=== PATIENT | female | born 1950 | race Caucasian/White ===

== ENCOUNTER → 2016-07-29 | Outpatient (CLI) | payer MEDICARE, OTHER ==
[~2016-07-29] MED LIST: CHOL200012 PO; CHOL5000 PO; CLON0.1T PO; DICL18CA PO; DICL25TA PO; ESCI10TA PO; GADOBUTROL 7.5 MMOL/7.5 ML (GADAVIST) VIAL IV ONE; MELO7.5T46 PO; NORT25CA PO; PANT40SU PO; PANT40TA3 PO; SULF1TAB35 PO; TOPI25TA10 PO
[2016-07-29 10:42] LABS: BLOOD UREA NITROGEN 23 MG/DL (7-18); BUN/CREATININE RATIO 28; CREATININE SERUM 0.81 MG/DL (0.60-1.30); GFR ESTIMATED > 60
--- NOTE | 2016-07-29 12:15 | Diagnostic Imaging Report ---
PROCEDURE: MR imaging of the brain with and without contrast. TECHNIQUE: Multiplanar, multisequence MR imaging of the brain was performed with and without contrast. INDICATION: Memory loss. 7 mL of Gadovist is administered intravenously. Correlation with CT from 06/12/2015, is reviewed. No prior brain MRIs are available for comparison. FINDINGS: There is no diffusion restriction to suggest an acute infarct or other diffusion abnormality. The brain parenchyma demonstrates minimal T2 hyperintense signal in the periventricular white matter likely related to chronic microvascular ischemic changes. No demyelinating plaque, brain edema, or brain mass seen. There is no hydrocephalus. There is no brain parenchymal mass. There is, however, an enhancing lobulated mass seen in the midline along the floor of the brain at the level of the cathy sherri region. The mass the measures 2.4 cm AP x 1.5 cm transverse x 1.3 cm craniocaudally with the posterior extension appearing to extend along the dura suggestive of a dural tail of a meningioma. This has minimal impression upon the adjacent medial inferior aspect of the frontal lobes without brain edema. The pituitary gland is normal in size. No hypothalamic or pineal region mass. The brainstem and cerebellum appear grossly unremarkable. The inner auditory canals and inner ear structures appear unremarkable. Vascular flow-voids along the central intracranial vessels appear unremarkable. IMPRESSION: There is an enhancing lobulated mass in the midline along the floor of the anterior cranial fossa likely related to a meningioma. Dr. Tiehsa Velez is called and informed about the findings at the 12:30 PM. Report was stat faxed to [phone] @ 12:10 PM/jose. Dictated by: Dictated on workstation # [id number]
== END ==
LOC: RAD 10:08
PROVIDERS: ATTEND Psychiatry & Neurology Neurology
DX: D32.9 Benign neoplasm of meninges, unspecified (principal); R41.3 Other amnesia
CPT/HCPCS: 36415; 70553; 82565; 84520

== ENCOUNTER → 2017-04-17 | Outpatient (CLI) | payer MEDICARE, OTHER ==
[~2017-04-17] MED LIST changes: -GADOBUTROL 7.5 MMOL/7.5 ML (GADAVIST) VIAL IV ONE
--- NOTE | 2017-04-17 12:23 | Diagnostic Imaging Report ---
INDICATION: Fall, leg pain. COMPARISON: None. FINDINGS: Four views of the left tibia-fibula demonstrate no fracture or dislocation. Articular surfaces are age-appropriate. There is a well-seated left knee arthroplasty. No ankle fracture seen. IMPRESSION: No fracture or dislocation. Dictated by: Dictated on workstation # [id number]
== END ==
LOC: RAD 11:17
PROVIDERS: ATTEND Nurse Practitioner Family
DX: M79.605 Pain in left leg (principal); W19.XXXA Unspecified fall, initial encounter
CPT/HCPCS: 73590

== ENCOUNTER 2017-10-10 22:19 | Inpatient (IN) | payer MEDICARE, OTHER ==
[~2017-10-10] VITALS: Ht 167.6 cm; Wt 80.8 kg
[2017-10-10] MEDS ORDERED: NS IV 1000 ML 1,000 ML IV SCH (22:32)
--- NOTE | 2017-10-10 22:36 | ED Fall/Injury ---
General Stated Complaint: FALL Source: patient Exam Limitations: no limitations History of Present Illness Date Seen by Provider: Oct 10, 2017 Time Seen by Provider: 22:29 Initial Comments The patient presents to the ER by EMS with a chief complaint that she was out getting her chickens put up for the night and was not paying attention where she was putting her feet and stumbled over a fine. She landed directly on her left elbow but did not strike her head. She's having pain and swelling in her left elbow she has not taken anything for it. She says she crawled around on the ground because she couldn't get up because of the pain and this upset her greatly. She's also been having diarrhea for the past for 5 days without any blood in it. She went saw her doctor and they did not think much of it. She is not having any pain elsewhere nor she having pain in her head or neck. She did not strike her head nor did she lose consciousness. She is not on blood thinners. Allergies and Home Medications Allergies Coded Allergies: bupropion (Unverified Allergy, Unknown, 08/28/15) citalopram (Unverified Allergy, Unknown, 08/28/15) escitalopram (Unverified Allergy, Unknown, 08/28/15) latex (Unverified Allergy, Unknown, RASH, 08/28/15) midazolam (Verified Allergy, Unknown, 02/23/15) tramadol (Unverified Allergy, Unknown, 08/28/15) Home Medications Cholecalciferol (Vitamin D3) 5,000 Unit Capsule, 5,000 UNIT PO DAILY, (Reported) Clonidine HCl 0.1 Mg Tablet, 0.05 MG PO TID, (Reported) Meloxicam 7.5 Mg Tablet, 7.5 MG PO DAILY Prescribed by: TENZIN CHANDLER on 08/28/151727 Pantoprazole Sodium 40 Mg Tablet.dr, 40 MG PO BID, (Reported) Topiramate 25 Mg Tablet, 2 TAB PO HS Prescribed by: TENZIN CHANDLER on 08/28/151727 Patient Home Medication List Home Medication List Reviewed: Yes Review of Systems Constitutional: No chills, No diaphoresis Eyes: Denies Blindness, Denies Blurred Vision Ears, Nose, Mouth, Throat: denies ear pain, denies ear discharge Respiratory: No cough, No short of breath Cardiovascular: No chest pain, No edema Gastrointestinal: No abdominal pain, No constipation; diarrhea; No nausea, No vomiting Genitourinary: No discharge, No dysuria Musculoskeletal: see HPI, joint pain Past Semuzae-Ajgxoi-Etlncg Hx Patient Social History Alcohol Use: Denies Use Recreational Drug Use: No Smoking Status: Never a Smoker Recent Foreign Travel: No Contact w/Someone Who Travel: No Immunizations Up To Date Date of Pneumonia Vaccine: Mar 10, 2013 Seasonal Allergies Seasonal Allergies: No Past Medical History Hysterectomy, Orthopedic, Thyroidectomy 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 0.0oz. 91.038580lj; 33.5 BMI Method:Estimated General Appearance: WD/WN, mild distress HEENT: PERRL/EOMI, normal ENT inspection, TMs normal, pharynx normal, other ( atraumatic head and neck with no Jamil sign or raccoon eyes.) Neck: non-tender, full range of motion, normal inspection Cardiovascular: normal peripheral pulses, regular rate, rhythm Respiratory: chest non-tender, no respiratory distress, no accessory muscle use Peripheral Pulses: 2+ Radial Pulses (R), 2+ Radial Pulses (L) Gastrointestinal: normal bowel sounds, non tender, soft Back: normal inspection, no vertebral tenderness Extremities: normal capillary refill, other (all other extremities normal range of motion and gait however her left elbow has some swelling, deformity and pain to any movement. She does have full range of motion of all 5 of her fingers with normal sensation and capillary refill less than 2 seconds) Neurologic/Psychiatric: lockstitch collar setter II-XII nml as tested, no motor/sensory deficits, alert, normal mood/affect, oriented x 3 Skin: normal color, warm/dry Gurjit Coma Score Best Eye Response: (4) Open Spontaneously Best Verbal Response: (5) Oriented Best Motor Response: (6) Obeys Commands Gurjit Total: 15 Progress/Results/Core Measures Results/Orders Lab Results Laboratory Tests Test 8/3/18 23:15 10/10/17 23:43 Range/Units White Blood Count 9.3 4.3-11.0 10^3/uL Red Blood Count 3.71 L 4.35-5.85 10^6/uL Hemoglobin 11.3 L 11.5-16.0 G/DL Hematocrit 34 L 35-52 % Mean Corpuscular Volume 92 80-99 FL Mean Corpuscular Hemoglobin 30 25-34 PG Mean Corpuscular Hemoglobin Concent 33 32-36 G/DL Red Cell Distribution Width 12.9 10.0-14.5 % Platelet Count 264 130-400 10^3/uL Mean Platelet Volume 10.5 H 7.4-10.4 FL Neutrophils (%) (Auto) 73 42-75 % Lymphocytes (%) (Auto) 16 12-44 % Monocytes (%) (Auto) 7 0-12 % Eosinophils (%) (Auto) 3 0-10 % Basophils (%) (Auto) 1 0-10 % Neutrophils # (Auto) 6.8 1.8-7.8 X 10^3 Lymphocytes # (Auto) 1.5 1.0-4.0 X 10^3 Monocytes # (Auto) 0.7 0.0-1.0 X 10^3 Eosinophils # (Auto) 0.3 0.0-0.3 10^3/uL Basophils # (Auto) 0.1 0.0-0.1 10^3/uL Sodium Level 142 135-145 MMOL/L Potassium Level 3.3 L 3.6-5.0 MMOL/L Chloride Level 112 H 98-107 MMOL/L Carbon Dioxide Level 23 21-32 MMOL/L Anion Gap 7 5-14 MMOL/L Blood Urea Nitrogen 22 H 7-18 MG/DL Creatinine 0.79 0.60-1.30 MG/DL Estimat Glomerular Filtration Rate > 60 BUN/Creatinine Ratio 28 Glucose Level 117 H 70-105 MG/DL Calcium Level 8.8 8.5-10.1 MG/DL Magnesium Level 2.4 1.8-2.4 MG/DL Total Bilirubin 0.2 0.1-1.0 MG/DL Aspartate Amino Transf (AST/SGOT) 13 5-34 U/L Alanine Aminotransferase (ALT/SGPT) 9 0-55 U/L Alkaline Phosphatase 121 40-136 U/L Total Protein 6.2 L 6.4-8.2 GM/DL Albumin 3.9 3.2-4.5 GM/DL My Orders Orders - KEVIN GOULD Hydrocodone/Apap 5/325 Tablet (Lortab 5 (10/10/17 22:45) Ketorolac Injection (Toradol Injection) (10/10/17 22:45) Cbc With Automated Diff (10/10/17 22:32) Comprehensive Metabolic Panel (10/10/17 22:32) Magnesium (10/10/17 22:32) Elbow, Left, 3 Views (10/10/17 22:32) Saline Lock/Iv-Start (10/10/17 22:32) Ns Iv 1000 Ml (Sodium Chloride 0.9%) (10/10/17 22:32) Ua Culture If Indicated (10/10/17 22:36) Ct Head/Cervical Spine Wo (10/10/17 22:36) Medications Given in ED Current Medications Medications Dose Ordered Sig/Hemal Route Start Time Stop Time Status Last Admin Dose Admin Acetaminophen/ Hydrocodone Bitart 0.25 tab ONCE ONCE PO 10/10/17 22:45 10/10/17 22:46 DC 10/10/17 22:43 0.25 TAB Ketorolac Tromethamine 10 mg ONCE ONCE IVP 10/10/17 22:45 10/10/17 22:46 DC 10/10/17 22:43 10 MG Vital Signs/I&O 10/10/17 10/10/17 22:22 22:22 Temp 99.3 99.3 Pulse 91 91 Resp 20 20 B/P (MAP) 152/83 (106) 152/83 (106) Pulse Ox 97 97 O2 Delivery Room Air Room Air Progress Progress Note #1: Time: 23:27 Progress Note After discussing the risks, benefits and alternatives to the workup we will do a CT scan of her head and neck to rule out an intracranial hemorrhage. We will also give her some Toradol and per her wishes one quarter of a tablet of hydrocodone 5 x 3 25 mg. We'll obtain x-ray of her left elbow and since she's having some diarrhea get a urinalysis and basic labs to make sure she's not got dehydration or other worrisome electrolyte derangements. Progress Note #2: Time: 00:00 Progress Note The patient remarks that Dr. Arevalo is following her for her thyroid neck mass and has done an ultrasound. We'll have her follow up outpatient with Dr. River to compare today's imaging to previous imaging and see if there is any need for change in evaluation. Diagnostic Imaging Diagonstic Imaging: CT Plain Films/CT/US/NM/MRI: c-spine, head Comments No acute intracranial hemorrhages, fractures, subluxation or dislocation. CT head shows mild ethmoid sinus opacities otherwise unremarkable. Cervical spondylosis without evidence of cervical fracture or traumatic subluxation. There is a large 3.5 x 3.7 cm cystic mass in the lower neck associated with lower pole left thyroid lobe. Follow-up is recommended. Reviewed: Reviewed by Me Diagonstic Imaging: Xray Plain Films/CT/US/NM/MRI: elbow (l) Comments Dislocation of the proximal radial head and closed fracture with mild comminution of the proximal neck of the ulna with 45 angulation and mild displacement. Poss type III Monteggia. Reviewed: Reviewed by Me Departure Communication (Admissions) Time/Spoke to Admitting Phy: 23:44 Dr Graham: Orthopedic Surgery agrees the patient will require surgery and he like to do it tomorrow morning around 0 900 and ORIF. He is asked that we would notify the team to have this set up. He would like the patient put into a splint and appropriate pain medicines and admitted under his name. Impression Primary Impression: Elbow fracture, left Qualified Codes: S42.402A - Unspecified fracture of lower end of left humerus , initial encounter for closed fracture Additional Impressions: Radial head dislocation Qualified Codes: S53.005A - Unspecified dislocation of left radial head, initial encounter Thyroid cyst Disposition: ADMITTED INPATIENT Condition: Stable Admissions Decision to Admit Reason: Admit from ER (General) Decision to Admit/Date: Oct 10, 2017 Time/Decision to Admit Time: 23:45 Departure-Patient Inst. Referrals: LIDA RIVER MD (PCP/Family) Primary Care Physician Copy Copies To 1: LIDA RIVER MD, TITUS J Oct 10, 2017 22:36
[2017-10-10] MEDS ORDERED: HYDROcodone/APAP 5 MG/325 MG (LORTAB) TAB PO ONE (22:45)
[2017-10-10] MEDS ORDERED: KETOROLAC 30 MG/ML VIAL IVP ONE (22:45)
[2017-10-10 23:25] LABS: BASOPHILS # (AUTO) 0.1 10^3/uL (0.0-0.1); BASOPHILS % (AUTO) 1 % (0-10); EOSINOPHILS # (AUTO) 0.3 10^3/uL (0.0-0.3); EOSINOPHILS % (AUTO) 3 % (0-10); HEMATOCRIT 34 % (35-52); HEMOGLOBIN 11.3 G/DL (11.5-16.0); LYMPHOCYTES # (AUTO) 1.5 X 10^3 (1.0-4.0); LYMPHOCYTES % (AUTO) 16 % (12-44); MEAN CORPUSCULAR HGB CONC 33 G/DL (32-36); MEAN CORPUSCULAR VOLUME 92 FL (80-99); MEAN PLATELET VOLUME 10.5 FL (7.4-10.4); MONOCYTES # (AUTO) 0.7 X 10^3 (0.0-1.0); MONOCYTES % (AUTO) 7 % (0-12); NEUTROPHILS # (AUTO) 6.8 X 10^3 (1.8-7.8); NEUTROPHILS % (AUTO) 73 % (42-75); PLATELET COUNT 264 10^3/uL (130-400); RED BLOOD COUNT 3.71 10^6/uL (4.35-5.85); RED CELL DISTRIBUTION WIDTH 12.9 % (10.0-14.5); WHITE BLOOD COUNT 9.3 10^3/uL (4.3-11.0)
[2017-10-10 23:28] LABS: MEAN CORPUSCULAR HEMOGLOBIN 30 PG (25-34)
[2017-10-10 23:46] LABS: ALANINE AMINOTRANSFERASE 9 U/L (0-55); ALBUMIN 3.9 GM/DL (3.2-4.5); ALKALINE PHOSPHATASE 121 U/L (40-136); BILIRUBIN,TOTAL 0.2 MG/DL (0.1-1.0); BUN/CREATININE RATIO 28; CALCIUM 8.8 MG/DL (8.5-10.1); CARBON DIOXIDE 23 MMOL/L (21-32); CHLORIDE 112 MMOL/L (98-107); CREATININE SERUM 0.79 MG/DL (0.60-1.30); GFR ESTIMATED > 60; GLUCOSE 117 MG/DL (70-105); MAGNESIUM 2.4 MG/DL (1.8-2.4); POTASSIUM 3.3 MMOL/L (3.6-5.0); SODIUM 142 MMOL/L (135-145); TOTAL PROTEIN 6.2 GM/DL (6.4-8.2)
[2017-10-11] VITALS (7 sets, daily range): BP systolic 122–147; BP diastolic 69–89
[2017-10-11 00:16] LABS: BACTERIA,URINE FEW /HPF; BILIRUBIN,URINE NEGATIVE (NEGATIVE); CLARITY,URINE CLEAR; COLOR,URINE YELLOW; GLUCOSE, URINE (UA) NEGATIVE (NEGATIVE); KETONES,URINE NEGATIVE (NEGATIVE); LEUKOCYTE ESTERASE ,URINE 3+ (NEGATIVE); NITRITE,URINE NEGATIVE (NEGATIVE); PH,URINE 6 (5-9); PROTEIN,URINE NEGATIVE (NEGATIVE); UROBILINOGEN,URINE NORMAL (NORMAL)
[2017-10-11] MEDS ORDERED: LIDOCAINE 2% VISCOUS 15 ML UDC PO ONE (00:30)
[2017-10-11] MEDS ORDERED: FAMOTIDINE 20 MG (PEPCID) TABLET PO STA (00:30)
[2017-10-11] MEDS ORDERED: ANTACID SUSP 30 ML UDC (MYLANTA) PO ONE (00:30)
[2017-10-11] MEDS ORDERED: fentaNYL INJECTION 100 MCG/2 ML AMP IVP ONE (00:30)
[2017-10-11] MEDS ORDERED: toPIRamate 25 MG (TOPAMAX) TAB PO ONE (01:45)
[2017-10-11] MEDS ORDERED: cloNIDine 0.1 MG (CATAPRES) TAB PO ONE (01:45)
[2017-10-11] MEDS ORDERED: fentaNYL INJECTION 100 MCG/2 ML AMP IV PRN ×2 (01:45)
[2017-10-11] MEDS ORDERED: KETOROLAC 15 MG/ML VIAL IV PRN (01:45)
[2017-10-11] MEDS ORDERED: HYDROcodone/APAP 5 MG/325 MG (LORTAB) TAB PO PRN (02:00)
[2017-10-11] MEDS ORDERED: CATHETER FLUSH 10 ML SYR IV PRN (02:00)
[2017-10-11] MEDS ORDERED: ONDANSETRON 4 MG/2 ML (SDV) Z0FRAN IV PRN ×2 (02:00→09:15)
[2017-10-11] MEDS: POTASSIUM CL 10 MEQ/50 ML IVPB (PRE-MIX) IV SCH ×2 (02:11→03:36)
[2017-10-11] MEDS ORDERED: NS (IVPB) 50 ML ONE (02:18)
[2017-10-11] MEDS: CATHETER FLUSH 10 ML SYR IV SCH ×3 (05:14→20:18)
[2017-10-11 06:09] LABS: BASOPHILS % (AUTO) 0 % (0-10); EOSINOPHILS # (AUTO) 0.1 10^3/uL (0.0-0.3); EOSINOPHILS % (AUTO) 1 % (0-10); HEMATOCRIT 32 % (35-52); HEMOGLOBIN 10.5 G/DL (11.5-16.0); LYMPHOCYTES # (AUTO) 1.9 X 10^3 (1.0-4.0); LYMPHOCYTES % (AUTO) 23 % (12-44); MEAN CORPUSCULAR HEMOGLOBIN 31 PG (25-34); MEAN CORPUSCULAR HGB CONC 33 G/DL (32-36); MEAN CORPUSCULAR VOLUME 92 FL (80-99); MEAN PLATELET VOLUME 10.9 FL (7.4-10.4); MONOCYTES # (AUTO) 0.7 X 10^3 (0.0-1.0); MONOCYTES % (AUTO) 9 % (0-12); NEUTROPHILS # (AUTO) 5.5 X 10^3 (1.8-7.8); NEUTROPHILS % (AUTO) 68 % (42-75); PLATELET COUNT 230 10^3/uL (130-400); RED BLOOD COUNT 3.44 10^6/uL (4.35-5.85); RED CELL DISTRIBUTION WIDTH 12.7 % (10.0-14.5); WHITE BLOOD COUNT 8.2 10^3/uL (4.3-11.0)
[2017-10-11 06:28] LABS: BUN/CREATININE RATIO 25; CALCIUM 8.5 MG/DL (8.5-10.1); CARBON DIOXIDE 22 MMOL/L (21-32); CHLORIDE 116 MMOL/L (98-107); CREATININE SERUM 0.65 MG/DL (0.60-1.30); GFR ESTIMATED > 60; GLUCOSE 103 MG/DL (70-105); POTASSIUM 3.7 MMOL/L (3.6-5.0); SODIUM 143 MMOL/L (135-145)
[2017-10-11] MEDS ORDERED: ROCURONIUM 10 MG/ML 5 ML SYRINGE IV ONE (08:03)
[2017-10-11] MEDS ORDERED: ONDANSETRON 4 MG/2 ML (SDV) Z0FRAN ONE (08:03)
[2017-10-11] MEDS ORDERED: proPOfol 200 MG/20 ML (DIPRIVAN) VIAL IV ONE (08:03)
[2017-10-11] MEDS ORDERED: SEVOFLURANE (ULTANE) 15 ML INHAL SOLN ONE ×3 (08:03→10:22)
[2017-10-11] MEDS ORDERED: DEXAMETHASONE 10 MG/ML (DECADRON) 1 ML VIAL ONE (08:03)
[2017-10-11] MEDS ORDERED: MIDAZOLAM 10 MG/2 ML (VERSED) VIAL ONE (08:04)
[2017-10-11] MEDS ORDERED: fentaNYL INJECTION 100 MCG/2 ML AMP ONE ×2 (08:04→09:36)
[2017-10-11] MEDS ORDERED: MIDAZOLAM 2 MG/2 ML (VERSED) VIAL ONE (08:05)
[2017-10-11] MEDS ORDERED: GENTAMICIN 40 MG/ML 2 ML INJ SDV ONE (08:13)
--- NOTE | 2017-10-11 08:27 | Diagnostic Imaging Report ---
INDICATION: Fall with elbow pain. COMPARISON: None available. TECHNIQUE: 3 views of the left elbow were obtained. FINDINGS: There is a transverse fracture of the proximal ulnar diaphysis. The fracture appears simple in nature with dorsal angulation of the proximal fracture fragment tip. There is no medial or lateral displacement of the fracture fragment. No intra-articular extension. The radial head is dislocated inferior and lateral relative to the capitellum. IMPRESSION: 1. Fracture-dislocation of the elbow. Dictated by: Dictated on workstation # [id number]
--- NOTE | 2017-10-11 08:40 | Diagnostic Imaging Report ---
PROCEDURE: CT head and CT cervical spine without contrast. TECHNIQUE: Multiple contiguous axial images were obtained through the brain and cervical spine without the use of intravenous contrast. Sagittal and coronal reformations through the cervical spine were then performed. INDICATION: Fall. Head and neck pain. COMPARISON: CT head of 06/12/2015 FINDINGS: Head: No hyperdense hemorrhage or space-occupying mass. No hydrocephalus or midline shift. No evidence of territorial infarct. Basilar cisterns are patent. No focal scalp swelling. No skull fracture. Patchy mucosal thickening of the ethmoid air cells. Other paranasal sinuses and mastoid air cells are clear. Cervical spine: No acute fracture or traumatic malalignment. Multilevel cervical spondylosis is most advanced at C4-C5 with posterior disc osteophyte complex causing mild spinal stenosis. There are varying degrees of neuroforaminal narrowing due to facet and uncovertebral joint hypertrophy. Airway is patent. No cervical lymphadenopathy. There is a cystic mass in the left thyroid measuring 3.9 x 2.6 cm. IMPRESSION: 1. No acute intracranial process. 2. No acute fracture or traumatic malalignment of the cervical spine. 3. Incidental note of cystic thyroid mass on the left. If not previously performed, thyroid ultrasound is recommended for further characterization on a nonemergent basis. 4. Findings are in agreement with the preliminary report. Dictated by: Dictated on workstation # [id number]
[2017-10-11] MEDS ORDERED: CHOL20002 PO (08:51)
[2017-10-11] MEDS ORDERED: TOPI50TA13 PO (08:51)
[2017-10-11] MEDS ORDERED: CYAN50008 PO (08:53)
[2017-10-11] MEDS ORDERED: SERT50TA9 PO (08:54)
[2017-10-11] MEDS ORDERED: HYDROmorphone 1 MG/ML (DILAUDID) 1 ML SYRINGE ONE (08:59)
--- NOTE | 2017-10-11 09:09 | History & Physicial ---
History of Present Illness History of Present Illness Reason for visit/HPI Chief complaint- left elbow pain HPI- This 67 year old female fell last night feeding her chickens and hurt the left elbow. She was seen in the ER and diagnosed with a displaced ulna fracture and dislocation of the radial head. She denies any other injury. Date of Admission Oct 11, 2017 at 00:00 Date Seen by Provider: Oct 11, 2017 Time Seen by Provider: 09:05 I consulted on this patient on 10/11/17 09:03 Attending Physician Marielle River MD Admitting Physician Marielle River MD Consult Allergies and Home Medications Allergies Coded Allergies: bupropion (Verified Allergy, Unknown, 10/11/17) citalopram (Verified Allergy, Unknown, 10/11/17) escitalopram (Verified Allergy, Unknown, 10/11/17) latex (Verified Allergy, Unknown, RASH, 10/11/17) midazolam (Verified Allergy, Unknown, 10/11/17) tramadol (Verified Allergy, Unknown, 10/11/17) Home Medications Cholecalciferol (Vitamin D3) 2,000 Unit Capsule, 2,000 UNIT PO DAILY, (Reported) Clonidine HCl 0.1 Mg Tablet, 0.05 MG PO TID, (Reported) Cyanocobalamin (Vitamin B-12) 5,000 Mcg Tab.rapdis, 5,000 MCG PO DAILY, ( Reported) Meloxicam 7.5 Mg Tablet, 7.5 MG PO DAILY Prescribed by: TENZIN CHANDLER on 08/28/15 1728 Pantoprazole Sodium 40 Mg Tablet.dr, 40 MG PO BID, (Reported) Sertraline HCl 50 Mg Tablet, 75 MG PO DAILY, (Reported) Topiramate 50 Mg Tablet, 50 MG PO BID, (Reported) Patient Home Medication List Home Medication List Reviewed: Yes Past Xhnuppr-Jtnoxc-Lxyqcl Hx Patient Social History Employed/Student: retired Alcohol Use: Denies Use Recreational Drug Use: No Smoking Status: Never a Smoker 2nd Hand Smoke Exposure: No Physical Abuse Screen: No Sexual Abuse: No Recent Foreign Travel: No Contact w/other who traveled: No Recent Hopitalizations: No Recent Infectious Disease Expo: No Immunizations Up To Date Date of Pneumonia Vaccine: Mar 10, 2013 Seasonal Allergies Seasonal Allergies: No Surgeries Yes Hysterectomy, Orthopedic, Thyroidectomy Respiratory No Cardiovascular No Neurological Yes (TREMORS) Reproductive System Hx 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: No Sexually Transmitted Disease: No HIV/AIDS: No 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 Genitourinary No Gastrointestinal Yes Gastroesophageal Reflux, Hiatal Hernia Musculoskeletal Yes Arthritis Endocrine History of Endocrine Disorders: Yes (SURGICAL THYROIDECTOMY PARTIAL) Endocrine Disorders: Hyperthyroidism HEENT History of HEENT Disorders: No Cancer No Psychosocial History of Psychiatric Problem: Yes Behavioral Health Disorders: Depression Integumentary History of Skin or Integumenta: No Blood Transfusions Adverse Reaction to a Blood Tr: No Family Medical History Significant Family History: No Pertinent Family Hx Family Hx: Abdominal aortic aneurysm 19 FATHER G8 BROTHER Alzheimer's disease 19 MOTHER Cardiovascular disease 19 FATHER 19 MOTHER G8 BROTHER Congenital disease G8 BROTHER Dementia 19 MOTHER Constitutional: no symptoms reported EENTM: no symptoms reported Respiratory: no symptoms reported Cardiovascular: no symptoms reported Gastrointestinal: no symptoms reported Genitourinary: no symptoms reported Physical Exam Vital Signs Vital Signs - First Documented Capillary Refill : Less Than 3 SecondsLess Than 3 Seconds Height, Weight, BMI Height: 5'6.00" Weight: 178lbs. 2.0oz. 80.308329en; 28.8 BMI Method:Estimated General Appearance: No Apparent Distress, WD/WN Eyes: Bilateral Eye Normal Inspection, Bilateral Eye PERRL, Bilateral Eye EOMI HEENT: PERRL/EOMI, Pharynx Normal Neck: Full Range of Motion, Non Tender Respiratory: Chest Non Tender, Lungs Clear Cardiovascular: Regular Rate, Rhythm Gastrointestinal: Normal Bowel Sounds Rectal: Deferred Back: Normal Inspection, No CVA Tenderness, No Vertebral Tenderness Extremity: Normal Capillary Refill, No Pedal Edema, Other (Left elbow swollen and tender but no deformity) Neurologic/Psychiatric: Alert, Oriented x3, No Motor/Sensory Deficits Skin: Normal Color, Warm/Dry Lymphatic: No Adenopathy Assessment/Plan Admission Diagnosis left radiocapitallar dislocation left displaced ulna fracture PLAN-- to the OR for ORIF of the elbow with indicated procedures. Admission Status: Observation Clinical Quality Measures DVT/VTE Risk/Contraindication: Risk Factor Score Per Nursin RFS Level Per Nursing on Admit: 3=High DIANE TEJADA MD Oct 11, 2017 09:09
[2017-10-11] MEDS ORDERED: METOCLOPRAMIDE INJ 10 MG/2 ML (REGLAN) IV PRN (09:15)
[2017-10-11] MEDS ORDERED: ceFAZolin 2 GM IV Premixed 50 ML IV SCH (09:15)
[2017-10-11] MEDS ORDERED: HYDROcodone/APAP 10 MG/325 MG (LORTAB) TAB PO PRN (09:15)
[2017-10-11] MEDS ORDERED: diphenhydrAMINE 25 MG TAB (BENADRYL) PO PRN (09:15)
--- NOTE | 2017-10-11 09:19 | Discharge Inst-Surgical ---
Discharge Inst-Surgical Depart Medication/Instructions New, Converted or Re-Newed RX: RX on Chart Consults/Follow Up Goal/Follow Up Appt.: Follow up with Dr. Graham in 10-[address] in [place], [place] [phone] Patient Instructions: Keep splint and dressing on until appointment Keep splint and dressing dry. Cover with bag to shower Take pain meds as prescribed Activity Activity as Tolerated: No no lifing left arm Activity Instructions: Avoid Pulling & Pushing Elevate Extremity: Elevate Above Heart Driving Instructions: You May Drive No Driving When on Pain Meds: Yes Incentive Spirometry: Every 2 Hours While Awake Avoid ALL Tobacco Products: Smoking of Any Kind Diet Discharge Diet: No Restrictions Diet for 24 Hours: No Alcohol Diet After 24 Hours: Clear Liquid if Nauseous Return to The Hospital For: severe pain not controlled with medications Symptoms to Report to Physicia: Extremity Discoloration, Numbness/Tingling, Swelling Increased, Bleeding Excessive, Pain Increased, Fever Over 101 Degrees F If Any Problems/Questions/Issu: Contact Your Physician Skin/Wound Care Infection Signs and Symptoms: Increased Redness, Foul Odor of Wound, Increased Drainage, Skin Itchy or Has a Rash, Increased Swelling, Temperature Above 101 F Bathing Instructions: Shower Operative Area Clean and Dry: Do Not Remove Bandage, Keep Incision Clean/Dry Ice Pack: Ice On and Off Site DIANE GRAHAM MD Oct 11, 2017 09:19
[2017-10-11] MEDS ORDERED: ceFAZolin 1,000 MG (ANCEF) VIAL ONE (09:20)
[2017-10-11] MEDS ORDERED: NEOSTIGMINE 1 MG/ML 5 ML SYRINGE ONE (09:57)
[2017-10-11] MEDS ORDERED: GLYCOPYRROLATE 0.2 MG/ML (ROBINUL) 2 ML VIAL ONE (09:57)
[2017-10-11] MEDS ORDERED: ceFAZolin 2 GM IV Premixed 50 ML IV ONE (10:00)
[2017-10-11] MEDS ORDERED: LABETALOL HCL 20 MG/4 ML VIAL ONE (10:10)
--- NOTE | 2017-10-11 10:10 | Progress Note-Post Operative ---
Post-Operative Progess Note Surgeon (s)/Personnel Clerk (s) Surgeon DIANE TEJADA MD Personnel Clerk: JOCELYNE CERVANTES PA-C Pre-Operative Diagnosis displaced left ulna shaft fracture. left radiocapitellar dislocation Post-Operative Diagnosis same Procedure & Operative Findings Date of Procedure 10/11/17 Procedure Performed/Findings ORIF left ulna closed reduction left radiocapitelllar joint Anesthesia Type general Estimated Blood Loss Estimated blood loss (mL): 10 ml Specimens/Packing Specimens Removed none Packing: none IDANE TEJADA MD Oct 11, 2017 10:10
--- NOTE | 2017-10-11 11:06 | Diagnostic Imaging Report ---
Indication: ORIF of the left elbow. Impression: 17 seconds of fluoroscopy was used for plate and screw placement across the fracture of the proximal ulna. Images show satisfactory alignment. Dictated by: Dictated on workstation # [id number]
[2017-10-11] MEDS ORDERED: ROPIVACAINE 5MG/ML 30ML VIAL ONE (11:17)
[2017-10-11] MEDS: HYDROmorphone 1 MG/ML (DILAUDID) 1 ML SYRINGE IV PRN ×2 (11:22→11:55)
--- OUTSIDE RECORDS SUMMARY | 2017-10-11 11:43 | XMS REPORT | Clinical Summary ---
Author Author [facility] Organization [facility] Address Unknown Phone Unavailable Care Team Providers Care Rehabilitation Counsellor Name Role Phone Tiesha Velez Unavailable Marielle River MD PCP Source Comments Some departments are not documenting in the electronic medical record. If you do not see the information that you expected, contact Release of Information in the Health Information Management department at [phone] for further assistance in locating additional records.[facility] Allergies Active Allergy Reactions Severity Noted Date Comments Citalopram AGITATION Low 08/16/2015 Escitalopram HALLUCINATIONS, MENTAL High 08/16/2015 STATUS CHANGES Red Dye SEE COMMENTS Low 07/22/2016 increase symptoms of her Torrettes. Tramadol MENTAL STATUS CHANGES Medium 08/16/2015 Midazolam SEE COMMENTS Low 03/11/2015 Memory Loss Bupropion MENTAL STATUS CHANGES Medium 09/12/2015 Current Medications Prescription Sig. Disp. Refills Start End Date Status Date ibuprofen (MOTRIN) 800 mg Take 800 mg by mouth Active tablet every 6 hours as needed for Pain. pantoprazole DR Take 40 mg by mouth Active (PROTONIX) 40 mg tablet daily. ERGOCALCIFEROL (VITAMIN Take by mouth. Active D2) (VITAMIN D PO) HYDROcodone/acetaminophen Take 1 Tab by mouth every Active (+) (LORTAB, NORCO) 6 hours as needed for 10/325 mg tablet Pain meloxicam (MOBIC) 7.5 mg Take 7.5 mg by mouth Active tablet daily. polysaccharide iron Take 150 mg by mouth Active complex (FERREX 150) 150 twice daily. mg iron capsule ALPRAZolam (XANAX) 0.25 Take 1 Tab by mouth twice 15 Tab 3 01/18/20 Active mg tabletIndications: daily as needed for 16 anxiety Anxiety. Indications: ANXIETY SERTRALINE HCL (ZOLOFT Take by mouth daily. Active PO) topiramate (TOPAMAX) 50 Take 1 Tab by mouth twice 180 Tab 3 07/23/19 Active mg tabletIndications: daily. 17 Tourette syndrome cloNIDine (CATAPRESS) 0.1 Take 0.05mg three time a 135 Tab 3 07/23/19 Active mg tabletIndications: day 17 Tourette syndrome Active Problems Problem Noted Date Loss of consciousness (HCC) 06/13/2015 Confusion 06/13/2015 Tourette syndrome 04/04/2015 Anxiety 04/04/2015 Meningioma (HCC) 04/04/2015 Family History Medical History Relation Name Comments COPD Brother Aneurysm Father Hypertension Father Tremor Father Hypertension Maternal Grandfather Hypertension Maternal Grandmother Dementia Mother Hypertension Mother Hypertension Paternal Grandfather Hypertension Paternal Grandmother Stroke Paternal Grandmother Relation Name Status Comments Brother Father Maternal Grandfather Maternal Grandmother Mother Paternal Grandfather Paternal Grandmother Social History Tobacco Use Types Packs/Day Years Used Date Former Smoker Cigarettes Smokeless Tobacco: Never Used Sex Assigned at Date Recorded Not on file Last Filed Vital Signs Vital Sign Reading Time Taken Blood Pressure 130/81 08/08/2016 2:04 PM CDT Pulse 80 08/08/2016 2:04 PM CDT Temperature 36.4 C (97.5 F) 09/12/2015 10:09 AM CDT Respiratory Rate - - Oxygen Saturation 100% 07/22/2016 10:48 AM CDT Inhaled Oxygen - - Concentration Weight 77.1 kg (170 lb) 08/08/2016 2:04 PM CDT Height 166.4 cm (5' 5.52") 07/22/2016 10:48 AM CDT Body Mass Index 27.85 08/08/2016 2:04 PM CDT Plan of Treatment Health Maintenance Due Date Last Done Comments HEPATITIS C SCREENING 1950 PHYSICAL (COMPREHENSIVE) 1957 EXAM PERTUSSIS VACCINE 1961 TETANUS VACCINE 1967 BREAST CANCER SCREENING 1990 COLORECTAL CANCER 01/14/2000 SCREENING SHINGLES RECOMBINANT 01/14/2000 VACCINE (1 of 2) OSTEOPOROSIS SCREENING 2015 PNEUMONIA (PCV13/PPSV23) 2015 VACCINES (1 of 2 - PCV13) INFLUENZA VACCINE 12/08/2017 Results Not on filefrom Last 3 Months
--- OUTSIDE RECORDS SUMMARY | 2017-10-11 11:46 | XMS REPORT | Continuity of Care Document ---
Author Author [facility] Organization [facility] Address Unknown Phone Unavailable Allergies Active Description Code Type Severity Reaction Onset Reported/Identified Relationship to Patient Clinical Status Yes midazolam [id number] Drug Allergy Unknown N/A 02/23/2015 Yes bupropion [id number] Drug Allergy Unknown N/A 08/28/2015 Yes citalopram [id number] Drug Allergy Unknown N/A 08/28/2015 Yes escitalopram [id number] Drug Allergy Unknown N/A 08/28/2015 Yes latex [id number] Drug Allergy Unknown RASH 08/28/2015 Yes tramadol [id number] Drug Allergy Unknown N/A 08/28/2015 Medications There is no data. Problems Date Dx Coded Attending Type Code Diagnosis Diagnosed By 02/07/1332 KEVIN SHANKAR, ZACHARY Amezcua Ot R13.10 01/09/2015 Ot 722.52 01/09/2015 ROBIN SHANKAR, EDWINA Mendez Ot 715.36 02/13/2015 SHRUTI RANDA Drea ASSOCIATE PROFESSOR OF MUSIC Ot M17.11 02/15/2015 CHRISTINACARMELITABRIELLE RANDA Shepard ASSOCIATE PROFESSOR OF MUSIC Ot R53.83 02/17/2015 Ot R53.83 02/23/2015 JOSÉ MANUEL DREW ASSOCIATE PROFESSOR OF MUSIC Ot F98.5 02/23/2015 JOSÉ MANUEL DREW ASSOCIATE PROFESSOR OF MUSIC Ot N39.0 02/23/2015 JOSÉ MANUEL DREW ASSOCIATE PROFESSOR OF MUSIC Ot R25.1 02/27/2015 CHRISTINACARMELITABRIELLE RANDA Shepard ASSOCIATE PROFESSOR OF MUSIC Ot E04.1 02/27/2015 CHRISTINACARMELITABRIELLE RANDA Shepard ASSOCIATE PROFESSOR OF MUSIC Ot R25.1 03/08/2015 CHRISTINACARMELITABRIELLE RANDA Shepard ASSOCIATE PROFESSOR OF MUSIC Ot R53.83 03/17/2015 CHRISTINACARMELITABRIELLE RANDA Shepard ASSOCIATE PROFESSOR OF MUSIC Ot E04.1 03/17/2015 SHRUTI RANDA Shepard ASSOCIATE PROFESSOR OF MUSIC Ot R25.1 04/04/2015 KEVIN SHANKAR, ZACHARY Amezcua Ot R13.10 04/11/2015 RANDA BAHENA ASSOCIATE PROFESSOR OF MUSIC Ot E04.1 04/11/2015 RANDA BAHENA ASSOCIATE PROFESSOR OF MUSIC Ot R25.1 06/05/2015 RANDA BAHENA ASSOCIATE PROFESSOR OF MUSIC Ot M17.11 06/13/2015 PAUL ELLISON MD Ot E04.1 NONTOXIC SINGLE THYROID NODULE 06/13/2015 PAUL ELLISON MD Ot F95.9 TIC DISORDER, UNSPECIFIED 06/13/2015 PAUL ELLISON MD Ot M17.9 OSTEOARTHRITIS OF KNEE, UNSPECIFIED 06/13/2015 PAUL ELLISON MD Ot R41.82 ALTERED MENTAL STATUS, UNSPECIFIED 08/29/2015 BERLIN SHANKAR, LIDA Kline Ot D50.9 IRON DEFICIENCY ANEMIA, UNSPECIFIED 08/31/2015 BERLIN SHANKAR, LIDA A Ot D50.9 IRON DEFICIENCY ANEMIA, UNSPECIFIED 08/31/2015 BERLIN SHANKAR, LIDA A Ot D50.9 IRON DEFICIENCY ANEMIA, UNSPECIFIED 09/04/2015 BERLIN SHANKAR, LIDA A Ot D50.9 IRON DEFICIENCY ANEMIA, UNSPECIFIED 09/07/2015 BERLIN SHANKAR, LIDA A Ot D50.9 IRON DEFICIENCY ANEMIA, UNSPECIFIED 09/12/2015 BERLIN SHANKAR, LIDA A Ot D50.9 IRON DEFICIENCY ANEMIA, UNSPECIFIED 09/12/2015 BERLIN SHANKAR, LIDA A Ot D50.9 IRON DEFICIENCY ANEMIA, UNSPECIFIED 09/12/2015 BERLIN SHANKAR, LIDA A Ot D50.9 IRON DEFICIENCY ANEMIA, UNSPECIFIED 10/20/2015 BERLIN SHANKAR, LIDA A Ot D50.9 IRON DEFICIENCY ANEMIA, UNSPECIFIED 11/26/2015 BERLIN SHANKAR, LIDA A Ot D50.9 IRON DEFICIENCY ANEMIA, UNSPECIFIED 12/26/2015 BRAN GUTIÉRREZ ASSOCIATE PROFESSOR OF MUSIC Ot M54.2 CERVICALGIA 12/26/2015 BRAN GUTIÉRREZ ASSOCIATE PROFESSOR OF MUSIC Ot R20.0 ANESTHESIA OF SKIN 01/16/2016 BRAN GUTIÉRREZ ASSOCIATE PROFESSOR OF MUSIC Ot M54.2 CERVICALGIA 01/16/2016 BRAN GUTIÉRREZ ASSOCIATE PROFESSOR OF MUSIC Ot R20.0 ANESTHESIA OF SKIN 08/21/2016 JUAN SHANKAR, MORENO Ot 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, UNSPECIFIED 08/21/2016 JUAN SHANKAR, MORENO Ot R41.3 OTHER AMNESIA 04/18/2017 BRAN GUTIÉRREZ M ASSOCIATE PROFESSOR OF MUSIC Ot M79.605 PAIN IN LEFT LEG 04/18/2017 BRAN GUTIÉRREZ LACI Ot W19.XXXA UNSPECIFIED FALL, INITIAL ENCOUNTER 05/13/2017 BRAN GUTIÉRREZ LACI Ot M79.605 PAIN IN LEFT LEG 05/13/2017 BRAN GUTIÉRREZ LACI Ot W19.XXXA UNSPECIFIED FALL, INITIAL ENCOUNTER Procedures There is no data. Results Test Result Range [id number] - 07/29/16 10:23 Serum or plasma urea nitrogen measurement (mass/volume) 23 mg/dL 7-18 Serum or plasma creatinine measurement (mass/volume) 0.81 mg/dL 0.60-1.30 Serum or plasma urea nitrogen/creatinine mass ratio 28 NRG Serum or plasma creatinine measurement with calculation of estimated glomerular filtration rate > NRG Encounters ACCT No. Visit Date/Time Discharge Status Pt. Type Provider Facility Loc./Unit Complaint [id number] 04/17/2017 11:17:00 04/17/2017 23:59:59 CLS Outpatient BRAN GUTIÉRREZ APRN [facility] RAD M79.605 [id number] 07/29/2016 10:08:00 07/29/2016 23:59:59 CLS Outpatient JUAN SHANKAR, MORENO [facility] RAD D32.9 [place] [id number] 12/25/2015 14:17:00 12/25/2015 23:59:59 CLS Outpatient BRAN GUTIÉRREZ APRN [facility] RAD NECK PAIN,ARM PAIN/ NUMBNESS [id number] 11/27/2015 00:09:00 11/27/2015 23:59:59 CLS Preadmit LIDA SLADE MD [facility] ANEMIA, IRON DEFICIENCY [id number] 09/12/2015 16:20:00 11/26/2015 00:01:00 DIS Outpatient LIDA SLADE MD [facility] ANEMIA, IRON DEFICIENCY [id number] 06/12/2015 09:40:00 06/13/2015 09:30:00 DIS Inpatient PAUL ELLISON MD [facility] [id number] 03/14/2015 13:05:00 04/04/2015 13:33:00 DIS Outpatient KEVIN SHANKAR, ZACHARY Amezcua [facility] REHAB [id number] 03/14/2015 11:36:00 03/14/2015 23:59:59 CLS Outpatient RANDA BAHENA ASSOCIATE PROFESSOR OF MUSIC [facility] CARD [id number] 02/25/2015 10:04:00 02/25/2015 23:59:59 CLS Outpatient RANDA BAHENA ASSOCIATE PROFESSOR OF MUSIC [facility] LAB [id number] 02/23/2015 10:27:00 02/23/2015 11:55:00 DIS Emergency JOSÉ MANUEL DREW ASSOCIATE PROFESSOR OF MUSIC [facility] ER [id number] 01/24/2015 12:53:00 01/24/2015 23:59:59 CLS Outpatient RANDA BAHENA APRN [facility] CARD [id number] 01/09/2015 09:34:00 01/09/2015 23:59:59 CLS Outpatient RANDA BAHENA ASSOCIATE PROFESSOR OF MUSIC [facility] RAD [id number] 04/30/2013 08:55:00 04/30/2013 23:59:59 CLS Outpatient ROBIN SHANKAR, EDWINA Mendez [facility] RAD [id number] 02/23/2015 10:40:00 Document Registration [id number] 01/26/2015 09:48:00 Document Registration [id number] 03/24/2012 12:28:00 Document Registration [id number] 01/27/2017 23:41:24 01/27/2017 23:59:59 CLS Outpatient [id number] 04/05/2017 11:45:00 04/05/2017 13:20:00 DIS Emergency DIANE VARGAS
--- OUTSIDE RECORDS SUMMARY | 2017-10-11 11:46 | XMS REPORT | CCD ---
Author Author Virginia Shah MD, [facility] Address [address] [place] [address] Phone Care Team Providers Care Punch Out Crew Member Name Role Phone PP Unavailable CCM Unavailable Summary Purpose Interface Exchange Insurance Providers Payer name Policy type / Coverage type Covered alliance party ID Effective Begin Date Effective End Date WPS Medicare Part B Medicare Part B [id number] Unknown Unknown [employer] [place] Medicare Part B [id number] Unknown Unknown Family history Brother Diagnosis Age At Onset Hyperlipidemia Unknown copd Unknown Arthritis Unknown Heart Attack Unknown defect Unknown Mother Diagnosis Age At Onset Dementia Unknown Father Diagnosis Age At Onset brain aneursym Unknown Hypertension Unknown Aneursym Unknown Stroke Unknown Grandmother Diagnosis Age At Onset Stroke Unknown Social History Social History Element Codes Description Effective Dates Marital status Unknown Yves 05/02/2016 Number of children Unknown 2 07/03/2015 Employment Unknown 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 07/03/[address]: 9901381 Quit less than 5 years ago 07/03/[address]: 128644284 Never drinks alcohol 07/03/2015 Allergies, Adverse Reactions, Alerts Allergies, Adverse Reactions, Alerts data not found Past Medical History Illness Codes Condition Status Onset Date Resolved Date Mild cognitive impairment, so stated ICD-9: 331.83 ICD-10: G31.84 Active 01/14/2017 Unknown Vascular dementia without behavioral disturbance ICD-9: 290.40 ICD-10: F01.50 Active 03/27/2017 Unknown Acute laryngopharyngitis ICD-9: 465.0 ICD-10: J06.0 Active 02/24/2017 Unknown Other allergic rhinitis ICD-9: 477.8 ICD-10: J30.89 Active 05/13/2016 Unknown Generalized anxiety disorder ICD-9: 308.0 ICD-10: F41.1 Active 01/21/2016 Unknown Major depressive disorder, single episode, moderate ICD-9: 296.22 ICD-10: F32.1 Active 08/07/2015 Unknown Tourette's disorder ICD-9: 307.23 ICD-10: F95.2 Active 10/01/2015 Unknown Encounter for immunization ICD-9: V04.81 ICD-10: Z23 Active 01/10/2017 Unknown Other chest pain ICD-9 : 786.52 ICD-10: R07.89 Active 09/23/2016 Unknown Other muscle spasm ICD -9: 728.85 ICD-10: M62.838 Active 09/23/2016 Unknown Pain in left shoulder ICD-9: 719.41 ICD-10: M25.512 Active 09/23/2016 Unknown Other hemorrhoids ICD- 9: 455.2 ICD-10: K64.8 Active 06/26/2016 Unknown Slow transit constipation ICD-9: 564.01 ICD-10: K59.01 Active 06/26/2016 Unknown Encounter for general adult medical examination with abnormal findings ICD-9: V70.0 ICD-10: Z00.01 Active 06/07/2016 Unknown Candidiasis of vulva and vagina ICD-9: 112.1 ICD-10: B37.3 Active 06/06/2016 Unknown Cervicalgia ICD-9: 723.1 ICD-10: M54.2 Active 12/24/2015 Unknown Essential (primary) hypertension ICD-9: 401.9 ICD-10: I10 Active 08/16/2015 Unknown Other iron deficiency anemias ICD-9: 280.1 ICD-10: D50.8 Active 10/01/2015 Unknown Rash and other nonspecific skin eruption ICD-9: 782.1 ICD-10: R21 Active 04/16/2016 Unknown Encounter for follow-up examination after completed treatment for conditions other than malignant neoplasm ICD-9: V67.9 ICD-10: Z09 Active 04/05/2016 Unknown Other specified anemias ICD-9: 285.8 ICD-10: D64.89 Active 04/05/2016 Unknown Pain in right knee ICD -9: 719.46 ICD-10: M25.561 Active 02/28/2016 Unknown Dysuria ICD-9: 788.1 ICD-10: R30.0 Active 01/21/2016 Unknown Other fatigue ICD-9: 780.79 ICD-10: R53.83 Active 01/21/2016 Unknown Pain in right foot ICD -9: 729.5 ICD-10: M79.671 Active 12/24/2015 Unknown Iron deficiency anemia, unspecified ICD-9: 280.9 ICD-10: D50.9 Active 08/16/2015 Unknown Pain in left knee ICD- 9: 719.46 ICD-10: M25.562 Active 07/16/2015 Unknown Bilateral primary osteoarthritis of knee ICD-9: 715.96 ICD-10: M17.0 Active 07/02/2015 Unknown Body mass index (BMI) 32.0-32.9, adult ICD-9: V85.32 ICD-10: Z68.32 Active 07/02/2015 Unknown Problems Condition Codes Effective Dates Condition Status Mild cognitive impairment, so stated ICD-9: 331.83 ICD-10: G31.84 01/14/2017 Active Vascular dementia without behavioral disturbance ICD-9: 290.40 ICD-10: F01.50 03/27/2017 Active Acute laryngopharyngitis ICD-9: 465.0 ICD-10: J06.0 02/24/2017 Active Other allergic rhinitis ICD-9: 477.8 ICD-10: J30.89 05/13/2016 Active Generalized anxiety disorder ICD-9: 308.0 ICD-10: F41.1 01/21/2016 Active Major depressive disorder, single episode, moderate ICD-9: 296.22 ICD-10: F32.1 08/07/2015 Active Tourette's disorder ICD-9: 307.23 ICD-10: F95.2 10/01/2015 Active Encounter for immunization ICD-9: V04.81 ICD-10: Z23 01/10/2017 Active Other chest pain ICD-9 : 786.52 ICD-10: R07.89 09/23/2016 Active Other muscle spasm ICD -9: 728.85 ICD-10: M62.838 09/23/2016 Active Pain in left shoulder ICD-9: 719.41 ICD-10: M25.512 09/23/2016 Active Other hemorrhoids ICD- 9: 455.2 ICD-10: K64.8 06/26/2016 Active Slow transit constipation ICD-9: 564.01 ICD-10: K59.01 06/26/2016 Active Encounter for general adult medical examination with abnormal findings ICD-9: V70.0 ICD-10: Z00.01 06/07/2016 Active Candidiasis of vulva and vagina ICD-9: 112.1 ICD-10: B37.3 06/06/2016 Active Cervicalgia ICD-9: 723.1 ICD-10: M54.2 12/24/2015 Active Essential (primary) hypertension ICD-9: 401.9 ICD-10: I10 08/16/2015 Active Other iron deficiency anemias ICD-9: 280.1 ICD-10: D50.8 10/01/2015 Active Rash and other nonspecific skin eruption ICD-9: 782.1 ICD-10: R21 04/16/2016 Active Encounter for follow-up examination after completed treatment for conditions other than malignant neoplasm ICD-9: V67.9 ICD-10: Z09 04/05/2016 Active Other specified anemias ICD-9: 285.8 ICD-10: D64.89 04/05/2016 Active Pain in right knee ICD -9: 719.46 ICD-10: M25.561 02/28/2016 Active Dysuria ICD-9: 788.1 ICD-10: R30.0 01/21/2016 Active Other fatigue ICD-9: 780.79 ICD-10: R53.83 01/21/2016 Active Pain in right foot ICD -9: 729.5 ICD-10: M79.671 12/24/2015 Active Iron deficiency anemia, unspecified ICD-9: 280.9 ICD-10: D50.9 08/16/2015 Active Pain in left knee ICD- 9: 719.46 ICD-10: M25.562 07/16/2015 Active Bilateral primary osteoarthritis of knee ICD-9: 715.96 ICD-10: M17.0 07/02/2015 Active Body mass index (BMI) 32.0-32.9, adult ICD-9: V85.32 ICD-10: Z68.32 07/02/2015 Active Medications Medication Codes Instructions Start Date Stop Date Status Fill Instructions Zithromax Z-Sammy 250 mg tablet RxNorm: 452770 1 Tablet(s) PO UD 02/24/2017 No Stop Date Active pantoprazole 40 mg tablet,delayed release RxNorm: 661186 TAKE 1 TABLET TWICE DAILY 01/14/2017 01/08/2018 Active Zoloft 50 mg tablet RxNorm: 507682 1 Tablet(s) PO daily 201602/12/2017 Inactive Zoloft 25 mg tablet RxNorm: 625282 1 TABLET(S) PO DAILY 201610/03/2017 Active cyclobenzaprine 5 mg tablet RxNorm: 480388 1/2 Tablet(s) PO BID as needed 09/23/2016 09/27/2016 Inactive meloxicam 7.5 mg tablet RxNorm: 504350 TAKE 1 TABLET EVERY DAY FOR PAIN. 07/24/2016 07/18/2017 Active Anusol-HC 25 mg rectal suppository RxNorm: 1196811 1 Suppository RTL BID as needed for pain 06/26/2016 06/28/2016 Inactive Diflucan 150 mg tablet RxNorm: 988654 1 Tablet(s) PO daily 06/10/2016 Inactive Flonase Allergy Relief 50 mcg/actuation nasal spray, suspension RxNorm: 9212999 1 [place] NASAL BID 05/13/20162016 Inactive Zyrtec 10 mg tablet RxNorm: 4661904 1 Tablet(s) PO daily 05/1306/11/2016 Inactive triamcinolone acetonide 0.025 % topical cream RxNorm: 9639342 1 Application TOP BID 04/16/2016 No Stop Date Active Zoloft 25 mg tablet RxNorm: 065367 1 Tablet(s) PO daily 201610/05/2016 Inactive Topamax 25 mg tablet RxNorm: 419218 1 Tablet(s) PO QID 201604/10/2016 Inactive Topamax 25 mg tablet RxNorm: 032957 1 Tablet(s) PO QID 201604/09/2016 Inactive Xanax 0.25 mg tablet RxNorm: 171440 1/2 Tablet(s) PO Q6 as needed anxiety 03/27/2016 06/06/2016 Inactive Lortab 10 mg-325 mg tablet RxNorm: 7538318 1 Tablet(s) PO Q4H as needed pain 03/27/2016 01/09/2017 Inactive Zoloft 50 mg tablet RxNorm: 142197 1 Tablet(s) PO daily 201604/03/2016 Inactive Zoloft 25 mg tablet RxNorm: 559528 1/2 Tablet(s) PO daily 03/24/2016 Inactive Zoloft 25 mg tablet RxNorm: 858644 1 Tablet(s) PO daily 201502/20/2016 Inactive Topamax 25 mg tablet RxNorm: 059888 1 Tablet(s) PO QID 201504/04/2016 Inactive clonidine HCl 0.1 mg tablet RxNorm: 956449 1/2 Tablet(s) PO TID 11/27/2015 11/20/2016 Inactive pantoprazole 40 mg tablet,delayed release RxNorm: 886417 1 Tablet(s) PO BID 11/27/2015 11/20/2016 Inactive meloxicam 7.5 mg tablet RxNorm: 644687 TAKE 1 TABLET EVERY DAY FOR PAIN. 10/11/2015 07/23/2016 Inactive mupirocin 2 % topical ointment RxNorm: 308300 1 Application TOP BID 08/08/2015 01/12/2017 Inactive bupropion HCl 75 mg tablet RxNorm: 239370 1 Tablet(s) PO BID 08/16/2015 Inactive Vitamin B-12 1,000 mcg tablet RxNorm: 859398 1 Tablet(s) PO daily No Start Date Active Topamax 50 mg tablet RxNorm: 037670 1 Tablet(s) PO BID -Dr. Velez is prescribing No Start Date Active Vitamin D3 2,000 unit tablet RxNorm: 233112 1 Tablet(s) PO daily No Start Date Active topiramate 50 mg tablet RxNorm: 900278 1 Tablet(s) PO QHS No Start Date 08/16/2015 Inactive Vitamin D3 5,000 unit tablet RxNorm: 158956 1 Tablet(s) PO daily No Start Date 05/02/2016 Inactive pantoprazole 40 mg tablet,delayed release RxNorm: 517205 1 Tablet(s) PO BID No Start Date 11/26/2015 Inactive Xanax 0.25 mg tablet RxNorm: 381821 1/2 Tablet(s) PO Q6 PRN as needed No Start Date 01/12/2017 Inactive Topamax 25 mg tablet RxNorm: 456987 2 Tablet(s) PO QHS No Start Date 01/21/2016 Inactive topiramate 25 mg tablet RxNorm: 560068 1 Tablet(s) PO PRN as needed in the am No Start Date 01/21/2016 Inactive clonidine HCl 0.1 mg tablet RxNorm: 494361 1/2 Tablet(s) PO TID No Start Date 11/26/2015 Inactive Zoloft 25 mg tablet RxNorm: 727622 1 Tablet(s) PO daily No Start Date 04/08/2016 Inactive meloxicam 7.5 mg tablet RxNorm: 416012 1 Tablet(s) PO daily No Start Date 10/10/2015 Inactive Ferric x-150 150 mg iron capsule RxNorm: 412390 1 Capsule(s) PO daily No Start Date 05/01/2016 Inactive Lortab 10 mg-325 mg tablet RxNorm: 0935032 1 Tablet(s) PO Q4H No Start Date 03/26/2016 Inactive aspirin 325 mg tablet RxNorm: 809218 1 Tablet(s) PO daily No Start Date 01/21/2016 Inactive Celexa 20 mg tablet RxNorm: 375201 1 Tablet(s) PO daily No Start Date 08/07/2015 Inactive Vitamin D2 50,000 unit capsule RxNorm: 492793 1 Capsule(s) PO QW No Start Date 07/03/2015 Inactive Xanax 0.5 mg tablet RxNorm: 246913 1 Tablet(s) PO PRN No Start Date 02/27/2016 Inactive Protonix 40 mg tablet,delayed release RxNorm: 374187 1 Tablet(s) PO daily No Start Date 03/25/2016 Inactive ferrous gluconate 324 mg (37.5 mg iron) tablet RxNorm: 675141 1 Tablet(s) PO BID No Start Date 01/09/2017 Inactive Medication Administered No Medication Administered data Immunizations Vaccine Codes Date Status Influenza CVX: 141 01/10/2017 completed Assessments Condition Codes Effective Dates Vascular dementia without behavioral disturbance ICD-10: F01.50 ICD-9: 290.40 03/27/2017 Acute laryngopharyngitis ICD-10: J06.0 ICD-9: 465.0 02/24/2017 Other allergic rhinitis ICD-10: J30.89 ICD-9: 477.8 02/24/2017 Tourette's disorder ICD-10: F95.2 ICD-9: 307.23 01/28/2017 Generalized anxiety disorder ICD-10: F41.1 ICD-9: 308.0 01/28/2017 Major depressive disorder, single episode, moderate ICD-10: F32.1 ICD-9: 296.22 01/28/2017 Mild cognitive impairment, so stated ICD-10: G31.84 ICD-9: 331.83 01/14/2017 Encounter for immunization ICD-10: Z23 ICD-9: V04.81 01/10/2017 Pain in left shoulder ICD-10: M25.512 ICD-9: 719.41 09/23/2016 Other muscle spasm ICD-10: M62.838 ICD-9: 728.85 09/23/2016 Other chest pain ICD-10: R07.89 ICD-9: 786.52 09/23/2016 Other hemorrhoids ICD-10: K64.8 ICD-9: 455.2 06/26/2016 Slow transit constipation ICD-10: K59.01 ICD-9: 564.01 06/26/2016 Encounter for general adult medical examination with abnormal findings ICD-10: Z00.01 ICD-9: V70.0 06/07/2016 Candidiasis of vulva and vagina ICD-10: B37.3 ICD-9: 112.1 06/06/2016 Cervicalgia ICD-10: M54.2 ICD-9: 723.1 05/02/2016 Other iron deficiency anemias ICD-10: D50.8 ICD-9: 280.1 05/02/2016 Essential (primary) hypertension ICD-10: I10 ICD-9: 401.9 05/02/2016 Rash and other nonspecific skin eruption ICD-10: R21 ICD-9: 782.1 04/16/2016 Encounter for follow-up examination after completed treatment for conditions other than malignant neoplasm ICD-10: Z09 ICD-9: V67.9 04/05/2016 Other specified anemias ICD-10: D64.89 ICD-9: 285.8 04/05/2016 Pain in right knee ICD-10: M25.561 ICD-9: 719.46 02/29/2016 Other fatigue ICD-10: R53.83 ICD-9: 780.79 01/22/2016 Dysuria ICD-10: R30.0 ICD-9: 788.1 01/22/2016 Pain in right foot ICD-10: M79.671 ICD-9: 729.5 12/25/2015 Iron deficiency anemia, unspecified ICD-10: D50.9 ICD-9: 280.9 08/17/2015 Pain in left knee ICD-10: M25.562 ICD-9: 719.46 07/17/2015 Bilateral primary osteoarthritis of knee ICD-10: M17.0 ICD-9: 715.96 07/03/2015 Body mass index (BMI) 32.0-32.9, adult ICD-10: Z68.32 ICD-9: V85.32 07/03/2015 Reason For Visit Reason For Visit Effective Dates Notes abnormal test results 03/27/2017 Dementia Rating Scale cough 02/24/2017 depression 01/28/2017 depression 01/14/2017 vaccination against influenza 01/10/2017 eye pain 10/28/2016 myalgias 09/23/2016 constipation 06/26/2016 Annual Medicare Wellness Exam 06/07/2016 abdominal pain 06/06/2016 sinus congestion 05/13/2016 knee pain 05/02/2016 rash 04/16/2016 Hospital Follow Up 04/05/2016 pre-op/surgery consult 02/29/2016 anxiety 01/22/2016 foot pain 12/25/2015 medication follow up 10/02/2015 skin lesion 08/17/2015 medication follow up 08/08/2015 knee pain 07/17/2015 fatigue 07/03/2015 Results Observation Observation Code Item Item Code Result Date Cbc With Differential Ord2 WBC 6.53 K/ul 01/14/2017 Cbc With Differential Ord2 RBC 3.86 M/ul 01/14/2017 Cbc With Differential Ord2 HGB 11.8 g/dl 01/14/2017 Cbc With Differential Ord2 Neut% 47.0 % 01/14/2017 Cbc With Differential Ord2 HCT 36.4 % 01/14/2017 Cbc With Differential Ord2 MCV 94.3 fl 01/14/2017 Cbc With Differential Ord2 Lymph% 37.4 % 01/14/2017 Cbc With Differential Ord2 MCH 30.6 pg 01/14/2017 Cbc With Differential Ord2 [place]% 9.0 % 01/14/2017 Cbc With Differential Ord2 MCHC 32.4 pg 01/14/2017 Cbc With Differential Ord2 Eos% 5.8 % 01/14/2017 Cbc With Differential Ord2 PLT 277 K/ul 01/14/2017 Cbc With Differential Ord2 Baso% 0.8 % 01/14/2017 Cbc With Differential Ord2 RDW 12.7 % 01/14/2017 Cbc With Differential Ord2 Neut ABS# 3.07 K/ul 01/14/2017 Cbc With Differential Ord2 Lymph ABS# 2.44 K/ul 01/14/2017 Cbc With Differential Ord2 [place] ABS# 0.6 K/ul 01/14/2017 Cbc With Differential Ord2 Eos ABS# 0.4 K/ul 01/14/2017 Cbc With Differential Ord2 Baso ABS# 0.1 K/ul 01/14/2017 Tsh Ord6 hTSH II 2.30 uIU/mL 01/14/2017 Comp Metabolic Nxl611 NA 141 mEq/L 01/14/2017 Comp Metabolic Aqk261 K 4.1 mEq/L 01/14/2017 Comp Metabolic Rra155 CL 110 mEq/L 01/14/2017 Comp Metabolic Vjq831 CO2 24.0 mEq/L 01/14/2017 Comp Metabolic Qpz554 ANION GAP 11 01/14/2017 Comp Metabolic Pry765 GLUCOSE 88 mg/dL 01/14/2017 Comp Metabolic Xsv388 Creat 0.7 mg/dL 01/14/2017 Comp Metabolic Ntq084 eGFR 85 ml/min/1.73m2 01/14/2017 Comp Metabolic Nru507 BUN 23 mg/dL 01/14/2017 Comp Metabolic Pci407 B/C Ratio 31.5 Ratio 01/14/2017 Comp Metabolic Gmv407 CALCIUM 8.8 mg/dL 01/14/2017 Comp Metabolic Yoh828 ALK PHOS 120 U/L 01/14/2017 Comp Metabolic Vsu341 AST(SGOT) 10 U/L 01/14/2017 Comp Metabolic Ami051 ALT(SGPT) 8 U/L 01/14/2017 Comp Metabolic Xdp319 BILI T 0.3 mg/dL 01/14/2017 Comp Metabolic Yje434 ALBUMIN 4.0 g/dL 01/14/2017 Comp Metabolic Dgq027 TPRO 6.3 g/dL 01/14/2017 Comp Metabolic Mzm263 GLOB 2.3 g/dL 01/14/2017 Comp Metabolic Zpc511 A/G Ratio 1.7 Ratio 01/14/2017 Comp Metabolic Nym011 Osmo 284 mOsmo 01/14/2017 Cbc With Differential Ord2 WBC 6.92 K/ul 05/02/2016 Cbc With Differential Ord2 RBC 3.50 M/ul 05/02/2016 Cbc With Differential Ord2 HGB 10.4 g/dl 05/02/2016 Cbc With Differential Ord2 Neut% 56.9 % 05/02/2016 Cbc With Differential Ord2 HCT 33.2 % 05/02/2016 Cbc With Differential Ord2 Lymph% 31.1 % 05/02/2016 Cbc With Differential Ord2 MCV 94.9 fl 05/02/2016 Cbc With Differential Ord2 [place]% 6.8 % 05/02/2016 Cbc With Differential Ord2 MCH 29.7 pg 05/02/2016 Cbc With Differential Ord2 Eos% 4.3 % 05/02/2016 Cbc With Differential Ord2 MCHC 31.3 pg 05/02/2016 Cbc With Differential Ord2 PLT 318 K/ul 05/02/2016 Cbc With Differential Ord2 Baso% 0.9 % 05/02/2016 Cbc With Differential Ord2 RDW 12.8 % 05/02/2016 Cbc With Differential Ord2 Neut ABS# 3.94 K/ul 05/02/2016 Cbc With Differential Ord2 Lymph ABS# 2.15 K/ul 05/02/2016 Cbc With Differential Ord2 [place] ABS# 0.5 K/ul 05/02/2016 Cbc With Differential Ord2 Eos ABS# 0.3 K/ul 05/02/2016 Cbc With Differential Ord2 Baso ABS# 0.1 K/ul 05/02/2016 Comp Metabolic Luj802 NA 136 mEq/L 04/05/2016 Comp Metabolic Goq495 K 4.4 mEq/L 04/05/2016 Comp Metabolic Goi733 CL 106 mEq/L 04/05/2016 Comp Metabolic Suc167 CO2 24.0 mEq/L 04/05/2016 Comp Metabolic Uqg630 ANION GAP 10 04/05/2016 Comp Metabolic Dxd155 GLUCOSE 98 mg/dL 04/05/2016 Comp Metabolic Ewn897 Creat 0.8 mg/dL 04/05/2016 Comp Metabolic Grr380 eGFR 78 ml/min/1.73m2 04/05/2016 Comp Metabolic Tcy977 BUN 19 mg/dL 04/05/2016 Comp Metabolic Arf305 B/C Ratio 24.4 Ratio 04/05/2016 Comp Metabolic Gqu755 CALCIUM 9.4 mg/dL 04/05/2016 Comp Metabolic Tiy832 ALK PHOS 143 U/L 04/05/2016 Comp Metabolic Lbt868 AST(SGOT) 10 U/L 04/05/2016 Comp Metabolic Hez177 ALT(SGPT) 8 U/L 04/05/2016 Comp Metabolic Nvq799 BILI T 0.4 mg/dL 04/05/2016 Comp Metabolic Oaq085 ALBUMIN 4.2 g/dL 04/05/2016 Comp Metabolic Asf379 TPRO 6.7 g/dL 04/05/2016 Comp Metabolic Ajf893 GLOB 2.5 g/dL 04/05/2016 Comp Metabolic Mxq710 A/G Ratio 1.6 Ratio 04/05/2016 Comp Metabolic Awr126 Osmo 274 mOsmo 04/05/2016 Cbc With Differential Ord2 WBC 6.32 K/ul 04/05/2016 Cbc With Differential Ord2 RBC 3.41 M/ul 04/05/2016 Cbc With Differential Ord2 HGB 10.2 g/dl 04/05/2016 Cbc With Differential Ord2 Neut% 58.0 % 04/05/2016 Cbc With Differential Ord2 HCT 32.9 % 04/05/2016 Cbc With Differential Ord2 Lymph% 26.7 % 04/05/2016 Cbc With Differential Ord2 MCV 96.5 fl 04/05/2016 Cbc With Differential Ord2 [place]% 9.8 % 04/05/2016 Cbc With Differential Ord2 MCH 29.9 pg 04/05/2016 Cbc With Differential Ord2 Eos% 4.7 % 04/05/2016 Cbc With Differential Ord2 MCHC 31.0 pg 04/05/2016 Cbc With Differential Ord2 Baso% 0.8 % 04/05/2016 Cbc With Differential Ord2 PLT 500 K/ul 04/05/2016 Cbc With Differential Ord2 RDW 13.6 % 04/05/2016 Cbc With Differential Ord2 Neut ABS# 3.66 K/ul 04/05/2016 Cbc With Differential Ord2 Lymph ABS# 1.69 K/ul 04/05/2016 Cbc With Differential Ord2 [place] ABS# 0.6 K/ul 04/05/2016 Cbc With Differential Ord2 Eos ABS# 0.3 K/ul 04/05/2016 Cbc With Differential Ord2 Baso ABS# 0.1 K/ul 04/05/2016 Urine Culture Ucult Complete NO Growth Day 2 01/24/2016 Urine Culture Ucult Preliminary NO Growth Day 1 01/24/2016 Comp Metabolic Bko943 NA 138 mEq/L 01/22/2016 Comp Metabolic Ouq910 K 4.1 mEq/L 01/22/2016 Comp Metabolic Nik765 CL 107 mEq/L 01/22/2016 Comp Metabolic Yko905 CO2 23.0 mEq/L 01/22/2016 Comp Metabolic Tjb786 ANION GAP 12 01/22/2016 Comp Metabolic Zvu457 GLUCOSE 89 mg/dL 01/22/2016 Comp Metabolic Awg389 Creat 0.7 mg/dL 01/22/2016 Comp Metabolic Ndy629 eGFR 90 ml/min/1.73m2 01/22/2016 Comp Metabolic Jhi500 BUN 15 mg/dL 01/22/2016 Comp Metabolic Usd732 B/C Ratio 21.7 Ratio 01/22/2016 Comp Metabolic Zde537 CALCIUM 8.9 mg/dL 01/22/2016 Comp Metabolic Usa215 ALK PHOS 129 U/L 01/22/2016 Comp Metabolic Rkb590 AST(SGOT) 14 U/L 01/22/2016 Comp Metabolic Dec426 ALT(SGPT) 11 U/L 01/22/2016 Comp Metabolic Htw363 BILI T 0.3 mg/dL 01/22/2016 Comp Metabolic Cud774 ALBUMIN 4.1 g/dL 01/22/2016 Comp Metabolic Wkj103 TPRO 6.4 g/dL 01/22/2016 Comp Metabolic Xgr777 GLOB 2.4 g/dL 01/22/2016 Comp Metabolic Fpv238 A/G Ratio 1.7 Ratio 01/22/2016 Comp Metabolic Zrw274 Osmo 276 mOsmo 01/22/2016 Cbc With Differential Ord2 WBC 7.15 K/ul 01/22/2016 Cbc With Differential Ord2 RBC 4.01 M/ul 01/22/2016 Cbc With Differential Ord2 HGB 12.2 g/dl 01/22/2016 Cbc With Differential Ord2 Neut% 49.4 % 01/22/2016 Cbc With Differential Ord2 HCT 36.9 % 01/22/2016 Cbc With Differential Ord2 Lymph% 35.9 % 01/22/2016 Cbc With Differential Ord2 MCV 92.0 fl 01/22/2016 Cbc With Differential Ord2 [place]% 8.0 % 01/22/2016 Cbc With Differential Ord2 MCH 30.4 pg 01/22/2016 Cbc With Differential Ord2 MCHC 33.1 pg 01/22/2016 Cbc With Differential Ord2 Eos% 6.0 % 01/22/2016 Cbc With Differential Ord2 Baso% 0.7 % 01/22/2016 Cbc With Differential Ord2 PLT 292 K/ul 01/22/2016 Cbc With Differential Ord2 Neut ABS# 3.53 K/ul 01/22/2016 Cbc With Differential Ord2 RDW 13.0 % 01/22/2016 Cbc With Differential Ord2 Lymph ABS# 2.57 K/ul 01/22/2016 Cbc With Differential Ord2 [place] ABS# 0.6 K/ul 01/22/2016 Cbc With Differential Ord2 Eos ABS# 0.4 K/ul 01/22/2016 Cbc With Differential Ord2 Baso ABS# 0.1 K/ul 01/22/2016 Tsh Ord6 hTSH II 3.17 uIU/mL 01/22/2016 Cbc With Differential Ord2 WBC 6.31 K/ul 10/27/2015 Cbc With Differential Ord2 RBC 4.33 M/ul 10/27/2015 Cbc With Differential Ord2 HGB 12.6 g/dl 10/27/2015 Cbc With Differential Ord2 HCT 38.4 % 10/27/2015 Cbc With Differential Ord2 Neut% 44.9 % 10/27/2015 Cbc With Differential Ord2 MCV 88.7 fl 10/27/2015 Cbc With Differential Ord2 Lymph% 39.1 % 10/27/2015 Cbc With Differential Ord2 MCH 29.1 pg 10/27/2015 Cbc With Differential Ord2 [place]% 9.0 % 10/27/2015 Cbc With Differential Ord2 MCHC 32.8 pg 10/27/2015 Cbc With Differential Ord2 Eos% 6.2 % 10/27/2015 Cbc With Differential Ord2 Baso% 0.8 % 10/27/2015 Cbc With Differential Ord2 PLT 265 K/ul 10/27/2015 Cbc With Differential Ord2 Neut ABS# 2.83 K/ul 10/27/2015 Cbc With Differential Ord2 RDW 14.5 % 10/27/2015 Cbc With Differential Ord2 Lymph ABS# 2.47 K/ul 10/27/2015 Cbc With Differential Ord2 [place] ABS# 0.6 K/ul 10/27/2015 Cbc With Differential Ord2 Eos ABS# 0.4 K/ul 10/27/2015 Cbc With Differential Ord2 Baso ABS# 0.1 K/ul 10/27/2015 Cbc With Differential Ord2 WBC 5.76 K/ul 10/03/2015 Cbc With Differential Ord2 RBC 4.27 M/ul 10/03/2015 Cbc With Differential Ord2 HGB 12.4 g/dl 10/03/2015 Cbc With Differential Ord2 HCT 38.1 % 10/03/2015 Cbc With Differential Ord2 Neut% 49.4 % 10/03/2015 Cbc With Differential Ord2 MCV 89.2 fl 10/03/2015 Cbc With Differential Ord2 Lymph% 37.3 % 10/03/2015 Cbc With Differential Ord2 [place]% 7.6 % 10/03/2015 Cbc With Differential Ord2 MCH 29.0 pg 10/03/2015 Cbc With Differential Ord2 MCHC 32.5 pg 10/03/2015 Cbc With Differential Ord2 Eos% 4.0 % 10/03/2015 Cbc With Differential Ord2 Baso% 1.7 % 10/03/2015 Cbc With Differential Ord2 PLT 133 OCC. PLATELET CLUMPS SEEN K/ul 10/03/2015 Cbc With Differential Ord2 Neut ABS# 2.84 K/ul 10/03/2015 Cbc With Differential Ord2 RDW 14.3 % 10/03/2015 Cbc With Differential Ord2 Lymph ABS# 2.15 K/ul 10/03/2015 Cbc With Differential Ord2 [place] ABS# 0.4 K/ul 10/03/2015 Cbc With Differential Ord2 Eos ABS# 0.2 K/ul 10/03/2015 Cbc With Differential Ord2 Baso ABS# 0.1 K/ul 10/03/2015 Ferritin Ord22 FERRITIN 86.0 ng/mL 08/17/2015 Comp Metabolic Jnc545 NA 142 mEq/L 08/17/2015 Comp Metabolic Cjn210 K 4.1 mEq/L 08/17/2015 Comp Metabolic Ujt822 CL 111 mEq/L 08/17/2015 Comp Metabolic Pfj381 CO2 25.0 mEq/L 08/17/2015 Comp Metabolic Cka954 ANION GAP 10 08/17/2015 Comp Metabolic Xgh104 GLUCOSE 99 mg/dL 08/17/2015 Comp Metabolic Cpy630 Creat 0.7 mg/dL 08/17/2015 Comp Metabolic Ylx927 eGFR 92 ml/min/1.73m2 08/17/2015 Comp Metabolic Gdf406 BUN 16 mg/dL 08/17/2015 Comp Metabolic Khn054 B/C Ratio 23.5 Ratio 08/17/2015 Comp Metabolic Hkm128 CALCIUM 8.8 mg/dL 08/17/2015 Comp Metabolic Yoo878 ALK PHOS 115 U/L 08/17/2015 Comp Metabolic Zgs002 AST(SGOT) 10 U/L 08/17/2015 Comp Metabolic Zyq235 ALT(SGPT) 8 U/L 08/17/2015 Comp Metabolic Naw620 BILI T 0.3 mg/dL 08/17/2015 Comp Metabolic Imm113 ALBUMIN 3.7 g/dL 08/17/2015 Comp Metabolic Kub868 TPRO 6.3 g/dL 08/17/2015 Comp Metabolic Icr858 GLOB 2.6 g/dL 08/17/2015 Comp Metabolic Nnf396 A/G Ratio 1.4 Ratio 08/17/2015 Comp Metabolic Dkl498 Osmo 284 mOsmo 08/17/2015 Cbc With Differential Ord2 WBC 5.97 K/ul 08/17/2015 Cbc With Differential Ord2 RBC 3.69 M/ul 08/17/2015 Cbc With Differential Ord2 HGB 10.5 g/dl 08/17/2015 Cbc With Differential Ord2 Neut% 52.0 % 08/17/2015 Cbc With Differential Ord2 HCT 33.6 % 08/17/2015 Cbc With Differential Ord2 MCV 91.1 fl 08/17/2015 Cbc With Differential Ord2 Lymph% 34.8 % 08/17/2015 Cbc With Differential Ord2 [place]% 8.5 % 08/17/2015 Cbc With Differential Ord2 MCH 28.5 pg 08/17/2015 Cbc With Differential Ord2 Eos% 3.9 % 08/17/2015 Cbc With Differential Ord2 MCHC 31.3 pg 08/17/2015 Cbc With Differential Ord2 Baso% 0.8 % 08/17/2015 Cbc With Differential Ord2 PLT 332 K/ul 08/17/2015 Cbc With Differential Ord2 Neut ABS# 3.10 K/ul 08/17/2015 Cbc With Differential Ord2 RDW 13.4 % 08/17/2015 Cbc With Differential Ord2 Lymph ABS# 2.08 K/ul 08/17/2015 Cbc With Differential Ord2 [place] ABS# 0.5 K/ul 08/17/2015 Cbc With Differential Ord2 Eos ABS# 0.2 K/ul 08/17/2015 Cbc With Differential Ord2 Baso ABS# 0.1 K/ul 08/17/2015 Tibc Ord40 Iron 36 ug/dl 08/17/2015 Tibc Ord40 UIBC 233 ug/dL 08/17/2015 Tibc Ord40 TIBC 269 ug/dL 08/17/2015 Tibc Ord40 Fe-%Sat 13.4 % 08/17/2015 Review of Systems System Result Effective Dates Constitutional No recent illness 2017 Constitutional No chills 03/27/2017 Constitutional No diaphoresis 03/27/2017 Constitutional No fever 03/27/2017 Eyes No blindness 03/27/2017 Ears/Nose/Throat/Neck No nasal allergies 03/27/2017 Ears/Nose/Throat/Neck No nasal discharge 03/27/2017 Cardiovascular No chest pain/pressure Cardiovascular No dyspnea 03/27/2017 Respiratory No chest congestion 2017 Respiratory No cough 03/27/2017 Neurologic No alteration of consciousness 03/27/2017 Neurologic No mental status change 2017 Psychiatric anxiety 03/27/2017 Psychiatric depression 03/27/2017 Psychiatric No suicidality 03/27/2017 Constitutional recent illness 02/24/2017 Constitutional chills 02/24/2017 Constitutional No diaphoresis 02/24/2017 Constitutional No fever 02/24/2017 Eyes No eye erythema 02/24/2017 Ears/Nose/Throat/Neck nasal allergies Ears/Nose/Throat/Neck nasal discharge Ears/Nose/Throat/Neck postnasal drip Ears/Nose/Throat/Neck sinus congestion Ears/Nose/Throat/Neck sore throat 2016 Cardiovascular No chest pain/pressure Cardiovascular No dyspnea 02/24/2017 Respiratory No chest congestion 2016 Respiratory cough 02/24/2017 Respiratory No dyspnea 02/24/2017 Gastrointestinal No constipation 2016 Gastrointestinal No diarrhea 02/24/2017 Gastrointestinal No nausea 02/24/2017 Gastrointestinal No vomiting 02/24/2017 Dermatologic No rash 02/24/2017 Neurologic No alteration of consciousness 02/24/2017 Neurologic No mental status change 2016 Respiratory productive sputum 02/24/2017 Constitutional No recent illness 2016 Constitutional No chills 01/28/2017 Constitutional No diaphoresis 01/28/2017 Constitutional No fever 01/28/2017 Eyes No eye erythema 01/28/2017 Ears/Nose/Throat/Neck No nasal allergies 01/28/2017 Ears/Nose/Throat/Neck No nasal discharge 01/28/2017 Cardiovascular No chest pain/pressure Cardiovascular No dyspnea 01/28/2017 Respiratory No chest congestion 2016 Respiratory No cough 01/28/2017 Neurologic No alteration of consciousness 01/28/2017 Neurologic No mental status change 2016 Psychiatric anxiety 01/28/2017 Psychiatric depression 01/28/2017 Psychiatric No suicidality 01/28/2017 Constitutional No recent illness 2016 Constitutional No chills 01/14/2017 Constitutional No diaphoresis 01/14/2017 Constitutional No fever 01/14/2017 Eyes No eye erythema 01/14/2017 Ears/Nose/Throat/Neck No nasal discharge 01/14/2017 Ears/Nose/Throat/Neck No nasal allergies 01/14/2017 Cardiovascular No chest pain/pressure 09/2016 Cardiovascular No dyspnea 01/14/2017 Respiratory No cough 01/14/2017 Respiratory No chest congestion 2016 Neurologic No alteration of consciousness 01/14/2017 Neurologic No mental status change 2016 Psychiatric anxiety 01/14/2017 Psychiatric depression 01/14/2017 Psychiatric No suicidality 01/14/2017 Constitutional No recent illness 2016 Constitutional No anorexia 10/28/2016 Constitutional No night sweats 2016 Constitutional No chills 10/28/2016 Constitutional No diaphoresis 10/28/2016 Constitutional No fatigue 10/28/2016 Constitutional No fever 10/28/2016 Constitutional No insomnia 10/28/2016 Constitutional No malaise 10/28/2016 Constitutional No weight loss 10/28/2016 Constitutional No weight gain 10/28/2016 Eyes eye discharge 10/28/2016 Ears/Nose/Throat/Neck nasal allergies Ears/Nose/Throat/Neck nasal discharge Cardiovascular No chest pain/pressure Respiratory No cough 10/28/2016 Gastrointestinal No abdominal pain 2016 Gastrointestinal No constipation 2016 Gastrointestinal diarrhea 10/28/2016 Genitourinary/Nephrology No dysuria 10/28 Musculoskeletal No joint complaint 2016 Dermatologic No rash 10/28/2016 Dermatologic No sores 10/28/2016 Neurologic No alteration of consciousness 10/28/2016 Constitutional No recent illness 2016 Constitutional No chills 09/23/2016 Constitutional No diaphoresis 09/23/2016 Constitutional No fever 09/23/2016 Eyes No eye erythema 09/23/2016 Ears/Nose/Throat/Neck No nasal discharge 09/23/2016 Ears/Nose/Throat/Neck No nasal allergies 09/23/2016 Cardiovascular No chest pain/pressure Cardiovascular No dyspnea 09/23/2016 Respiratory No cough 09/23/2016 Respiratory No dyspnea 09/23/2016 Gastrointestinal No abdominal pain 2016 Musculoskeletal myalgias 09/23/2016 Dermatologic No rash 09/23/2016 Neurologic No alteration of consciousness 09/23/2016 Neurologic No mental status change 2016 Constitutional No recent illness 2016 Constitutional No chills 06/26/2016 Constitutional No diaphoresis 06/26/2016 Constitutional No fever 06/26/2016 Eyes No eye erythema 06/26/2016 Ears/Nose/Throat/Neck No nasal allergies 06/26/2016 Ears/Nose/Throat/Neck No nasal discharge 06/26/2016 Cardiovascular No chest pain/pressure Respiratory No cough 06/26/2016 Respiratory No dyspnea 06/26/2016 Gastrointestinal constipation 06/26/2016 Gastrointestinal No diarrhea 06/26/2016 Dermatologic No rash 06/26/2016 Neurologic No alteration of consciousness 06/26/2016 Neurologic No mental status change 2016 Constitutional No chills 06/07/2016 Constitutional No diaphoresis 06/07/2016 Constitutional No fever 06/07/2016 Eyes No eye erythema 06/07/2016 Ears/Nose/Throat/Neck No nasal allergies 06/07/2016 Ears/Nose/Throat/Neck No nasal discharge 06/07/2016 Cardiovascular No chest pain/pressure Respiratory No dyspnea 06/07/2016 Neurologic No alteration of consciousness 06/07/2016 Neurologic No mental status change 2016 Respiratory No cough 06/07/2016 Constitutional recent illness 06/06/2016 Constitutional No fever 06/06/2016 Constitutional No chills 06/06/2016 Constitutional No diaphoresis 06/06/2016 Eyes No eye erythema 06/06/2016 Ears/Nose/Throat/Neck No nasal allergies 06/06/2016 Ears/Nose/Throat/Neck No nasal discharge 06/06/2016 Cardiovascular No chest pain/pressure Respiratory No dyspnea 06/06/2016 Respiratory No chest congestion 2016 Gastrointestinal abdominal pain 2016 Gastrointestinal constipation 06/06/2016 Gastrointestinal No diarrhea 06/06/2016 Gastrointestinal No nausea 06/06/2016 Gastrointestinal No vomiting 06/06/2016 Genitourinary/Nephrology dysuria 2016 Neurologic No alteration of consciousness 06/06/2016 Neurologic No mental status change 2016 Constitutional recent illness 05/13/2016 Constitutional No chills 05/13/2016 Constitutional No diaphoresis 05/13/2016 Constitutional No fever 05/13/2016 Eyes No eye erythema 05/13/2016 Ears/Nose/Throat/Neck nasal allergies 08/2016 Ears/Nose/Throat/Neck nasal discharge 08/2016 Ears/Nose/Throat/Neck postnasal drip 08/2016 Ears/Nose/Throat/Neck sinus congestion Ears/Nose/Throat/Neck No sore throat 08/2016 Cardiovascular No chest pain/pressure 08/2016 Cardiovascular No dyspnea 05/13/2016 Respiratory No chest congestion 2016 Respiratory cough 05/13/2016 Respiratory No dyspnea 05/13/2016 Gastrointestinal No abdominal pain 2016 Gastrointestinal No constipation 2016 Gastrointestinal No diarrhea 05/13/2016 Gastrointestinal No nausea 05/13/2016 Gastrointestinal No vomiting 05/13/2016 Dermatologic No rash 05/13/2016 Neurologic No alteration of consciousness 05/13/2016 Neurologic No mental status change 2016 Constitutional No recent illness 2016 Constitutional No chills 05/02/2016 Constitutional No diaphoresis 05/02/2016 Constitutional No fever 05/02/2016 Constitutional No malaise 05/02/2016 Eyes No blindness 05/02/2016 Ears/Nose/Throat/Neck No nasal allergies 05/02/2016 Ears/Nose/Throat/Neck No nasal discharge 05/02/2016 Ears/Nose/Throat/Neck No postnasal drip 05/02/2016 Ears/Nose/Throat/Neck No sinus congestion 05/02/2016 Ears/Nose/Throat/Neck No sore throat Cardiovascular No chest pain/pressure Cardiovascular No dyspnea 05/02/2016 Respiratory No chest congestion 2016 Respiratory No cough 05/02/2016 Gastrointestinal No abdominal pain 2016 Gastrointestinal No constipation 2016 Gastrointestinal No diarrhea 05/02/2016 Genitourinary/Nephrology No dysuria 05/02 Dermatologic scar 05/02/2016 Neurologic speech difficulties 2016 Psychiatric anxiety 05/02/2016 Psychiatric depression 05/02/2016 Psychiatric hallucination 05/02/2016 Musculoskeletal joint complaint 2016 Musculoskeletal neck pain 05/02/2016 Constitutional No recent illness 2016 Constitutional No chills 04/16/2016 Constitutional No diaphoresis 04/16/2016 Constitutional No fever 04/16/2016 Eyes No eye erythema 04/16/2016 Ears/Nose/Throat/Neck No nasal allergies 04/16/2016 Ears/Nose/Throat/Neck No nasal discharge 04/16/2016 Cardiovascular No chest pain/pressure 09/2016 Cardiovascular No dyspnea 04/16/2016 Respiratory No cough 04/16/2016 Respiratory No dyspnea 04/16/2016 Dermatologic rash 04/16/2016 Neurologic No alteration of consciousness 04/16/2016 Neurologic No mental status change 2016 Constitutional No recent illness 2016 Constitutional No chills 04/05/2016 Constitutional No fever 04/05/2016 Eyes No eye erythema 04/05/2016 Ears/Nose/Throat/Neck No nasal discharge 04/05/2016 Cardiovascular No chest pain/pressure Cardiovascular No dyspnea 04/05/2016 Respiratory No cough 04/05/2016 Respiratory No dyspnea 04/05/2016 Musculoskeletal joint complaint 2016 Neurologic No alteration of consciousness 04/05/2016 Neurologic No mental status change 2016 Dermatologic scar 04/05/2016 Constitutional No recent illness 2015 Constitutional No fever 02/29/2016 Constitutional No chills 02/29/2016 Eyes No eye erythema 02/29/2016 Ears/Nose/Throat/Neck No nasal discharge 02/29/2016 Ears/Nose/Throat/Neck No nasal allergies 02/29/2016 Cardiovascular No chest pain/pressure Cardiovascular No dyspnea 02/29/2016 Respiratory No cough 02/29/2016 Respiratory No dyspnea 02/29/2016 Respiratory No chest congestion 2015 Gastrointestinal No abdominal pain 2015 Musculoskeletal joint complaint 2015 Dermatologic No rash 02/29/2016 Neurologic No alteration of consciousness 02/29/2016 Neurologic No mental status change 2015 Neurologic No dizziness 02/29/2016 Cardiovascular No near-syncope/dizziness 02/29/2016 Cardiovascular No syncope 02/29/2016 Constitutional No chills 12/25/2015 Constitutional No diaphoresis 12/25/2015 Constitutional No fever 12/25/2015 Eyes No eye erythema 12/25/2015 Ears/Nose/Throat/Neck No nasal allergies 12/25/2015 Ears/Nose/Throat/Neck No nasal discharge 12/25/2015 Cardiovascular No chest pain/pressure Cardiovascular No dyspnea 12/25/2015 Respiratory No chest congestion 2015 Respiratory No cough 12/25/2015 Gastrointestinal No abdominal pain 2015 Gastrointestinal No diarrhea 12/25/2015 Dermatologic scar 12/25/2015 Psychiatric anxiety 12/25/2015 Psychiatric depression 12/25/2015 Gastrointestinal No constipation 2015 Musculoskeletal neck pain 12/25/2015 Neurologic speech difficulties 2015 Constitutional No recent illness 2015 Constitutional No chills 10/02/2015 Constitutional No diaphoresis 10/02/2015 Constitutional No fever 10/02/2015 Constitutional No malaise 10/02/2015 Eyes No eye erythema 10/02/2015 Ears/Nose/Throat/Neck No nasal allergies 10/02/2015 Ears/Nose/Throat/Neck No nasal discharge 10/02/2015 Cardiovascular No chest pain/pressure Cardiovascular No dyspnea 10/02/2015 Respiratory No chest congestion 2015 Respiratory No cough 10/02/2015 Gastrointestinal No abdominal pain 2015 Gastrointestinal No constipation 2015 Gastrointestinal No diarrhea 10/02/2015 Dermatologic scar 10/02/2015 Neurologic speech difficulties 2015 Psychiatric anxiety 10/02/2015 Psychiatric depression 10/02/2015 Constitutional No recent illness 2015 Constitutional No chills 08/17/2015 Constitutional No diaphoresis 08/17/2015 Constitutional No fever 08/17/2015 Constitutional No malaise 08/17/2015 Eyes No blindness 08/17/2015 Ears/Nose/Throat/Neck No nasal allergies 08/17/2015 Ears/Nose/Throat/Neck No nasal discharge 08/17/2015 Ears/Nose/Throat/Neck No postnasal drip 08/17/2015 Ears/Nose/Throat/Neck No sinus congestion 08/17/2015 Ears/Nose/Throat/Neck No sore throat 11/2015 Cardiovascular No chest pain/pressure 11/2015 Cardiovascular No dyspnea 08/17/2015 Respiratory No chest congestion 2015 Respiratory No cough 08/17/2015 Gastrointestinal No abdominal pain 2015 Gastrointestinal No constipation 2015 Gastrointestinal No diarrhea 08/17/2015 Genitourinary/Nephrology No dysuria 08/16 Dermatologic scar 08/17/2015 Neurologic speech difficulties 2015 Psychiatric anxiety 08/17/2015 Psychiatric depression 08/17/2015 Psychiatric hallucination 08/17/2015 Constitutional No recent illness 2015 Constitutional No chills 08/08/2015 Constitutional No diaphoresis 08/08/2015 Constitutional No fever 08/08/2015 Constitutional No malaise 08/08/2015 Eyes No eye erythema 08/08/2015 Ears/Nose/Throat/Neck No nasal allergies 08/08/2015 Ears/Nose/Throat/Neck No nasal discharge 08/08/2015 Ears/Nose/Throat/Neck No postnasal drip 08/08/2015 Ears/Nose/Throat/Neck No sinus congestion 08/08/2015 Ears/Nose/Throat/Neck No sore throat Cardiovascular No chest pain/pressure Cardiovascular No dyspnea 08/08/2015 Respiratory No chest congestion 2015 Respiratory No cough 08/08/2015 Gastrointestinal No abdominal pain 2015 Gastrointestinal No constipation 2015 Genitourinary/Nephrology No dysuria 08/07 Gastrointestinal No diarrhea 08/08/2015 Dermatologic scar 08/08/2015 Neurologic speech difficulties 2015 Psychiatric hallucination 08/08/2015 Psychiatric anxiety 08/08/2015 Psychiatric depression 08/08/2015 Constitutional No recent illness 2015 Constitutional No chills 07/17/2015 Constitutional No diaphoresis 07/17/2015 Constitutional No fever 07/17/2015 Eyes No eye erythema 07/17/2015 Ears/Nose/Throat/Neck No nasal allergies 07/17/2015 Ears/Nose/Throat/Neck No nasal discharge 07/17/2015 Ears/Nose/Throat/Neck No postnasal drip 07/17/2015 Ears/Nose/Throat/Neck No sinus congestion 07/17/2015 Ears/Nose/Throat/Neck No sore throat 11/2015 Cardiovascular No chest pain/pressure 11/2015 Cardiovascular No dyspnea 07/17/2015 Respiratory No chest congestion 2015 Respiratory No cough 07/17/2015 Gastrointestinal No constipation 2015 Gastrointestinal No diarrhea 07/17/2015 Genitourinary/Nephrology No dysuria 07/16 Dermatologic scar 07/17/2015 Neurologic speech difficulties 2015 Psychiatric anxiety 07/17/2015 Psychiatric depression 07/17/2015 Respiratory No dyspnea 07/17/2015 Gastrointestinal No vomiting 07/17/2015 Gastrointestinal No nausea 07/17/2015 Musculoskeletal joint complaint 2015 Constitutional No fever 07/03/2015 Constitutional No diaphoresis 07/03/2015 Constitutional No chills 07/03/2015 Constitutional No recent illness 2015 Constitutional No malaise 07/03/2015 Eyes No eye erythema 07/03/2015 Ears/Nose/Throat/Neck nasal allergies Ears/Nose/Throat/Neck nasal discharge Ears/Nose/Throat/Neck postnasal drip Ears/Nose/Throat/Neck No sinus congestion 07/03/2015 Ears/Nose/Throat/Neck No sore throat Cardiovascular No chest pain/pressure Cardiovascular No dyspnea 07/03/2015 Respiratory No cough 07/03/2015 Respiratory No chest congestion 2015 Gastrointestinal No abdominal pain 2015 Gastrointestinal gastroesophageal reflux 07/03/2015 Gastrointestinal No constipation 2015 Gastrointestinal diarrhea 07/03/2015 Genitourinary/Nephrology No dysuria 07/02 Musculoskeletal stiffness 07/03/2015 Dermatologic No rash 07/03/2015 Neurologic No alteration of consciousness 07/03/2015 Physical Exam Exam Name System Name Item Name Status Result Effective Dates Notes Full Exam - General 1994 Constitutional general appearance Overall: well developed 03/27/2017 None Full Exam - General 1994 Constitutional general appearance Overall: in no acute distress 03/27/2017 None Full Exam - General 1994 Constitutional general appearance Overall: well nourished 03/27/2017 None Full Exam - General 1994 Eyes conjunctiva /eyelids Overall: conjunctiva clear 03/27/2017 None Full Exam - General 1994 Eyes conjunctiva /eyelids Overall: cornea clear 03/27/2017 None Full Exam - General 1994 Eyes conjunctiva /eyelids Overall: eyelids normal 03/27/2017 None Full Exam - General 1994 Eyes pupils and irises Overall: pupils equal, round, reactive to light and accomodation 03/27/2017 None Full Exam - General 1994 Ears/Nose/Throat lips/teeth/gingiva Overall: benign lips 03/27/2017 None Full Exam - General 1994 Ears/Nose/Throat oral cavity/pharynx/larynx Overall: oral mucosa clear 03/27/2017 None Full Exam - General 1994 Respiratory auscultation Overall: breath sounds clear bilaterally 03/27/2017 None Full Exam - General 1994 Respiratory respiratory effort/rhythm Overall: no retractions 03/27/2017 None Full Exam - General 1994 Respiratory respiratory effort/rhythm Overall: normal rate 03/27/2017 None Full Exam - General 1994 Cardiovascular auscultation of heart Overall: regular rate 03/27/2017 None Full Exam - General 1994 Cardiovascular auscultation of heart Overall: normal heart sounds 03/27/2017 None Full Exam - General 1994 Musculoskeletal gait and station Overall: normal gait 03/27/2017 None Full Exam - General 1994 Musculoskeletal gait and station Overall: normal station 03/27/2017 None Full Exam - General 1994 Musculoskeletal head and neck Overall: head atraumatic 03/27/2017 None Full Exam - General 1994 Neurologic cranial nerves Overall: crainial nerves 2 - 12 grossly intact 03/27/2017 None Full Exam - General 1994 Psychiatric orientation/consciousness Overall: oriented to person, place and time 03/27/2017 None Full Exam - General 1994 Psychiatric mood and affect Mood: flat 03/27/2017 None Full Exam - General 1994 Psychiatric mood and affect Affect: mood congruent 03/27/2017 None Full Exam - General 1994 Psychiatric appearance Overall: well-groomed, good eye contact 03/27/2017 None Full Exam - General 1994 Psychiatric speech Overall: normal quality, no aphasia 03/27/2017 None Full Exam - General 1994 Psychiatric speech Overall: normal quality, quantity, rate 03/27/2017 None Full Exam - General 1994 Psychiatric thought Overall: normal form and content 03/27/2017 None Full Exam - General 1994 Psychiatric cognition/memory Overall: immediate, recent, remote memory intact 03/27/2017 None Full Exam - General 1994 Psychiatric cognition/memory Overall: normal concentration, intelligence 03/27/2017 None Full Exam - ENT Constitutional general appearance Overall: well nourished 02/24/2017 None Full Exam - ENT Constitutional general appearance Overall: well developed 02/24/2017 None Full Exam - ENT Constitutional general appearance Overall: in no acute distress 02/24/2017 None Full Exam - ENT Ears/Nose/Throat otoscopic exam Overall: external auditory canals normal 02/24/2017 None Full Exam - ENT Ears/Nose/Throat otoscopic exam Left tympanic membrane: air -fluid level 02/24/2017 None Full Exam - ENT Ears/Nose/Throat otoscopic exam Right tympanic membrane: air-fluid level 02/24/2017 None Full Exam - ENT Ears/Nose/Throat lips/ teeth/gingiva Overall: benign lips 02/24/2017 None Full Exam - ENT Ears/Nose/Throat oropharynx Overall: oral mucosa clear 02/24/2017 None Full Exam - ENT Ears/Nose/Throat oropharynx Posterior Pharynx: clear post nasal drainage 02/24/2017 None Full Exam - ENT Ears/Nose/Throat oropharynx Posterior Pharynx: erythema 02/24/2017 None Full Exam - ENT Respiratory inspection Overall: no retractions 02/24/2017 None Full Exam - ENT Respiratory inspection Overall: normal rate None Full Exam - ENT Respiratory auscultation Overall: breath sounds clear bilaterally 02/24/2017 None Full Exam - ENT Cardiovascular auscultation of heart Rate: normal rate 02/24/2017 None Full Exam - ENT Cardiovascular auscultation of heart Rhythm: regular rhythm 02/24/2017 None Full Exam - ENT Lymphatic palpation of lymph nodes Overall: anterior cervical chain benign 02/24/2017 None Full Exam - ENT Lymphatic palpation of lymph nodes Overall: posterior cervical chain benign 02/24/2017 None Full Exam - ENT Neurologic mood and affect Overall: normal mood 02/24/2017 None Full Exam - ENT Neurologic mood and affect Overall: normal affect 02/24/2017 None Full Exam - ENT Neurologic orientation Overall: oriented to person, place and time 02/24/2017 None Full Exam - General 1994 Constitutional general appearance Overall: well developed 01/28/2017 None Full Exam - General 1994 Constitutional general appearance Overall: in no acute distress 01/28/2017 None Full Exam - General 1994 Constitutional general appearance Overall: well nourished 01/28/2017 None Full Exam - General 1994 Eyes conjunctiva /eyelids Overall: conjunctiva clear 01/28/2017 None Full Exam - General 1994 Eyes conjunctiva /eyelids Overall: cornea clear 01/28/2017 None Full Exam - General 1994 Eyes conjunctiva /eyelids Overall: eyelids normal 01/28/2017 None Full Exam - General 1994 Eyes pupils and irises Overall: pupils equal, round, reactive to light and accomodation 01/28/2017 None Full Exam - General 1994 Ears/Nose/Throat lips/teeth/gingiva Overall: benign lips 01/28/2017 None Full Exam - General 1994 Ears/Nose/Throat oral cavity/pharynx/larynx Overall: oral mucosa clear 01/28/2017 None Full Exam - General 1994 Respiratory auscultation Overall: breath sounds clear bilaterally 01/28/2017 None Full Exam - General 1994 Respiratory respiratory effort/rhythm Overall: no retractions 01/28/2017 None Full Exam - General 1994 Respiratory respiratory effort/rhythm Overall: normal rate 01/28/2017 None Full Exam - General 1994 Cardiovascular auscultation of heart Overall: regular rate 01/28/2017 None Full Exam - General 1994 Cardiovascular auscultation of heart Overall: normal heart sounds 01/28/2017 None Full Exam - General 1994 Musculoskeletal gait and station Overall: normal gait 01/28/2017 None Full Exam - General 1994 Musculoskeletal gait and station Overall: normal station 01/28/2017 None Full Exam - General 1994 Musculoskeletal head and neck Overall: head atraumatic 01/28/2017 None Full Exam - General 1994 Neurologic cranial nerves Overall: crainial nerves 2 - 12 grossly intact 01/28/2017 None Full Exam - General 1994 Psychiatric orientation/consciousness Overall: oriented to person, place and time 01/28/2017 None Full Exam - General 1994 Psychiatric mood and affect Mood: flat 01/28/2017 None Full Exam - General 1994 Psychiatric appearance Overall: well-groomed, good eye contact 01/28/2017 None Full Exam - General 1994 Psychiatric speech Overall: normal quality, no aphasia 01/28/2017 None Full Exam - General 1994 Psychiatric speech Overall: normal quality, quantity, rate 01/28/2017 None Full Exam - General 1994 Psychiatric thought Overall: normal form and content 01/28/2017 None Full Exam - General 1994 Psychiatric cognition/memory Overall: immediate, recent, remote memory intact 01/28/2017 None Full Exam - General 1994 Psychiatric cognition/memory Overall: normal concentration, intelligence 01/28/2017 None Full Exam - General 1994 Psychiatric mood and affect Affect: mood congruent 01/28/2017 None Full Exam - General 1994 Constitutional general appearance Overall: well developed 01/14/2017 None Full Exam - General 1994 Constitutional general appearance Overall: in no acute distress 01/14/2017 None Full Exam - General 1994 Constitutional general appearance Overall: well nourished 01/14/2017 None Full Exam - General 1994 Eyes conjunctiva /eyelids Overall: conjunctiva clear 01/14/2017 None Full Exam - General 1994 Eyes conjunctiva /eyelids Overall: cornea clear 01/14/2017 None Full Exam - General 1994 Eyes conjunctiva /eyelids Overall: eyelids normal 01/14/2017 None Full Exam - General 1994 Eyes pupils and irises Overall: pupils equal, round, reactive to light and accomodation 01/14/2017 None Full Exam - General 1994 Ears/Nose/Throat oral cavity/pharynx/larynx Overall: oral mucosa clear 01/14/2017 None Full Exam - General 1994 Ears/Nose/Throat lips/teeth/gingiva Overall: benign lips 01/14/2017 None Full Exam - General 1994 Respiratory auscultation Overall: breath sounds clear bilaterally 01/14/2017 None Full Exam - General 1994 Respiratory respiratory effort/rhythm Overall: no retractions 01/14/2017 None Full Exam - General 1994 Respiratory respiratory effort/rhythm Overall: normal rate 01/14/2017 None Full Exam - General 1994 Cardiovascular auscultation of heart Overall: regular rate 01/14/2017 None Full Exam - General 1994 Cardiovascular auscultation of heart Overall: normal heart sounds 01/14/2017 None Full Exam - General 1994 Musculoskeletal head and neck Overall: head atraumatic 01/14/2017 None Full Exam - General 1994 Musculoskeletal gait and station Overall: normal gait 01/14/2017 None Full Exam - General 1994 Musculoskeletal gait and station Overall: normal station 01/14/2017 None Full Exam - General 1994 Neurologic cranial nerves Overall: crainial nerves 2 - 12 grossly intact 01/14/2017 None Full Exam - General 1994 Psychiatric orientation/consciousness Overall: oriented to person, place and time 01/14/2017 None Full Exam - General 1994 Psychiatric mood and affect Mood: flat 01/14/2017 None Full Exam - General 1994 Psychiatric mood and affect Mood: depressed 01/14/2017 None Full Exam - General 1994 Psychiatric mood and affect Mood: anxious 01/14/2017 None Full Exam - General 1994 Psychiatric appearance Overall: well-groomed, good eye contact 01/14/2017 None Full Exam - General 1994 Psychiatric speech Overall: normal quality, no aphasia 01/14/2017 None Full Exam - General 1994 Psychiatric speech Overall: normal quality, quantity, rate 01/14/2017 None Full Exam - General 1994 Psychiatric thought Overall: normal form and content 01/14/2017 None Full Exam - General 1994 Psychiatric cognition/memory Overall: immediate, recent, remote memory intact 01/14/2017 None Full Exam - General 1994 Psychiatric cognition/memory Overall: normal concentration, intelligence 01/14/2017 None Full Exam - ENT Constitutional general appearance Overall: well nourished 10/28/2016 None Full Exam - ENT Constitutional general appearance Overall: well developed 10/28/2016 None Full Exam - ENT Constitutional general appearance Overall: in no acute distress 10/28/2016 None Full Exam - ENT Ears/Nose/Throat otoscopic exam Overall: external auditory canals normal 10/28/2016 None Full Exam - ENT Ears/Nose/Throat otoscopic exam Left tympanic membrane: air -fluid level 10/28/2016 None Full Exam - ENT Ears/Nose/Throat otoscopic exam Right tympanic membrane: air-fluid level 10/28/2016 None Full Exam - ENT Ears/Nose/Throat nasal mucosa, septum, turbinates Drainage: clear 10/28/2016 None Full Exam - ENT Ears/Nose/Throat nasal mucosa, septum, turbinates Drainage: yellow 10/28/2016 None Full Exam - ENT Ears/Nose/Throat lips/ teeth/gingiva Overall: benign lips 10/28/2016 None Full Exam - ENT Ears/Nose/Throat oropharynx Posterior Pharynx: clear post nasal drainage 10/28/2016 None Full Exam - ENT Respiratory inspection Overall: no retractions 10/28/2016 None Full Exam - ENT Respiratory inspection Overall: normal rate None Full Exam - ENT Respiratory auscultation Overall: breath sounds clear bilaterally 10/28/2016 None Full Exam - ENT Cardiovascular auscultation of heart Overall: regular rate 10/28/2016 None Full Exam - ENT Cardiovascular auscultation of heart Overall: normal heart sounds 10/28/2016 None Full Exam - ENT Lymphatic palpation of lymph nodes Overall: anterior cervical chain benign 10/28/2016 None Full Exam - ENT Lymphatic palpation of lymph nodes Overall: posterior cervical chain benign 10/28/2016 None Full Exam - ENT Neurologic mood and affect Overall: normal mood 10/28/2016 None Full Exam - ENT Neurologic mood and affect Overall: normal affect 10/28/2016 None Full Exam - ENT Neurologic orientation Overall: oriented to person, place and time 10/28/2016 None Full Exam - ENT Eyes ocular motility Overall: extraocular movement intact 10/28/2016 None Full Exam - Orthopedics Constitutional general appearance Overall: well nourished 09/23/2016 None Full Exam - Orthopedics Constitutional general appearance Overall: well developed 09/23/2016 None Full Exam - Orthopedics Constitutional general appearance Overall: in no acute distress 09/23/2016 None Full Exam - Orthopedics Eyes conjunctiva/ eyelids Overall: conjunctiva clear 09/23/2016 None Full Exam - Orthopedics Eyes conjunctiva/ eyelids Overall: eyelids normal 09/23/2016 None Full Exam - Orthopedics Ears/Nose/Throat lips/teeth/gingiva Overall: benign lips 09/23/2016 None Full Exam - Orthopedics Ears/Nose/Throat oral cavity/pharynx/larynx Overall: oral mucosa clear 09/23/2016 None Full Exam - Orthopedics Respiratory auscultation Overall: breath sounds clear bilaterally 09/23/2016 None Full Exam - Orthopedics Respiratory respiratory effort/rhythm Overall: no retractions 09/23/2016 None Full Exam - Orthopedics Respiratory respiratory effort/rhythm Overall: normal rate 09/23/2016 None Full Exam - Orthopedics MS: head/neck insp & palp - H/N Overall: head atraumatic 09/23/2016 None Full Exam - Orthopedics MS: spine/rib/pelvis insp & palp - S/R/P Thoracic/lumbar muscles palpation: tender left parathoracic 09/23/2016 None Full Exam - Orthopedics Psychiatric orientation/consciousness Overall: oriented to person, place and time 09/23/2016 None Full Exam - Orthopedics Psychiatric mood and affect Overall: normal mood and affect 09/23/2016 None Full Exam - Orthopedics Psychiatric appearance Overall: well-groomed, good eye contact 09/23/2016 None Full Exam - General 1994 Constitutional general appearance Overall: well developed 06/26/2016 None Full Exam - General 1994 Constitutional general appearance Overall: in no acute distress 06/26/2016 None Full Exam - General 1994 Constitutional general appearance Overall: well nourished 06/26/2016 None Full Exam - General 1994 Eyes conjunctiva /eyelids Overall: conjunctiva clear 06/26/2016 None Full Exam - General 1994 Eyes conjunctiva /eyelids Overall: eyelids normal 06/26/2016 None Full Exam - General 1994 Ears/Nose/Throat lips/teeth/gingiva Overall: benign lips 06/26/2016 None Full Exam - General 1994 Ears/Nose/Throat oral cavity/pharynx/larynx Overall: oral mucosa clear 06/26/2016 None Full Exam - General 1994 Respiratory respiratory effort/rhythm Overall: no retractions 06/26/2016 None Full Exam - General 1994 Respiratory respiratory effort/rhythm Overall: normal rate 06/26/2016 None Full Exam - General 1994 Abdomen abdominal exam Overall: no tenderness 06/26/2016 None Full Exam - General 1994 Abdomen abdominal exam Overall: normal bowel sounds 06/26/2016 None Full Exam - General 1994 Musculoskeletal head and neck Overall: head atraumatic 06/26/2016 None Full Exam - General 1994 Psychiatric orientation/consciousness Overall: oriented to person, place and time 06/26/2016 None Full Exam - General 1994 Psychiatric mood and affect Overall: normal mood and affect 06/26/2016 None Full Exam - General 1994 Constitutional general appearance Overall: well developed 06/07/2016 None Full Exam - General 1994 Constitutional general appearance Overall: in no acute distress 06/07/2016 None Full Exam - General 1994 Constitutional general appearance Overall: well nourished 06/07/2016 None Full Exam - General 1994 Eyes conjunctiva /eyelids Overall: conjunctiva clear 06/07/2016 None Full Exam - General 1994 Eyes conjunctiva /eyelids Overall: eyelids normal 06/07/2016 None Full Exam - General 1994 Ears/Nose/Throat lips/teeth/gingiva Overall: benign lips 06/07/2016 None Full Exam - General 1994 Ears/Nose/Throat oral cavity/pharynx/larynx Overall: oral mucosa clear 06/07/2016 None Full Exam - General 1994 Respiratory auscultation Overall: breath sounds clear bilaterally 06/07/2016 None Full Exam - General 1994 Respiratory respiratory effort/rhythm Overall: no retractions 06/07/2016 None Full Exam - General 1994 Respiratory respiratory effort/rhythm Overall: normal rate 06/07/2016 None Full Exam - General 1994 Cardiovascular auscultation of heart Overall: regular rate 06/07/2016 None Full Exam - General 1994 Cardiovascular auscultation of heart Overall: normal heart sounds 06/07/2016 None Full Exam - General 1994 Musculoskeletal head and neck Overall: head atraumatic 06/07/2016 None Full Exam - General 1994 Psychiatric orientation/consciousness Overall: oriented to person, place and time 06/07/2016 None Full Exam - General 1994 Psychiatric mood and affect Overall: normal mood and affect 06/07/2016 None Full Exam - General 1994 Psychiatric appearance Overall: well-groomed, good eye contact 06/07/2016 None Full Exam - General 1994 Constitutional general appearance Overall: well developed 06/06/2016 None Full Exam - General 1994 Constitutional general appearance Overall: in no acute distress 06/06/2016 None Full Exam - General 1994 Constitutional general appearance Overall: well nourished 06/06/2016 None Full Exam - General 1994 Eyes conjunctiva /eyelids Overall: conjunctiva clear 06/06/2016 None Full Exam - General 1994 Eyes conjunctiva /eyelids Overall: eyelids normal 06/06/2016 None Full Exam - General 1994 Ears/Nose/Throat lips/teeth/gingiva Overall: benign lips 06/06/2016 None Full Exam - General 1994 Ears/Nose/Throat oral cavity/pharynx/larynx Overall: oral mucosa clear 06/06/2016 None Full Exam - General 1994 Respiratory respiratory effort/rhythm Overall: no retractions 06/06/2016 None Full Exam - General 1994 Respiratory respiratory effort/rhythm Overall: normal rate 06/06/2016 None Full Exam - General 1994 Respiratory auscultation Overall: breath sounds clear bilaterally 06/06/2016 None Full Exam - General 1994 Cardiovascular auscultation of heart Overall: regular rate 06/06/2016 None Full Exam - General 1994 Cardiovascular auscultation of heart Overall: normal heart sounds 06/06/2016 None Full Exam - General 1994 Abdomen abdominal exam Overall: normal bowel sounds 06/06/2016 None Full Exam - General 1994 Abdomen abdominal exam Lower quadrant: tender to palpation 06/06/2016 None Full Exam - General 1994 Abdomen abdominal exam Lower quadrant: dull pain 06/06/2016 None Full Exam - General 1994 Abdomen abdominal exam Lower quadrant: no rebound tenderness 06/06/2016 None Full Exam - General 1994 Abdomen abdominal exam Lower quadrant: no guarding 06/06/2016 None Full Exam - General 1994 Abdomen abdominal exam Lower quadrant: no mass lesions 06/06/2016 None Full Exam - General 1994 Abdomen abdominal exam Lower quadrant: soft 06/06/2016 None Full Exam - General 1994 Neurologic cranial nerves Overall: crainial nerves 2 - 12 grossly intact 06/06/2016 None Full Exam - General 1994 Psychiatric orientation/consciousness Overall: oriented to person, place and time 06/06/2016 None Full Exam - General 1994 Psychiatric mood and affect Overall: normal mood and affect 06/06/2016 None Full Exam - General 1994 Psychiatric behavior/psychomotor activity Behavior: tics 06/06/2016 None Full Exam - ENT Constitutional general appearance Overall: well nourished 05/13/2016 None Full Exam - ENT Constitutional general appearance Overall: well developed 05/13/2016 None Full Exam - ENT Constitutional general appearance Overall: in no acute distress 05/13/2016 None Full Exam - ENT Ears/Nose/Throat otoscopic exam Overall: external auditory canals normal 05/13/2016 None Full Exam - ENT Ears/Nose/Throat otoscopic exam Left tympanic membrane: air -fluid level 05/13/2016 None Full Exam - ENT Ears/Nose/Throat otoscopic exam Right tympanic membrane: air-fluid level 05/13/2016 None Full Exam - ENT Ears/Nose/Throat nasal mucosa, septum, turbinates Drainage: clear 05/13/2016 None Full Exam - ENT Ears/Nose/Throat nasal mucosa, septum, turbinates Drainage: yellow 05/13/2016 None Full Exam - ENT Ears/Nose/Throat lips/ teeth/gingiva Overall: benign lips 05/13/2016 None Full Exam - ENT Ears/Nose/Throat oropharynx Posterior Pharynx: clear post nasal drainage 05/13/2016 None Full Exam - ENT Respiratory inspection Overall: no retractions 05/13/2016 None Full Exam - ENT Respiratory inspection Overall: normal rate 08/2016 None Full Exam - ENT Respiratory auscultation Overall: breath sounds clear bilaterally 05/13/2016 None Full Exam - ENT Cardiovascular auscultation of heart Overall: regular rate 05/13/2016 None Full Exam - ENT Cardiovascular auscultation of heart Overall: normal heart sounds 05/13/2016 None Full Exam - ENT Lymphatic palpation of lymph nodes Overall: anterior cervical chain benign 05/13/2016 None Full Exam - ENT Lymphatic palpation of lymph nodes Overall: posterior cervical chain benign 05/13/2016 None Full Exam - ENT Neurologic mood and affect Overall: normal mood 05/13/2016 None Full Exam - ENT Neurologic mood and affect Overall: normal affect 05/13/2016 None Full Exam - ENT Neurologic orientation Overall: oriented to person, place and time 05/13/2016 None Full Exam - General 1994 Constitutional general appearance Overall: well developed 05/02/2016 None Full Exam - General 1994 Constitutional general appearance Overall: well nourished 05/02/2016 None Full Exam - General 1994 Constitutional general appearance Evidence of Distress: mild distress 05/02/2016 None Full Exam - General 1994 Constitutional general appearance Evidence of Distress: anxious 05/02/2016 None Full Exam - General 1994 Constitutional general appearance Evidence of Distress: tearful 05/02/2016 None Full Exam - General 1994 Eyes conjunctiva /eyelids Overall: conjunctiva clear 05/02/2016 None Full Exam - General 1994 Eyes conjunctiva /eyelids Overall: cornea clear 05/02/2016 None Full Exam - General 1994 Eyes conjunctiva /eyelids Overall: eyelids normal 05/02/2016 None Full Exam - General 1994 Ears/Nose/Throat lips/teeth/gingiva Overall: benign lips 05/02/2016 None Full Exam - General 1994 Ears/Nose/Throat lips/teeth/gingiva Overall: normal dentition 05/02/2016 None Full Exam - General 1994 Ears/Nose/Throat oral cavity/pharynx/larynx Overall: oral mucosa clear 05/02/2016 None Full Exam - General 1994 Respiratory respiratory effort/rhythm Overall: no retractions 05/02/2016 None Full Exam - General 1994 Respiratory respiratory effort/rhythm Overall: normal rate 05/02/2016 None Full Exam - General 1994 Musculoskeletal head and neck Overall: head atraumatic 05/02/2016 None Full Exam - General 1994 Integument inspection of skin Location: left leg 05/02/2016 knee Full Exam - General 1994 Integument inspection of skin Rash/Lesions: surgical site 05/02/2016 mild erythema upper 2 cm of her surgical scar Full Exam - General 1994 Neurologic mental status Overall: alert 05/02/2016 None Full Exam - General 1994 Neurologic mental status Overall: oriented 05/02/2016 None Full Exam - General 1994 Neurologic cranial nerves Overall: crainial nerves 2 - 12 grossly intact 05/02/2016 None Full Exam - General 1994 Psychiatric orientation/consciousness Overall: oriented to person, place and time 05/02/2016 None Full Exam - General 1994 Psychiatric mood and affect Mood: depressed 05/02/2016 None Full Exam - General 1994 Psychiatric mood and affect Mood: anxious 05/02/2016 None Full Exam - General 1994 Psychiatric mood and affect Mood: irritable 05/02/2016 None Full Exam - General 1994 Psychiatric mood and affect Mood: labile mood 05/02/2016 None Full Exam - General 1994 Psychiatric appearance Overall: well-groomed, good eye contact 05/02/2016 None Full Exam - General 1994 Abdomen abdominal exam Overall: no tenderness 05/02/2016 None Full Exam - General 1994 Abdomen abdominal exam Overall: normal bowel sounds 05/02/2016 None Full Exam - Dermatology Constitutional general appearance Overall: well nourished 04/16/2016 None Full Exam - Dermatology Constitutional general appearance Overall: well developed 04/16/2016 None Full Exam - Dermatology Constitutional general appearance Overall: in no acute distress 04/16/2016 None Full Exam - Dermatology Eyes conjunctiva/ eyelids Overall: clear conjunctiva bilaterally 04/16/2016 None Full Exam - Dermatology Eyes conjunctiva/ eyelids Overall: normal eyelids 04/16/2016 None Full Exam - Dermatology Ears/Nose/Throat lips/teeth/gingiva Overall: benign lips 04/16/2016 None Full Exam - Dermatology Respiratory respiratory effort/rhythm Overall: no retractions 04/16/2016 None Full Exam - Dermatology Respiratory respiratory effort/rhythm Overall: normal rate 04/16/2016 None Full Exam - Dermatology Respiratory auscultation Overall: breath sounds clear bilaterally 04/16/2016 None Full Exam - Dermatology Integument insp & palp - right lower extremity Lesion: patch 04/16/2016 along healing surgical scar - no warmth or edema noted Full Exam - Dermatology Integument insp & palp - right lower extremity Distribution: localized 04/16/2016 None Full Exam - Dermatology Integument insp & palp - right lower extremity Location: on the knee 04/16/2016 None Full Exam - Dermatology Integument insp & palp - right lower extremity Color: erythematous 04/16/2016 None Full Exam - Dermatology Psychiatric orientation Overall: oriented to person, place and time 04/16/2016 None Full Exam - Dermatology Psychiatric mood and affect Overall: normal mood and affect 04/16/2016 None Full Exam - Orthopedics Constitutional general appearance Overall: well nourished 04/05/2016 None Full Exam - Orthopedics Constitutional general appearance Overall: well developed 04/05/2016 None Full Exam - Orthopedics Constitutional general appearance Overall: in no acute distress 04/05/2016 None Full Exam - Orthopedics Eyes conjunctiva/ eyelids Overall: conjunctiva clear 04/05/2016 None Full Exam - Orthopedics Eyes conjunctiva/ eyelids Overall: eyelids normal 04/05/2016 None Full Exam - Orthopedics Ears/Nose/Throat lips/teeth/gingiva Overall: benign lips 04/05/2016 None Full Exam - Orthopedics Ears/Nose/Throat oral cavity/pharynx/larynx Overall: oral mucosa clear 04/05/2016 None Full Exam - Orthopedics Respiratory respiratory effort/rhythm Overall: no retractions 04/05/2016 None Full Exam - Orthopedics Respiratory respiratory effort/rhythm Overall: normal rate 04/05/2016 None Full Exam - Orthopedics Psychiatric orientation/consciousness Overall: oriented to person, place and time 04/05/2016 None Full Exam - Orthopedics Psychiatric mood and affect Overall: normal mood and affect 04/05/2016 None Full Exam - Orthopedics Psychiatric appearance Overall: well-groomed, good eye contact 04/05/2016 None Full Exam - Orthopedics MS: right lower extremity range of motion - RLE Knee: full range of motion 04/05/2016 surgical site from replacement well approximated, and healing. No erythema or warmth noted Full Exam - General 1994 Constitutional general appearance Overall: well developed 02/29/2016 None Full Exam - General 1994 Constitutional general appearance Overall: in no acute distress 02/29/2016 None Full Exam - General 1994 Constitutional general appearance Overall: well nourished 02/29/2016 None Full Exam - General 1994 Eyes conjunctiva /eyelids Overall: conjunctiva clear 02/29/2016 None Full Exam - General 1994 Eyes conjunctiva /eyelids Overall: eyelids normal 02/29/2016 None Full Exam - General 1994 Ears/Nose/Throat lips/teeth/gingiva Overall: benign lips 02/29/2016 None Full Exam - General 1994 Ears/Nose/Throat oral cavity/pharynx/larynx Overall: oral mucosa clear 02/29/2016 None Full Exam - General 1994 Ears/Nose/Throat oral cavity/pharynx/larynx Overall: no masses 02/29/2016 None Full Exam - General 1994 Ears/Nose/Throat oral cavity/pharynx/larynx Overall: oropharyngeal mucosa clear 02/29/2016 None Full Exam - General 1994 Respiratory auscultation Overall: breath sounds clear bilaterally 02/29/2016 None Full Exam - General 1994 Respiratory respiratory effort/rhythm Overall: no retractions 02/29/2016 None Full Exam - General 1994 Respiratory respiratory effort/rhythm Overall: normal rate 02/29/2016 None Full Exam - General 1994 Cardiovascular extremities Overall: no clubbing 02/29/2016 None Full Exam - General 1994 Cardiovascular auscultation of heart Overall: regular rate 02/29/2016 None Full Exam - General 1994 Cardiovascular auscultation of heart Overall: normal heart sounds 02/29/2016 None Full Exam - General 1994 Musculoskeletal lower extremity Palpation - knee: crepitus 02/29/2016 None Full Exam - General 1994 Musculoskeletal lower extremity ROM - knee: pain with flexion 02/29/2016 None Full Exam - General 1994 Musculoskeletal head and neck Overall: head atraumatic 02/29/2016 None Full Exam - General 1994 Neurologic cranial nerves Overall: crainial nerves 2 - 12 grossly intact 02/29/2016 None Full Exam - General 1994 Psychiatric orientation/consciousness Overall: oriented to person, place and time 02/29/2016 None Full Exam - General 1994 Psychiatric mood and affect Overall: normal mood and affect 02/29/2016 None Full Exam - General 1994 Psychiatric appearance Overall: well-groomed, good eye contact 02/29/2016 None Full Exam - General 1994 Constitutional general appearance Overall: well developed 12/25/2015 None Full Exam - General 1994 Constitutional general appearance Overall: in no acute distress 12/25/2015 None Full Exam - General 1994 Constitutional general appearance Overall: well nourished 12/25/2015 None Full Exam - General 1994 Eyes conjunctiva /eyelids Overall: conjunctiva clear 12/25/2015 None Full Exam - General 1994 Eyes conjunctiva /eyelids Overall: cornea clear 12/25/2015 None Full Exam - General 1994 Eyes conjunctiva /eyelids Overall: eyelids normal 12/25/2015 None Full Exam - General 1994 Ears/Nose/Throat lips/teeth/gingiva Overall: benign lips 12/25/2015 None Full Exam - General 1994 Ears/Nose/Throat lips/teeth/gingiva Overall: normal dentition 12/25/2015 None Full Exam - General 1994 Ears/Nose/Throat oral cavity/pharynx/larynx Overall: oral mucosa clear 12/25/2015 None Full Exam - General 1994 Respiratory auscultation Overall: breath sounds clear bilaterally 12/25/2015 None Full Exam - General 1994 Respiratory respiratory effort/rhythm Overall: no retractions 12/25/2015 None Full Exam - General 1994 Respiratory respiratory effort/rhythm Overall: normal rate 12/25/2015 None Full Exam - General 1994 Cardiovascular auscultation of heart Overall: regular rate 12/25/2015 None Full Exam - General 1994 Cardiovascular auscultation of heart Overall: normal heart sounds 12/25/2015 None Full Exam - General 1994 Musculoskeletal head and neck Overall: head atraumatic 12/25/2015 None Full Exam - General 1994 Neurologic cranial nerves Overall: crainial nerves 2 - 12 grossly intact 12/25/2015 None Full Exam - General 1994 Psychiatric orientation/consciousness Overall: oriented to person, place and time 12/25/2015 None Full Exam - General 1994 Psychiatric mood and affect Overall: normal mood and affect 12/25/2015 None Full Exam - General 1994 Psychiatric appearance Overall: well-groomed, good eye contact 12/25/2015 None Full Exam - General 1994 Musculoskeletal spine, ribs and pelvis Spine: tender @ cervical spine 12/25/2015 None Full Exam - General 1994 Musculoskeletal lower extremity Overall: foot benign 12/25/2015 None Full Exam - General 1994 Constitutional general appearance Overall: well developed 10/02/2015 None Full Exam - General 1994 Constitutional general appearance Overall: well nourished 10/02/2015 None Full Exam - General 1994 Eyes conjunctiva /eyelids Overall: conjunctiva clear 10/02/2015 None Full Exam - General 1994 Eyes conjunctiva /eyelids Overall: cornea clear 10/02/2015 None Full Exam - General 1994 Eyes conjunctiva /eyelids Overall: eyelids normal 10/02/2015 None Full Exam - General 1994 Ears/Nose/Throat lips/teeth/gingiva Overall: benign lips 10/02/2015 None Full Exam - General 1994 Ears/Nose/Throat lips/teeth/gingiva Overall: normal dentition 10/02/2015 None Full Exam - General 1994 Ears/Nose/Throat oral cavity/pharynx/larynx Overall: oral mucosa clear 10/02/2015 None Full Exam - General 1994 Respiratory respiratory effort/rhythm Overall: no retractions 10/02/2015 None Full Exam - General 1994 Respiratory respiratory effort/rhythm Overall: normal rate 10/02/2015 None Full Exam - General 1994 Musculoskeletal head and neck Overall: head atraumatic 10/02/2015 None Full Exam - General 1994 Neurologic mental status Overall: alert 10/02/2015 None Full Exam - General 1994 Neurologic mental status Overall: oriented 10/02/2015 None Full Exam - General 1994 Neurologic cranial nerves Overall: crainial nerves 2 - 12 grossly intact 10/02/2015 None Full Exam - General 1994 Psychiatric orientation/consciousness Overall: oriented to person, place and time 10/02/2015 None Full Exam - General 1994 Psychiatric appearance Overall: well-groomed, good eye contact 10/02/2015 None Full Exam - General 1994 Constitutional general appearance Overall: in no acute distress 10/02/2015 None Full Exam - General 1994 Respiratory auscultation Overall: breath sounds clear bilaterally 10/02/2015 None Full Exam - General 1994 Cardiovascular auscultation of heart Overall: regular rate 10/02/2015 None Full Exam - General 1994 Cardiovascular auscultation of heart Overall: normal heart sounds 10/02/2015 None Full Exam - General 1994 Psychiatric mood and affect Overall: normal mood and affect 10/02/2015 None Full Exam - General 1994 Constitutional general appearance Overall: well developed 08/17/2015 None Full Exam - General 1994 Constitutional general appearance Overall: well nourished 08/17/2015 None Full Exam - General 1994 Constitutional general appearance Evidence of Distress: mild distress 08/17/2015 None Full Exam - General 1994 Constitutional general appearance Evidence of Distress: anxious 08/17/2015 None Full Exam - General 1994 Constitutional general appearance Evidence of Distress: tearful 08/17/2015 None Full Exam - General 1994 Eyes conjunctiva /eyelids Overall: conjunctiva clear 08/17/2015 None Full Exam - General 1994 Eyes conjunctiva /eyelids Overall: cornea clear 08/17/2015 None Full Exam - General 1994 Eyes conjunctiva /eyelids Overall: eyelids normal 08/17/2015 None Full Exam - General 1994 Ears/Nose/Throat lips/teeth/gingiva Overall: benign lips 08/17/2015 None Full Exam - General 1994 Ears/Nose/Throat lips/teeth/gingiva Overall: normal dentition 08/17/2015 None Full Exam - General 1994 Ears/Nose/Throat oral cavity/pharynx/larynx Overall: oral mucosa clear 08/17/2015 None Full Exam - General 1994 Respiratory respiratory effort/rhythm Overall: no retractions 08/17/2015 None Full Exam - General 1994 Respiratory respiratory effort/rhythm Overall: normal rate 08/17/2015 None Full Exam - General 1994 Musculoskeletal head and neck Overall: head atraumatic 08/17/2015 None Full Exam - General 1994 Integument inspection of skin Location: left leg 08/17/2015 knee Full Exam - General 1994 Integument inspection of skin Rash/Lesions: surgical site 08/17/2015 mild erythema upper 2 cm of her surgical scar Full Exam - General 1994 Neurologic mental status Overall: alert 08/17/2015 None Full Exam - General 1994 Neurologic mental status Overall: oriented 08/17/2015 None Full Exam - General 1994 Neurologic cranial nerves Overall: crainial nerves 2 - 12 grossly intact 08/17/2015 None Full Exam - General 1994 Psychiatric orientation/consciousness Overall: oriented to person, place and time 08/17/2015 None Full Exam - General 1994 Psychiatric mood and affect Mood: depressed 08/17/2015 None Full Exam - General 1994 Psychiatric mood and affect Mood: anxious 08/17/2015 None Full Exam - General 1994 Psychiatric mood and affect Mood: irritable 08/17/2015 None Full Exam - General 1994 Psychiatric mood and affect Mood: labile mood 08/17/2015 None Full Exam - General 1994 Psychiatric appearance Overall: well-groomed, good eye contact 08/17/2015 None Full Exam - General 1994 Constitutional general appearance Overall: well developed 08/08/2015 None Full Exam - General 1994 Constitutional general appearance Overall: well nourished 08/08/2015 None Full Exam - General 1994 Eyes conjunctiva /eyelids Overall: conjunctiva clear 08/08/2015 None Full Exam - General 1994 Eyes conjunctiva /eyelids Overall: cornea clear 08/08/2015 None Full Exam - General 1994 Eyes conjunctiva /eyelids Overall: eyelids normal 08/08/2015 None Full Exam - General 1994 Ears/Nose/Throat lips/teeth/gingiva Overall: benign lips 08/08/2015 None Full Exam - General 1994 Ears/Nose/Throat lips/teeth/gingiva Overall: normal dentition 08/08/2015 None Full Exam - General 1994 Ears/Nose/Throat oral cavity/pharynx/larynx Overall: oral mucosa clear 08/08/2015 None Full Exam - General 1994 Respiratory respiratory effort/rhythm Overall: no retractions 08/08/2015 None Full Exam - General 1994 Respiratory respiratory effort/rhythm Overall: normal rate 08/08/2015 None Full Exam - General 1994 Musculoskeletal head and neck Overall: head atraumatic 08/08/2015 None Full Exam - General 1994 Neurologic mental status Overall: alert 08/08/2015 None Full Exam - General 1994 Neurologic mental status Overall: oriented 08/08/2015 None Full Exam - General 1994 Neurologic cranial nerves Overall: crainial nerves 2 - 12 grossly intact 08/08/2015 None Full Exam - General 1994 Psychiatric orientation/consciousness Overall: oriented to person, place and time 08/08/2015 None Full Exam - General 1994 Psychiatric appearance Overall: well-groomed, good eye contact 08/08/2015 None Full Exam - General 1994 Constitutional general appearance Evidence of Distress: mild distress 08/08/2015 None Full Exam - General 1994 Constitutional general appearance Evidence of Distress: anxious 08/08/2015 None Full Exam - General 1994 Constitutional general appearance Evidence of Distress: tearful 08/08/2015 None Full Exam - General 1994 Integument inspection of skin Location: left leg 08/08/2015 knee Full Exam - General 1994 Integument inspection of skin Rash/Lesions: surgical site 08/08/2015 mild erythema upper 2 cm of her surgical scar Full Exam - General 1994 Psychiatric mood and affect Mood: anxious 08/08/2015 None Full Exam - General 1994 Psychiatric mood and affect Mood: depressed 08/08/2015 None Full Exam - General 1994 Psychiatric mood and affect Mood: irritable 08/08/2015 None Full Exam - General 1994 Psychiatric mood and affect Mood: labile mood 08/08/2015 None Full Exam - General 1994 Constitutional general appearance Overall: well developed 07/17/2015 None Full Exam - General 1994 Constitutional general appearance Overall: well nourished 07/17/2015 None Full Exam - General 1994 Eyes conjunctiva /eyelids Overall: conjunctiva clear 07/17/2015 None Full Exam - General 1994 Eyes conjunctiva /eyelids Overall: cornea clear 07/17/2015 None Full Exam - General 1994 Eyes conjunctiva /eyelids Overall: eyelids normal 07/17/2015 None Full Exam - General 1994 Ears/Nose/Throat lips/teeth/gingiva Overall: benign lips 07/17/2015 None Full Exam - General 1994 Ears/Nose/Throat lips/teeth/gingiva Overall: normal dentition 07/17/2015 None Full Exam - General 1994 Ears/Nose/Throat oral cavity/pharynx/larynx Overall: oral mucosa clear 07/17/2015 None Full Exam - General 1994 Respiratory respiratory effort/rhythm Overall: no retractions 07/17/2015 None Full Exam - General 1994 Respiratory respiratory effort/rhythm Overall: normal rate 07/17/2015 None Full Exam - General 1994 Musculoskeletal head and neck Overall: head atraumatic 07/17/2015 None Full Exam - General 1994 Integument inspection of skin Location: left leg 07/17/2015 knee Full Exam - General 1994 Neurologic mental status Overall: alert 07/17/2015 None Full Exam - General 1994 Neurologic mental status Overall: oriented 07/17/2015 None Full Exam - General 1994 Neurologic cranial nerves Overall: crainial nerves 2 - 12 grossly intact 07/17/2015 None Full Exam - General 1994 Psychiatric orientation/consciousness Overall: oriented to person, place and time 07/17/2015 None Full Exam - General 1994 Constitutional general appearance Overall: in no acute distress 07/17/2015 None Full Exam - General 1994 Respiratory auscultation Overall: breath sounds clear bilaterally 07/17/2015 None Full Exam - General 1994 Cardiovascular auscultation of heart Overall: regular rate 07/17/2015 None Full Exam - General 1994 Cardiovascular auscultation of heart Overall: normal heart sounds 07/17/2015 None Full Exam - General 1994 Musculoskeletal lower extremity Inspection - knee: presence of a scar 07/17/2015 None Full Exam - General 1994 Integument inspection of skin Rash/Lesions: surgical site 07/17/2015 healing, well approximated , no drainage noted Full Exam - General 1994 Constitutional general appearance Overall: well developed 07/03/2015 None Full Exam - General 1994 Constitutional general appearance Overall: in no acute distress 07/03/2015 None Full Exam - General 1994 Constitutional general appearance Overall: well nourished 07/03/2015 None Full Exam - General 1994 Eyes conjunctiva /eyelids Overall: conjunctiva clear 07/03/2015 None Full Exam - General 1994 Eyes conjunctiva /eyelids Overall: cornea clear 07/03/2015 None Full Exam - General 1994 Eyes conjunctiva /eyelids Overall: eyelids normal 07/03/2015 None Full Exam - General 1994 Ears/Nose/Throat otoscopic exam Overall: external auditory canals clear 07/03/2015 None Full Exam - General 1994 Ears/Nose/Throat otoscopic exam Overall: tympanic membranes clear 07/03/2015 None Full Exam - General 1994 Ears/Nose/Throat lips/teeth/gingiva Overall: benign lips 07/03/2015 None Full Exam - General 1994 Ears/Nose/Throat lips/teeth/gingiva Overall: normal dentition 07/03/2015 None Full Exam - General 1994 Ears/Nose/Throat oral cavity/pharynx/larynx Overall: oral mucosa clear 07/03/2015 None Full Exam - General 1994 Ears/Nose/Throat oral cavity/pharynx/larynx Overall: oropharyngeal mucosa clear 07/03/2015 None Full Exam - General 1994 Respiratory respiratory effort/rhythm Overall: no retractions 07/03/2015 None Full Exam - General 1994 Respiratory respiratory effort/rhythm Overall: normal rate 07/03/2015 None Full Exam - General 1994 Respiratory auscultation Overall: breath sounds clear bilaterally 07/03/2015 None Full Exam - General 1994 Cardiovascular auscultation of heart Overall: regular rate 07/03/2015 None Full Exam - General 1994 Cardiovascular auscultation of heart Overall: normal heart sounds 07/03/2015 None Full Exam - General 1994 Abdomen abdominal exam Overall: normal bowel sounds 07/03/2015 None Full Exam - General 1994 Abdomen abdominal exam Upper quadrant: tender to palpation 07/03/2015 mild Full Exam - General 1994 Abdomen abdominal exam Lower quadrant: tender to palpation 07/03/2015 mild Full Exam - General 1994 Musculoskeletal head and neck Overall: head atraumatic 07/03/2015 None Full Exam - General 1994 Integument inspection of skin Overall: no rash, lesions 07/03/2015 None Full Exam - General 1994 Neurologic cranial nerves Overall: crainial nerves 2 - 12 grossly intact 07/03/2015 None Full Exam - General 1994 Neurologic mental status Overall: alert 07/03/2015 None Full Exam - General 1994 Neurologic mental status Overall: oriented 07/03/2015 None Full Exam - General 1994 Psychiatric orientation/consciousness Overall: oriented to person, place and time 07/03/2015 None Full Exam - General 1994 Psychiatric mood and affect Overall: normal mood and affect 07/03/2015 None Full Exam - General 1994 Psychiatric appearance Overall: well-groomed, good eye contact 07/03/2015 None Full Exam - General 1994 Psychiatric mood and affect Mood: happy 07/03/2015 None Procedures Procedure Codes Date ADMIN INFLUENZA VIRUS VAC CPT-4: G0008 01/10/2017 FLU VACC PRSV FREE INC ANTIG CPT-4: 46132 01/10/2017 PPPS, SUBSEQ VISIT CPT -4: G0439 06/07/2016 Vital Signs Date Vital 03/27/2017 Blood Pressure 1: 126/80 Code : 8480-6 BMI: 28.6 Code : 84635-4 Heart Rate 1 : 75 bpm Height: 5'5" SpO2: 98% Weight: 172 lbs 02/24/2017 Blood Pressure 1: 136/72 Code : 8480-6 BMI: 28.6 Code : 80134-1 Heart Rate 1 : 77 bpm Height: 5'5" SpO2: 96% Weight: 172 lbs 01/28/2017 Blood Pressure 1: 134/70 Code : 8480-6 Heart Rate 1: 86 bpm Height: SpO2: 98% Weight: 01/14/2017 Blood Pressure 1: 132/80 Code : 8480-6 Heart Rate 1: 74 bpm Height: SpO2: 96% Weight: 10/28/2016 Blood Pressure 1: 122/78 Code : 8480-6 BMI: 28.6 Code : 14690-9 Heart Rate 1 : 90 bpm Height: 5'5" SpO2: 95% Weight: 172 lbs 09/23/2016 Blood Pressure 1: 128/80 Code : 8480-6 BMI: 28.3 Code : 74052-9 Heart Rate 1 : 76 bpm Height: 5'5" SpO2: 97% Weight: 170 lbs 06/26/2016 Blood Pressure 1: 122/74 Code : 8480-6 BMI: 28.5 Code : 23247-3 Heart Rate 1 : 82 bpm Height: 5'5" SpO2: 97% Weight: 171 lbs 06/07/2016 Blood Pressure 1: 122/70 Code : 8480-6 BMI: 28.6 Code : 02489-7 Heart Rate 1 : 86 bpm Height: 5'5" SpO2: 98% Waist Measure (cm): 91 cm Weight: 172 lbs 06/06/2016 Blood Pressure 1: 120/70 Code : 8480-6 BMI: 28.6 Code : 45794-1 Heart Rate 1 : 86 bpm Height: 5'5" SpO2: 97% Weight: 172 lbs 05/13/2016 Blood Pressure 1: 116/72 Code : 8480-6 BMI: 28.6 Code : 06570-7 Heart Rate 1 : 77 bpm Height: 5'5" SpO2: 97% Weight: 172 lbs 05/02/2016 Blood Pressure 1: 132/80 Code : 8480-6 BMI: 29.1 Code : 98100-5 Heart Rate 1 : 98 bpm Height: 5'5" SpO2: 98% Weight: 175 lbs 04/16/2016 Blood Pressure 1: 122/80 Code : 8480-6 BMI: 29.0 Code : 52393-0 Heart Rate 1 : 97 bpm Height: 5'5" SpO2: 97% Weight: 174 lbs 04/05/2016 Blood Pressure 1: 130/86 Code : 8480-6 Heart Rate 1: 90 bpm Height: 5'5" SpO2: 97% Weight: 02/29/2016 Blood Pressure 1: 122/72 Code : 8480-6 BMI: 29.8 Code : 97184-1 Heart Rate 1 : 94 bpm Height: 5'5" SpO2: 97% Weight: 179 lbs 01/22/2016 Blood Pressure 1: 140/76 Code : 8480-6 BMI: 30.1 Code : 91754-1 Heart Rate 1 : 91 bpm Height: 5'5" SpO2: 96% Weight: 181 lbs 12/25/2015 Blood Pressure 1: 110/62 Code : 8480-6 BMI: 30.0 Code : 90277-3 Heart Rate 1 : 86 bpm Height: 5'5" SpO2: 97% Weight: 180 lbs 10/02/2015 Blood Pressure 1: 128/64 Code : 8480-6 BMI: 30.6 Code : 89276-6 Heart Rate 1 : 80 bpm Height: 5'5" SpO2: 97% Weight: 184 lbs 08/17/2015 Blood Pressure 1: 125/78 Code : 8480-6 BMI: 31.6 Code : 36555-4 Heart Rate 1 : 97 bpm Height: 5'5" SpO2: 98% Weight: 190 lbs 08/08/2015 Blood Pressure 1: 140/72 Code : 8480-6 BMI: 31.6 Code : 32266-8 Heart Rate 1 : 79 bpm Height: 5'5" SpO2: 97% Weight: 190 lbs 07/17/2015 Blood Pressure 1: 130/72 Code : 8480-6 BMI: 32.6 Code : 89738-7 Heart Rate 1 : 84 bpm Height: 5'5" SpO2: 97% Weight: 196 lbs 07/03/2015 Blood Pressure 1: 124/74 Code : 8480-6 BMI: 32.6 Code : 62120-9 Heart Rate 1 : 94 bpm Height: 5'5" SpO2: 98% Weight: 196 lbs Functional Status No Functional Status data History of Present Illness Symptom Name Status Result Effective Date Notes abnormal test results Detailed Test Result(s) Dementia Rating Scale 03/27/2017 None abnormal test results Test Performed on 03/27/2017 None abnormal test results Abnormal Indicator slightly abnormal 03/27/2017 None abnormal test results Repeated Abnormal Results 0 03/27/2017 None cough Location in the lung 02/24/2017 None cough Quality acute None cough Onset and Resolution sudden in onset 02/24/2017 None cough Onset of Symptom 1 weeks ago 02/24/2017 None cough Limitation on Activities does not limit activities 02/24/2017 None cough Pertinent Findings Denies dyspnea 02/24/2017 None sore throat Location diffusely 02/24/2017 None sore throat Quality acute 02/24/2017 None sore throat Onset and Resolution sudden in onset 02/24/2017 None sore throat Onset of Symptom 1 weeks ago 02/24/2017 None sore throat Limitation on Activities does not limit oral intake 02/24/2017 None sore throat Pertinent Findings Denies fever 02/24/2017 None sore throat Pertinent Findings cough 02/24/2017 None depression Quality chronic 01/28/2017 None depression Onset and Resolution ongoing 01/28/2017 None depression Pertinent Findings anxiety 01/28/2017 None depression Pertinent Findings Denies self harm 01/28/2017 None depression Pertinent Findings Denies suicidal ideation 01/28/2017 None depression Pertinent Findings Denies suicide attempt/plan 01/28/2017 None depression Pertinent Findings Denies self -harm 01/28/2017 None anxiety Quality chronic 01/28/2017 None anxiety Quality intermittent 01/28/2017 None anxiety Onset and Resolution ongoing 01/28/2017 None anxiety Pertinent Findings avoidance behavior 01/28/2017 None anxiety Pertinent Findings Denies dyspnea 01/28/2017 None depression Quality improving 01/28/2017 None anxiety Quality improving 01/28/2017 None depression Quality chronic 01/14/2017 None depression Quality worsening 01/14/2017 None depression Onset and Resolution ongoing 01/14/2017 None depression Pertinent Findings Denies self -harm 01/14/2017 None depression Pertinent Findings Denies suicidal ideation 01/14/2017 None depression Pertinent Findings Denies suicide attempt/plan 01/14/2017 None depression Pertinent Findings Denies self harm 01/14/2017 None depression Pertinent Findings anxiety 01/14/2017 None anxiety Quality chronic 01/14/2017 None anxiety Quality intermittent 01/14/2017 None anxiety Quality worsening 01/14/2017 None anxiety Onset and Resolution ongoing 01/14/2017 None anxiety Pertinent Findings Denies dyspnea 01/14/2017 None anxiety Pertinent Findings avoidance behavior 01/14/2017 None vaccination against influenza Location [id number]-Lt 01/10/2017 None eye pain Location in the left eye 10/28/2016 None eye pain Quality intermittent 10/28/2016 None eye pain Quality sharp 10/28/2016 None eye pain Onset and Resolution sudden in onset 10/28/2016 None eye pain Onset of Symptom 1 days ago 10/28/2016 None eye pain Limitation on Activities does not limit activities 10/28/2016 None eye pain Frequency of Episodes increasing 10/28/2016 None eye pain Triggers no known associated factors 10/28/2016 None eye pain Pertinent Findings eye discharge 10/28/2016 clear eye pain Pertinent Findings Denies eye pressure 10/28/2016 None eye pain Pertinent Findings Denies eye swelling 10/28/2016 None eye pain Pertinent Findings eye tearing 10/28/2016 None eye pain Pertinent Findings Denies facial erythema 10/28/2016 None eye pain Pertinent Findings Denies facial pain 10/28/2016 None eye pain Pertinent Findings Denies fever 10/28/2016 None myalgias Location on the left shoulder 09/23/2016 None myalgias Location on the chest 09/23/2016 None myalgias Quality cramping 09/23/2016 None myalgias Quality acute 09/23/2016 None myalgias Quality improving 09/23/2016 None myalgias Onset and Resolution sudden in onset 09/23/2016 None myalgias Limitation on Activities moderately limits activities 09/23/2016 None myalgias Pertinent Findings Denies fever 09/23/2016 None myalgias Pertinent Findings Denies cough 09/23/2016 None myalgias Pertinent Findings Denies nausea 09/23/2016 None myalgias Pertinent Findings muscle strain 09/23/2016 None myalgias Pertinent Findings Denies muscle swelling 09/23/2016 None bone pain Location in the coccyx 06/26/2016 None bone pain Quality aching 06/26/2016 None bone pain Onset and Resolution sudden in onset 06/26/2016 None bone pain Onset of Symptom 2 weeks ago 06/26/2016 None bone pain Frequency of Episodes daily 06/26/2016 None constipation Quality every other day 06/26/2016 None Annual Medicare Wellness Exam Alcohol Use does not drink any alcohol 06/07/2016 None Annual Medicare Wellness Exam Aspirin Use no 06/07/2016 None Annual Medicare Wellness Exam Blood Glucose (self reported) don't know 06/07/2016 None Annual Medicare Wellness Exam Blood Pressure (self reported ) borderline (120/80 - 139/89) 06/07/2016 None Annual Medicare Wellness Exam Cholesterol (self reported) desireable (below 200) 06/07/2016 None Annual Medicare Wellness Exam Depression (last 6 months) some of the time 06/07/2016 None Annual Medicare Wellness Exam Depression or Hopelessness some of the time 06/07/2016 None Annual Medicare Wellness Exam Describe Your Health good 06/07/2016 None Annual Medicare Wellness Exam Exercise Habits exercises 2 days per week 06/07/2016 None Annual Medicare Wellness Exam Exercise Habits exercises 60 minutes per day 06/07/2016 None Annual Medicare Wellness Exam Handling Stress has problems coping 06/07/2016 None Annual Medicare Wellness Exam Hemaglobin A-1C (self reported ) don't know 06/07/2016 None Annual Medicare Wellness Exam Hours of Sleep 7 06/07/2016 None Annual Medicare Wellness Exam Interaction with Friends yes 06/07/2016 None Annual Medicare Wellness Exam Interests & Pleasure most of the time 06/07/2016 None Annual Medicare Wellness Exam Life Satisfaction very satisfied 06/07/2016 None Annual Medicare Wellness Exam Motor Vehicle Safety always fastens seat belt: y 06/07/2016 None Annual Medicare Wellness Exam Motor Vehicle Safety drives after drinking: nnn 06/07/2016 None Annual Medicare Wellness Exam Motor Vehicle Safety rides with someone who has been drinking: n 2016 None Annual Medicare Wellness Exam Nutrition servings of fried food / high fat foods per day: 1 2016 None Annual Medicare Wellness Exam Nutrition servings of high fiber / whole grain per day: 3 06/07/2016 None Annual Medicare Wellness Exam Nutrition servings of vegetables / fruit per day: 3 06/07/2016 None Annual Medicare Wellness Exam Smoking and Tobacco Use non smoker 06/07/2016 None Annual Medicare Wellness Exam Social & Emotional Support sometimes 06/07/2016 None Annual Medicare Wellness Exam Stress almost all of the time 06/07/2016 None Annual Medicare Wellness Exam Sun Exposure protects skin when outdoors: y 06/07/2016 None abdominal pain Location in the suprapubic area 06/06/2016 None abdominal pain Quality intermittent 06/06/2016 None abdominal pain Onset and Resolution sudden in onset 06/06/2016 None abdominal pain Onset of Symptom 10 days ago 06/06/2016 None urinary urgency Quality intermittent 06/06/2016 None urinary urgency Onset and Resolution sudden in onset 06/06/2016 None urinary urgency Onset of Symptom 10 days ago 06/06/2016 None sinus congestion Location on both sides 05/13/2016 None sinus congestion Quality pressure 05/13/2016 None sinus congestion Quality constant 05/13/2016 None sinus congestion Onset and Resolution sudden in onset 05/13/2016 None sinus congestion Onset of Symptom 2 weeks ago 05/13/2016 None knee pain Location on the right 05/02/2016 None knee pain Limitation on Activities allows weight bearing activity 05/02/2016 None knee pain Significant Medical Conditions degenerative joint disease 05/02/2016 None abnormal test results Abnormal Indicator low 05/02/2016 None abnormal test results Abnormal Indicator abnormal 05/02/2016 None abnormal test results Test Performed on 04-05-2016 05/02/2016 None abnormal test results Type of Test(s) CBC - Hgb 05/02/2016 None hypertension Quality intermittent 05/02/2016 None hypertension Onset and Resolution ongoing 05/02/2016 None hypertension Onset of Symptom during adulthood 05/02/2016 None hypertension Blood Pressure Values patient checking blood pressure at home - did not bring in readings 05/02/2016 None hypertension Alleviating Factors medication 05/02/2016 None hypertension Pertinent Findings dizziness 05/02/2016 occasionally knee pain Quality intermittent 05/02/2016 None tinnitus Quality acute 05/02/2016 None tinnitus Location in both ears 05/02/2016 None tinnitus Quality intermittent 05/02/2016 None tinnitus Onset and Resolution ongoing 05/02/2016 None diaphoresis Onset and Resolution ongoing 05/02/2016 None diaphoresis Quality acute 05/02/2016 None diaphoresis Quality intermittent 05/02/2016 None diaphoresis Timing of Episodes at night 05/02/2016 None diaphoresis Triggers no known associated factors 05/02/2016 None rash Location-Extremities on the right leg 04/16/2016 None rash Quality acute 09/2016 None rash Quality dry 04/16 None rash Color erythematous 04/16/2016 None rash Onset and Resolution ongoing 04/16/2016 None rash Onset and Resolution gradual in onset 04/16/2016 None rash Pertinent Findings Denies fever 04/16/2016 None rash Pertinent Findings itching 04/16/2016 None rash Pertinent Findings Denies pain 04/16/2016 None Hospital Follow Up _ Other: right knee replacement 04/05/2016 None Hospital Follow Up Severity moderate 04/05/2016 None Hospital Follow Up Pertinent Findings Denies fever 04/05/2016 None Hospital Follow Up Pertinent Findings Denies pain 04/05/2016 None Hospital Follow Up Pertinent Findings medication use 04/05/2016 None Hospital Follow Up Pertinent Findings other arthralgias 04/05/2016 None knee pain Location on the right 04/05/2016 None knee pain Quality improving 04/05/2016 None knee pain Limitation on Activities allows weight bearing activity 04/05/2016 None knee pain Significant Medical Conditions degenerative joint disease 04/05/2016 None pre-op/surgery consult Procedure to be performed Right knee replacement 02/29/2016 None pre-op/surgery consult Scheduled date of procedure 03/19/2016 02/29/2016 None pre-op/surgery consult Significant Medical Conditions thyroid problem 02/29/2016 None pre-op/surgery consult Additional Comments The patient is doing well. 02/29/2016 None pre-op/surgery consult Pertinent Findings Denies fever 02/29/2016 None anxiety Quality agitation 01/22/2016 None anxiety Onset and Resolution sudden in onset 01/22/2016 None anxiety Onset of Symptom 3 weeks ago 01/22/2016 None foot pain Location on the right 12/25/2015 None foot pain Quality dull pain 12/25/2015 None foot pain Quality sharp pain 12/25/2015 None foot pain Quality intermittent 12/25/2015 None foot pain Quality worsening 12/25/2015 None foot pain Onset and Resolution sudden in onset 12/25/2015 None foot pain Onset of Symptom 2 years ago 12/25/2015 None foot pain Frequency of Episodes daily 12/25/2015 None foot pain Limitation on Activities allows weight bearing activity 12/25/2015 None foot pain Mechanism of injury unknown 12/25/2015 None neck pain Location diffusely 12/25/2015 None neck pain Quality aching 12/25/2015 None neck pain Quality tingling 12/25/2015 None neck pain Quality numbness 12/25/2015 None neck pain Quality discomfort 12/25/2015 None neck pain Quality worsening 12/25/2015 None neck pain Onset and Resolution sudden in onset 12/25/2015 None neck pain Onset of Symptom 1 weeks ago 12/25/2015 None neck pain Frequency of Episodes daily 12/25/2015 None medication follow up Location oral intake 10/02/2015 None anemia Quality chronic 10/02/2015 None anemia Quality improving 10/02/2015 None anemia Onset of Symptom during adulthood 10/02/2015 None anemia Pertinent Findings Denies dyspnea 10/02/2015 None anemia Pertinent Findings Denies decreased energy 10/02/2015 None medication follow up Location oral intake 08/17/2015 None medication follow up Additional Comments medication: wellbutrin 08/17/2015 None medication follow up side effect other neurologic symptoms 08/17/2015 hallucinations skin lesion Quality acute 08/17/2015 None skin lesion Onset of Symptom 1+ months ago 08/17/2015 None skin lesion Onset and Resolution sudden in onset 08/17/2015 None skin lesion Location Left Knee 08/17/2015 None hypertension Onset and Resolution ongoing 08/17/2015 None hypertension Onset of Symptom during adulthood 08/17/2015 None hypertension Alleviating Factors medication 08/17/2015 None hypertension Exacerbating Factors stress 08/17/2015 None skin lesion Location Left Knee 08/08/2015 None skin lesion Quality soft 08/08/2015 None skin lesion Onset and Resolution sudden in onset 08/08/2015 None skin lesion Onset of Symptom 2 weeks ago 08/08/2015 None medication follow up Additional Comments medication use 08/08/2015 None medication follow up Location oral intake 08/08/2015 None medication follow up side effect Other: irritation 08/08/2015 None fatigue Limitation on Activities does not limit activities 07/17/2015 None fatigue Frequency of Episodes daily 07/17/2015 None depression Quality intermittent 07/17/2015 None depression Onset and Resolution sudden in onset 07/17/2015 None knee pain Location on the left 07/17/2015 None knee pain Quality improving 07/17/2015 None fatigue Limitation on Activities does not limit activities 07/03/2015 None fatigue Onset of Symptom 1 months ago 07/03/2015 None fatigue Frequency of Episodes daily 07/03/2015 None depression Quality intermittent 07/03/2015 None depression Onset and Resolution sudden in onset 07/03/2015 None depression Onset of Symptom 1 months ago 07/03/2015 None Advance Directives No Advance Directive data Encounters Encounter Performer Location Codes Date ([id number]) 21631 EST. PATIENT, LEVEL IV Diagnosis: Vascular dementia without behavioral disturbance[ICD10: F01.50] [facility] CPT-4: 49745 03/27/2017 36030 EST. PATIENT, LEVEL III Diagnosis: Acute laryngopharyngitis[ICD10: J06.0] Diagnosis: Other allergic rhinitis[ICD10: J30.89] [facility] CPT-4: 22085 02/24/2017 34551 EST. PATIENT, LEVEL III Diagnosis: Generalized anxiety disorder[ICD10: F41.1] Diagnosis: Major depressive disorder, single episode, moderate[ICD10: F32.1] Diagnosis: Tourette's disorder[ICD10: F95.2] Virginia River MD, [facility] CPT -4: 78210 01/28/2017 16004 EST. PATIENT, LEVEL III Diagnosis: Generalized anxiety disorder[ICD10: F41.1] Diagnosis: Major depressive disorder, single episode, moderate[ICD10: F32.1] Diagnosis: Mild cognitive impairment, so stated[ICD10: G31.84] Diagnosis: Tourette's disorder[ICD10: F95.2] Virginia River MD, [facility] CPT -4: 37655 01/14/2017 ([id number]) 52134 EST. PATIENT, LEVEL III Diagnosis: Other allergic rhinitis[ICD10: J30.89] Mayra River MD, [facility] CPT-4: 30036 10/28/2016 59399 EST. PATIENT, LEVEL III Diagnosis: Other muscle spasm[ICD10: M62.838] Diagnosis: Other chest pain[ICD10: R07.89] Diagnosis: Pain in left shoulder[ICD10: M25.512] Virginia River MD, [facility] CPT-4: 91341 09/23/2016 80418 EST. PATIENT, LEVEL IV Diagnosis: Slow transit constipation[ICD10: K59.01] Diagnosis: Other hemorrhoids[ICD10: K64.8] Virginia River MD, [facility] CPT-4 : 59813 06/26/2016 08491 EST. PATIENT, LEVEL III Diagnosis: Candidiasis of vulva and vagina[ICD10: B37.3] Virginia River MD, [facility] CPT-4: 04281 06/06/2016 91443 EST. PATIENT, LEVEL III Diagnosis: Other allergic rhinitis[ICD10: J30.89] Virginia River MD, [facility] CPT-4: 53732 05/13/2016 ([id number]) 30417 EST. PATIENT, LEVEL IV Diagnosis: Essential (primary) hypertension[ICD10: I10] Diagnosis: Other iron deficiency anemias[ICD10: D50.8] Diagnosis: Cervicalgia[ICD10: M54.2] Marielle River MD, [facility] CPT-4: 44712 05/02/2016 50758 EST. PATIENT, LEVEL III Diagnosis: Rash and other nonspecific skin eruption[ICD10: R21] Virginia River MD, [facility] CPT-4: 84415 04/16/2016 10283 EST. PATIENT, LEVEL III Diagnosis: Other specified anemias[ICD10: D64.89] Diagnosis: Encounter for follow-up examination after completed treatment for conditions other than malignant neoplasm[ICD10: Z09] Virginia River MD, [facility] CPT-4: 25424 04/05/2016 94363 EST. PATIENT, LEVEL III Diagnosis: Pain in right knee[ICD10: M25.561] Marielle River MD, [facility] CPT-4: 21940 02/29/2016 48990 EST. PATIENT, LEVEL II Diagnosis: Generalized anxiety disorder[ICD10: F41.1] Diagnosis: Other fatigue[ICD10: R53.83] Diagnosis: Dysuria[ICD10: R30.0] Virginia River MD, [facility] CPT-4: 23709 01/22/2016 58187 EST. PATIENT, LEVEL IV Diagnosis: Cervicalgia[ICD10: M54.2] Diagnosis: Pain in right foot[ICD10: M79.671] Virginia River MD, [facility] CPT-4: 31289 12/25/2015 01350 EST. PATIENT, LEVEL IV Diagnosis: Other iron deficiency anemias[ICD10: D50.8] Diagnosis: Tourette's disorder[ICD10: F95.2] Diagnosis: Generalized anxiety disorder[ICD10: F41.1] Virginia River MD, [facility] CPT-4: 55284 10/02/2015 ([id number]) 13796 EST. PATIENT, LEVEL IV Diagnosis: Iron deficiency anemia, unspecified[ICD10: D50.9] Diagnosis: Essential (primary) hypertension[ICD10: I10] Marielle River MD, [facility] CPT-4: 07253 08/17/2015 90551 EST. PATIENT, LEVEL III Diagnosis: Tourette's disorder[ICD10: F95.2] Diagnosis: Essential (primary) hypertension[ICD10: I10] Diagnosis: Generalized anxiety disorder[ICD10: F41.1] Diagnosis: Major depressive disorder, single episode, moderate[ICD10: F32.1] [facility] CPT-4: 14907 08/08/2015 98040 EST. PATIENT, LEVEL IV Diagnosis: Pain in left knee[ICD10: M25.562] Diagnosis: Tourette's disorder[ICD10: F95.2] [facility] CPT -4: 92496 07/17/2015 ([id number]) OFFICE VISIT, NEW - LEVEL 4 Diagnosis: Tourette's disorder[ICD10: F95.2] Diagnosis: Bilateral primary osteoarthritis of knee[ICD10: M17.0] Diagnosis: Essential (primary) hypertension[ICD10: I10] Diagnosis: Body mass index (BMI) 32.0-32.9, adult[ICD10: Z68.32] [facility] CPT-4: 86882 07/03/2015 Plan of Care Planned Activity Notes Codes Status Date Visit Plan: Vascular dementia - discussed diagnosis, old testing imaging that was ordered by her neurologist at [facility]. I looked up the image and explained the findings and the implication of the findings. I do not believe that Namenda will be of great benefit to Macrina. The medication does not have good data to show improvement in symptoms or stability of symptoms in a person with vascular dementia. I believe that part of her problem is also the Topamax which can cause cognitive slowing. However, with a stabilization in her Tourette syndrome symptoms, she is not to be removed from the medication at this time. Supportive care, monitor symptoms, return to clinic in three months. 03/27/2017 Patient Education: Patient Medication Summary Completed 03/27/2017 Visit Plan: URI - Pt advised to increase fluids, vitamin C. Discussed natural and expected course of this diagnosis and need to alert me if symptoms do not follow expected course, or if any worse. RX sent to patient' s pharmacy. Allergies - chronic - recommended pt to use allergy medication as prescribed. Pt has been counseled as to the appropriate use of the medication. Pt to call if allergy symptoms are not controlled with the medication. If using nasal spray, instructions as follows: Nasal spray- use twice daily, one spray per nostril twice daily, after 30 minutes, rinse out nose with saline spray.. Use opposite hand per nostril to spray in the nasal steroid allergy spray. 02/24/2017 Appointment: Virginia Shah WPtel: [phone] [facility] (30 min) Complex 02/24/2017 Patient Education: Patient Medication Summary Completed 02/24/2017 Visit Plan: Chronic Depression and anxiety - the pt has symptoms of chronic anxiety and depression that have been fairly well controlled since the last office visit. The pt has expected periods of exacerbation with abatement of the symptoms with change in situational exposure. No change in current medications. 01/28/2017 Appointment: Virginia Shah WPtel: [facility]3 [facility] (30 min) Complex 01/28/2017 Patient Education: Patient Medication Summary Completed 01/28/2017 Visit Plan: Anxiety - the patient has uncontrolled anxiety and will benefit from an SSRI on a daily basis to attempt control of the symptoms of anxiety (tachycardia, overwhelming sensations, stress, insomnia, etc ). Pt is aware of the risks and benefits of treatment with the above medications. Depression - uncontrolled - Pt has been counseled about the diagnosis of depression, the potential causes, and risks associated with the diagnosis. The pt denies suicidal ideation, or plans. The patient has been counseled about treatment options, and understands the risks associated with treatment of depression, as well as the risks associated with NOT treating the depression. I believe the pt will benefit from medical intervention and an antidepressant has been appropriately prescribed for this patient. Forgetfulness , memory loss - will check labs, will treat as indicated - pt is to notify clinic if symptoms do not improve, if they worsen, or with any acute changes, questions, or concerns. 01/14/2017 Appointment: Virginia Shah WPtel: [facility]6 [facility] (15 min) Moderate 01/14/2017 Patient Education: Patient Medication Summary Completed 01/14/2017 Appointment: Injection 01/10/2017 Patient Education: Patient Medication Summary Completed 01/10/2017 Visit Plan: Allergies - chronic - recommended pt to use allergy medication as prescribed. Pt has been counseled as to the appropriate use of the medication. Pt to call if allergy symptoms are not controlled with the medication. If using nasal spray, instructions as follows: Nasal spray- use twice daily, one spray per nostril twice daily, after 30 minutes, rinse out nose with saline spray.. Use opposite hand per nostril to spray in the nasal steroid allergy spray. 10/28/2016 Appointment: Mayra Reyes WPtel: [phone] [phone] (15 min) Moderate 10/28/2016 Patient Education: Patient Medication Summary Completed 10/28/2016 Visit Plan: Muscle spasm, left side pain - will send RX - pt is to use rub as directed. The pt is to use prn antiinflammatories to manage acute pain. The patient is to call the office if the pain is worsening or does not improve. 09/23/2016 Appointment: Virginia Shah WPtel: [phone] [facility] (30 min) Complex 09/23/2016 Patient Education: Patient Medication Summary Completed 09/23/2016 Visit Plan: Constipation - uncontrolled - I have discussed with the patient the need for adequate fiber and water intake to facilitate soft , easily passed stools. The pt noted understanding of our conversation. I have given the patient a recipe for "power pudding" - equal parts, bran flakes, prune juice, and apple sauce. The pt is to call if symptoms not improved on this regimen. Hemorrhoid - pt encouraged to increase fluid intake and fiber in diet and avoid prolonged toileting time - will send RX - pt is to notify clinic if symptoms do not improve, if they worsen, or with any questions or concerns. 06/26/2016 Appointment: Virginia Shah WPtel: [phone] [facility] (30 min) Complex 06/26/2016 Patient Education: Patient Medication Summary Completed 06/26/2016 Visit Plan: Medicare Exam - today we discussed the patients past history, immunizations, preventative exams/evaluations - colonoscopy, fecal occult blood testing, routine labs for renal function, glucose, cholesterol, osteoporosis evaluations, cardiovascular testing and cancer screenings. We have also discussed mental health and the signs/symptoms of depression. The patient was advised of home safety evaluations and the need to make sure that as the aging process continues, we need to be aware of different ways to make the home a safer place to reside. The patient has also been counseled that exercise is necessary - and of utmost importance as we age to help decrease fall risk and to maintain independece in the home. Today we discussed the need for the patient to create paperwork for Advanced directives as well as for the patient to provide this office with a copy of her DOPA paperwork for health care surrogate. 06/07/2016 Appointment: Virginia Shah WPtel: [phone] [facility] [place] [address] - Annual Wellness Visit 06/07/2016 Patient Education: Patient Medication Summary Completed 06/07/2016 Visit Plan: Dysuria - UA negative, discussed with pt, will treat for yeast, will do pelvic exam if symptoms persist. Pt is to notify clinic if symptoms do not improve, if they worsen, or with any questions or concerns. 06/06/2016 Visit Plan: Dysuria - UA negative, discussed with pt, will treat for yeast, will do pelvic exam if symptoms persist. Pt is to notify clinic if symptoms do not improve, if they worsen, or with any questions or concerns. 06/06/2016 Patient Education: Patient Medication Summary Completed 06/06/2016 Visit Plan: Allergies - chronic - recommended pt to use allergy medication as prescribed. Pt has been counseled as to the appropriate use of the medication. Pt to call if allergy symptoms are not controlled with the medication. If using nasal spray, instructions as follows: Nasal spray- use twice daily, one spray per nostril twice daily, after 30 minutes, rinse out nose with saline spray.. Use opposite hand per nostril to spray in the nasal steroid allergy spray. 05/13/2016 Appointment: Virginia Shah WPtel: [phone] [facility] (30 min) Complex 05/13/2016 Patient Education: Patient Medication Summary Completed 05/13/2016 Visit Plan: Hypertension - well controlled - continue with current medications, continue with no added salt diet. Pt has been encouraged to exercise daily. The pt has been advised to call the office if there are any acute concerns about change in blood pressure readings at home. Knee pain and Neck pain - continue with anti-inflammation medication - call if not improving. Recommended pt to use stretching exercises provided. 05/02/2016 [facility]ment[phone] (15 min) Moderate 05/02/2016 Patient Education: Patient Medication Summary Completed 05/02/2016 Visit Plan: Rash - on area where pt had steri strips in place from healing surgical scar on knee, surgical site healing well. The patient was instructed to use the ointment as per RX. The patient is to call for any change in symptoms, increase in size of the lesion, increase in pain. 04/16/2016 Appointment: [facility] [phone] [facility] (30 min) Complex 04/16/2016 Patient Education: Patient Medication Summary Completed 04/16/2016 Visit Plan: Follow up after right knee replacement - pt is back home and having problems keeping her medication straight. Recommend pt to get a timed pill box in order to separate out doses. Pt states that she take the clonidine for her Tourette's but she has been getting lightheaded and dizzy , will have pt monitor her blood pressures at home. Pt states that she had a bad experience at [facility] and was depressed while she was there because she just wanted to go home. Pt would like to decrease her Zoloft back down now that she is home. OK to decrease and monitor symptoms. Anemia post op - will repeat labs. 04/05/2016 Appointment: Virginia Shah [facility]Ptel[facility] [phone] [facility] (30 min) Complex 04/05/2016 Patient Education: Patient Medication Summary Completed 04/05/2016 Visit Plan: Right knee pain - pt is scheduled to have a right knee replacement by Dr. Monroe on 03/19/16. Pt states that she had her left knee done in June 2015 and it has healed well. Dr. River in to evaluate pt. Pt states that she would like to have a week of recovery in a intermediate immediately after surgery - pt is to contact [facility] to discuss this. Pt is to follow up with us after her surgery. 02/29/2016 Appointment: Virginia Shah WPtel: [facility] (30 min) Complex 02/29/2016 Patient Education: Patient Medication Summary Completed 02/29/2016 Visit Plan: Anxiety - the patient has uncontrolled anxiety and will benefit from an SSRI on a daily basis to attempt control of the symptoms of anxiety (tachycardia, overwhelming sensations, stress, insomnia, etc ). I also believe that the patient will benefit from very low dose of prn benzodiazepine. Pt is aware of the risks and benefits of treatment with the above medications. Fatigue - will check labs 01/22/2016 Appointment: Virginia Shah WPtel: [facility] [facility] (15 min) Moderate 01/22/2016 Patient Education: Patient Medication Summary Completed 01/22/2016 Patient Education: Obesity Completed 01/22/2016 Visit Plan: Neck Pain- pt to start with aspercreme or biofreeze to neck three times daily and start neck exercises daily. Will refer to PT. Plantar fasciitis- pt was educated that this is an inflammatory process, need to stretch the foot and reduce inflammation by using a frozen bottle of water or a tennis ball on the bottom of the foot at least three times a day until the pain is improved. 12/25/2015 Appointment: Virginia Shah WPtel: [facility]4 [facility] (30 min) Complex 12/25/2015 Patient Education: Patient Medication Summary Completed 12/25/2015 Patient Education: Obesity Completed 12/25/2015 Care Plan: Referral Order SNOMED-CT : [id number] Pending 12/25/2015 Visit Plan: Iron def. anemia - pt states that she feels like she has much more energy and is overall feeling better - will check hgb Chronic Depression and anxiety - the pt has symptoms of chronic anxiety and depression that have been fairly well controlled since the last office visit. The pt has expected periods of exacerbation with abatement of the symptoms with change in situational exposure. No change in current medications. 10/02/2015 Patient Education: Patient Medication Summary Completed 10/02/2015 Visit Plan: Hypertension - well controlled - continue with current medications, continue with no added salt diet. Pt has been encouraged to exercise daily. The pt has been advised to call the office if there are any acute concerns about change in blood pressure readings at home. Iron deficiency - rx for ferric x 150mg daily. 08/17/2015 Appointment: Marielle River [facility]Ptel[facility] [phone] [facility] (15 min) Moderate 08/17/2015 Patient Education: Patient Medication Summary Completed 08/17/2015 Patient Education: Obesity Completed 08/17/2015 Patient Education: Hypertension Completed 08/17/2015 Visit Plan: Wound Instructions - Pt was instructed to keep the wound clean, wash with antibacterial soap, use triple antibiotic ointment, call if redness, pustular drainage, or any other acute concerns. Depression/ anxiety - uncontrolled - Pt has been counseled about the diagnosis of depression , the potential causes, and risks associated with the diagnosis. The pt denies suicidal ideation, or plans. The patient has been counseled about treatment options, and understands the risks associated with treatment of depression, as well as the risks associated with NOT treating the depression. I believe the pt will benefit from medical intervention and an antidepressant has been appropriately prescribed for this patient. Worsening tourette's syndrome symptoms - Pt is to contact her specialist at . 08/08/2015 Patient Education: Patient Medication Summary Completed 08/08/2015 Patient Education: Obesity Completed 08/08/2015 Patient Education: Hypertension Completed 08/08/2015 Visit Plan: Follow up from Left knee replacement and [facility] stay. Pt states that she is doing much better and that she is ready to be discharged home. Will OK discharge to home with home health to evaluate and treat. No changes in current medications. Pt is to notify clinic with any questions or concerns. 07/17/2015 Appointment: Virginia Shah WPtel: [phone] [facility] [address] [facility] (30 min) Complex 07/17/2015 Patient Education: Patient Medication Summary Completed 07/17/2015 Patient Education: Obesity Completed 07/17/2015 Visit Plan: [facility]. Pt is wanting a primary care provider who can help her keep track of her medications and coordinate with her specialists. She sees Dr. Mckeon for diverticular disease and reflux, Dr. Garcia in [place] for Tourette's, and Dr. Monroe for her knee surgery, which she is getting done on 07/03. Well Adult - pt was counseled about diet, exercise, and encouraged to follow a heart healthy diet and increase activity level. The patient was instructed to RTC yearly for well adult exams and PRN for acute illnesses. The pt was also instructed to have yearly labs for check of cholesterol, thyroid, chem panel, CBC, and renal functioning. BMI 32 - The pt has been counseled about diet changes, calorie restriction, and need to exercise. Pt will RTC for weight check. Hypertension - well controlled - continue with current medications , continue with no added salt diet. Pt has been encouraged to exercise daily. The pt has been advised to call the office if there are any acute concerns about change in blood pressure readings at home. 07/03/2015 Patient Education: Patient Medication Summary Completed 07/03/2015 Patient Education: Obesity Completed 07/03/2015 Patient Education: Hypertension Completed 07/03/2015 Care Plan: BMI Above normal followup SELF-MGMT EDUC & TRAIN 1 PT Pending 2015 Referral: [facility] WPtel: [phone] they will call her with appt time in a week Initiated Referral: [facility] WPtel: [phone] Referral Initiated Instructions Comment . URI - Pt advised to increase fluids, vitamin C. Discussed natural and expected course of this diagnosis and need to alert me if symptoms do not follow expected course, or if any worse. RX sent to patient's pharmacy. Allergies - chronic - recommended pt to use allergy medication as prescribed. Pt has been counseled as to the appropriate use of the medication. Pt to call if allergy symptoms are not controlled with the medication. If using nasal spray, instructions as follows: Nasal spray- use twice daily, one spray per nostril twice daily, after 30 minutes, rinse out nose with saline spray.. Use opposite hand per nostril to spray in the nasal steroid allergy spray. Check labs today Check urine sample today increase zoloft to 50mg daily follow up in 2 weeks. . Anxiety - the patient has uncontrolled anxiety and will benefit from an SSRI on a daily basis to attempt control of the symptoms of anxiety (tachycardia, overwhelming sensations, stress, insomnia, etc). Pt is aware of the risks and benefits of treatment with the above medications. Depression - uncontrolled - Pt has been counseled about the diagnosis of depression, the potential causes, and risks associated with the diagnosis. The pt denies suicidal ideation, or plans. The patient has been counseled about treatment options, and understands the risks associated with treatment of depression, as well as the risks associated with NOT treating the depression. I believe the pt will benefit from medical intervention and an antidepressant has been appropriately prescribed for this patient. Forgetfulness, memory loss - will check labs, will treat as indicated - pt is to notify clinic if symptoms do not improve, if they worsen, or with any acute changes, questions, or concerns. . Constipation - uncontrolled - I have discussed with the patient the need for adequate fiber and water intake to facilitate soft, easily passed stools. The pt noted understanding of our conversation. I have given the patient a recipe for "power pudding" - equal parts, bran flakes, prune juice , and apple sauce. The pt is to call if symptoms not improved on this regimen. Hemorrhoid - pt encouraged to increase fluid intake and fiber in diet and avoid prolonged toileting time - will send RX - pt is to notify clinic if symptoms do not improve, if they worsen, or with any questions or concerns. . [facility]. Pt is wanting a primary care provider who can help her keep track of her medications and coordinate with her specialists. She sees Dr. Mckeon for diverticular disease and reflux, Dr. Garcia in [place] for Tourette's, and Dr. Monroe for her knee surgery, which she is getting done on 07/03. Well Adult - pt was counseled about diet, exercise, and encouraged to follow a heart healthy diet and increase activity level. The patient was instructed to RTC yearly for well adult exams and PRN for acute illnesses. The pt was also instructed to have yearly labs for check of cholesterol, thyroid, chem panel, CBC, and renal functioning. BMI 32 - The pt has been counseled about diet changes, calorie restriction, and need to exercise. Pt will RTC for weight check. Hypertension - well controlled - continue with current medications, continue with no added salt diet. Pt has been encouraged to exercise daily. The pt has been advised to call the office if there are any acute concerns about change in blood pressure readings at home. Benadryl - three times a day if tolerating for the next few days if tolerating Pepcid twice a day for the next few days. . Rash - on area where pt had steri strips in place from healing surgical scar on knee, surgical site healing well. The patient was instructed to use the ointment as per RX. The patient is to call for any change in symptoms, increase in size of the lesion, increase in pain. . Vascular dementia - discussed diagnosis, old testing imaging that was ordered by her neurologist at [facility]. I looked up the image and explained the findings and the implication of the findings. I do not believe that Namenda will be of great benefit to Macrina. The medication does not have good data to show improvement in symptoms or stability of symptoms in a person with vascular dementia. I believe that part of her problem is also the Topamax which can cause cognitive slowing. However, with a stabilization in her Tourette syndrome symptoms, she is not to be removed from the medication at this time. Supportive care, monitor symptoms, return to clinic in three months. . Muscle spasm, left side pain - will send RX - pt is to use rub as directed. The pt is to use prn antiinflammatories to manage acute pain. The patient is to call the office if the pain is worsening or does not improve. . Right knee pain - pt is scheduled to have a right knee replacement by Dr. Monroe on 03/19/16. Pt states that she had her left knee done in June 2015 and it has healed well. Dr. River in to evaluate pt. Pt states that she would like to have a week of recovery in a intermediate immediately after surgery - pt is to contact [facility] to discuss this. Pt is to follow up with us after her surgery. . Iron def. anemia - pt states that she feels like she has much more energy and is overall feeling better - will check hgb Chronic Depression and anxiety - the pt has symptoms of chronic anxiety and depression that have been fairly well controlled since the last office visit. The pt has expected periods of exacerbation with abatement of the symptoms with change in situational exposure. No change in current medications. . Anxiety - the patient has uncontrolled anxiety and will benefit from an SSRI on a daily basis to attempt control of the symptoms of anxiety (tachycardia, overwhelming sensations, stress, insomnia, etc). I also believe that the patient will benefit from very low dose of prn benzodiazepine. Pt is aware of the risks and benefits of treatment with the above medications. Fatigue - will check labs . Dysuria - UA negative, discussed with pt, will treat for yeast, will do pelvic exam if symptoms persist. Pt is to notify clinic if symptoms do not improve, if they worsen, or with any questions or concerns. . Dysuria - UA negative, discussed with pt, will treat for yeast, will do pelvic exam if symptoms persist. Pt is to notify clinic if symptoms do not improve, if they worsen, or with any questions or concerns. . Allergies - chronic - recommended pt to use allergy medication as prescribed. Pt has been counseled as to the appropriate use of the medication. Pt to call if allergy symptoms are not controlled with the medication. If using nasal spray, instructions as follows: Nasal spray- use twice daily, one spray per nostril twice daily, after 30 minutes, rinse out nose with saline spray.. Use opposite hand per nostril to spray in the nasal steroid allergy spray. increase zoloft to 75mg daily - follow up in 3 months, sooner if you feel like it needs readjusted. Take zoloft 25mg and 50mg to equal 75mg daily. Chronic Depression and anxiety - the pt has symptoms of chronic anxiety and depression that have been fairly well controlled since the last office visit. The pt has expected periods of exacerbation with abatement of the symptoms with change in situational exposure. No change in current medications. Taper celexa - 1 tab every other day for 3 doses, then 1/2 tab every other day for 3 doses. Will start Wellbutrin when you start taking the 1/2 tab of Celexa. use antibiotic ointment, call if redness, pustular drainage, or any other acute concerns. . Wound Instructions - Pt was instructed to keep the wound clean, wash with antibacterial soap, use triple antibiotic ointment, call if redness, pustular drainage, or any other acute concerns. Depression/anxiety - uncontrolled - Pt has been counseled about the diagnosis of depression, the potential causes, and risks associated with the diagnosis. The pt denies suicidal ideation, or plans. The patient has been counseled about treatment options, and understands the risks associated with treatment of depression, as well as the risks associated with NOT treating the depression. I believe the pt will benefit from medical intervention and an antidepressant has been appropriately prescribed for this patient. Worsening tourette's syndrome symptoms - Pt is to contact her specialist at . . Medicare Exam - today we discussed the patients past history, immunizations, preventative exams/evaluations - colonoscopy, fecal occult blood testing, routine labs for renal function, glucose, cholesterol, osteoporosis evaluations, cardiovascular testing and cancer screenings. We have also discussed mental health and the signs/symptoms of depression. The patient was advised of home safety evaluations and the need to make sure that as the aging process continues, we need to be aware of different ways to make the home a safer place to reside. The patient has also been counseled that exercise is necessary - and of utmost importance as we age to help decrease fall risk and to maintain independece in the home. Today we discussed the need for the patient to create paperwork for Advanced directives as well as for the patient to provide this office with a copy of her DOPA paperwork for health care surrogate. CLARITIN 10MG DAILY FLONASE 1 SPRAY EACH NARE DAILY CALL IF SYMPTOMS DO NOT RESOLVE OR IF ANY WORSE . Allergies - chronic - recommended pt to use allergy medication as prescribed. Pt has been counseled as to the appropriate use of the medication. Pt to call if allergy symptoms are not controlled with the medication. If using nasal spray, instructions as follows: Nasal spray- use twice daily, one spray per nostril twice daily, after 30 minutes, rinse out nose with saline spray.. Use opposite hand per nostril to spray in the nasal steroid allergy spray. . Neck Pain- pt to start with aspercreme or biofreeze to neck three times daily and start neck exercises daily. Will refer to PT. Plantar fasciitis- pt was educated that this is an inflammatory process, need to stretch the foot and reduce inflammation by using a frozen bottle of water or a tennis ball on the bottom of the foot at least three times a day until the pain is improved. . Hypertension - well controlled - continue with current medications, continue with no added salt diet. Pt has been encouraged to exercise daily. The pt has been advised to call the office if there are any acute concerns about change in blood pressure readings at home. Knee pain and Neck pain - continue with anti-inflammation medication - call if not improving. Recommended pt to use stretching exercises provided. . Hypertension - well controlled - continue with current medications, continue with no added salt diet. Pt has been encouraged to exercise daily. The pt has been advised to call the office if there are any acute concerns about change in blood pressure readings at home. Iron deficiency - rx for ferric x 150mg daily. If blood pressure is 120s/70s or higher take the clonidine. Hold the aspirin for now, until we get your hgb level back Zoloft 25mg 1 pill daily. Meloxicam - continue for now, if pain is controlled and doing OK, you can change it to as Next appointment - 05/02 - 12:45 . Follow up after right knee replacement - pt is back home and having problems keeping her medication straight. Recommend pt to get a timed pill box in order to separate out doses. Pt states that she take the clonidine for her Tourette' s but she has been getting lightheaded and dizzy, will have pt monitor her blood pressures at home. Pt states that she had a bad experience at [facility] and was depressed while she was there because she just wanted to go home. Pt would like to decrease her Zoloft back down now that she is home. OK to decrease and monitor symptoms. Anemia post op - will repeat labs. . Follow up from [facility] replacement and [facility] stay. Pt states that she is doing much better and that she is ready to be discharged home. Will OK discharge to home with home health to evaluate and treat. No changes in current medications. Pt is to notify clinic with any questions or concerns.
--- OUTSIDE RECORDS SUMMARY | 2017-10-11 11:56 | XMS REPORT | Clinical Summary ---
Author Author [facility] Organization [facility] Address Unknown Phone Unavailable Care Team Providers Care Smash Hand Name Role Phone Tiesha Velez Unavailable Marielle River MD PCP Source Comments Some departments are not documenting in the electronic medical record. If you do not see the information that you expected, contact Release of Information in the Health Information Management department at [phone] for further assistance in locating additional records.[facility] Allergies Active Allergy Reactions Severity Noted Date [...]
--- OUTSIDE RECORDS SUMMARY | 2017-10-11 11:59 | XMS REPORT | Continuity of Care Document ---
Author Author [facility] Organization [facility] Address Unknown Phone Unavailable Allergies Active Description Code Type Severity Reaction Onset Reported/Identified Relationship to Patient Clinical Status Yes midazolam [id number] Drug Allergy Unknown N/A 02/23/2015 Yes bupropion [id number] Drug Allergy Unknown N/A 08/28/2015 Yes citalopram [id number] Drug Allergy Unknown N/A 08/28/2015 Yes escitalopram [id number] Drug Allergy Unknown N/A 08/28/2015 Yes latex [id number] Drug Allergy Unknown RASH 08/28/2015 Yes tramadol [id number] Drug Allergy Unknown N/A 08/28/2015 Medications There is no data. Problems Date Dx Coded Attending Type Code Diagnosis Diagnosed By 02/07/1332 KEVIN SHANKAR, ZACHARY Amezcua Ot R13.10 01/09/2015 Ot 722.52 01/09/2015 ROBIN SHANKAR, EDWINA Mendez Ot 715.36 02/13/2015 SHRUTI RANDA Drea DIRECTOR OF CLINICAL SERVICES Ot M17.11 02/15/2015 CHRISTINACARMELITABRIELLE RANDA Shepard DIRECTOR OF CLINICAL SERVICES Ot R53.83 02/17/2015 Ot R53.83 02/23/2015 JOSÉ MANUEL DREW DIRECTOR OF CLINICAL SERVICES Ot F98.5 02/23/2015 JOSÉ MANUEL DREW DIRECTOR OF CLINICAL SERVICES Ot N39.0 02/23/2015 JOSÉ MANUEL DREW DIRECTOR OF CLINICAL SERVICES Ot R25.1 02/27/2015 CHRISTINACARMELITABRIELLE RANDA Shepard DIRECTOR OF CLINICAL SERVICES Ot E04.1 02/27/2015 CHRISTINACARMELITABRIELLE RANDA Shepard DIRECTOR OF CLINICAL SERVICES Ot R25.1 03/08/2015 CHRISTINACARMELITABRIELLE RANDA Shepard DIRECTOR OF CLINICAL SERVICES Ot R53.83 03/17/2015 CHRISTINACARMELITABRIELLE RANDA Shepard DIRECTOR OF CLINICAL SERVICES Ot E04.1 03/17/2015 SHRUTI RANDA Shepard DIRECTOR OF CLINICAL SERVICES Ot R25.1 04/04/2015 KEVIN SHANKAR, ZACHARY Amezcua Ot R13.10 04/11/2015 RANDA BAHENA DIRECTOR OF CLINICAL SERVICES Ot E04.1 04/11/2015 RANDA BAHENA DIRECTOR OF CLINICAL SERVICES Ot R25.1 06/05/2015 RANDA BAHENA DIRECTOR OF CLINICAL SERVICES Ot M17.11 06/13/2015 PAUL ELLISON MD Ot [...] IRON DEFICIENCY ANEMIA, UNSPECIFIED 12/26/2015 BRAN GUTIÉRREZ DIRECTOR OF CLINICAL SERVICES Ot M54.2 CERVICALGIA 12/26/2015 BRAN GUTIÉRREZ DIRECTOR OF CLINICAL SERVICES Ot R20.0 ANESTHESIA OF SKIN 01/16/2016 BRAN GUTIÉRREZ DIRECTOR OF CLINICAL SERVICES Ot M54.2 CERVICALGIA 01/16/2016 BRAN GUTIÉRREZ DIRECTOR OF CLINICAL SERVICES Ot R20.0 ANESTHESIA OF SKIN 08/21/2016 JUAN SHANKAR, MORENO Ot 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 Results Test Result Range [id number] - 07/29/16 10:23 Serum or plasma urea nitrogen measurement (mass/volume) 23 mg/dL 7-18 Serum or plasma creatinine measurement (mass/volume) 0.81 mg/dL 0.60-1.30 Serum or plasma urea nitrogen/creatinine mass ratio 28 NRG Serum or plasma creatinine measurement with calculation of estimated glomerular filtration rate > NRG Encounters ACCT No. Visit Date/Time Discharge Status Pt. Type Provider Facility Loc./Unit Complaint [id number] 04/17/2017 11:17:00 04/17/2017 23:59:59 CLS Outpatient BRAN GUTIÉRREZ APRN [facility] RAD M79.605 [id number] 07/29/2016 10:08:00 07/29/2016 23:59:59 CLS Outpatient JUAN SHANKAR, MORENO [facility] RAD D32.9 [place] [id number] 12/25/2015 14:17:00 12/25/2015 23:59:59 CLS Outpatient BRAN GUTIÉRREZ APRN [facility] RAD NECK PAIN,ARM PAIN/ NUMBNESS [id number] 11/27/2015 00:09:00 11/27/2015 23:59:59 CLS Preadmit LIDA SLADE MD [facility] ANEMIA, IRON DEFICIENCY [id number] 09/12/2015 16:20:00 11/26/2015 00:01:00 DIS Outpatient LIDA SLADE MD [facility] ANEMIA, IRON DEFICIENCY [id number] 06/12/2015 09:40:00 06/13/2015 09:30:00 DIS Inpatient PAUL ELLISON MD [facility] [id number] 03/14/2015 13:05:00 04/04/2015 13:33:00 DIS Outpatient KEVIN SHANKAR, ZACHARY Amezcua [facility] REHAB [id number] 03/14/2015 11:36:00 03/14/2015 23:59:59 CLS Outpatient RANDA BAHENA DIRECTOR OF CLINICAL SERVICES [facility] CARD [id number] 02/25/2015 10:04:00 02/25/2015 23:59:59 CLS Outpatient RANDA BAHENA DIRECTOR OF CLINICAL SERVICES [facility] LAB [id number] 02/23/2015 10:27:00 02/23/2015 11:55:00 DIS Emergency JOSÉ MANUEL DREW DIRECTOR OF CLINICAL SERVICES [facility] ER [id number] 01/24/2015 12:53:00 01/24/2015 23:59:59 CLS Outpatient RANDA BAHENA APRN [facility] CARD [id number] 01/09/2015 09:34:00 01/09/2015 23:59:59 CLS Outpatient RANDA BAHENA DIRECTOR OF CLINICAL SERVICES [facility] RAD [id number] 04/30/2013 08:55:00 04/30/2013 23:59:59 CLS Outpatient ROBIN SHANKAR, EDWINA Mendez [facility] RAD [id number] 02/23/2015 10:40:00 Document Registration [id number] 01/26/2015 09:48:00 Document Registration [id number] 03/24/2012 12:28:00 Document Registration [id number] 01/27/2017 23:41:24 01/27/2017 23:59:59 CLS Outpatient [id number] 04/05/2017 11:45:00 04/05/2017 13:20:00 DIS Emergency DIANE VARGAS
[2017-10-11] MEDS ORDERED: HYDROmorphone 1 MG/ML (DILAUDID) 1 ML SYRINGE IV PRN (12:15)
[2017-10-11] MEDS ORDERED: fentaNYL INJECTION 100 MCG/2 ML AMP IVP PRN (12:15)
[2017-10-11] MEDS ORDERED: ONDANSETRON 4 MG/2 ML (SDV) Z0FRAN IVP PRN ×2 (12:15)
[2017-10-11] MEDS: 1/2 NS IV SOLUTION 1,000 ML IV SCH ×3 (13:25→23:56)
[2017-10-11] MEDS: cloNIDine 0.1 MG (CATAPRES) TAB PO SCH ×2 (13:25→20:18)
[2017-10-11] MEDS: ceFAZolin 2 GM IV Premixed 50 ML IV SCH (17:05)
[2017-10-11] MEDS: DOCUSATE SODIUM 100 MG (COLACE) CAP PO SCH (20:18)
[2017-10-11] MEDS: PANTOPRAZOLE 40 MG (PROTONIX) TAB PO SCH (20:18)
[2017-10-11] MEDS: HYDROcodone/APAP 7.5 MG/325 MG (LORTAB, LORCET PLUS) TABLET PO PRN (21:24)
[2017-10-12] MEDS: ceFAZolin 2 GM IV Premixed 50 ML IV SCH (00:04)
[2017-10-12 03:57] VITALS: BP 153/69
[2017-10-12] MEDS: HYDROcodone/APAP 7.5 MG/325 MG (LORTAB, LORCET PLUS) TABLET PO PRN (04:24)
[2017-10-12] MEDS: PANTOPRAZOLE 40 MG (PROTONIX) TAB PO SCH (05:56)
[2017-10-12] MEDS: CATHETER FLUSH 10 ML SYR IV SCH (05:57)
[2017-10-12 08:00] VITALS: BP 122/58
[2017-10-12] MEDS: DOCUSATE SODIUM 100 MG (COLACE) CAP PO SCH (08:29)
[2017-10-12] MEDS: cloNIDine 0.1 MG (CATAPRES) TAB PO SCH (08:30)
--- NOTE | 2017-10-12 09:16 | Progress Note (SOAP) ---
Subjective Date Seen by Provider: Oct 12, 2017 Time Seen by Provider: 09:10 Subjective/Events-last exam Patient is doing great. Very little pain and wants to go home. Objective Exam Vital Signs Date Time Temp Pulse Resp B/P (MAP) Pulse Ox O2 Delivery O2 Flow Rate FiO2 10/12/17 08:00 100.0 91 18 122/58 (79) 96 Room Air 10/12/17 03:57 99.0 89 19 153/69 (97) 96 Room Air 10/11/17 23:57 98.7 79 18 141/69 (93) 96 Room Air 10/11/17 19:41 99.4 84 19 147/78 (101) 97 Room Air 10/11/17 16:08 97.8 70 20 135/74 (94) 96 Room Air 10/11/17 12:20 98.1 75 18 143/80 (101) 93 Room Air I & O 10/12/17 07:00 Intake Total 1850 ml Output Total 1950 ml Balance -100 ml Capillary Refill : Less Than 3 SecondsLess Than 3 Seconds General Appearance: No Apparent Distress, WD/WN Neck: Full Range of Motion, Normal Inspection, Non Tender, Supple Respiratory: No Chest Non Tender, No Lungs Clear, No Normal Breath Sounds; No Accessory Muscle Use, No Respiratory Distress; No Accessory Muscle Use, No Crackles, No Decreased Breath Sounds, No Expiration, No Inspiration, No Pleural Rub, No Rales, No Respiratory Distress, No Rhonci, No Stridor, No Wheezing, No Other Peripheral Pulses: 4+ Radial Pulses (L) (Patient found to be N/V/M/I in the right hand.) Neurologic/Psychiatric: Alert, Oriented x3, No Motor/Sensory Deficits, Normal Mood/Affect Skin: Normal Color, Warm/Dry Results Lab Microbiology 10/11/17 MRSA Screen - Final, Complete MRSA not isolated 10/10/17 Urine Culture - Final, Complete See Comments Sent To l Assessment/Plan Assessment/Plan Assess & Plan/Chief Complaint ORIF olecranon fracture with repair of capsule for dislocated radial head. Plan: Dis charge patient to home in stable condition.. Final Diagnosis ORIF olecranon fracture with repair of capsule for dislocated radial head Clinical Quality Measures DVT/VTE Risk/Contraindication: Risk Factor Score Per Nursin RFS Level Per Nursing on Admit: 3=High CERVANTES,JOCELYNE R PA Oct 12, 2017 09:16
[2017-10-12] MEDS ORDERED: HYDR-34 PO (09:25)
--- NOTE | 2017-10-12 10:41 | Anesthesia-General Post-Op ---
General Patient Condition Mental Status/LOC: Same as Preop Cardiovascular: Satisfactory Nausea/Vomiting: Absent Respiratory: Satisfactory Pain: Controlled Complications: Absent Post Op Complications Complications None Follow Up Care/Instructions Patient Instructions None needed. Anesthesia/Patient Condition Patient Condition Patient is doing well, no complaints, stable vital signs, no apparent adverse anesthesia problems. No complications reported per nursing. D/C home per [facility] Criteria: Yes FIDELIA TUTTLE CRNA Oct 12, 2017 10:41
--- NOTE | 2017-10-13 12:17 | Discharge Summary ---
Diagnosis/Chief Complaint Date of Admission Oct 11, 2017 at 9:11 am Date of Discharge Oct 12, 2017 at 10:18 am Discharge Date: Oct 12, 2017 Admission Diagnosis Admission Diagnosis left radiocapitallar dislocation left displaced ulna fracture PLAN-- Closed reduction of left radiocapitellar dislocation, open reduction and internal fixation left ulna shaft. Open reduction of the radial head with repair of lateral collateral ligament and extensor aponeurosis of lateral elbow Discharge Diagnosis left radiocapitallar dislocation left displaced ulna fracture Reason Hospital Visit Reason for Visit: left radiocapitallar dislocation Discharge Summary Name of Procedure Performed: Closed reduction of left radiocapitellar dislocation, open reduction and internal fixation left ulna shaft. Open reduction of the radial head with repair of lateral collateral ligament and extensor aponeurosis of lateral elbow Discharge Physical Examination Allergies: Coded Allergies: bupropion (Verified Allergy, Unknown, 10/11/17) citalopram (Verified Allergy, Unknown, 10/11/17) escitalopram (Verified Allergy, Unknown, 10/11/17) latex (Verified Allergy, Unknown, RASH, 10/11/17) midazolam (Verified Allergy, Unknown, 10/11/17) tramadol (Verified Allergy, Unknown, 10/11/17) Vitals & I&Os Vital Signs Date Time Temp Pulse Resp B/P (MAP) Pulse Ox O2 Delivery O2 Flow Rate FiO2 10/12/17 08:00 100.0 91 18 122/58 (79) 96 Room Air Hospital Course is a 67 yr. old female patient was adnitted for a displaced left ulna shaft fracture , left radiocapitellar dislocation. On the Oct 11, 2017 at 9:11 am of admission, the patient was taken to surgery for nopen reduction and internal fixation left ulna shaft and open reduction of the radial head with repair of lateral collateral ligament and extensor aponeurosis of lateral elbow was performed without complications. Postoperatively, the patient was maintained on deep vein thrombosis prophylaxis as well as IV antibiotic prophylaxis. The patient was progressed as far as her activity level with physical therapy. Labs were monitored and interventions were ordered accordingly during the hospitalization. Overall, the hospital course was uneventful. On the date of discharge the patient was doing well and was deemed stable for discharge. Her vital signs were stable and she was afebrile. She was keeping oral food and fluids down without vomiting. Her pain was controlled with oral medications. Discharged instructions were reviewed by myself and nursing staff prior to discharge. A medication reconciliation was performed and new prescriptions were provided. The patient and caregiver(s) verbalized understanding. Labs (last 24 hrs) Laboratory Tests 10/10/17 23:15: White Blood Count 9.3, Red Blood Count 3.71L, Hemoglobin 11.3L, Hematocrit 34L, Mean Corpuscular Volume 92, Mean Corpuscular Hemoglobin 30, Mean Corpuscular Hemoglobin Concent 33, Red Cell Distribution Width 12.9, Platelet Count 264, Mean Platelet Volume 10.5H, Neutrophils (%) (Auto) 73, Lymphocytes (%) (Auto) 16 , Monocytes (%) (Auto) 7, Eosinophils (%) (Auto) 3, Basophils (%) (Auto) 1, Neutrophils # (Auto) 6.8, Lymphocytes # (Auto) 1.5, Monocytes # (Auto) 0.7, Eosinophils # (Auto) 0.3, Basophils # (Auto) 0.1, Sodium Level 142, Potassium Level 3.3L, Chloride Level 112H, Carbon Dioxide Level 23, Anion Gap 7, Blood Urea Nitrogen 22H, Creatinine 0.79, Estimat Glomerular Filtration Rate > 60, BUN /Creatinine Ratio 28, Glucose Level 117H, Calcium Level 8.8, Magnesium Level 2.4 , Total Bilirubin 0.2, Aspartate Amino Transf (AST/SGOT) 13, Alanine Aminotransferase (ALT/SGPT) 9, Alkaline Phosphatase 121, Total Protein 6.2L, Albumin 3.9 10/10/17 23:43: Urine Color YELLOW, Urine Clarity CLEAR, Urine pH 6, Urine Specific [place] 1.020, Urine Protein NEGATIVE, Urine Glucose (UA) NEGATIVE, Urine Ketones NEGATIVE, Urine Nitrite NEGATIVE, Urine Bilirubin NEGATIVE, Urine Urobilinogen NORMAL, Urine Leukocyte Esterase 3+H, Urine RBC (Auto) NEGATIVE, Urine RBC NONE , Urine WBC 5-10H, Urine Squamous Epithelial Cells 5-10, Urine Crystals NONE, Urine Bacteria FEWH, Urine Casts NONE, Urine Mucus MODERATEH, Urine Culture Indicated YES 10/11/17 05:25: White Blood Count 8.2, Red Blood Count 3.44L, Hemoglobin 10.5L, Hematocrit 32L, Mean Corpuscular Volume 92, Mean Corpuscular Hemoglobin 31, Mean Corpuscular Hemoglobin Concent 33, Red Cell Distribution Width 12.7, Platelet Count 230, Mean Platelet Volume 10.9H, Neutrophils (%) (Auto) 68, Lymphocytes (%) (Auto) 23 , Monocytes (%) (Auto) 9, Eosinophils (%) (Auto) 1, Basophils (%) (Auto) 0, Neutrophils # (Auto) 5.5, Lymphocytes # (Auto) 1.9, Monocytes # (Auto) 0.7, Eosinophils # (Auto) 0.1, Basophils # (Auto) 0.0, Sodium Level 143, Potassium Level 3.7, Chloride Level 116H, Carbon Dioxide Level 22, Anion Gap 5, Blood Urea Nitrogen 16, Creatinine 0.65, Estimat Glomerular Filtration Rate > 60, BUN/ Creatinine Ratio 25, Glucose Level 103, Calcium Level 8.5 Microbiology 10/11/17 MRSA Screen - Final, Complete MRSA not isolated 10/10/17 Urine Culture - Final, Complete See Comments Sent To [facility] Pending Labs Microbiology Date/Time Source Procedure Growth Status 10/11/17 03:15 Nasal MRSA Screen - Final MRSA not isolated Complete 10/10/17 23:43 Urine Clean Catch Urine Culture - Final See Comments Sent To [facility] Complete Laboratory Tests 10/10/17 23:15: White Blood Count 9.3, Red Blood Count 3.71, Hemoglobin 11.3, Hematocrit 34, Mean Corpuscular Volume 92, Mean Corpuscular Hemoglobin 30, Mean Corpuscular Hemoglobin Concent 33, Red Cell Distribution Width 12.9, Platelet Count 264, Mean Platelet Volume 10.5, Neutrophils (%) (Auto) 73, Lymphocytes (%) (Auto) 16 , Monocytes (%) (Auto) 7, Eosinophils (%) (Auto) 3, Basophils (%) (Auto) 1, Neutrophils # (Auto) 6.8, Lymphocytes # (Auto) 1.5, Monocytes # (Auto) 0.7, Eosinophils # (Auto) 0.3, Basophils # (Auto) 0.1, Sodium Level 142, Potassium Level 3.3, Chloride Level 112, Carbon Dioxide Level 23, Anion Gap 7, Blood Urea Nitrogen 22, Creatinine 0.79, Estimat Glomerular Filtration Rate > 60, BUN/ Creatinine Ratio 28, Glucose Level 117, Calcium Level 8.8, Magnesium Level 2.4, Total Bilirubin 0.2, Aspartate Amino Transf (AST/SGOT) 13, Alanine Aminotransferase (ALT/SGPT) 9, Alkaline Phosphatase 121, Total Protein 6.2, Albumin 3.9 10/10/17 23:43: Urine Color YELLOW, Urine Clarity CLEAR, Urine pH 6, Urine Specific [place] 1.020, Urine Protein NEGATIVE, Urine Glucose (UA) NEGATIVE, Urine Ketones NEGATIVE, Urine Nitrite NEGATIVE, Urine Bilirubin NEGATIVE, Urine Urobilinogen NORMAL, Urine Leukocyte Esterase 3+, Urine RBC (Auto) NEGATIVE, Urine RBC NONE, Urine WBC 5-10, Urine Squamous Epithelial Cells 5-10, Urine Crystals NONE, Urine Bacteria FEW, Urine Casts NONE, Urine Mucus MODERATE, Urine Culture Indicated YES 10/11/17 05:25: White Blood Count 8.2, Red Blood Count 3.44, Hemoglobin 10.5, Hematocrit 32, Mean Corpuscular Volume 92, Mean Corpuscular Hemoglobin 31, Mean Corpuscular Hemoglobin Concent 33, Red Cell Distribution Width 12.7, Platelet Count 230, Mean Platelet Volume 10.9, Neutrophils (%) (Auto) 68, Lymphocytes (%) (Auto) 23 , Monocytes (%) (Auto) 9, Eosinophils (%) (Auto) 1, Basophils (%) (Auto) 0, Neutrophils # (Auto) 5.5, Lymphocytes # (Auto) 1.9, Monocytes # (Auto) 0.7, Eosinophils # (Auto) 0.1, Basophils # (Auto) 0.0, Sodium Level 143, Potassium Level 3.7, Chloride Level 116, Carbon Dioxide Level 22, Anion Gap 5, Blood Urea Nitrogen 16, Creatinine 0.65, Estimat Glomerular Filtration Rate > 60, BUN/ Creatinine Ratio 25, Glucose Level 103, Calcium Level 8.5 Radiology Reviewed Post op imaging reviewed and within normal limits. Discharge Home Medications: Active Scripts Active Lortab 7.5 Mg Tablet (Acetaminophen/Hydrocodone Bitart) 1 Ea Tablet 1 Ea PO Q4H PRN 14 Days Patient can take 1/2 a tab to 1 tab as need for pain Reported Sertraline HCl 50 Mg Tablet 75 Mg PO DAILY Vitamin B12 (Cyanocobalamin (Vitamin B-12)) 5,000 Mcg Tab.rapdis 5,000 Mcg PO DAILY Vitamin D-3 (Cholecalciferol (Vitamin D3)) 2,000 Unit Capsule 2,000 Unit PO DAILY Topiramate 50 Mg Tablet 50 Mg PO BID Clonidine HCl 0.1 Mg Tablet 0.05 Mg PO TID Pantoprazole Sodium 40 Mg Tablet.dr 40 Mg PO BID Instructions to patient/family Please see electronic discharge instructions given to patient. JOCELYNE CERVANTES Oct 13, 2017 12:17 pm
--- OUTSIDE RECORDS SUMMARY | 2017-10-16 11:32 | XMS REPORT | Clinical Summary ---
Author Author [facility] Organization [facility] Address Unknown Phone Unavailable Care Team Providers Care Supervisor Type Bar And Segment Name Role Phone Tiesha Velez Unavailable Marielle River MD PCP Source Comments Some departments are not documenting in the electronic medical record. If you do not see the information that you expected, contact Release of Information in the Health Information Management department at [phone] for further assistance in locating additional records.[facility] Allergies Active Allergy Reactions Severity Noted Date [...]
--- OUTSIDE RECORDS SUMMARY | 2017-10-16 11:35 | XMS REPORT | Continuity of Care Document ---
Author Author [facility] Organization [facility] Address Unknown Phone Unavailable Allergies Active Description Code Type Severity Reaction Onset Reported/Identified Relationship to Patient Clinical Status Yes midazolam [id number] Drug Allergy Unknown N/A 02/23/2015 Yes bupropion [id number] Drug Allergy Unknown N/A 08/28/2015 Yes citalopram [id number] Drug Allergy Unknown N/A 08/28/2015 Yes escitalopram [id number] Drug Allergy Unknown N/A 08/28/2015 Yes latex [id number] Drug Allergy Unknown RASH 08/28/2015 Yes tramadol [id number] Drug Allergy Unknown N/A 08/28/2015 Medications There is no data. Problems Date Dx Coded Attending Type Code Diagnosis Diagnosed By 02/07/1332 KEVIN SHANKAR, ZACHARY Amezcua Ot R13.10 01/09/2015 Ot 722.52 01/09/2015 ROBIN SHANKAR, EDWINA Mendez Ot 715.36 02/13/2015 SHRUTI RANDA Drea MANUSCRIPTS ARCHIVIST Ot M17.11 02/15/2015 CHRISTINACARMELITABRIELLE RANDA Shepard MANUSCRIPTS ARCHIVIST Ot R53.83 02/17/2015 Ot R53.83 02/23/2015 JOSÉ MANUEL DREW MANUSCRIPTS ARCHIVIST Ot F98.5 02/23/2015 JOSÉ MANUEL DREW MANUSCRIPTS ARCHIVIST Ot N39.0 02/23/2015 JOSÉ MANUEL DREW MANUSCRIPTS ARCHIVIST Ot R25.1 02/27/2015 CHRISTINACARMELITABRIELLERANDA MANUSCRIPTS ARCHIVIST Ot E04.1 02/27/2015 CHRISTINACARMELITABRIELLE RANDA Shepard MANUSCRIPTS ARCHIVIST Ot R25.1 03/08/2015 CHRISTINACARMELITABRIELLE RANDA Shepard MANUSCRIPTS ARCHIVIST Ot R53.83 03/17/2015 CHRISTINACARMELITABRIELLE RANDA Shepard MANUSCRIPTS ARCHIVIST Ot E04.1 03/17/2015 SHRUTI RANDA Shepard MANUSCRIPTS ARCHIVIST Ot R25.1 04/04/2015 KEVIN SHANKAR, ZACHARY Amezcua Ot R13.10 04/11/2015 RANDA BAHENA MANUSCRIPTS ARCHIVIST Ot E04.1 04/11/2015 RANDA BAHENA MANUSCRIPTS ARCHIVIST Ot R25.1 06/05/2015 RANDA BAHENA MANUSCRIPTS ARCHIVIST Ot M17.11 06/13/2015 PAUL ELLISON MD Ot [...] IRON DEFICIENCY ANEMIA, UNSPECIFIED 12/26/2015 BRAN GUTIÉRREZ MANUSCRIPTS ARCHIVIST Ot M54.2 CERVICALGIA 12/26/2015 BRAN GUTIÉRREZ MANUSCRIPTS ARCHIVIST Ot R20.0 ANESTHESIA OF SKIN 01/16/2016 RBAN GUTIÉRREZ MANUSCRIPTS ARCHIVIST Ot M54.2 CERVICALGIA 01/16/2016 BRAN GUTIÉRREZ MANUSCRIPTS ARCHIVIST Ot R20.0 ANESTHESIA OF SKIN 08/21/2016 JUAN SHANKAR, MORENO Ot 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 Results Test Result Range [id number] - 07/29/16 10:23 Serum or plasma urea nitrogen measurement (mass/volume) 23 mg/dL 7-18 Serum or plasma creatinine measurement (mass/volume) 0.81 mg/dL 0.60-1.30 Serum or plasma urea nitrogen/creatinine mass ratio 28 NRG Serum or plasma creatinine measurement with calculation of estimated glomerular filtration rate > NRG Encounters ACCT No. Visit Date/Time Discharge Status Pt. Type Provider Facility Loc./Unit Complaint [id number] 04/17/2017 11:17:00 04/17/2017 23:59:59 CLS Outpatient BRAN GUTIÉRREZ APRN [facility] RAD M79.605 [id number] 07/29/2016 10:08:00 07/29/2016 23:59:59 CLS Outpatient JUAN SHANKAR, MORENO [facility] RAD D32.9 [place] [id number] 12/25/2015 14:17:00 12/25/2015 23:59:59 CLS Outpatient BRAN GUTIÉRREZ APRN [facility] RAD NECK PAIN,ARM PAIN/ NUMBNESS [id number] 11/27/2015 00:09:00 11/27/2015 23:59:59 CLS Preadmit LIDA SLADE MD [facility] ANEMIA, IRON DEFICIENCY [id number] 09/12/2015 16:20:00 11/26/2015 00:01:00 DIS Outpatient LIDA SLADE MD [facility] ANEMIA, IRON DEFICIENCY [id number] 06/12/2015 09:40:00 06/13/2015 09:30:00 DIS Inpatient PAUL ELLISON MD [facility] [id number] 03/14/2015 13:05:00 04/04/2015 13:33:00 DIS Outpatient KEVIN SHANKAR, ZACHARY Amezcua [facility] REHAB [id number] 03/14/2015 11:36:00 03/14/2015 23:59:59 CLS Outpatient RANDA BAHENA MANUSCRIPTS ARCHIVIST [facility] CARD [id number] 02/25/2015 10:04:00 02/25/2015 23:59:59 CLS Outpatient RANDA BAHENA MANUSCRIPTS ARCHIVIST [facility] LAB [id number] 02/23/2015 10:27:00 02/23/2015 11:55:00 DIS Emergency JOSÉ MANUEL DREW MANUSCRIPTS ARCHIVIST [facility] ER [id number] 01/24/2015 12:53:00 01/24/2015 23:59:59 CLS Outpatient RANDA BAHENA APRN [facility] CARD [id number] 01/09/2015 09:34:00 01/09/2015 23:59:59 CLS Outpatient RANDA BAHENA MANUSCRIP[employer] ARCHIVIST [facility] RAD [id number] 04/30/2013 08:55:00 04/30/2013 23:59:59 CLS Outpatient ROBIN SHANKAR, EDWINA Mendez [facility] RAD [id number] 10/11/2017 10:11:00 Document Registration [id number] 02/23/2015 10:40:00 Document Registration [id number] 01/26/2015 09:48:00 Document Registration [id number] 03/24/2012 12:28:00 Document Registration [id number] 01/27/2017 23:41:24 01/27/2017 23:59:59 CLS Outpatient [id number] 04/05/2017 11:45:00 04/05/2017 13:20:00 DIS Emergency DIANE VARGAS
--- NOTE | 2017-10-21 11:15 | OPERATIVE REPORT ---
DATE OF SERVICE: 10/11/2017 PREOPERATIVE DIAGNOSIS: Dislocation of left radial head and transverse fracture of left ulna shaft. POSTOPERATIVE DIAGNOSIS: Same PROCEDURE: Closed reduction of left radiocapitellar dislocation, open reduction and internal fixation left ulna shaft. Open reduction of the radial head with repair of lateral collateral ligament and extensor aponeurosis of lateral elbow SURGEON: Diane Graham MD. GRADE RECORDER: Noah Boyle PA-C. GRADE RECORDER SURGEON DUTIES: The patient positioning, retraction, wound closure, use of internal fixation devices, application of sterile dressings and application of long-arm splint. Use of an parts room assistant surgeon was medically indicated. ANESTHESIA: General. COMPLICATIONS: None. SPECIMENS: None. BLOOD LOSS: 10 mL. IMPLANTS: A Synthes 8-hole small fragment dynamic compression plate with two 3.5 mm bicortical screws distal to the fracture and one locking screw distal to the fracture, one 3.5 mm bicortical screw proximal to the fracture and two locking screws proximal to the fracture. Mitek GII anchors times two for the lateral elbow ligament repair. INDICATIONS: This lady fell last night sustaining a fracture dislocation left elbow and comes to the operating room for surgical repair. DESCRIPTION OF PROCEDURE: After informed consent, the patient was transported to the operating room. She was placed on the operating table in the supine position where general anesthesia was induced. A tourniquet was placed on the left arm. Left upper extremity was prepped with ChloraPrep and draped in sterile fashion. The elbow was manipulated. The radial head was felt to reduce easily once the ulna was out to length. A longitudinal incision was made over the posterior olecranon extending along the ulnar shaft, was carried out through subcutaneous tissues down to the periosteum. The periosteum was incised and elevated from around the ulna and the fracture was identified. It was irrigated and suctioned and debrided off fracture hematoma and soft tissue within the fracture. The fracture was then anatomically reduced and a dynamic compression plate was contoured to the lateral ulna and it was placed along the olecranon and lateral ulnar shaft and secured with a single 3.5 mm screw distal to the fracture and a single 3.5 mm screw proximal to the fracture. The reduction forceps was removed. The fracture appeared to be reduced. An additional screw was placed distally and proximally and then the C-arm was brought in to confirm satisfactory placement. Reduction appeared to be anatomic and the radial capitellar joint was well reduced. With flexion and extension, the radiocapitellar joint stayed well reduced. Next, the C-arm was rolled back out and the additional screws were placed in the plate as previously dictated. All obtaining excellent purchase, the C-arm then was brought again and final AP and lateral and oblique x-rays were made confirming anatomic reduction of the fracture dislocation and satisfactory implant position and length. The hard copy C-arm images were saved to the PACS system. The elbow was taken through a range of motion and visualized under fluoroscopy with flexion, extension, pronation and supination and the radiocapitellar joint stayed reduced. Therefore, no open procedure was necessary for the radiocapitellar joint. The wound was thoroughly irrigated and then the periosteum and subcutaneous tissues were closed with interrupted #1 Vicryl followed by a running 2-0 Vicryl and edmond in the skin. The drapes were taken down with the intention to place dressings and a splint. However, the radial head was noted to dislocate easily and reduce easily. If felt that fixation was needed for the lateral elbow. Therefore, the extremity was prepped with Betadyne scrub and solution and draped again in sterile fashion. I opened the lateral elbow in a curvilinear fashion over the radiocapitallar joint and lateral column of the elbow. Subcutaneous tissues were opened and then the radiocapitallar joint was opened with hematoma noted. The lateral collateral and extensor aponeurosis were noted to be avulsed from the posterior lateral column of the humerus in a continuous periosteal flap up the lateral column with a raw cancellous surface on the humerus and bits of bony fragmens in the periosteum that was avulsed with the LCL. I left the tiny bony fragments to allow bone to bone healing. I irrigated the hematoma. Two Mitek GII anchors were placed in the posterior lateral humerus posterior to the capitellum and the sutures were brought through the avulsed flap of LCL, periosteum, and extensor aponeurosis and tied down tightly with good stability noted. I then oversewed the repair with #2 Fiberwire suture for a good repair. The C-arm was brought in and the radiocapitallar joint was stable. The wound was thoroughly irrigated and then the subcutaneous tissues were closed with interrupted #1 Vicryl followed by a running 2-0 Vicryl and edmond in the skin.Sterile dressings were applied. The tourniquet was deflated. She then was placed in a long arm splint and transferred to the recovery room in stable condition. Job ID: [id number] DocumentID: [id number] Dictated Date: 10/11/2017 10:08:21 Take Up Operator Date: 10/11/2017 13:26:57 Dictated By: DIANE GRAHAM MD <Dictated by DIANE GRAHAM MD> <Electronically signed by DIANE GRAHAM MD> 10/13/17 0739
== END 2017-10-12 10:18 | disposition home or self-care (01) | DRG 502 ==
LOC: EDUNIT# 22:19 → ER 22:21 → 4TH 22:22 → UNDOADMOB 10-11 → 4TH 10-11 → OBSVTOIN 10-11 09:11 → INTOOBSV 10-11 09:11 → UNDODISIN 10-12 10:18
PROVIDERS: ADMIT Orthopaedic Surgery; ATTEND Orthopaedic Surgery
PROC: 0RSM0ZZ Reposition Left Elbow Joint, Open Approach (ICD-10-PCS; 2017-10-11)
PROC: 0MQ40ZZ Repair Left Elbow Bursa and Ligament, Open Approach (ICD-10-PCS; 2017-10-11)
PROC: 0RSMXZZ Reposition Left Elbow Joint, External Approach (ICD-10-PCS; 2017-10-11)
PROC: 0PSL04Z Reposition Left Ulna with Internal Fixation Device, Open Approach (ICD-10-PCS; principal; 2017-10-11 09:00)
DX: S52.272A Monteggia's fracture of left ulna, initial encounter for closed fracture (principal); R19.7 Diarrhea, unspecified; E07.9 Disorder of thyroid, unspecified; E05.90 Thyrotoxicosis, unspecified without thyrotoxic crisis or storm; F32.9 Major depressive disorder, single episode, unspecified; K21.9 Gastro-esophageal reflux disease without esophagitis; K44.9 Diaphragmatic hernia without obstruction or gangrene; W18.09XA Striking against other object with subsequent fall, initial encounter
CPT/HCPCS: 29105; 36415; 70450; 72125; 73080; 80048; 80053; 81000; 83735; 85025; 87081; 87088; 96361; 96374; 96375; G0378

== ENCOUNTER 2017-11-11 11:00 | Emergency (ER) | payer MEDICARE, OTHER ==
[~2017-11-11] VITALS: Ht 167.6 cm; Wt 78.0 kg
[~2017-11-11 11:00] MED LIST changes: +CHOL20002 PO; +CYAN50008 PO; +HYDR-34 PO; +SERT50TA9 PO; +TOPI50TA13 PO
--- OUTSIDE RECORDS SUMMARY | 2017-11-11 11:04 | XMS REPORT | Clinical Summary ---
Author Author [facility] Organization [facility] Address Unknown Phone Unavailable Care Team Providers Care Textile Designer Name Role Phone Tiesha Velez Unavailable Marielle River MD PCP Source Comments Some departments are not documenting in the electronic medical record. If you do not see the information that you expected, contact Release of Information in the Health Information Management department at [phone] for further assistance in locating additional records.[facility] Allergies Active Allergy Reactions Severity Noted Date [...]
--- OUTSIDE RECORDS SUMMARY | 2017-11-11 11:08 | XMS REPORT | Continuity of Care Document ---
Author Author [facility] Organization [facility] Address Unknown Phone Unavailable Allergies Active Description Code Type Severity Reaction Onset Reported/Identified Relationship to Patient Clinical Status Yes bupropion [id number] Drug Allergy Unknown N/A 10/11/2017 Yes citalopram [id number] Drug Allergy Unknown N/A 10/11/2017 Yes escitalopram [id number] Drug Allergy Unknown N/A 10/11/2017 Yes latex [id number] Drug Allergy Unknown RASH 10/11/2017 Yes midazolam [id number] Drug Allergy Unknown N/A 10/11/2017 Yes tramadol [id number] Drug Allergy Unknown N/A 10/11/2017 Medications There is no data. Problems Date Dx Coded Attending Type Code Diagnosis Diagnosed By 02/07/1332 KEVIN SHANKAR, ZACHARY Amezcua Ot R13.10 01/09/2015 Ot 722.52 01/09/2015 ROBIN SHANKAR, EDWINA Mendez Ot 715.36 02/13/2015 SHRUTI RANDA Drea [facility] Ot M17.11 02/15/2015 SHRUTI RANDA Shepard [facility]IV[facility] Ot R53.83 02/17/2015 Ot R53.83 02/23/2015 JOSÉ MANUEL DREW [facility]IV[facility] Ot F98.5 02/23/2015 JOSÉ MANUEL DREW [facility] Ot N39.0 02/23/2015 JOSÉ MANUEL DREW [facility]IV[facility] Ot R25.1 02/27/2015 SHRUTI RANDA Shepard [facility]IV[facility] Ot E04.1 02/27/2015 SHRUTI RANDA Shepard [facility]IV[facility] Ot R25.1 03/08/2015 RANDA BAHENA [facility]IV[facility] Ot R53.83 03/17/2015 CHRISTINACARMELITABRIELLE RANDA Shepard MANA[facility]IV[facility] Ot E04.1 03/17/2015 SHRUTI RANDA Shepard MANA[facility]IV[facility] Ot R25.1 04/04/2015 KEVIN SHANKAR, ZACHARY Amezcua Ot R13.10 04/11/2015 RANDA BAHENA [facility]IV[facility] Ot E04.1 04/11/2015 RANDA BAHENA [facility] Ot R25.1 06/05/2015 RANDA BAHENA [facility] Ot M17.11 06/13/2015 PAUL ELLISON MD Ot [...] Ot D50.9 IRON DEFICIENCY ANEMIA, UNSPECIFIED 09/04/2015 BERILN SHANKAR, LIDA A Ot D50.9 IRON DEFICIENCY [...] IRON DEFICIENCY ANEMIA, UNSPECIFIED 12/26/2015 BRAN GUTIÉRREZ [facility] Ot M54.2 CERVICALGIA 12/26/2015 BRAN GUTIÉRREZ [facility] Ot R20.0 ANESTHESIA OF SKIN 01/16/2016 BRAN GUTIÉRREZ [facility] Ot M54.2 CERVICALGIA 01/16/2016 BRAN GUTIÉRREZ [facility] Ot R20.0 ANESTHESIA OF SKIN 08/21/2016 JUAN SHANKAR, MORENO Ot 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, UNSPECIFIED 08/21/2016 JUAN SHANKAR, MORENO Ot R41.3 OTHER AMNESIA 04/18/2017 BRAN GUTIÉRREZ [facility] Ot M79.605 PAIN IN LEFT LEG 04/18/2017 BRAN GUTIÉRREZ [facility] Ot W19.XXXA UNSPECIFIED FALL, INITIAL ENCOUNTER 05/13/2017 BRAN GUTIÉRREZ [facility] Ot M79.605 PAIN IN LEFT LEG 05/13/2017 BRAN GUTIÉRREZ [facility] Ot W19.XXXA UNSPECIFIED FALL, INITIAL ENCOUNTER 10/12/2017 Ot E05.90 THYROTOXICOSIS, UNSP WITHOUT THYROTOXIC 10/12/2017 Ot E07.9 DISORDER OF THYROID, UNSPECIFIED 10/12/2017 Ot F32.9 MAJOR DEPRESSIVE DISORDER, SINGLE EPISOD 10/12/2017 Ot K21.9 GASTRO- ESOPHAGEAL REFLUX DISEASE WITHOUT 10/12/2017 Ot K44.9 DIAPHRAGMATIC HERNIA WITHOUT OBSTRUCTION 10/12/2017 Ot R19.7 DIARRHEA, UNSPECIFIED 10/12/2017 Ot S52.272A MONTEGGIA' S FRACTURE OF LEFT ULNA, INIT 10/12/2017 Ot W18.09XA STRIKING AGAINST OTH OBJECT W SUBSEQUENT Procedures Code Description Performed By Performed On [id number] REPAIR LEFT ELBOW BURSA AND LIGAMENT, OP 10/11/2017 [id number] REPOSITION LEFT ULNA WITH INT FIX, OPEN 10/11/2017 [id number] REPOSITION LEFT ELBOW JOINT, OPEN APPROA 10/11/2017 [id number] REPOSITION LEFT ELBOW JOINT, EXTERNAL AP 10/11/2017 Results Test Result Range [id number] - 07/29/16 10:23 Serum or plasma urea nitrogen measurement (mass/volume) 23 mg/dL 7-18 Serum or plasma creatinine measurement (mass/volume) 0.81 mg/dL 0.60-1.30 Serum or plasma urea nitrogen/creatinine mass ratio 28 NRG Serum or plasma creatinine measurement with calculation of estimated glomerular filtration rate > NRG Complete blood count (CBC) with automated white blood cell (WBC) differential - 10/10/17 23:15 Blood leukocytes automated count (number/volume) 9.3 10*3/uL 4.3-11.0 Blood erythrocytes automated count (number/volume) 3.71 10*6/uL 4.35-5.85 Venous blood hemoglobin measurement (mass/volume) 11.3 g/dL 11.5-16.0 Blood hematocrit (volume fraction) 34 % 35-52 Automated erythrocyte mean corpuscular volume 92 [foz_us] 80-99 Automated erythrocyte mean corpuscular hemoglobin (mass per erythrocyte) 30 pg 25-34 Automated erythrocyte mean corpuscular hemoglobin concentration measurement ( mass/volume) 33 g/dL 32-36 Automated erythrocyte distribution width ratio 12.9 % 10.0-14.5 Automated blood platelet count (count/volume) 264 10*3/uL 130-400 Automated blood platelet mean volume measurement 10.5 [foz_us] 7.4-10.4 Automated blood neutrophils/100 leukocytes 73 % 42-75 Automated blood lymphocytes/100 leukocytes 16 % 12-44 Blood monocytes/100 leukocytes 7 % 0-12 Automated blood eosinophils/100 leukocytes 3 % 0-10 Automated blood basophils/100 leukocytes 1 % 0-10 Blood neutrophils automated count (number/volume) 6.8 10*3 1.8-7.8 Blood lymphocytes automated count (number/volume) 1.5 10*3 1.0-4.0 Blood monocytes automated count (number/volume) 0.7 10*3 0.0-1.0 Automated eosinophil count 0.3 10*3/uL 0.0-0.3 Automated blood basophil count (count/volume) 0.1 10*3/uL 0.0-0.1 Comprehensive metabolic panel - 10/10/17 23:15 Serum or plasma sodium measurement (moles/volume) 142 mmol/L 135-145 Serum or plasma potassium measurement (moles/volume) 3.3 mmol/L 3.6-5.0 Serum or plasma chloride measurement (moles/volume) 112 mmol/L 98-107 Carbon dioxide 23 mmol/L 21-32 Serum or plasma anion gap determination (moles/volume) 7 mmol/L 5-14 Serum or plasma urea nitrogen measurement (mass/volume) 22 mg/dL 7-18 Serum or plasma creatinine measurement (mass/volume) 0.79 mg/dL 0.60-1.30 Serum or plasma urea nitrogen/creatinine mass ratio 28 NRG Serum or plasma creatinine measurement with calculation of estimated glomerular filtration rate > NRG Serum or plasma glucose measurement (mass/volume) 117 mg/dL 70-105 Serum or plasma calcium measurement (mass/volume) 8.8 mg/dL 8.5-10.1 Serum or plasma total bilirubin measurement (mass/volume) 0.2 mg/dL 0.1-1.0 Serum or plasma alkaline phosphatase measurement (enzymatic activity/volume) 121 U/L 40-136 Serum or plasma aspartate aminotransferase measurement (enzymatic activity/ volume) 13 U/L 5-34 Serum or plasma alanine aminotransferase measurement (enzymatic activity/volume ) 9 U/L 0-55 Serum or plasma protein measurement (mass/volume) 6.2 g/dL 6.4-8.2 Serum or plasma albumin measurement (mass/volume) 3.9 g/dL 3.2-4.5 Magnesium - 10/10/17 23:15 Magnesium 2.4 mg/dL 1.8-2.4 Complete urinalysis with reflex to culture - 10/10/17 23:43 Urine color determination YELLOW NRG Urine clarity determination CLEAR NRG Urine pH measurement by test strip 6 5-9 Specific gravity of urine by test strip 1.020 1.016- 1.022 Urine protein assay by test strip, semi-quantitative NEGATIVE NEGATIVE Urine glucose detection by automated test strip NEGATIVE NEGATIVE Erythrocytes detection in urine sediment by light microscopy NEGATIVE NEGATIVE Urine ketones detection by automated test strip NEGATIVE NEGATIVE Urine nitrite detection by test strip NEGATIVE NEGATIVE Urine total bilirubin detection by test strip NEGATIVE NEGATIVE Urine urobilinogen measurement by automated test strip (mass/volume) NORMAL NORMAL Urine leukocyte esterase detection by dipstick 3+ NEGATIVE Automated urine sediment erythrocyte count by microscopy (number/high power field) NONE NRG Automated urine sediment leukocyte count by microscopy (number/high power field ) [HPF] NRG Bacteria detection in urine sediment by light microscopy FEW NRG Squamous epithelial cells detection in urine sediment by light microscopy 5-10 NRG Crystals detection in urine sediment by light microscopy NONE NRG Casts detection in urine sediment by light microscopy NONE NRG Mucus detection in urine sediment by light microscopy MODERATE NRG Complete urinalysis with reflex to culture YES NRG Bacterial urine culture - 10/10/17 23:43 Bacterial urine culture RML NRG COLONY COUNT . NRG Methicillin resistant Staphylococcus aureus (MRSA) screening culture - 03:15 Methicillin resistant Staphylococcus aureus (MRSA) screening culture NEG NRG Complete blood count (CBC) with automated white blood cell (WBC) differential - 10/11/17 05:25 Blood leukocytes automated count (number/volume) 8.2 10*3/uL 4.3-11.0 Blood erythrocytes automated count (number/volume) 3.44 10*6/uL 4.35-5.85 Venous blood hemoglobin measurement (mass/volume) 10.5 g/dL 11.5-16.0 Blood hematocrit (volume fraction) 32 % 35-52 Automated erythrocyte mean corpuscular volume 92 [foz_us] 80-99 Automated erythrocyte mean corpuscular hemoglobin (mass per erythrocyte) 31 pg 25-34 Automated erythrocyte mean corpuscular hemoglobin concentration measurement ( mass/volume) 33 g/dL 32-36 Automated erythrocyte distribution width ratio 12.7 % 10.0-14.5 Automated blood platelet count (count/volume) 230 10*3/uL 130-400 Automated blood platelet mean volume measurement 10.9 [foz_us] 7.4-10.4 Automated blood neutrophils/100 leukocytes 68 % 42-75 Automated blood lymphocytes/100 leukocytes 23 % 12-44 Blood monocytes/100 leukocytes 9 % 0-12 Automated blood eosinophils/100 leukocytes 1 % 0-10 Automated blood basophils/100 leukocytes 0 % 0-10 Blood neutrophils automated count (number/volume) 5.5 10*3 1.8-7.8 Blood lymphocytes automated count (number/volume) 1.9 10*3 1.0-4.0 Blood monocytes automated count (number/volume) 0.7 10*3 0.0-1.0 Automated eosinophil count 0.1 10*3/uL 0.0-0.3 Automated blood basophil count (count/volume) 0.0 10*3/uL 0.0-0.1 Whole blood basic metabolic panel - 10/11/17 05:25 Serum or plasma sodium measurement (moles/volume) 143 mmol/L 135-145 Serum or plasma potassium measurement (moles/volume) 3.7 mmol/L 3.6-5.0 Serum or plasma chloride measurement (moles/volume) 116 mmol/L 98-107 Carbon dioxide 22 mmol/L 21-32 Serum or plasma anion gap determination (moles/volume) 5 mmol/L 5-14 Serum or plasma urea nitrogen measurement (mass/volume) 16 mg/dL 7-18 Serum or plasma creatinine measurement (mass/volume) 0.65 mg/dL 0.60-1.30 Serum or plasma urea nitrogen/creatinine mass ratio 25 NRG Serum or plasma creatinine measurement with calculation of estimated glomerular filtration rate > NRG Serum or plasma glucose measurement (mass/volume) 103 mg/dL 70-105 Serum or plasma calcium measurement (mass/volume) 8.5 mg/dL 8.5-10.1 Encounters ACCT No. Visit Date/Time Discharge Status Pt. Type Provider Facility Loc./Unit Complaint [id number] 04/17/2017 11:17:00 04/17/2017 23:59:59 CLS Outpatient BRAN GUTIÉRREZ APRN [facility] RAD M79.605 [id number] 07/29/2016 10:08:00 07/29/2016 23:59:59 CLS Outpatient JUAN SHANKAR, MORENO [facility] RAD D32.9 MENINGLOMA [id number] 12/25/2015 14:17:00 12/25/2015 23:59:59 CLS Outpatient BRAN GUTIÉRREZ APRN [facility] RAD NECK PAIN,ARM PAIN/ NUMBNESS [id number] 11/27/2015 00:09:00 11/27/2015 23:59:59 CLS Preadmit LIDA SLADE MD [facility] ANEMIA, IRON DEFICIENCY [id number] 09/12/2015 16:20:00 11/26/2015 00:01:00 DIS Outpatient LIDA SLADE MD [facility] ANEMIA, IRON DEFICIENCY [id number] 06/12/2015 09:40:00 06/13/2015 09:30:00 DIS Inpatient PAUL ELLISON MD [facility] CSD [id number] 03/14/2015 13:05:00 04/04/2015 13:33:00 DIS Outpatient ZACHARY BROWN MD [facility] REHAB [id number] 03/14/2015 11:36:00 03/14/2015 23:59:59 CLS Outpatient RANDA BAHENA APRN [facility] CARD [id number] 02/25/2015 10:04:00 02/25/2015 23:59:59 CLS Outpatient RANDA BAHENA APRN [facility] LAB [id number] 02/23/2015 10:27:00 02/23/2015 11:55:00 DIS Emergency JOSÉ MANUEL DREW APRN [facility] ER [id number] 01/24/2015 12:53:00 01/24/2015 23:59:59 CLS Outpatient RANDA BAHENA [facility] CARD [id number] 01/09/2015 09:34:00 01/09/2015 23:59:59 CLS Outpatient RANDA BAHENA [facility] RAD [id number] 04/30/2013 08:55:00 04/30/2013 23:59:59 CLS Outpatient ROBIN SHANKAR, EDIWNA Mendez [facility] RAD [id number] 10/11/2017 10:11:00 Document Registration [id number] 02/23/2015 10:40:00 Document Registration [id number] 01/26/2015 09:48:00 Document Registration [id number] 03/24/2012 12:28:00 Document Registration [id number] 01/27/2017 23:41:24 01/27/2017 23:59:59 CLS Outpatient [id number] 04/05/2017 11:45:00 04/05/2017 13:20:00 DIS Emergency DIANE VARGAS
[2017-11-11 11:30] LABS: BASOPHILS # (AUTO) 0.1 10^3/uL (0.0-0.1); BASOPHILS % (AUTO) 1 % (0-10); EOSINOPHILS # (AUTO) 0.3 10^3/uL (0.0-0.3); EOSINOPHILS % (AUTO) 5 % (0-10); HEMATOCRIT 34 % (35-52); HEMOGLOBIN 11.1 G/DL (11.5-16.0); LYMPHOCYTES # (AUTO) 2.3 X 10^3 (1.0-4.0); LYMPHOCYTES % (AUTO) 37 % (12-44); MEAN CORPUSCULAR HEMOGLOBIN 30 PG (25-34); MEAN CORPUSCULAR HGB CONC 32 G/DL (32-36); MEAN CORPUSCULAR VOLUME 92 FL (80-99); MEAN PLATELET VOLUME 10.9 FL (7.4-10.4); MONOCYTES # (AUTO) 0.5 X 10^3 (0.0-1.0); MONOCYTES % (AUTO) 8 % (0-12); NEUTROPHILS # (AUTO) 3.1 X 10^3 (1.8-7.8); NEUTROPHILS % (AUTO) 49 % (42-75); PLATELET COUNT 232 10^3/uL (130-400); RED BLOOD COUNT 3.74 10^6/uL (4.35-5.85); RED CELL DISTRIBUTION WIDTH 12.6 % (10.0-14.5); WHITE BLOOD COUNT 6.3 10^3/uL (4.3-11.0)
[2017-11-11 11:42] LABS: FIBRIN DEGRADATION PRODUCTS 0.56 UG/ML (0.00-0.49); INR 1.1 (0.8-1.4); PROTHROMBIN TIME PATIENT 13.9 SEC (12.2-14.7)
[2017-11-11 11:48] LABS: ALANINE AMINOTRANSFERASE 6 U/L (0-55); ALBUMIN 3.9 GM/DL (3.2-4.5); ALKALINE PHOSPHATASE 124 U/L (40-136); BILIRUBIN,TOTAL 0.3 MG/DL (0.1-1.0); BUN/CREATININE RATIO 24; CARBON DIOXIDE 22 MMOL/L (21-32); CHLORIDE 110 MMOL/L (98-107); CREATININE SERUM 0.75 MG/DL (0.60-1.30); GFR ESTIMATED > 60; GLUCOSE 90 MG/DL (70-105); POTASSIUM 3.9 MMOL/L (3.6-5.0); SODIUM 139 MMOL/L (135-145); TOTAL PROTEIN 6.5 GM/DL (6.4-8.2)
--- NOTE | 2017-11-11 12:15 | ED Lower Extremity ---
General Chief Complaint: Lower Extremity Stated Complaint: LEFT LEG PAIN Nursing Triage Note: Patient presents with Left lower leg pain that began this morning when she got up. Patient denies any recent falls within the last week and denies any injuries to the leg. Patient is complaining of increased pain with palpation to the left calf area. There is bruising present on the posterior left lower leg. There are palpable pedal pulses present to the left foot. Patient did have a fall 4 weeks ago that resulted in a broken left arm that required surgery with plates and screws. Nursing Sepsis Screen: No Definite Risk Source: patient Exam Limitations: no limitations History of Present Illness Date Seen by Provider: Nov 11, 2017 Time Seen by Provider: 11:02 Initial Comments Patient is a 67-year-old female who presents to the emergency room with complaints of left lower leg pain and left calf pain that started this morning when she got up. She denies any recent injuries but reports extreme pain to the calf when she does stand. There is mild ecchymosis noted to the lower leg around the ankle she cannot recall an injury. Onset: this morning Pain/Injury Location: left leg, left other Method of Injury: unknown Modifying Factors: Improves With Other (Bearing weight causes Pain) Allergies and Home Medications Allergies Coded Allergies: bupropion (Verified Allergy, Unknown, 10/11/17) citalopram (Verified Allergy, Unknown, 10/11/17) escitalopram (Verified Allergy, Unknown, 10/11/17) latex (Verified Allergy, Unknown, RASH, 10/11/17) midazolam (Verified Allergy, Unknown, 10/11/17) tramadol (Verified Allergy, Unknown, 10/11/17) Home Medications Cholecalciferol (Vitamin D3) 2,000 Unit Capsule, 2,000 UNIT PO DAILY, (Reported) Clonidine HCl 0.1 Mg Tablet, 0.05 MG PO TID, (Reported) Cyanocobalamin (Vitamin B-12) 5,000 Mcg Tab.rapdis, 5,000 MCG PO DAILY, ( Reported) Hydrocodone Bit/Acetaminophen 1 Ea Tablet, 1 EA PO Q4H PRN for PAIN-MODERATE Patient can take 1/2 a tab to 1 tab as need for pain Prescribed by: JOCELYNE CERVANTES on 10/12/17 0925 Pantoprazole Sodium 40 Mg Tablet.dr, 40 MG PO BID, (Reported) Sertraline HCl 50 Mg Tablet, 75 MG PO DAILY, (Reported) Topiramate 50 Mg Tablet, 50 MG PO BID, (Reported) Patient Home Medication List Home Medication List Reviewed: Yes Review of Systems Constitutional: see HPI; No chills, No fever Musculoskeletal: see HPI, muscle pain (calf pain) Skin: see HPI, other (ecchymosis to left ankle) All Other Systems Reviewed Negative Unless Noted: Yes Past Xcmimtq-Piyskl-Vyyucv Hx Past Med/Social Hx: Reviewed Nursing Past Med/Soc Hx Patient Social History Alcohol Use: Denies Use Recreational Drug Use: No Smoking Status: Former Smoker 2nd Hand Smoke Exposure: No Recent Foreign Travel: No Contact w/Someone Who Travel: No Recent Infectious Disease Expo: No Recent Hopitalizations: Yes Physical Abuse: No Sexual Abuse: No Mistreated: No Immunizations Up To Date Date of Pneumonia Vaccine: Mar 10, 2013 Seasonal Allergies Seasonal Allergies: No Past Medical History Surgeries: Yes (Bilateral knee replacements, Left arm fx repair with plates and screws) Hysterectomy, Orthopedic, Thyroidectomy Respiratory: No Cardiac: No Neurological: Yes (TREMORS) 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: No BRIM EDGE TRIMMER History: Hysterectomy Sexually Transmitted Disease: No HIV/AIDS: No Genitourinary: No Gastrointestinal: Yes Gastroesophageal Reflux, Hiatal Hernia Musculoskeletal: Yes Arthritis, Fractures Endocrine: Yes (SURGICAL THYROIDECTOMY PARTIAL) Hyperthyroidism HEENT: No Cancer: No Psychosocial: Yes (Tourette's Syndrome) Depression Integumentary: No Adverse Reaction/Blood Tranf: No Family Medical History Reviewed Nursing Family Hx Abdominal aortic aneurysm 19 FATHER G8 BROTHER Alzheimer's disease 19 MOTHER Cardiovascular disease 19 FATHER 19 MOTHER G8 BROTHER Congenital disease G8 BROTHER Dementia 19 MOTHER No Pertinent Family Hx Physical Exam Vital Signs Vital Signs - First Documented 11/11/17 11/11/17 11:02 13:06 Temp 98.2 Pulse 77 Resp 16 B/P (MAP) 147/89 (108) Pulse Ox 99 O2 Delivery Room Air Capillary Refill : Less Than 3 Seconds Height, Weight, BMI Height: 5'6.00" Weight: 172lbs. 2.0oz. 78.348457ee; 28.8 BMI Method:Stated General Appearance: WD/WN, no apparent distress Cardiovascular: normal peripheral pulses, regular rate, rhythm, no edema, no gallop, no JVD, no murmur Respiratory: chest non-tender, lungs clear, normal breath sounds, no respiratory distress, no accessory muscle use Legs: bilateral leg normal range of motion; left leg pain, left leg soft tissue tenderness (calf tenderness) Knees: bilateral knee non-tender, bilateral knee normal inspection, bilateral knee normal range of motion, bilateral knee no evidence of injury Ankles: bilateral ankle non-tender, bilateral ankle normal inspection, bilateral ankle normal range of motion, bilateral ankle no evidence of injury Feet: bilateral foot non-tender, bilateral foot normal inspection, bilateral foot normal range of motion, bilateral foot no evidence of injury Neurologic/Tendon: normal sensation, normal motor functions, normal tendon functions Neurologic/Psychiatric: alert, normal mood/affect, oriented x 3 Skin: normal color, warm/dry, ecchymosis (ecchymosis to the left inner ankle.) Progress/Results/Core Measures Results/Orders Lab Results Laboratory Tests Test 11/11/17 11:19 Range/Units White Blood Count 6.3 4.3-11.0 10^3/uL Red Blood Count 3.74 L 4.35-5.85 10^6/uL Hemoglobin 11.1 L 11.5-16.0 G/DL Hematocrit 34 L 35-52 % Mean Corpuscular Volume 92 80-99 FL Mean Corpuscular Hemoglobin 30 25-34 PG Mean Corpuscular Hemoglobin Concent 32 32-36 G/DL Red Cell Distribution Width 12.6 10.0-14.5 % Platelet Count 232 130-400 10^3/uL Mean Platelet Volume 10.9 H 7.4-10.4 FL Neutrophils (%) (Auto) 49 42-75 % Lymphocytes (%) (Auto) 37 12-44 % Monocytes (%) (Auto) 8 0-12 % Eosinophils (%) (Auto) 5 0-10 % Basophils (%) (Auto) 1 0-10 % Neutrophils # (Auto) 3.1 1.8-7.8 X 10^3 Lymphocytes # (Auto) 2.3 1.0-4.0 X 10^3 Monocytes # (Auto) 0.5 0.0-1.0 X 10^3 Eosinophils # (Auto) 0.3 0.0-0.3 10^3/uL Basophils # (Auto) 0.1 0.0-0.1 10^3/uL Prothrombin Time 13.9 12.2-14.7 SEC INR Comment 1.1 0.8-1.4 Activated Partial Thromboplast Time 27 24-35 SEC D-Dimer 0.56 H 0.00-0.49 UG/ML Sodium Level 139 135-145 MMOL/L Potassium Level 3.9 3.6-5.0 MMOL/L Chloride Level 110 H 98-107 MMOL/L Carbon Dioxide Level 22 21-32 MMOL/L Anion Gap 7 5-14 MMOL/L Blood Urea Nitrogen 18 7-18 MG/DL Creatinine 0.75 0.60-1.30 MG/DL Estimat Glomerular Filtration Rate > 60 BUN/Creatinine Ratio 24 Glucose Level 90 70-105 MG/DL Calcium Level 9.0 8.5-10.1 MG/DL Corrected Calcium 9.1 8.5-10.1 MG/DL Total Bilirubin 0.3 0.1-1.0 MG/DL Aspartate Amino Transf (AST/SGOT) 11 5-34 U/L Alanine Aminotransferase (ALT/SGPT) 6 0-55 U/L Alkaline Phosphatase 124 40-136 U/L Total Protein 6.5 6.4-8.2 GM/DL Albumin 3.9 3.2-4.5 GM/DL My Orders Orders - MARY KENDALL Comprehensive Metabolic Panel (11/11/17 11:13) Cbc With Automated Diff (11/11/17 11:13) Protime With Inr (11/11/17 11:13) Partial Thromboplastin Time (11/11/17 11:13) Fibrin Degradation Products (11/11/17 11:13) Us Venous Lower Ext Lt (11/11/17 11:13) Saline Lock/Iv-Start (11/11/17 11:13) Vital Signs/I&O 11/11/17 11/11/17 11:02 13:06 Temp 98.2 97.9 Pulse 77 64 Resp 16 16 B/P (MAP) 147/89 (108) 128/66 Pulse Ox 99 O2 Delivery Room Air Room Air Blood Pressure Mean: 108 Progress Progress Note : Time: 12:40 Progress Note I have seen and evaluated the patient. I have informed her of her US report. I have instructed close follow up with pcp. She agrees with plan of care, plans for discharge, return precautions were given. Diagnostic Imaging Diagonstic Imaging: Ultrasound Comments NAME: BREE MAZA [facility] REC#: [id number] PT STATUS: DEP ER : 1950 PHYSICIAN: MARY KENDALL ADMIT DATE: 11/11/17/ER Signed Date of Exam: 11/11/17 US VENOUS LOWER EXT LT PROCEDURE: US left lower extremity venous. TECHNIQUE: Multiple real-time grayscale images were obtained over the left lower extremity in various projections. Additional duplex Doppler and color Doppler images were also obtained. INDICATION: Left leg pain and swelling. FINDINGS: Color Doppler imaging shows normal flow from the left common femoral vein throughout the lower extremities to the ankle. Calf compression shows normal augmentation of flow in the popliteal vein. No evidence of popliteal cyst. IMPRESSION: Negative left lower extremity venous ultrasound for thrombosis. Dictated by: Dictated on workstation # [id number] Dict: 11/11/17 1238 Trans: 11/11/17 1700 Interpreted by: XIANG ACUÑA MD Electronically signed by: XIANG ACUÑA MD 11/11/17 1700 Reviewed: Reviewed by Me Departure Impression Primary Impression: Pain of left calf Disposition: 01 HOME, SELF-CARE Condition: Stable/Unchanged Departure-Patient Inst. Decision time for Depature: 12:47 Referrals: LIDA SLADE MD (PCP/Family) Primary Care Physician Patient Instructions: Knee Sprain (DC) Add. Discharge Instructions: You may take Tylenol as directed by the bottle for pain. You may use ice and/or heat to the sore areas as needed. Follow-up with her primary care provider within 1 week for recheck. Return back to the emergency room for any worsening symptoms or concerns as needed. All discharge instructions reviewed with patient and/or family. Voiced understanding. MARY KENDALL Nov 11, 2017 12:15
--- NOTE | 2017-11-11 12:41 | Diagnostic Imaging Report ---
PROCEDURE: US left lower extremity venous. TECHNIQUE: Multiple real-time grayscale images were obtained over the left lower extremity in various projections. Additional duplex Doppler and color Doppler images were also obtained. INDICATION: Left leg pain and swelling. FINDINGS: Color Doppler imaging shows normal flow from the left common femoral vein throughout the lower extremities to the ankle. Calf compression shows normal augmentation of flow in the popliteal vein. No evidence of popliteal cyst. IMPRESSION: Negative left lower extremity venous ultrasound for thrombosis. Dictated by: Dictated on workstation # [id number]
[2017-11-11 13:06] VITALS: BP 128/66
== END 2017-11-11 13:06 | disposition home or self-care (01) ==
LOC: EDUNIT# 11:00 → ER 11:01
DX: M79.662 Pain in left lower leg (principal); K21.9 Gastro-esophageal reflux disease without esophagitis; F32.9 Major depressive disorder, single episode, unspecified; F95.2 Tourette's disorder; E03.9 Hypothyroidism, unspecified; Z88.8 Allergy status to other drugs, medicaments and biological substances; Z91.040 Latex allergy status; Z82.49 Family history of ischemic heart disease and other diseases of the circulatory system; Z88.6 Allergy status to analgesic agent; Z87.891 Personal history of nicotine dependence; Z96.653 Presence of artificial knee joint, bilateral; Z90.710 Acquired absence of both cervix and uterus; Z90.89 Acquired absence of other organs; Z87.19 Personal history of other diseases of the digestive system
CPT/HCPCS: 36415; 80053; 85025; 85379; 85610; 85730

== ENCOUNTER 2018-03-23 19:40 | Emergency (ER) | payer MEDICARE, OTHER ==
[~2018-03-23] VITALS: Ht 167.6 cm; Wt 78.1 kg
[2018-03-23] MEDS ORDERED: MELO7.5T46 (20:06)
[2018-03-23 20:11] LABS: BASOPHILS # (AUTO) 0.1 10^3/uL (0.0-0.1); BASOPHILS % (AUTO) 1 % (0-10); EOSINOPHILS # (AUTO) 0.4 10^3/uL (0.0-0.3); EOSINOPHILS % (AUTO) 6 % (0-10); HEMATOCRIT 37 % (35-52); HEMOGLOBIN 12.4 G/DL (11.5-16.0); LYMPHOCYTES # (AUTO) 2.9 X 10^3 (1.0-4.0); LYMPHOCYTES % (AUTO) 42 % (12-44); MEAN CORPUSCULAR HEMOGLOBIN 30 PG (25-34); MEAN CORPUSCULAR HGB CONC 34 G/DL (32-36); MEAN CORPUSCULAR VOLUME 90 FL (80-99); MONOCYTES # (AUTO) 0.7 X 10^3 (0.0-1.0); MONOCYTES % (AUTO) 10 % (0-12); NEUTROPHILS # (AUTO) 2.9 X 10^3 (1.8-7.8); NEUTROPHILS % (AUTO) 41 % (42-75); PLATELET COUNT 270 10^3/uL (130-400); RED BLOOD COUNT 4.11 10^6/uL (4.35-5.85); RED CELL DISTRIBUTION WIDTH 13.4 % (10.0-14.5)
[2018-03-23] MEDS ORDERED: LIDOCAINE 2% VISCOUS 15 ML UDC PO ONE (20:15)
[2018-03-23] MEDS ORDERED: ASPIRIN 81 MG CHEW (CHILDREN'S ASA) PO ONE (20:15)
[2018-03-23] MEDS ORDERED: ANTACID SUSP 30 ML UDC (MYLANTA) PO ONE (20:15)
[2018-03-23 20:24] LABS: PROTHROMBIN TIME PATIENT 13.1 SEC (12.2-14.7)
[2018-03-23 20:30] LABS: ALANINE AMINOTRANSFERASE 8 U/L (0-55); ALBUMIN 4.2 GM/DL (3.2-4.5); ALKALINE PHOSPHATASE 131 U/L (40-136); BILIRUBIN,TOTAL 0.3 MG/DL (0.1-1.0); BUN/CREATININE RATIO 22; CARBON DIOXIDE 20 MMOL/L (21-32); CHLORIDE 110 MMOL/L (98-107); CREATININE SERUM 0.86 MG/DL (0.60-1.30); GFR ESTIMATED > 60; GLUCOSE 84 MG/DL (70-105); LIPASE 13 U/L (8-78); MAGNESIUM 2.5 MG/DL (1.8-2.4); POTASSIUM 3.4 MMOL/L (3.6-5.0); SODIUM 143 MMOL/L (135-145); TOTAL PROTEIN 6.9 GM/DL (6.4-8.2)
[2018-03-23 20:39] LABS: MYOGLOBIN SERUM 40.3 NG/ML (10.0-92.0)
[2018-03-23] MEDS ORDERED: IOHEXOL 350 MG/ML 100 ML (OMNIPAQUE 350) VIAL IV ONE (20:45)
[2018-03-23] MEDS ORDERED: NS 100 ML (IVPB) BAG IV ONE (20:45)
[2018-03-23] MEDS ORDERED: LACTATED RINGERS 1,000 ML IV SCH (20:45)
[2018-03-23] MEDS ORDERED: RECEIVED CONTRAST (Hold Metformin) IV SCH (20:45)
[2018-03-23] MEDS ORDERED: HYOSCYAMINE 0.125 MG (LEVSIN) TAB PO ONE (20:45)
--- NOTE | 2018-03-23 20:46 | Diagnostic Imaging Report ---
EXAM: CHEST 1 VIEW, AP/PA ONLY INDICATION: Chest pain. Cough. COMPARISON: Chest radiograph 06/12/2015. FINDINGS: Normal heart size and pulmonary vascularity. No dense consolidation, pleural effusion or pneumothorax. Esophageal hiatal hernia. No acute osseous findings. IMPRESSION: No acute cardiopulmonary findings. Dictated by: Dictated on workstation # [id number]
--- NOTE | 2018-03-23 20:49 | ED Abdominal Pain ---
General Chief Complaint: Chest Pain Stated Complaint: STOMACHACHE Nursing Triage Note: UPPER ABDOMINAL PAIN RADIATING INTO CHEST STARTING APPROX. 1500 Sepsis Screen: No Definite Risk Source of Information: Patient Exam Limitations: No Limitations History of Present Illness Date Seen by Provider: Mar 23, 2018 Time Seen by Provider: 20:47 Initial Comments To ER with reports of abdominal cramping. This began about 3 PM today. She's had diarrhea for several days. She took amoxicillin a few weeks ago and has had diarrhea for about 3 weeks. She was initially given some medication by Dr. RIVER which temporarily improved the diarrhea, she had a negative C. difficile test she states, then ran out of the medication and then the diarrhea recurred. She did not have this cramping with the initial round of diarrhea. She does have a history of diverticulitis. Her pain is left-sided. No fevers chills or nausea. Timing/Duration: 1 Week, Intermittent Severity/Quality: Cramping Location: Generalized Abdomen Radiation: No Radiation Associated Symptoms: Denies Symptoms; No Nausea/Vomiting Allergies and Home Medications Allergies Coded Allergies: bupropion (Verified Allergy, Unknown, 10/11/17) citalopram (Verified Allergy, Unknown, 10/11/17) escitalopram (Verified Allergy, Unknown, 10/11/17) latex (Verified Allergy, Unknown, RASH, 10/11/17) midazolam (Verified Allergy, Unknown, 10/11/17) tramadol (Verified Allergy, Unknown, 10/11/17) Home Medications Cholecalciferol (Vitamin D3) 2,000 Unit Capsule, 2,000 UNIT PO DAILY, (Reported) Clonidine HCl 0.1 Mg Tablet, 0.05 MG PO TID, (Reported) Cyanocobalamin (Vitamin B-12) 5,000 Mcg Tab.rapdis, 5,000 MCG PO DAILY, ( Reported) Hyoscyamine Sulfate 0.125 Mg Tab.subl, 0.125 MG SL Q4H PRN for CRAMPS Prescribed by: JOSÉ MANUEL DREW on 03/23/182 Pantoprazole Sodium 40 Mg Tablet.dr, 40 MG PO BID, (Reported) Sertraline HCl 50 Mg Tablet, 75 MG PO DAILY, (Reported) Topiramate 50 Mg Tablet, 50 MG PO BID, (Reported) Patient Home Medication List Home Medication List Reviewed: Yes Review of Systems Review of Systems Constitutional: see HPI EENTM: No Symptoms Reported Respiratory: No Symptoms Reported Cardiovascular: No Symptoms Reported Gastrointestinal: See HPI, Abdominal Pain; Denies Constipated; Diarrhea; Denies Nausea, Denies Vomiting Genitourinary: No Symptoms Reported Musculoskeletal: no symptoms reported Skin: no symptoms reported Psychiatric/Neurological: No Symptoms Reported Endocrine: No Symptoms Reported (have) Past Sbjhalc-Uqlaqy-Cwbxfi Hx Patient Social History Alcohol Use: Denies Use Recreational Drug Use: No Smoking Status: Never a Smoker 2nd Hand Smoke Exposure: No Recent Foreign Travel: No Contact w/Someone Who Travel: No Recent Infectious Disease Expo: No Recent Hopitalizations: No Immunizations Up To Date Date of Pneumonia Vaccine: Mar 10, 2013 Seasonal Allergies Seasonal Allergies: No Past Medical History Surgeries: Yes (Bilateral knee replacements, Left arm fx repair with plates and screws) Hysterectomy, Orthopedic, Thyroidectomy Respiratory: No Cardiac: Yes Hypertension Neurological: Yes (TREMORS) : No 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: 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 Sexually Transmitted Disease: No HIV/AIDS: No Genitourinary: No Gastrointestinal: Yes Gastroesophageal Reflux, Hiatal Hernia Musculoskeletal: Yes Arthritis, Fractures Endocrine: Yes (SURGICAL THYROIDECTOMY PARTIAL) Hyperthyroidism HEENT: No Cancer: No Psychosocial: Yes (Tourette's Syndrome) Depression Integumentary: No Adverse Reaction/Blood Tranf: No Family Medical History Abdominal aortic aneurysm 19 FATHER G8 BROTHER Alzheimer's disease 19 MOTHER Cardiovascular disease 19 FATHER 19 MOTHER G8 BROTHER Congenital disease G8 BROTHER Dementia 19 MOTHER No Pertinent Family Hx Physical Exam Vital Signs Vital Signs - First Documented Capillary Refill : Less Than 3 Seconds Height/Weight/BMI Height: 5'6.00" Weight: 172lbs. 2.0oz. [id number]; 28.8 BMI Method:Stated General Appearance: WD/WN, no apparent distress HEENT: PERRL/EOMI, normal ENT inspection Respiratory: no respiratory distress, no accessory muscle use Cardiovascular: regular rate, rhythm, no murmur Gastrointestinal: normal bowel sounds, non tender, soft Extremities: normal range of motion, non-tender Neurologic/Psychiatric: alert, normal mood/affect, oriented x 3 Skin: normal color, warm/dry Progress/Results/Core Measures Results/Orders Lab Results Laboratory Tests Test 03/23/18 19:55 Range/Units White Blood Count 7.0 4.3-11.0 10^3/uL Red Blood Count 4.11 L 4.35-5.85 10^6/uL Hemoglobin 12.4 11.5-16.0 G/DL Hematocrit 37 35-52 % Mean Corpuscular Volume 90 80-99 FL Mean Corpuscular Hemoglobin 30 25-34 PG Mean Corpuscular Hemoglobin Concent 34 32-36 G/DL Red Cell Distribution Width 13.4 10.0-14.5 % Platelet Count 270 130-400 10^3/uL Mean Platelet Volume 11.0 H 7.4-10.4 FL Neutrophils (%) (Auto) 41 L 42-75 % Lymphocytes (%) (Auto) 42 12-44 % Monocytes (%) (Auto) 10 0-12 % Eosinophils (%) (Auto) 6 0-10 % Basophils (%) (Auto) 1 0-10 % Neutrophils # (Auto) 2.9 1.8-7.8 X 10^3 Lymphocytes # (Auto) 2.9 1.0-4.0 X 10^3 Monocytes # (Auto) 0.7 0.0-1.0 X 10^3 Eosinophils # (Auto) 0.4 H 0.0-0.3 10^3/uL Basophils # (Auto) 0.1 0.0-0.1 10^3/uL Prothrombin Time 13.1 12.2-14.7 SEC INR Comment 1.0 0.8-1.4 Activated Partial Thromboplast Time 29 24-35 SEC Sodium Level 143 135-145 MMOL/L Potassium Level 3.4 L 3.6-5.0 MMOL/L Chloride Level 110 H 98-107 MMOL/L Carbon Dioxide Level 20 L 21-32 MMOL/L Anion Gap 13 5-14 MMOL/L Blood Urea Nitrogen 19 H 7-18 MG/DL Creatinine 0.86 0.60-1.30 MG/DL Estimat Glomerular Filtration Rate > 60 BUN/Creatinine Ratio 22 Glucose Level 84 70-105 MG/DL Calcium Level 9.0 8.5-10.1 MG/DL Corrected Calcium 8.8 8.5-10.1 MG/DL Magnesium Level 2.5 H 1.8-2.4 MG/DL Total Bilirubin 0.3 0.1-1.0 MG/DL Aspartate Amino Transf (AST/SGOT) 11 5-34 U/L Alanine Aminotransferase (ALT/SGPT) 8 0-55 U/L Alkaline Phosphatase 131 40-136 U/L Myoglobin 40.3 10.0-92.0 NG/ML Troponin I < 0.028 <0.028 NG/ML B-Type Natriuretic Peptide 24.4 <100.0 PG/ML Total Protein 6.9 6.4-8.2 GM/DL Albumin 4.2 3.2-4.5 GM/DL Lipase 13 8-78 U/L Thyroid Stimulating Hormone (TSH) 3.83 0.35-4.94 UIU/ML Free Thyroxine 1.14 0.70-1.48 NG/DL My Orders Orders - JOSÉ MANUEL DREW APRN Cbc With Automated Diff (03/23/18 20:04) Magnesium (03/23/18 20:04) Chest 1 View, Ap/Pa Only (03/23/18 20:04) Ekg Tracing (03/23/18 20:04) Cardiac Profile 1 (03/23/18 20:04) Comprehensive Metabolic Panel (03/23/18 20:04) Myoglobin Serum (03/23/18 20:04) Protime With Inr (03/23/18 20:04) Partial Thromboplastin Time (03/23/18 20:04) O2 (03/23/18 20:04) Monitor-Rhythm Ecg Trace Only (03/23/18 20:04) Lipid Panel (03/24/18 06:00) Aspirin Chewable Tablet (Baby Aspirin Ch (03/23/18 20:15) Saline Lock/Iv-Start (03/23/18 20:04) Lipase (03/23/18 20:04) BNP (03/23/18 20:04) Antacid Suspension (Mylanta Suspension (03/23/18 20:15) Lidocaine 2% Viscous 15 Ml (Xylocaine Vi (03/23/18 20:15) Thyroid Stimulating Hormone (03/23/18 20:10) Free T4 (Free Thyroxine) (03/23/18 20:10) Hyoscyamine Sl Tablet (Levsin Sl Tablet) (03/23/18 20:45) Lactated Ringers (Lr 1000 Ml Iv Solution (03/23/18 20:45) Ct Abdomen/Pelvis W (03/23/18 20:42) Medications Given in ED Current Medications Medications Dose Ordered Sig/Hemal Route Start Time Stop Time Status Last Admin Dose Admin Al Hydrox/Mg Hydrox/Simethicone 30 ml ONCE ONCE PO 03/23/18 20:15 03/23/18 20:16 DC 03/23/18 20:16 30 ML Aspirin 324 mg ONCE ONCE PO 03/23/18 20:15 03/23/18 20:16 DC 03/23/18 20:16 324 MG Hyoscyamine Sulfate 0.25 mg ONCE ONCE PO 03/23/18 20:45 03/23/18 20:46 DC 03/23/18 21:03 0.25 MG Iohexol 100 ml ONCE ONCE IV 03/23/18 20:45 03/23/18 21:16 DC 03/23/18 20:59 100 ML Lidocaine HCl 10 ml ONCE ONCE PO 03/23/18 20:15 03/23/18 20:16 DC 03/23/18 20:16 10 ML Sodium Chloride 100 ml ONCE ONCE IV 03/23/18 20:45 03/23/18 21:16 DC 03/23/18 20:59 80 ML Vital Signs/I&O 03/23/18 03/23/18 03/23/18 19:45 19:45 19:45 Temp 97.4 Pulse 88 Resp 16 B/P (MAP) 135/73 (93) Pulse Ox 97 97 O2 Delivery Room Air Room Air Room Air Blood Pressure Mean: 93 Diagnostic Imaging Diagonstic Imaging: CT Comments NAME: BREE MAZA [facility] REC#: [id number] PT STATUS: REG ER : 1950 PHYSICIAN: JOSÉ MANUEL DREW APRN ADMIT DATE: 03/23/18/ER Draft Date of Exam:03/23/18 CT ABDOMEN/PELVIS W PROCEDURE: CT abdomen and pelvis with contrast. TECHNIQUE: Multiple contiguous axial images were obtained through the abdomen and pelvis after administration of intravenous contrast. INDICATION: Abdominal pain. Diarrhea. COMPARISON: None. FINDINGS: Lung bases are clear. Large esophageal hiatal hernia. Several well-circumscribed fluid attenuation lesions in the liver presumably represent benign cysts. The largest is in the left hepatic lobe and measures up to 2.5 cm. The gallbladder, pancreas, spleen, adrenals, left kidney, collecting systems and bladder are negative. 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 No hydronephrosis. Hysterectomy. Appendectomy. Advanced colonic diverticulosis without evidence of active diverticulitis. No free intraperitoneal air or fluid. No lymphadenopathy. No evidence of bowel obstruction. Moderate spondylotic and scoliotic changes in the lumbar spine. No acute osseous findings. IMPRESSION: 1. No acute CT findings in the abdomen or pelvis. 2. Large esophageal hiatal hernia. 3. Advanced colonic diverticulosis without evidence of active diverticulitis. Dictated on workstation # [id number] Dict: 03/23/182121 Trans: 03/23/182128 [facility] [id number] Interpreted by: KENNEY ALMANZAR MD Electronically signed by: Departure Communication (Admissions) 2200-is feeling better, still has the abdominal cramping mostly on the left side upper abdomen but it is less intense since she has received the Levsin. Still no nausea or sweating or shortness of breath. Overall well-appearing, laughing and joking. We will discharge for outpatient follow-up. Impression Primary Impression: Abdominal cramping Disposition: HOME, SELF-CARE Condition: Stable Departure-Patient Inst. Decision time for Depature: 21:34 Referrals: LIDA RIVER MD (PCP/Family) Primary Care Physician Patient Instructions: General (DC) Add. Discharge Instructions: 1. Call Dr. River tomorrow to make an appointment to be seen. Return to ER for any concerns. All discharge instructions reviewed with patient and/or family. Voiced understanding. Scripts Hyoscyamine Sulfate (Levsin-Sl) 0.125 Mg Tab.subl 0.125 MG SL Q4H PRN for CRAMPS, #14 TAB Prov: JOSÉ MANUEL DREW APRN 03/23/18 Copy Copies To 1: LIDA RIVER MD, PETER J WEB WORKER Mar 23, 2018 20:48
[2018-03-23 20:52] LABS: FREE T4 (FREE THYROXINE) 1.14 NG/DL (0.70-1.48)
--- NOTE | 2018-03-23 21:29 | Diagnostic Imaging Report ---
PROCEDURE: CT abdomen and pelvis with contrast. TECHNIQUE: Multiple contiguous axial images were obtained through the abdomen and pelvis after administration of intravenous contrast. INDICATION: Abdominal pain. Diarrhea. COMPARISON: None. FINDINGS: Lung bases are clear. Large esophageal hiatal hernia. Several well-circumscribed fluid attenuation lesions in the liver presumably represent benign cysts. The largest is in the left hepatic lobe and measures up to 2.5 cm. The gallbladder, pancreas, spleen, adrenals, left kidney, collecting systems and bladder are negative. 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 No hydronephrosis. Hysterectomy. Appendectomy. Advanced colonic diverticulosis without evidence of active diverticulitis. No free intraperitoneal air or fluid. No lymphadenopathy. No evidence of bowel obstruction. Moderate spondylotic and scoliotic changes in the lumbar spine. No acute osseous findings. IMPRESSION: 1. No acute CT findings in the abdomen or pelvis. 2. Large esophageal hiatal hernia. 3. Advanced colonic diverticulosis without evidence of active diverticulitis. Dictated by: Dictated on workstation # [id number]
[2018-03-23] MEDS ORDERED: HYOS0.1283 SL (21:35)
[2018-03-23 22:09] VITALS: BP 118/79
== END 2018-03-23 22:05 | disposition home or self-care (01) ==
LOC: EDUNIT# 19:40 → ER 19:41
DX: R10.84 Generalized abdominal pain (principal); I10 Essential (primary) hypertension; K21.9 Gastro-esophageal reflux disease without esophagitis; E05.90 Thyrotoxicosis, unspecified without thyrotoxic crisis or storm; F32.9 Major depressive disorder, single episode, unspecified; F95.2 Tourette's disorder; Z87.19 Personal history of other diseases of the digestive system; Z96.653 Presence of artificial knee joint, bilateral; Z82.49 Family history of ischemic heart disease and other diseases of the circulatory system; Z88.8 Allergy status to other drugs, medicaments and biological substances; Z91.040 Latex allergy status; Z88.6 Allergy status to analgesic agent; Z90.89 Acquired absence of other organs; Z90.710 Acquired absence of both cervix and uterus
CPT/HCPCS: 36415; 71045; 74177; 80053; 83690; 83735; 83874; 83880; 84439; 84443; 84484; 85025; 85610; 85730; 93005; 93041

== ENCOUNTER → 2019-12-15 | Outpatient (CLI) | payer MEDICARE, OTHER ==
[~2019-12-15] MED LIST changes: +HYOS0.1283 SL; +MELO7.5T46; -PANT40TA3 PO; +PANT40TA52 PO
[2019-12-15 12:29] LABS: BASOPHILS # (AUTO) 0.1 10^3/uL (0.0-0.1); BASOPHILS % (AUTO) 1 % (0-10); EOSINOPHILS # (AUTO) 0.4 10^3/uL (0.0-0.3); EOSINOPHILS % (AUTO) 6 % (0-10); HEMATOCRIT 39 % (35-52); HEMOGLOBIN 12.2 g/dL (11.5-16.0); LYMPHOCYTES # (AUTO) 2.1 10^3/uL (1.0-4.0); LYMPHOCYTES % (AUTO) 34 % (12-44); MEAN CORPUSCULAR HEMOGLOBIN 30 pg (25-34); MEAN CORPUSCULAR HGB CONC 31 g/dL (32-36); MEAN CORPUSCULAR VOLUME 94 fL (80-99); MONOCYTES # (AUTO) 0.5 10^3/uL (0.0-1.0); MONOCYTES % (AUTO) 7 % (0-12); NEUTROPHILS # (AUTO) 3.2 10^3/uL (1.8-7.8); NEUTROPHILS % (AUTO) 51 % (42-75); PLATELET COUNT 247 10^3/uL (130-400); WHITE BLOOD COUNT 6.3 10^3/uL (4.3-11.0)
[2019-12-15 12:36] LABS: CHLORIDE 109 MMOL/L (98-107); POTASSIUM 4.1 MMOL/L (3.6-5.0); SODIUM 141 MMOL/L (135-145)
[2019-12-15 12:37] LABS: CALCIUM 8.5 MG/DL (8.5-10.1)
[2019-12-15 12:39] LABS: GLUCOSE 112 MG/DL (70-105); TOTAL PROTEIN 6.7 GM/DL (6.4-8.2)
[2019-12-15 12:40] LABS: CARBON DIOXIDE 21 MMOL/L (21-32)
[2019-12-15 12:41] LABS: BILIRUBIN,TOTAL 0.3 MG/DL (0.1-1.0)
[2019-12-15 12:42] LABS: ALKALINE PHOSPHATASE 128 U/L (40-136); GFR ESTIMATED > 60
[2019-12-15 12:43] LABS: BUN/CREATININE RATIO 20
[2019-12-15 12:45] LABS: ALANINE AMINOTRANSFERASE 9 U/L (0-55)
[2019-12-15 12:51] LABS: CREATINE KINASE MB 0.9 NG/ML (<6.6)
== END ==
LOC: CARD 12:00
PROVIDERS: ATTEND Nurse Practitioner Family
DX: R07.9 Chest pain, unspecified (principal)
CPT/HCPCS: 36415; 80053; 82553; 84484; 85025; 93005

== ENCOUNTER 2020-01-18 05:33 | Outpatient (RCR) | payer MEDICARE, OTHER ==
[~2020-01-18] VITALS: Ht 167 cm; Wt 81.8 kg
[~2020-01-18 05:33] MED LIST changes: +CHOL500050 PO; +CLN.1T PO; -CLON0.1T PO; +FERR-84 PO; -MELO7.5T46
== END 2020-01-18 11:03 | disposition home or self-care (01) ==
LOC: PREOP 05:33
PROVIDERS: ATTEND Specialist
DX: Z01.812 Encounter for preprocedural laboratory examination (principal); U07.1 COVID-19
CPT/HCPCS: 87635

== ENCOUNTER → 2020-03-31 | Outpatient (CLI) | payer MEDICARE, OTHER ==
--- NOTE | 2020-03-31 11:00 | Diagnostic Imaging Report ---
PROCEDURE: US Gallbladder. TECHNIQUE: Multiple real-time grayscale images were obtained over the right upper quadrant in various projections. INDICATION: Right upper quadrant pain. FINDINGS: The liver is normal in size at 15.4 cm. No discrete liver mass is detected. Overall quality of the study is limited due to patient's large body habitus. Portal vein is patent and shows normal direction of flow. Gallbladder does contain small stones. No wall thickening or biliary ductal dilatation is seen. Pancreas and aorta are obscured by bowel gas. IVC appears patent. Right kidney is obscured. There is no ascites. IMPRESSION: 1. Limited study due to patient's large body habitus. There are findings of cholelithiasis but no evidence of acute cholecystitis. Dictated by: Dictated on workstation # [id number]
== END ==
LOC: RAD 09:27
PROVIDERS: ATTEND Nurse Practitioner Family
DX: K80.20 Calculus of gallbladder without cholecystitis without obstruction (principal)
CPT/HCPCS: 76705

== ENCOUNTER 2020-11-23 14:01 | Emergency (ER) | payer MEDICARE, OTHER ==
[~2020-11-23] VITALS: Ht 165 cm; Wt 83.9 kg
[~2020-11-23 14:01] MED LIST changes: -CYAN50008 PO; +CYAN50009 PO; +SERT-413 PO; -SERT50TA9 PO; -SULF1TAB35 PO; +SULF1TAB38 PO
--- NOTE | 2020-11-23 14:34 | ED Chest Pain ---
General Stated Complaint: CP,CONFUSION Source: patient Exam Limitations: no limitations History of Present Illness Date Seen by Provider: Nov 23, 2020 Time Seen by Provider: 14:18 Initial Comments Patient is a 70-year-old female who presents to the emergency department today with a chief complaint of midsternal chest pain onset about 1030 to 11 AM and this morning. States that she had it immediately after bending over to pick something up. She states when she stood up she became very dizzy. She states the pain was brief. Not associated with nausea. She has been a little short of breath. Pain does not radiate. She has never had pain like this before. She points to just below her breasts and wonders if it wasn't in her lungs primarily . States that she waited around at home, became concerned that she might of had a cardiac event, decided to come to the emergency room. She did try to call her primary care doctor's office but did not get a call back until she got here. Patient states that she was a little bit confused in the car on the way here. She has a history of Tourette's. She states one of the triggers for her Tourette's is startles and stressful situations. She states she is quite anxious coming into the emergency room. Tells me that she had "the flu" three or 4 days ago. It lasted a couple of days. She was tested for Covid, it was negative. She is Covid vaccinated. States she had an episode of incontinence of urine in the middle of the night last week. No ongoing dysuria, urgency or frequency. Chronic diarrhea. No sore throat, productive cough, other complaints. Currently not dizzy and no longer confused. All other review of systems reviewed and negative except as stated Timing/Duration: 4-6 hours Severity/Quality: moderate, tightness Location: central Radiation: no radiation Activities at Onset: activity Prior CP/Workup: no prior cardiac workup ASA po TOWER ERECTOR: Yes (2 baby) NTG SL TOWER ERECTOR: No Associated Symptoms: dizziness Allergies and Home Medications Allergies Coded Allergies: bupropion (Verified Allergy, Unknown, 01/17/20) citalopram (Verified Allergy, Unknown, 01/17/20) escitalopram (Verified Allergy, Unknown, 01/17/20) latex (Verified Allergy, Unknown, RASH, 01/17/20) midazolam (Verified Allergy, Unknown, 01/17/20) tramadol (Verified Allergy, Unknown, 01/17/20) Patient Home Medication List Home Medication List Reviewed: Yes Cephalexin (Cephalexin) 500 Mg Tablet, 500 MG PO TID Prescribed by: BINTA DOMINGO on 11/23/20 1609 Cholecalciferol (Vitamin D3) (Vitamin D3) 125 Mcg Capsule, 125 MCG PO DAILY, (Reported) Entered as Reported by: SAHARA UMANA on 01/17/20 1523 Clonidine HCl (Clonidine HCl) 0.1 Mg Tablet, 0.05 MG PO BID, (Reported) Entered as Reported by: CORINNE JOHNS on 06/12/15 1404 Cyanocobalamin (Vitamin B-12) (Vitamin B12) 5,000 Mcg Tab.rapdis, 5,000 MCG PO DAILY, (Reported) Entered as Reported by: RUSS CORDOVA on 10/11/17 0853 Ferrous Sulfate (Iron) 325 Mg Tablet, 325 MG PO DAILY, (Reported) Entered as Reported by: SAHARA UMANA on 01/17/20 1523 Meloxicam (Meloxicam) 7.5 Mg Tablet, 7.5 MG PO DAILY, (Reported) Entered as Reported by: RAHAT SANCHEZ on 03/23/182005 Pantoprazole Sodium (Pantoprazole Sodium) 40 Mg Tablet.dr, 40 MG PO BID, (Reported) Entered as Reported by: CORINNE JOHNS on 06/12/15 1222 Sertraline HCl (Sertraline HCl) 50 Mg Tablet, 75 MG PO DAILY, (Reported) Entered as Reported by: RUSS CORDOVA on 10/11/17 0854 Topiramate (Topiramate) 50 Mg Tablet, 50 MG PO BID, (Reported) Entered as Reported by: RUSS CORDOVA on 10/11/17 0851 Review of Systems Review of Systems Constitutional: see HPI, dizziness EENTM: No Symptoms Reported Respiratory: Shortness of Air Cardiovascular: Chest Pain Gastrointestinal: Diarrhea Genitourinary: Incontinence (x1 last week) Musculoskeletal: no symptoms reported Skin: no symptoms reported Psychiatric/Neurological: Anxiety All Other Systems Reviewed Negative Unless Noted: Yes Past Vrtyssx-Aqflpg-Yepoke Hx Seasonal Allergies Seasonal Allergies: No Past Medical History Surgeries: Yes (Bilateral knee replacements, Left arm fx repair with plates and screws) Hysterectomy, Orthopedic, Thyroidectomy Respiratory: No Cardiac: Yes Hypertension Neurological: Yes (TREMORS) 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 Sexually Transmitted Disease: No HIV/AIDS: No Genitourinary: No Gastrointestinal: Yes Gastroesophageal Reflux, Hiatal Hernia Musculoskeletal: Yes Arthritis, Fractures Endocrine: Yes (SURGICAL THYROIDECTOMY PARTIAL) Hyperthyroidism HEENT: No Cancer: No Psychosocial: Yes (Tourette's Syndrome) Depression Integumentary: No Adverse Reaction/Blood Tranf: No Family Medical History Abdominal aortic aneurysm 19 FATHER G8 BROTHER Alzheimer's disease 19 MOTHER Cardiovascular disease 19 FATHER 19 MOTHER G8 BROTHER Congenital disease G8 BROTHER Dementia 19 MOTHER No Pertinent Family Hx Physical Exam Vital Signs Vital Signs - First Documented 11/23/20 14:03 Temp 37.0 Pulse 89 Resp 18 B/P (MAP) 131/95 (107) Pulse Ox 97 O2 Delivery Room Air Capillary Refill : Height, Weight, BMI Height: 5'6.00" Weight: 172lbs. 2.0oz. 78.994635to; 28.8 BMI Method:Stated General Appearance: No Apparent Distress, WD/WN HEENT: PERRL/EOMI Neck: Normal Inspection Respiratory: Lungs Clear, Normal Breath Sounds, No Accessory Muscle Use, No Respiratory Distress Cardiovascular: Regular Rate, Rhythm, Normal Peripheral Pulses Gastrointestinal: Non Tender, Soft Extremity: Normal Capillary Refill, Normal Inspection, Normal Range of Motion, Non Tender, No Calf Tenderness Neurologic/Psychiatric: Alert, Oriented x3, No Motor/Sensory Deficits, Normal Mood/Affect Skin: Normal Color, Warm/Dry Progress/Results/Core Measures Results/Orders Lab Results Laboratory Tests Test 11/23/20 14:10 11/23/20 15:03 Range/Units White Blood Count 6.7 4.3-11.0 10^3/uL Red Blood Count 4.19 3.80-5.11 10^6/uL Hemoglobin 12.5 11.5-16.0 g/dL Hematocrit 38 35-52 % Mean Corpuscular Volume 91 80-99 fL Mean Corpuscular Hemoglobin 30 25-34 pg Mean Corpuscular Hemoglobin Concent 33 32-36 g/dL Red Cell Distribution Width 12.9 10.0-14.5 % Platelet Count 260 130-400 10^3/uL Mean Platelet Volume 10.9 9.0-12.2 fL Immature Granulocyte % (Auto) 0 % Neutrophils (%) (Auto) 48 42-75 % Lymphocytes (%) (Auto) 38 12-44 % Monocytes (%) (Auto) 8 0-12 % Eosinophils (%) (Auto) 5 0-10 % Basophils (%) (Auto) 1 0-10 % Neutrophils # (Auto) 3.2 1.8-7.8 X 10^3 Lymphocytes # (Auto) 2.6 1.0-4.0 X 10^3 Monocytes # (Auto) 0.5 0.0-1.0 X 10^3 Eosinophils # (Auto) 0.3 0.0-0.3 10^3/uL Basophils # (Auto) 0.1 0.0-0.1 10^3/uL Immature Granulocyte # (Auto) 0.0 0.0-0.1 10^3/uL Sodium Level 140 135-145 MMOL/L Potassium Level 4.0 3.6-5.0 MMOL/L Chloride Level 110 H 98-107 MMOL/L Carbon Dioxide Level 21 21-32 MMOL/L Anion Gap 9 5-14 MMOL/L Blood Urea Nitrogen 16 7-18 MG/DL Creatinine 0.79 0.60-1.30 MG/DL Estimat Glomerular Filtration Rate 72 BUN/Creatinine Ratio 20 Glucose Level 99 70-105 MG/DL Glucometer 97 70-110 MG/DL Calcium Level 9.3 8.5-10.1 MG/DL Total Creatine Kinase 59 29-168 U/L Troponin I < 0.028 <0.028 NG/ML Urine Color YELLOW Urine Clarity CLEAR Urine pH 6.0 5-9 Urine Specific [place] <=1.005 1.016-1.022 Urine Protein NEGATIVE NEGATIVE Urine Glucose (UA) NEGATIVE NEGATIVE Urine Ketones NEGATIVE NEGATIVE Urine Nitrite NEGATIVE NEGATIVE Urine Bilirubin NEGATIVE NEGATIVE Urine Urobilinogen 0.2 < = 1.0 MG/DL Urine Leukocyte Esterase 1+ H NEGATIVE Urine RBC (Auto) NEGATIVE NEGATIVE Urine RBC NONE /HPF Urine WBC 5-10 H /HPF Urine Squamous Epithelial Cells 2-5 /HPF Urine Renal Epithelial Cells 0-2 /HPF Urine Crystals NONE /LPF Urine Bacteria TRACE /HPF Urine Casts NONE /LPF Urine Mucus NEGATIVE /LPF Urine Culture Indicated YES My Orders Orders - BINTA DOMINGO MD Ekg Tracing (11/23/20 14:27) Chest 1 View, Ap/Pa Only (11/23/20 14:27) Cbc With Automated Diff (11/23/20 14:27) Basic Metabolic Panel (11/23/20 14:27) Creatine Kinase (11/23/20 14:27) Troponin I (11/23/20 14:27) Ua Culture If Indicated (11/23/20 14:28) Urine Culture (11/23/20 15:03) Vital Signs/I&O 11/23/20 14:03 Temp 37.0 Pulse 89 Resp 18 B/P (MAP) 131/95 (107) Pulse Ox 97 O2 Delivery Room Air FSBG Bedside Testing Finger Stick Blood Glucose: 97 Blood Glucose Action Taken: rn notified Progress Progress Note : Time: 16:07 Progress Note Patient reevaluated, continues to be without complaints. Labs have been reviewed and are reassuring. Negative troponin at the 4-hour alexandre post chest pain. Normal EKG. Normal chest x-ray. Normal labs other than a little bit of bacteria and leukocyte esterase on her urinalysis. We will go ahead secondary to the incontinence and put her on 5 days of Keflex. Recommend follow-up with Dr. River if she continues to feel puny. Patient is given good return precautions. She verbalizes understanding and is agreeable with the plan of care. All questions are sought and answered. Patient is stable for discharge. Initial ECG Impression Date: Nov 23, 2020 Initial ECG Impression Time: 14:08 Initial ECG Rate: 81 Initial ECG Rhythm: Normal Sinus Initial ECG Intervals IN 155 QRS 116 QTc 457 Departure Impression Primary Impression: Chest pain Qualified Codes: R07.9 - Chest pain, unspecified Additional Impression: UTI (urinary tract infection) Qualified Codes: N30.00 - Acute cystitis without hematuria Disposition: 01 HOME, SELF-CARE Condition: Stable Departure-Patient Inst. Decision time for Depature: 16:08 Referrals: LIDA RIVER MD (PCP/Family) Primary Care Physician Patient Instructions: Chest Pain That Is Not Caused by the Heart (DC), Urinary Tract Infection, Adult (DC) Add. Discharge Instructions: Drink plenty of fluids to stay well-hydrated. Take the Keflex antibiotic one 3 times a day for 5 days. We have sent a urine culture to make sure that the antibiotic I have prescribed matches the bacteria in your urine. We will call you if there needs to be an antibiotic change. Please follow-up with Dr. River next week if you continue to have any concerns. Return to the emergency room for any new, concerning or emergent complaints. Scripts Cephalexin (Cephalexin) 500 Mg Tablet 500 MG PO TID for 5 Days, #15 TAB Prov: BINTA DOMINGO MD 11/23/20 Copy Copies To 1: LIDA RIVER MD, KATHRYN M MD Nov 23, 2020 14:34
[2020-11-23 14:35] LABS: BASOPHILS # (AUTO) 0.1 10^3/uL (0.0-0.1); BASOPHILS % (AUTO) 1 % (0-10); CHLORIDE 110 MMOL/L (98-107); EOSINOPHILS # (AUTO) 0.3 10^3/uL (0.0-0.3); EOSINOPHILS % (AUTO) 5 % (0-10); HEMATOCRIT 38 % (35-52); HEMOGLOBIN 12.5 g/dL (11.5-16.0); LYMPHOCYTES # (AUTO) 2.6 X 10^3 (1.0-4.0); LYMPHOCYTES % (AUTO) 38 % (12-44); MEAN CORPUSCULAR HEMOGLOBIN 30 pg (25-34); MEAN CORPUSCULAR HGB CONC 33 g/dL (32-36); MEAN CORPUSCULAR VOLUME 91 fL (80-99); MEAN PLATELET VOLUME 10.9 fL (9.0-12.2); MONOCYTES # (AUTO) 0.5 X 10^3 (0.0-1.0); MONOCYTES % (AUTO) 8 % (0-12); NEUTROPHILS # (AUTO) 3.2 X 10^3 (1.8-7.8); NEUTROPHILS % (AUTO) 48 % (42-75); PLATELET COUNT 260 10^3/uL (130-400); SODIUM 140 MMOL/L (135-145); WHITE BLOOD COUNT 6.7 10^3/uL (4.3-11.0)
[2020-11-23 14:36] LABS: CALCIUM 9.3 MG/DL (8.5-10.1); GLUCOSE 99 MG/DL (70-105)
[2020-11-23 14:38] LABS: CARBON DIOXIDE 21 MMOL/L (21-32)
[2020-11-23 14:40] LABS: CREATININE SERUM 0.79 MG/DL (0.60-1.30); GFR ESTIMATED 72
[2020-11-23 14:41] LABS: BUN/CREATININE RATIO 20
[2020-11-23 14:43] LABS: CREATINE KINASE 59 U/L (29-168)
--- NOTE | 2020-11-23 15:14 | Diagnostic Imaging Report ---
HISTORY: Chest pain and shortness of breath. TECHNIQUE: Frontal view of the chest. COMPARISON: 03/23/2018 FINDINGS: Lung volumes are large. No focal consolidation is seen. There is no pleural effusion or pneumothorax. The cardiac silhouette is normal in size. IMPRESSION: 1. Large lung volumes with no acute pulmonary abnormality seen. Dictated by: Dictated on workstation # [id number]
[2020-11-23 15:16] LABS: BILIRUBIN,URINE NEGATIVE (NEGATIVE); CLARITY,URINE CLEAR; COLOR,URINE YELLOW; GLUCOSE, URINE (UA) NEGATIVE (NEGATIVE); KETONES,URINE NEGATIVE (NEGATIVE); LEUKOCYTE ESTERASE ,URINE 1+ (NEGATIVE); NITRITE,URINE NEGATIVE (NEGATIVE); PROTEIN,URINE NEGATIVE (NEGATIVE)
[2020-11-23 15:49] LABS: BACTERIA,URINE TRACE /HPF; RENAL EPITHELIAL CELLS,URINE 0-2 /HPF
[2020-11-23] MEDS ORDERED: CEPH500T PO (16:09)
[2020-11-23 16:15] VITALS: BP 124/71
== END 2020-11-23 16:15 | disposition home or self-care (01) ==
LOC: EDUNIT# 14:01 → ER 14:03
DX: R07.9 Chest pain, unspecified (principal); N39.0 Urinary tract infection, site not specified; I10 Essential (primary) hypertension; K21.9 Gastro-esophageal reflux disease without esophagitis; F32.9 Major depressive disorder, single episode, unspecified; Z20.822 Contact with and (suspected) exposure to COVID-19; Z79.899 Other long term (current) drug therapy
CPT/HCPCS: 36415; 71045; 80048; 81000; 82550; 82947; 84484; 85025; 87088; 93005; 93041

== ENCOUNTER 2021-08-04 17:24 | Emergency (ER) | payer MEDICARE, OTHER ==
[~2021-08-04] VITALS: Ht 165 cm; Wt 83.9 kg
[~2021-08-04 17:24] MED LIST changes: +CEPH500T PO; -DICL25TA PO; +DICL25TA9 PO
--- NOTE | 2021-08-04 18:12 | ED Lower Extremity ---
General Chief Complaint: Lower Extremity Stated Complaint: L LEG INJ Nursing Triage Note: PT AMBULATED TO ROOM 4 W/ CANE. PT REPORTS LEFT LOWER LEG NUMBNESS THAT STARTED TODAY, HX OF LEFT TKR APPROX 6 YEARS AGO, PT REPORTS LEFT ANKLE HURTING WELL TODAY AND SHE COULD FEEL A 'CRACK' TO L ANKLE UNABLE TO BEAR WEIGHT PRIOR TO COMING IN TO ED Source: patient Exam Limitations: no limitations History of Present Illness Date Seen by Provider: August 04, 2021 Time Seen by Provider: 18:09 Initial Comments Patient is a 71-year-old female who presents ED with left leg numbness left knee pain left ankle pain. Patient states she had a left knee arthroplasty performed 6 years ago. She states today she was getting off the toilet felt a sharp pain in her left ankle. This numbness and tingling sensation developed radiating to her left anterior lateral knee. She describes it as her leg feels numb. She denies any swelling, bruising or redness. She reports popping and crackling sensation in her left anterior ankle. She denies of any fall. Denies history of DVT. No chest pain, shortness of breath, fever, chills. She does use a cane to ambulate. She states this started when she got off the toilet. She states her left leg was at a different angle and may be result of the pain. No history of peripheral artery disease. Allergies and Home Medications Allergies Coded Allergies: bupropion (Verified Allergy, Unknown, 01/17/20) citalopram (Verified Allergy, Unknown, 01/17/20) escitalopram (Verified Allergy, Unknown, 01/17/20) latex (Verified Allergy, Unknown, RASH, 01/17/20) midazolam (Verified Allergy, Unknown, 01/17/20) tramadol (Verified Allergy, Unknown, 01/17/20) Patient Home Medication List Home Medication List Reviewed: Yes Cephalexin (Cephalexin) 500 Mg Tablet, 500 MG PO TID Prescribed by: BINTA DOMINGO on 11/23/20 1609 Cholecalciferol (Vitamin D3) (Vitamin D3) 125 Mcg Capsule, 125 MCG PO DAILY, (Reported) Entered as Reported by: SAHARA UMANA on 01/17/20 1523 Clonidine HCl (Clonidine HCl) 0.1 Mg Tablet, 0.05 MG PO BID, (Reported) Entered as Reported by: CORINNE JOHNS on 06/12/15 1404 Cyanocobalamin (Vitamin B-12) (Vitamin B12) 5,000 Mcg Tab.rapdis, 5,000 MCG PO DAILY, (Reported) Entered as Reported by: RUSS CORDOVA on 10/11/17 0853 Ferrous Sulfate (Iron) 325 Mg Tablet, 325 MG PO DAILY, (Reported) Entered as Reported by: SAHARA UMANA on 01/17/20 1523 Meloxicam (Meloxicam) 7.5 Mg Tablet, 7.5 MG PO DAILY, (Reported) Entered as Reported by: RAHAT SANCHEZ on 03/23/182005 Pantoprazole Sodium (Pantoprazole Sodium) 40 Mg Tablet.dr, 40 MG PO BID, (Reported) Entered as Reported by: CORINNE JOHNS on 06/12/15 1222 Sertraline HCl (Sertraline HCl) 50 Mg Tablet, 75 MG PO DAILY, (Reported) Entered as Reported by: RUSS CORDOVA on 10/11/17 0854 Topiramate (Topiramate) 50 Mg Tablet, 50 MG PO BID, (Reported) Entered as Reported by: RUSS CORDOVA on 10/11/17 0851 Review of Systems Constitutional: No chills, No diaphoresis, No malaise, No weakness EENTM: No blurred vision, No double vision Cardiovascular: No chest pain, No edema Gastrointestinal: No abdominal pain, No diarrhea, No nausea, No vomiting Genitourinary: No decreased output, No discharge Musculoskeletal: No back pain; joint pain, muscle pain Skin: No change in color, No change in hair/nails All Other Systems Reviewed Negative Unless Noted: Yes Past Wqeagxh-Bdoogm-Leaafg Hx Patient Social History Tobacco Use?: Yes Smoking Status: Former Smoker Substance use?: No Alcohol Use?: No Immunizations Up To Date First/Initial COVID19 Vaccinat: 05/03/2020 Second COVID19 Vaccination Danny: 06/01/2020 Third COVID19 Vaccination Date: 05/03/2020 Seasonal Allergies Seasonal Allergies: No Past Medical History Surgery/Hospitalization HX: TOURETTE'S SYNDROME Surgeries: Yes (Bilateral knee replacements, Left arm fx repair with plates and screws) Hysterectomy, Orthopedic, Thyroidectomy Respiratory: No Cardiac: Yes Hypertension Neurological: Yes (TREMORS) 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: No HAM PUMPER History: Hysterectomy Sexually Transmitted Disease: No HIV/AIDS: No Genitourinary: No Gastrointestinal: Yes Gastroesophageal Reflux, Hiatal Hernia Musculoskeletal: Yes Arthritis, Fractures Endocrine: Yes (SURGICAL THYROIDECTOMY PARTIAL) Hyperthyroidism HEENT: No Cancer: No Psychosocial: Yes (Tourette's Syndrome) Depression Integumentary: No Adverse Reaction/Blood Tranf: No Family Medical History Abdominal aortic aneurysm 19 FATHER G8 BROTHER Alzheimer's disease 19 MOTHER Cardiovascular disease 19 FATHER 19 MOTHER G8 BROTHER Congenital disease G8 BROTHER Dementia 19 MOTHER No Pertinent Family Hx Physical Exam Vital Signs Vital Signs - First Documented 08/04/21 17:30 Temp 37.5 Pulse 81 Resp 20 B/P (MAP) 145/80 (101) Pulse Ox 97 O2 Delivery Room Air Capillary Refill : Less Than 3 Seconds Height, Weight, BMI Height: 5'6.00" Weight: 172lbs. 2.0oz. 78.184907yl; 30.00 BMI Method:Stated General Appearance: WD/WN, no apparent distress HEENT: PERRL/EOMI, normal ENT inspection, TMs normal, pharynx normal Neck: non-tender, full range of motion, supple Cardiovascular: regular rate, rhythm, no edema, no gallop, no JVD, no murmur Respiratory: chest non-tender, lungs clear, normal breath sounds, no respiratory distress, no accessory muscle use Gastrointestinal: normal bowel sounds, non tender, soft, no organomegaly Back: normal inspection, no CVA tenderness Hips: bilateral hip non-tender, bilateral hip normal inspection, bilateral hip normal range of motion Legs: bilateral leg other (No swelling, erythema or ecchymosis. No calf tenderness. No thigh tenderness) Knees: bilateral knee non-tender, bilateral knee normal inspection, bilateral knee normal range of motion Ankles: right ankle pain (Tenderness to palpate left anterior medial knee.), right ankle soft tissue tenderness (Tenderness to left anterior lower ankle. Normal active range of motion. 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 Everything appears to be superficial and anterior. Neurovascular intact. +2 dorsalis pedis and posterior tibialis. No evidence of peripheral artery disease. Appropriate movement. Denies of any specific injury but however felt the pain after standing up off the toilet. She states she may have twisted her leg. This started developing a numbness tingling sensation across the left anterior lower leg. She has no calf tenderness. No evidence of swelling, erythema or ecc hymosis. No history of DVT. No recent travels. Pain started improving here. X-ray of the left knee and ankle was negative for acute fracture. History of arthroplasty left knee 6 years ago. She states she has been walking differently which may also be associated to the pain. Discussed with patient this does not appear to be a DVT secondary to the location and without signs of swelling, posterior leg pain. Patient states pain has resolved. She feeling much better. Recommend outpatient orthopedic follow-up. If any worsening symptoms such as worsening pain, swelling to return back to ED for ultrasound. Impression Primary Impression: Ankle pain Additional Impression: Knee pain Disposition: 01 HOME, SELF-CARE Condition: Stable Departure-Patient Inst. Decision time for Depature: 19:11 Referrals: LIDA SLADE MD (PCP/Family) Primary Care Physician DORIS SANTO MD Patient Instructions: Knee Pain Add. Discharge Instructions: If you start having worsening pain, swelling, bruising, redness to return back to ED for ultrasound. Recommend follow-up with orthopedic for further evaluation All discharge instructions reviewed with patient and/or family. Voiced underst anding. ADALBERTO TSANG August 04, 2021 18:12
--- NOTE | 2021-08-04 18:52 | Diagnostic Imaging Report ---
Ankle, left, 3 views INDICATION: Left ankle pain. COMPARISON: None available. TECHNIQUE: 3 views of left ankle. FINDINGS: There is no acute or healing fracture. Ankle mortise is congruent. No osteochondral lesion in the talar dome. No features of ankle joint effusion. Achilles shadow is normal in appearance. IMPRESSION: No acute osseous abnormality about the left ankle. Dictated by: Dictated on workstation # [id number]
--- NOTE | 2021-08-04 19:11 | Diagnostic Imaging Report ---
Knee, left, 3 views INDICATION: Left knee pain. COMPARISON: None available. TECHNIQUE: 3 views of the left knee. FINDINGS: Left total knee arthroplasty has no acute periprosthetic fracture or features of loosening. Heterotopic ossification along the margin of the lateral femoral condyle is likely from old lateral collateral ligamentous complex injury. No knee joint effusion. Patellar resurfacing has been performed and has normal appearance. IMPRESSION: Left total knee arthroplasty without features of acute complication. Dictated by: Dictated on workstation # [id number]
[2021-08-04 19:15] VITALS: BP 123/70
== END 2021-08-04 19:19 | disposition home or self-care (01) ==
LOC: EDUNIT# 17:24 → ER 17:25
DX: M25.572 Pain in left ankle and joints of left foot (principal); M25.562 Pain in left knee; Z87.891 Personal history of nicotine dependence; Z96.653 Presence of artificial knee joint, bilateral; X50.1XXA Overexertion from prolonged static or awkward postures, initial encounter
CPT/HCPCS: 73562; 73610

== ENCOUNTER → 2021-11-07 | Outpatient (CLI) | payer MEDICARE, OTHER ==
[~2021-11-07] MED LIST changes: +GADOTERATE 0.5 MMOL/ML (CLARISCAN) 20 ML VIAL IV ONE
--- NOTE | 2021-11-07 11:30 | Diagnostic Imaging Report ---
CLINICAL INDICATION: Patient with history of hemangioma. Patient has some hallucinations after cataract surgery, could have been medication related, doctor wants recheck of brain EXAM: MRI of the brain performed without and with 16 cc of Clariscan IV contrast. Sequences include axial DWI, ADC map, coronal gradient echo, axial FLAIR, axial T1, axial T2, axial T1 post IV contrast whole brain, coronal T1 fat-sat post IV contrast whole brain, and sagittal T1 fat-sat post IV contrast whole brain. COMPARISON: CT scan of the head and cervical spine without contrast dated 10/10/2017. MRI of the brain with without contrast dated 07/29/2016. 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 This mass currently measures 2.6 cm x 1.7 cm x 1.6 cm (AP x Trans x CC) compared to prior study measured at 2.4 cm x 1.5 cm x 1.3 cm (AP x Trans x CC). There is localized encroachment upon the medial bilateral frontal lobes with no abnormal brain parenchymal signal. The brain parenchymal volume appears appropriate for patient's age. There is no hydrocephalus, brain herniation, or midline shift. Visualized lower [place] vascular structures are unremarkable. The pituitary gland, sella, and suprasellar regions are unremarkable as visualized. The basal cisterns are unremarkable. There is ossification of the falx cerebri again seen. The extracranial soft tissues, skull, and orbits are unremarkable. There is mild mucosal thickening involving ethmoid sinus and right maxillary sinus. Mastoid air cells are clear. 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 2: Mild age-related brain parenchymal changes. Dictated by: Dictated on workstation # [id number]
== END ==
LOC: RAD 09:30
PROVIDERS: ATTEND Nurse Practitioner Family
DX: D32.0 Benign neoplasm of cerebral meninges (principal); G31.89 Other specified degenerative diseases of nervous system
CPT/HCPCS: 70553

== ENCOUNTER → 2022-01-07 | Outpatient (RCR) | payer MEDICARE, OTHER ==
[2021-12-10 11:28] LABS: ALBUMIN 3.8 GM/DL (3.2-4.5); BILIRUBIN,TOTAL 0.3 MG/DL (0.1-1.0); CALCIUM 8.7 MG/DL (8.5-10.1); CREATININE SERUM 0.83 MG/DL (0.60-1.30); TOTAL PROTEIN 6.5 GM/DL (6.4-8.2)
[~2022-01-07] MED LIST changes: -GADOTERATE 0.5 MMOL/ML (CLARISCAN) 20 ML VIAL IV ONE
== END | disposition home or self-care (01) ==
LOC: ONC 12-10 09:03
PROVIDERS: ATTEND Radiology Radiation Oncology
DX: Z51.0 Encounter for antineoplastic radiation therapy (principal); D32.0 Benign neoplasm of cerebral meninges
CPT/HCPCS: 80053; G0463; 36415; 77300; 77301; 77334; 77336; 77338; 77386; 99204; 99205

== ENCOUNTER 2022-01-24 10:00 | Outpatient (RCR) | payer MEDICARE, OTHER | END 2022-02-06 | disposition home or self-care (01) | LOC: ONC 10:00 | PROVIDERS: ATTEND Radiology Radiation Oncology | DX: Z51.0 Encounter for antineoplastic radiation therapy (principal); D32.0 Benign neoplasm of cerebral meninges | CPT/HCPCS: 77386; G0463; 77336 ==

== ENCOUNTER 2022-02-16 12:26 | Emergency (ER) | payer MEDICARE, OTHER ==
--- NOTE | 2022-02-16 13:16 | Diagnostic Imaging Report ---
CLINICAL HISTORY: Right ankle pain and swelling. No known trauma. COMPARISON: None. TECHNIQUE: 3 views of the right ankle. FINDINGS: There is no acute fracture or dislocation of the right ankle. Alignment is anatomic. The imaged joint spaces are preserved. No focal osseous lesions. There is generalized soft tissue edema surrounding the right ankle. IMPRESSION: 1. No acute fracture or dislocation of the right ankle. 2. Nonspecific generalized soft tissue swelling surrounding the right ankle. Dictated by: Dictated on workstation # [id number]
--- NOTE | 2022-02-16 13:27 | ED Lower Extremity ---
General Chief Complaint: Lower Extremity Stated Complaint: SWOLLEN RIGHT ANKLE Nursing Triage Note: PT STATES SHE WAS GETTING OUIT OF THE SHOWER AND NOTICED HER RT ANKLE WAS SWOLLEN, NO KNOWN CAUSE, NO PAIN, SHE GOT RADIATION THERAPY FOR A TUMOR BETWEEN HER EYES ABOUT 3 WEEKS AGO AND HAS NOT BEEN VERY ACTIVE SINCE Source: patient Exam Limitations: no limitations History of Present Illness Date Seen by Provider: Feb 16, 2022 Time Seen by Provider: 13:20 Initial Comments Patient is a 72-year-old female who presents to the emergency department for evaluation of right ankle swelling that she noticed this morning while she was getting out of the shower. She denies any injury states the area is not painful but is uncomfortable and feels "like rubber bands are around my ankle". Patient denies any history of significant lower extremity swelling. Denies any swelling elsewhere in her right lower extremity outside of the ankle. States there is no pain in her right calf or elsewhere on the leg. Patient is concerned she could have a blood clot. Upon arrival to the ER and visual assessment patient states that her ankle has returned to normal. Allergies and Home Medications Allergies Coded Allergies: bupropion (Verified Allergy, Unknown, 01/17/20) citalopram (Verified Allergy, Unknown, 01/17/20) escitalopram (Verified Allergy, Unknown, 01/17/20) latex (Verified Allergy, Unknown, RASH, 01/17/20) midazolam (Verified Allergy, Unknown, 01/17/20) tramadol (Verified Allergy, Unknown, 01/17/20) Patient Home Medication List Home Medication List Reviewed: Yes Cephalexin (Cephalexin) 500 Mg Tablet, 500 MG PO TID Prescribed by: BINTA DOMINGO on 11/23/20 1609 Cholecalciferol (Vitamin D3) (Vitamin D3) 125 Mcg Capsule, 125 MCG PO DAILY, (Reported) Entered as Reported by: SAHARA UMANA on 01/17/20 1523 Clonidine HCl (Clonidine HCl) 0.1 Mg Tablet, 0.05 MG PO BID, (Reported) Entered as Reported by: CORINEN JOHNS on 06/12/15 1404 Cyanocobalamin (Vitamin B-12) (Vitamin B12) 5,000 Mcg Tab.rapdis, 5,000 MCG PO DAILY, (Reported) Entered as Reported by: RUSS CORDOVA on 10/11/17 0853 Ferrous Sulfate (Iron) 325 Mg Tablet, 325 MG PO DAILY, (Reported) Entered as Reported by: SAHARA UMANA on 01/17/20 1523 Meloxicam (Meloxicam) 7.5 Mg Tablet, 7.5 MG PO DAILY, (Reported) Entered as Reported by: RAHAT SANCHEZ on 03/23/182005 Pantoprazole Sodium (Pantoprazole Sodium) 40 Mg Tablet.dr, 40 MG PO BID, (Reported) Entered as Reported by: CORINNE JOHNS on 06/12/15 1222 Sertraline HCl (Sertraline HCl) 50 Mg Tablet, 75 MG PO DAILY, (Reported) Entered as Reported by: RUSS CORDOVA on 10/11/17 0854 Topiramate (Topiramate) 50 Mg Tablet, 50 MG PO BID, (Reported) Entered as Reported by: RUSS CORDOVA on 10/11/17 0851 Review of Systems Constitutional: no symptoms reported EENTM: no symptoms reported Respiratory: no symptoms reported Cardiovascular: no symptoms reported Gastrointestinal: no symptoms reported Genitourinary: no symptoms reported Musculoskeletal: see HPI, joint swelling Skin: no symptoms reported Psychiatric/Neurological: No Symptoms Reported Past Vqhswhl-Icvwcb-Nobnxg Hx Patient Social History Tobacco Use?: Yes Smoking Status: Former Smoker Substance use?: No Alcohol Use?: No Immunizations Up To Date First/Initial COVID19 Vaccinat: 05/03/2020 Second COVID19 Vaccination Danny: 06/01/2020 Third COVID19 Vaccination Date: 05/03/2020 Seasonal Allergies Seasonal Allergies: No Past Medical History Surgery/Hospitalization HX: TOURETTE'S SYNDROME, BOTH KNEES REPLACED, GALLBLADDER Surgeries: Yes (Bilateral knee replacements, Left arm fx repair with plates and screws) Hysterectomy, Orthopedic, Thyroidectomy Respiratory: No Cardiac: Yes Hypertension Neurological: Yes (TREMORS) 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: No 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 Sexually Transmitted Disease: No HIV/AIDS: No Genitourinary: No Gastrointestinal: Yes Gastroesophageal Reflux, Hiatal Hernia Musculoskeletal: Yes Arthritis, Fractures Endocrine: Yes (SURGICAL THYROIDECTOMY PARTIAL) Hyperthyroidism HEENT: No Cancer: No Psychosocial: Yes (Tourette's Syndrome) Depression Integumentary: No Adverse Reaction/Blood Tranf: No Family Medical History Abdominal aortic aneurysm 19 FATHER G8 BROTHER Alzheimer's disease 19 MOTHER Cardiovascular disease 19 FATHER 19 MOTHER G8 BROTHER Congenital disease G8 BROTHER Dementia 19 MOTHER No Pertinent Family Hx Physical Exam Vital Signs Vital Signs - First Documented 02/16/22 12:32 Temp 36.7 Pulse 94 Resp 20 B/P (MAP) 144/93 (110) Pulse Ox 96 O2 Delivery Room Air Capillary Refill : Less Than 3 Seconds Height, Weight, BMI Height: 5'6.00" Weight: 172lbs. 2.0oz. 78.275961ew; 30.00 BMI Method:Stated General Appearance: WD/WN, no apparent distress HEENT: PERRL/EOMI, normal ENT inspection, TMs normal, pharynx normal Neck: non-tender, full range of motion Respiratory: chest non-tender, lungs clear, normal breath sounds, no respiratory distress, no accessory muscle use Gastrointestinal: normal bowel sounds, non tender, soft Ankles: right ankle non-tender, right ankle normal range of motion, right ankle swelling (Very mild) Neurologic/Psychiatric: no motor/sensory deficits, alert, normal mood/affect, oriented x 3 Skin: normal color, warm/dry Progress/Results/Core Measures Results/Orders My Orders Orders - SPENCER ABRAMS APRN Ankle, Right, 3 Views (02/16/22 12:44) Vital Signs/I&O 02/16/22 12:32 Temp 36.7 Pulse 94 Resp 20 B/P (MAP) 144/93 (110) Pulse Ox 96 O2 Delivery Room Air Blood Pressure Mean: 110 Progress Progress Note : Progress Note Patient is nontoxic and well-hydrated on exam. Exam of the right ankle reveals some very mild swelling to the lateral malleolus. Patient has full range of motion of the right ankle without provocation of pain. DP and PT pulses are 3+. No erythema noted to the ankle or anywhere else on the right lower extremity. Homans' sign is negative. Pretest probability for DVT is extremely low. No clinical findings suggestive of DVT. No indication for further diagnostics related to evaluation of DVT at this time. Plain radiographs of the right ankle were obtained that are acutely negative. Will discharge home with recommendations for supportive care and close follow-up with PCP. Return precautions for urgent symptomology discussed. Patient verbalized unde rstanding. Departure Impression Primary Impression: Right ankle swelling Disposition: 01 HOME, SELF-CARE Condition: Stable Departure-Patient Inst. Decision time for Depature: 13:25 Referrals: LIDA SLADE MD (PCP/Family) Primary Care Physician Patient Instructions: Dependent Edema (DC) SPENCER ABRAMS APRN Feb 16, 2022 13:27
[2022-02-16 13:37] VITALS: BP 144/93
== END 2022-02-16 13:37 | disposition home or self-care (01) ==
LOC: EDUNIT# 12:26 → ER 12:28
DX: M25.471 Effusion, right ankle (principal); Z87.891 Personal history of nicotine dependence; Z91.040 Latex allergy status
CPT/HCPCS: 73610

== ENCOUNTER → 2022-02-19 | Outpatient (CLI) | payer MEDICARE, OTHER ==
--- NOTE | 2022-02-19 10:53 | Diagnostic Imaging Report ---
CLINICAL INDICATION: Patient shortness of breath and cough x1 month. EXAM: Chest x-ray PA and lateral views. COMPARISON: Chest x-ray dated 11/23/2020. FINDINGS: Lungs/pleura: There is minimal left basilar atelectasis or scarring. Otherwise, lungs are clear. There is no pneumothorax. There is no pleural effusion. Mediastinum: Small to moderate size air-fluid filled hiatal hernia is again seen. Pulmonary vasculature: Unremarkable. Heart: Unremarkable. Bones/extrathoracic soft tissue: There are hypertrophic spurs involving the thoracic spine. IMPRESSION: 1: There is no radiographic evidence of acute cardiopulmonary process. There is minimal left basilar atelectasis or scarring. 2: There is a small to moderate size hiatal hernia. Dictated by: Dictated on workstation # [id number]
== END ==
LOC: RAD 09:36
PROVIDERS: ATTEND Nurse Practitioner Family
DX: K44.9 Diaphragmatic hernia without obstruction or gangrene (principal)
CPT/HCPCS: 71046

== ENCOUNTER → 2022-02-22 | Outpatient (CLI) | payer MEDICARE, OTHER ==
[~2022-02-22] MED LIST changes: +CATHETER FLUSH 10 ML SYR IV PRN; +HOLD METFORMIN - RECEIVED CONTRAST 20 ML VIAL IV SCH; +IOHEXOL 350 MG/ML 100 ML (OMNIPAQUE 350) VIAL IV ONE; +NS 100 ML (IVPB) BAG IV ONE
[2022-02-22 12:53] LABS: CREATININE SERUM 0.8 MG/DL (0.60-1.30)
--- NOTE | 2022-02-22 13:37 | Diagnostic Imaging Report ---
EXAMINATION: CT angiography of the chest. TECHNIQUE: Contrast enhanced thin section helical images were obtained through the chest with intravenous contrast timed for the optimal opacification of the arterial structures per CTA protocol. Post-processing, reconstructions and interpretation of angiographic images of the vessels was performed. 3D MIP reconstructions were performed and reviewed. All CT scans use one or more of the following dose optimizing techniques: automated exposure control, MA and/or KvP adjustment based on a patient size and exam type, or iterative reconstruction. HISTORY: Cough and shortness of breath COMPARISON: None available. FINDINGS: Vascular: No filling defects within the pulmonary arteries. Thoracic aorta is normal in caliber. Thyroid: There is a left thyroid nodule measuring up to 3.7 cm. Mediastinum: Heart size is normal without significant pericardial effusion. There is a calcified right paratracheal lymph node. No other suspicious lymphadenopathy within the chest. Lungs and airways: The lungs are clear without consolidation, pleural effusion, or pneumothorax. There is a left lower lobe pulmonary nodule measuring 0.3 cm. The airways are normal. Upper abdomen: Hepatic cysts are present. The gallbladder is surgically absent. There is a moderate hiatal hernia. Musculoskeletal: Degenerative changes of the spine without suspicious osseous lesion or compression fracture. IMPRESSION: 1. No findings of pulmonary embolus or other acute abnormality in the chest. 2. Large left thyroid nodule. Recommend correlation with ultrasound in the nonemergent setting. 3. A 0.3 cm left lower lobe pulmonary nodule. If patient is low risk for malignancy, no further followup is needed. If patient is high-risk, a followup CT chest in 6-12 months could be performed. Dictated by: Dictated on workstation # [id number]
== END ==
LOC: RAD 12:13
PROVIDERS: ATTEND Nurse Practitioner Family
DX: R91.1 Solitary pulmonary nodule (principal); E04.1 Nontoxic single thyroid nodule
CPT/HCPCS: 36415; 71275; 82565; 84520

== ENCOUNTER → 2022-02-27 | Outpatient (CLI) | payer MEDICARE, OTHER ==
[~2022-02-27] MED LIST changes: -CATHETER FLUSH 10 ML SYR IV PRN; -HOLD METFORMIN - RECEIVED CONTRAST 20 ML VIAL IV SCH; -IOHEXOL 350 MG/ML 100 ML (OMNIPAQUE 350) VIAL IV ONE; -NS 100 ML (IVPB) BAG IV ONE
--- NOTE | 2022-02-27 19:24 | Diagnostic Imaging Report ---
PROCEDURE: US thyroid. TECHNIQUE: Multiple real-time grayscale images were obtained of the thyroid in various projections. INDICATION: Thyroid mass. COMPARISON: Recent chest CT, no other comparison. FINDINGS: Right lobe: The right thyroid lobe is 3.7 x 1.2 x 1.4 cm. Its echotexture is heterogeneous and has a hypoechoic but solid-appearing upper pole nodule measuring 8mm in long axis. It also has lower pole area of more pronounced regional altered echotexture believed to reflect an isoechoic mass measuring 1.3 cm in long axis. Left lobe: Left lobe is enlarged, heterogeneous and multinodular measuring 6.5 x 3.4 x 2.4 cm. It contains multiple masses, the largest of which is predominantly hyperechoic with cystic elements measuring 1.6 x 1.5 x 1.7 cm. There is a TI-RADS 3 lesion and given its size of greater than 1.5 cm Society guideline recommendations are for follow-up in 1, 3 and 5 years' time. Additional solid mass is measured about 1 cm, 1 cm and 8 mm in maximal dimension. IMPRESSION: Bilateral thyroid masses, the largest lesion on the left is TI-RADS 3, greater than 1.5 cm, and should be followed in one year's time. Dictated by: Dictated on workstation # [id number]
== END ==
LOC: RAD 10:56
PROVIDERS: ATTEND Nurse Practitioner Family
DX: E04.2 Nontoxic multinodular goiter (principal)
CPT/HCPCS: 76536

== ENCOUNTER 2022-03-28 09:49 | Outpatient (RCR) | payer MEDICARE, OTHER | END 2022-04-09 | disposition home or self-care (01) | LOC: ONC 09:49 | PROVIDERS: ATTEND Radiology Radiation Oncology | DX: D32.0 Benign neoplasm of cerebral meninges (principal) | CPT/HCPCS: 99213 ==

== ENCOUNTER 2022-08-27 11:58 | Observation (INO) | payer MEDICARE, OTHER ==
[~2022-08-27] VITALS: Ht 165.1 cm; Wt 82.1 kg
[~2022-08-27 11:58] MED LIST changes: +TOPI-241 PO; -TOPI50TA13 PO
--- NOTE | 2022-08-27 12:21 | ED Neurological Problem ---
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 She has been having some intermittent numbness of the left leg over the past week and intended to follow-up with her primary care provider. However, when the left leg numbness returned today it was also accompanied by numbness in the left arm and hand as well as some subtle numbness of the left face. She has noted no motor deficits. The only symptom she has at this time is a little bit of numbness in her left upper arm. She has a subtle speech deficit related to Tourette's syndrome. This may be exacerbated today as she has not yet taken her medications for Tourette's. Last known well time was 10:30 when she had a conversation with her son on the phone. Symptoms were noted shortly after that. Patient additionally complains of some pain in the right ear and the right eye with some drainage from the eye. She has an appointment with her doctor tomorrow to evaluate that issue. She has an a ppointment with her Dr. Cobian, her new eye doctor, in September. Patient reports history of a frontal meningioma which has been treated with radiation. She is supposed to have follow-up imaging this summer to monitor progression. Patient also reports a mild headache which is not unusual for her. She is not accustomed to having paresthesias associated with her headaches. Allergies and Home Medications Allergies Coded Allergies: bupropion (Verified Allergy, Unknown, 01/17/20) citalopram (Verified Allergy, Unknown, 01/17/20) escitalopram (Verified Allergy, Unknown, 01/17/20) latex (Verified Allergy, Unknown, RASH, 01/17/20) midazolam (Verified Allergy, Unknown, 01/17/20) tramadol (Verified Allergy, Unknown, 01/17/20) lactose (Verified Adverse Reaction, Mild, 08/27/22) Lactose intolerance Patient Home Medication List Home Medication List Reviewed: Yes Cephalexin (Cephalexin) 500 Mg Tablet, 500 MG PO TID Prescribed by: BINTA DOMINGO on 11/23/20 1609 Cholecalciferol (Vitamin D3) (Vitamin D3) 125 Mcg Capsule, 125 MCG PO DAILY, (Reported) Entered as Reported by: SAHARA UMANA on 01/17/20 1523 Clonidine HCl (Clonidine HCl) 0.1 Mg Tablet, 0.05 MG PO BID, (Reported) Entered as Reported by: CORINNE JOHNS on 06/12/15 1404 Cyanocobalamin (Vitamin B-12) (Vitamin B12) 5,000 Mcg Tab.rapdis, 5,000 MCG PO DAILY, (Reported) Entered as Reported by: RUSS CORDOVA on 10/11/17 0853 Ferrous Sulfate (Iron) 325 Mg Tablet, 325 MG PO DAILY, (Reported) Entered as Reported by: SAHARA UMANA on 01/17/20 1523 Meloxicam (Meloxicam) 7.5 Mg Tablet, 7.5 MG PO DAILY, (Reported) Entered as Reported by: RAHAT SANCHEZ on 03/23/182005 Pantoprazole Sodium (Pantoprazole Sodium) 40 Mg Tablet.dr, 40 MG PO BID, (Reported) Entered as Reported by: CORINNE JOHNS on 06/12/15 1222 Sertraline HCl (Sertraline HCl) 50 Mg Tablet, 75 MG PO DAILY, (Reported) Entered as Reported by: RUSS CORDOVA on 10/11/17 0854 Topiramate (Topiramate) 50 Mg Tablet, 50 MG PO BID, (Reported) Entered as Reported by: RUSS CORDOVA on 10/11/17 0851 Review of Systems Review of Systems Constitutional: no symptoms reported Eyes: See HPI Ears, Nose, Mouth, Throat: see HPI Respiratory: no symptoms reported Cardiovascular: no symptoms reported Gastrointestinal: no symptoms reported Genitourinary: no symptoms reported : No Musculoskeletal: no symptoms reported Skin: no symptoms reported Psychiatric/Neurological: See HPI Endocrine: No Symptoms Reported Hematologic/Lymphatic: No Symptoms Reported Past Sncybia-Dfvksf-Lwciqb Hx Patient Social History Tobacco Use?: No Substance use?: No Alcohol Use?: No Immunizations Up To Date First/Initial COVID19 Vaccinat: 05/03/2020 Second COVID19 Vaccination Danny: 06/01/2020 Third COVID19 Vaccination Date: 05/03/2020 Seasonal Allergies Seasonal Allergies: No Past Medical History Surgery/Hospitalization HX: TOURETTE'S SYNDROME, BOTH KNEES REPLACED, GALLBLADDER, LT ARM, 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 Surgeries: Yes (Bilateral knee replacements, Left arm fx repair with plates and screws) Gallbladder, Hysterectomy, Joint Replacement (bilateral knees), Orthopedic (left forearm plate), Thyroidectomy Respiratory: No Cardiac: Yes Hypertension Neurological: Yes (TREMORS, frontal meningioma) Headaches /Migraines 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: No [employer]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 Sexually Transmitted Disease: No HIV/AIDS: No Genitourinary: No Gastrointestinal: Yes Gastroesophageal Reflux, Hiatal Hernia Musculoskeletal: Yes Arthritis, Fractures Endocrine: Yes (SURGICAL THYROIDECTOMY PARTIAL) Hyperthyroidism HEENT: No Cancer: No Psychosocial: Yes (Tourette's Syndrome) Depression Integumentary: No Adverse Reaction/Blood Tranf: No Family Medical History Abdominal aortic aneurysm 19 FATHER G8 BROTHER Alzheimer's disease 19 MOTHER Cardiovascular disease 19 FATHER 19 MOTHER G8 BROTHER Congenital disease G8 BROTHER Dementia 19 MOTHER No Pertinent Family Hx Physical Exam Vital Signs Vital Signs - First Documented 08/27/22 12:04 Temp 35.5 Pulse 88 Resp 20 B/P (MAP) 170/98 (122) Pulse Ox 95 O2 Delivery Room Air Capillary Refill : Less Than 3 Seconds Height, Weight, BMI Height: 5'6.00" Weight: 172lbs. 2.0oz. [id number]; 29.00 BMI Method:Stated General Appearance: WD/WN, no apparent distress HEENT: PERRL/EOMI, normal ENT inspection, TMs normal, pharynx normal, other (Right eye pain with lateral gaze.) Neck: normal inspection Respiratory: lungs clear, normal breath sounds, no respiratory distress, no accessory muscle use Cardiovascular: regular rate, rhythm, no edema, no murmur Gastrointestinal: non tender, soft Extremities: normal inspection, no pedal edema Neurologic/Psychiatric: alert, normal mood/affect, oriented x 3 Crainal Nerves: No normal hearing; normal speech, PERRL, abnormal speech (Consistent with chronic Tourette's symptoms) Coordination/Gait: normal finger to nose, normal gait Motor/Sensory: no motor deficit, sensory deficit (Subtle incomplete sensory deficit on the left extremities and face) Skin: normal color, warm/dry Stroke NIH Stroke Scale Assessment Select: Initial Level of Consciousness: 0=Alert (0), Level of Consciousness- Questions: 0=Answers both month/age (0), LOC Commands: 0=Performs both tasks (0), Gaze: Normal (0), Visual Soares: 0=No visual loss (0), Facial Movement (Facial Paresis): 0=Normal symmetrical mnt (0), Motor Function-Arms Right: 0=No drift (0), Motor Function-Arms Left: 0=No drift (0), Motor Function-Legs Right: 0=No drift (0), Motor Function-Legs Left: 0=No drift (0), Limb Ataxia: 0=Absent (0), Sensory: 1=Mild to Moderate loss (1), Best Language: 0=No aphasia (0), Dysarthria: 0=Normal (0), Extinction & Inattention: 0=No abnormality (0), Total: 1 Progress/Results/Core Measures Results/Orders Lab Results Laboratory Tests Test 08/27/22 12:18 08/27/22 12:57 Range/Units White Blood Count 5.6 4.3-11.0 10^3/uL Red Blood Count 4.02 3.80-5.11 10^6/uL Hemoglobin 12.1 11.5-16.0 g/dL Hematocrit 36 35-52 % Mean Corpuscular Volume 90 80-99 fL Mean Corpuscular Hemoglobin 30 25-34 pg Mean Corpuscular Hemoglobin Concent 33 32-36 g/dL Red Cell Distribution Width 12.5 10.0-14.5 % Platelet Count 239 130-400 10^3/uL Mean Platelet Volume 11.1 9.0-12.2 fL Immature Granulocyte % (Auto) 0 % Neutrophils (%) (Auto) 52 42-75 % Lymphocytes (%) (Auto) 38 12-44 % Monocytes (%) (Auto) 6 0-12 % Eosinophils (%) (Auto) 3 0-10 % Basophils (%) (Auto) 1 0-10 % Neutrophils # (Auto) 2.9 1.8-7.8 10^3/uL Lymphocytes # (Auto) 2.1 1.0-4.0 10^3/uL Monocytes # (Auto) 0.4 0.0-1.0 10^3/uL Eosinophils # (Auto) 0.2 0.0-0.3 10^3/uL Basophils # (Auto) 0.1 0.0-0.1 10^3/uL Immature Granulocyte # (Auto) 0.0 0.0-0.1 10^3/uL Prothrombin Time 13.8 12.2-14.7 SEC INR Comment 1.0 0.8-1.4 Activated Partial Thromboplast Time 27 24-35 SEC D-Dimer 0.88 H 0.00-0.49 UG/ML Sodium Level 140 135-145 MMOL/L Potassium Level 4.1 3.6-5.0 MMOL/L Chloride Level 113 H 98-107 MMOL/L Carbon Dioxide Level 21 21-32 MMOL/L Anion Gap 6 5-14 MMOL/L Blood Urea Nitrogen 19 H 7-18 MG/DL Creatinine 0.81 0.60-1.30 MG/DL Estimat Glomerular Filtration Rate 77 BUN/Creatinine Ratio 23 Glucose Level 95 70-105 MG/DL Glucometer 97 70-110 MG/DL Calcium Level 8.8 8.5-10.1 MG/DL Corrected Calcium 8.9 8.5-10.1 MG/DL Total Bilirubin 0.2 0.1-1.0 MG/DL Aspartate Amino Transf (AST/SGOT) 13 5-34 U/L Alanine Aminotransferase (ALT/SGPT) 12 0-55 U/L Alkaline Phosphatase 150 H 40-136 U/L Troponin I < 0.028 <0.028 NG/ML Total Protein 6.7 6.4-8.2 GM/DL Albumin 3.9 3.2-4.5 GM/DL Thyroid Stimulating Hormone (TSH) 3.47 0.35-4.94 UIU/ML Free Thyroxine 0.92 0.70-1.48 NG/DL Urine Color YELLOW Urine Clarity CLEAR Urine pH 6.0 5-9 Urine Specific Polk 1.015 L 1.016-1.022 Urine Protein NEGATIVE NEGATIVE Urine Glucose (UA) NEGATIVE NEGATIVE Urine Ketones NEGATIVE NEGATIVE Urine Nitrite NEGATIVE NEGATIVE Urine Bilirubin NEGATIVE NEGATIVE Urine Urobilinogen 0.2 < = 1.0 MG/DL Urine Leukocyte Esterase TRACE H NEGATIVE Urine RBC (Auto) NEGATIVE NEGATIVE Urine RBC RARE /HPF Urine WBC 0-2 /HPF Urine Squamous Epithelial Cells 0-2 /HPF Urine Crystals NONE /LPF Urine Bacteria NEGATIVE /HPF Urine Casts NONE /LPF Urine Mucus NEGATIVE /LPF Urine Culture Indicated NO My Orders Orders - DUSTIN GOLDEN MD Cbc With Automated Diff (08/27/22 12:17) Protime With Inr (08/27/22 12:17) Partial Thromboplastin Time (08/27/22 12:17) Comprehensive Metabolic Panel (08/27/22 12:17) Fibrin Degradation Products (08/27/22 12:17) Troponin I Angelo (08/27/22 12:17) Ua Culture If Indicated (08/27/22 12:17) Chest 1 View, Ap/Pa Only (08/27/22 12:17) Ekg Tracing (08/27/22 12:17) Nothing By Mouth (08/27/22 Lunch) Accucheck Stat ONCE (08/27/22 12:17) Ed Iv/Invasive Line Start (08/27/22 12:17) Vital Signs Stroke Patient Q15M (08/27/22 12:17) Ct Head Wo-R/O Stroke (08/27/22 12:17) O2 (08/27/22 12:17) Monitor-Rhythm Ecg Trace Only (08/27/22 12:17) Lipid Panel (08/28/22 06:00) Ct Cervical Spine Wo (08/27/22 12:19) Ct Angio Head/Neck (08/27/22 13:06) Thyroid Stimulating Hormone (08/27/22 13:07) Free T4 (Free Thyroxine) (08/27/22 13:07) Iohexol Injection (Omnipaque 350 Mg/Ml 1 (08/27/22 13:15) Received Contrast (Hold Metformin- Contr (08/27/22 13:15) Ns (Ivpb) (Sodium Chloride 0.9% Ivpb Bag (08/27/22 13:15) Aspirin Tablet (Aspirin Tablet) (08/27/22 15:45) Ed Admission (Communication) (08/27/22 16:05) Code/Resuscitation (08/27/22 16:14) Medications Given in ED Vital Signs/I&O 08/27/22 12:04 Temp 35.5 Pulse 88 Resp 20 B/P (MAP) 170/98 (122) Pulse Ox 95 O2 Delivery Room Air Blood Pressure Mean: 122 Progress Progress Note #1: Time: 12:51 Progress Note Patient was interviewed and examined shortly after arrival. She complained of left-sided numbness without any other specific neurologic deficits. Numbness included the face, upper extremity, and lower extremity. She had also noted some intermittent numbness of the left lower extremity over the past week. Stroke activation was paged. NIH stroke scale was 1. Her only point was for slight decrease or altered sensation on the left. CT of the head was viewed by me as it was obtained. No acute abnormalities were appreciated on my interpretation. Radiologist's report was also reviewed which agreed with no acute findings of ischemia, hemorrhage, or mass effect. Patient is not a candidate for thrombolytic therapy with a low NIH score of 1 and no disabling deficits. CT of the cervical spine was viewed by me as well. There are some cystic or lytic type bone lesions noted in multiple vertebrae and the left clavicle. Etiology is uncertain. Radiologist's interpretation is still pending. Progress Note #2: Time: 16:00 Progress Note No acute abnormalities were appreciated on the CT of the head and cervical spine and the radiologist's report. Noncontrast CT was followed by CT angiogram of the head and neck. Those images were reviewed and interpreted by me. There appeared to be a stable frontal meningioma seen on the contrast studies with no mass effect or inflammatory changes. Radiologist's report also noted no significant acute abnormalities and no large vessel occlusions. Patient continues to have some minimal sensation of numbness in her left extremities and face. At 1541 she noted minimal sensation of numbness in her fourth and fifth left fingers and left face. Overall she is feeling better. She has still not had her morning medications for Tourette's. If she passes dysphagia screen, she will be allowed to take those medications. She will also receive aspirin 325 mg. I did discuss her case with the stroke neurologist at [facility]. He recommended she complete a stroke work-up with observation admission, MRI of the brain, and echocardiogram. He recommended that she have dual antiplatelet therapy for 3 weeks followed by aspirin therapy. Patient does have established care with neurologist. She has seen Dr. Heredia in [facility] for her Tourette's. She has also seen a neurologist at [facility] for her meningioma. Dr. Berrios is her radiation oncologist at [facility]. Dr. River is her primary care provider. Progress Note #3: Time: 16:14 Progress Note I discussed CODE STATUS with the patient. She believes she has too many health problems to warrant CPR and intubation resuscitation efforts. She requests a DNR order. Initial ECG Impression Date: Aug 27, 2022 Initial ECG Impression Time: 12:33 Initial ECG Rate: 72 Initial ECG Rhythm: Normal Sinus Initial ECG Impression: Normal Comment Sinus rhythm with no ST elevation or depression. No significant changes in intervals. Automated read notes incomplete right bundle branch block. No axis deviation. Overall this is an unremarkable EKG by my interpretation. Diagnostic Imaging Diagonstic Imaging: CT Plain Films/CT/US/NM/MRI: head Comments NAME: BREE MAZA [facility] REC#: [id number] PT STATUS: REG ER : 1950 PHYSICIAN: DUSTIN GOLDEN MD ADMIT DATE: 08/27/22/ER Signed Date of Exam:08/27/22 CT HEAD WO-R/O STROKE PROCEDURE: CT head wo r/o stroke. TECHNIQUE: Multiple contiguous axial images were obtained through the brain without the use of intravenous contrast. Auto Exposure Controls were utilized during the CT exam to meet ALARA standards for radiation dose reduction. INDICATION: Headache and left-sided numbness. Evaluate for stroke. COMPARISON: 11/06/2017 Findings: By CT imaging there are no findings of territorial loss of woodruff-white differentiation. There is no evidence of edema. There is no low density evident within the basal ganglia or na. There are no findings of hemorrhage, mass effect or hydrocephalus. There is no abnormal extra-axial collection. The basilar cisterns are patent. There are atherosclerotic calcifications within the vessels of the skull base but no findings of an asymmetric hyperdense blood vessel demonstrated. Mastoid air cells are clear. There is mild mucosal thickening in the right maxillary sinus. Orbital contents are normal. There is no acute calvarial abnormality. There is stable incidental dural calcification. IMPRESSION: 1. No CT findings of territorial loss of woodruff-white differentiation or edema to suggest acute ischemia. 2. No hemorrhage, mass effect or hydrocephalus ex. 3. Atherosclerosis without hyperdense blood vessel. Dictated by: Dictated on workstation # [id number] Dict: 08/27/22 1238 Trans: 08/27/22 1243 [facility] [id number] Interpreted by: ADRIANE BARLOW MD Electronically signed by: ADRIANE BARLOW MD 08/27/22 1243 Diagonstic Imaging: CT Plain Films/CT/US/NM/MRI: c-spine Comments NAME: BREE MAZA [facility] REC#: [id number] PT STATUS: REG ER : 1950 PHYSICIAN: DUSTIN GOLDEN MD ADMIT DATE: 08/27/22/ER Draft Date of Exam:08/27/22 CT CERVICAL SPINE WO PROCEDURE: CT cervical spine without contrast. TECHNIQUE: Multiple contiguous axial images were obtained through the cervical spine without the use of intravenous contrast. Sagittal and coronal reformations were then performed. Auto Exposure Controls were utilized during the CT exam to meet ALARA standards for radiation dose reduction. INDICATION: Left-sided numbness. FINDINGS: Cervical vertebral statures are normal. The alignment is anatomic. Bone density appears diminished, likely osteoporosis or osteopenia. There is a hemangioma, fat-containing, as a benign finding in C7 vertebral body. No facet dislocation. No traumatic malalignment. No cervical spinal fracture. No paravertebral hemorrhage. Heterogeneous mass effect enlarging the left thyroid lobe displaces the trachea to the right. This does not appear changed from the correlative CT angio chest of February 2022. If the thyroid is not already been worked up, dedicated thyroidal ultrasound on a nonemergent outpatient basis is suggested. Visualized pulmonary apices are clear. No fracture identified. Craniocervical relationship in the central skull base appeared intact. IMPRESSION: No cervical spinal fracture or traumatic malalignment. Redemonstration of left lobe thyroid mass. Dictated on workstation # [id number] Dict: 08/27/22 1237 Trans: 08/27/22 1250 [id number] Interpreted by: KIAN AMOR Diagonstic Imaging: Xray Plain Films/CT/US/NM/MRI: chest Comments NAME: BREE MAZA [facility] REC#: [id number] PT STATUS: REG ER : 1950 PHYSICIAN: DUSTIN GOLDEN MD ADMIT DATE: 08/27/22/ER Draft Date of Exam:08/27/22 CHEST 1 VIEW, AP/PA ONLY INDICATION: Stroke evaluation. COMPARISON: 02/19/2022. FINDINGS: Retrocardiac hiatal hernia chronic. Lungs clear. No failure, effusion or pneumothorax. IMPRESSION: No acute appearing abnormality. Dictated on workstation # [id number] Dict: 08/27/22 1244 Trans: 08/27/22 1245 [id number] Interpreted by: KIAN AMOR Diagonstic Imaging: CT Plain Films/CT/US/NM/MRI: other (Angiogram head and neck) Comments NAME: BREE MAZA [facility] REC#: [id number] PT STATUS: REG ER : 1950 PHYSICIAN: DUSTIN GOLDEN MD ADMIT DATE: 08/27/22/ER Draft Date of Exam:08/27/22 CT ANGIO HEAD/NECK PROCEDURE: CT angiography of the head and CT angiography of the neck with and without contrast. TECHNIQUE: Contiguous noncontrast images were obtained from the skull base through the vertex. After intravenous contrast administration, helical CT angiography of the neck was performed. Source data was reformatted into 3D MIP projections. Delayed post contrast acquisition was also obtained. Auto Exposure Controls were utilized during the CT exam to meet ALARA standards for radiation dose reduction. INDICATION: Left-sided numbness. Delayed postcontrast enhanced CT head showed no intracranial hemorrhage, hydrocephalus, cerebral edema or evidence for elevated intracerebral pressures. An enhancing extra-axial meningioma at the floor of the middle cranial of the floor of the anterior cranial fossa anteriorly is unchanged from correlative MRI 11/07/2021 and is consistent with a planum sphenoidal meningioma. No new mass. No resultant mass effect, shift, herniation or hydrocephalus. CT angiogram neck: The aortic arch normal. There is conventional branching of the great vessels. Large heterogeneous partly cystic left lobe thyroid mass deviates the trachea to the right. This is present on the older exams as well. The bilateral common carotids are widely patent although have a tortuous course. The cervical vertebral arteries patent and codominant. No significant stenosis or cervical arterial dissection. CT angiogram head: The intradural vertebral arteries and dependent basilar arteries are patent. The bilateral posterior cerebral arterial segments are patent. The intracranial ICAs showed no significant stenosis. The A1 segments, the a common, the anterior cerebral arterial segments beyond that level were patent. The bilateral middle cerebral arterial segments and their primary branches showed some mild scattered atherosclerotic changes bilaterally without hemodynamically significant stenosis and no thrombus or large vessel occlusion. No thrombus, aneurysm or vascular malformation. IMPRESSION: Chronic known meningioma floor anterior cranial fossa at the midline without mass effect. No new or suspicious mass lesion. No hemodynamically significant cervical or intracranial arterial stenosis. No thrombus or large vessel occlusion identified. Dictated on workstation # [id number] Dict: 08/27/22 1329 Trans: 08/27/22 1355 [facility] [id number] Interpreted by: KIAN AMOR CT Read Date: Aug 27, 2022 CT Read Time: 12:33 CT Results/Progress Notes No acute intracranial processes. Departure Communication (Admissions) Time/Spoke to Admitting Phy: 16:00 Dr. Yoon Impression Primary Impression: Left sided numbness Additional Impression: Meningioma Disposition: ADMITTED INPATIENT Condition: Stable Admissions Decision to Admit Reason: Admit from ER (General) Decision to Admit/Date: Aug 27, 2022 Time/Decision to Admit Time: 16:00 Departure-Patient Inst. Referrals: LIDA RIVER MD (PCP/Family) Primary Care Physician Copy Copies To 1: LIDA RIVER MD, JOSHUA T MD Aug 27, 2022 12:21
[2022-08-27 12:29] LABS: BASOPHILS # (AUTO) 0.1 10^3/uL (0.0-0.1); BASOPHILS % (AUTO) 1 % (0-10); EOSINOPHILS # (AUTO) 0.2 10^3/uL (0.0-0.3); EOSINOPHILS % (AUTO) 3 % (0-10); HEMATOCRIT 36 % (35-52); HEMOGLOBIN 12.1 g/dL (11.5-16.0); LYMPHOCYTES # (AUTO) 2.1 10^3/uL (1.0-4.0); LYMPHOCYTES % (AUTO) 38 % (12-44); MEAN CORPUSCULAR HEMOGLOBIN 30 pg (25-34); MEAN CORPUSCULAR HGB CONC 33 g/dL (32-36); MEAN CORPUSCULAR VOLUME 90 fL (80-99); MEAN PLATELET VOLUME 11.1 fL (9.0-12.2); MONOCYTES # (AUTO) 0.4 10^3/uL (0.0-1.0); MONOCYTES % (AUTO) 6 % (0-12); NEUTROPHILS # (AUTO) 2.9 10^3/uL (1.8-7.8); NEUTROPHILS % (AUTO) 52 % (42-75); PLATELET COUNT 239 10^3/uL (130-400); WHITE BLOOD COUNT 5.6 10^3/uL (4.3-11.0)
[2022-08-27 12:33] LABS: ALBUMIN 3.9 GM/DL (3.2-4.5)
[2022-08-27 12:34] LABS: CHLORIDE 113 MMOL/L (98-107); POTASSIUM 4.1 MMOL/L (3.6-5.0); SODIUM 140 MMOL/L (135-145)
[2022-08-27 12:35] LABS: CALCIUM 8.8 MG/DL (8.5-10.1)
[2022-08-27 12:36] LABS: GLUCOSE 95 MG/DL (70-105); TOTAL PROTEIN 6.7 GM/DL (6.4-8.2)
[2022-08-27 12:37] LABS: CARBON DIOXIDE 21 MMOL/L (21-32)
[2022-08-27 12:38] LABS: BILIRUBIN,TOTAL 0.2 MG/DL (0.1-1.0); PROTHROMBIN TIME PATIENT 13.8 SEC (12.2-14.7)
[2022-08-27 12:39] LABS: ALKALINE PHOSPHATASE 150 U/L (40-136)
[2022-08-27 12:40] LABS: CREATININE SERUM 0.81 MG/DL (0.60-1.30); GFR ESTIMATED 77
[2022-08-27 12:41] LABS: BUN/CREATININE RATIO 23; FIBRIN DEGRADATION PRODUCTS 0.88 UG/ML (0.00-0.49)
[2022-08-27 12:43] LABS: ALANINE AMINOTRANSFERASE 12 U/L (0-55)
--- NOTE | 2022-08-27 12:45 | Diagnostic Imaging Report ---
PROCEDURE: CT head wo r/o stroke. TECHNIQUE: Multiple contiguous axial images were obtained through the brain without the use of intravenous contrast. Auto Exposure Controls were utilized during the CT exam to meet ALARA standards for radiation dose reduction. INDICATION: Headache and left-sided numbness. Evaluate for stroke. COMPARISON: 11/06/2017 Findings: By CT imaging there are no findings of territorial loss of woodruff-white differentiation. There is no evidence of edema. There is no low density evident within the basal ganglia or na. There are no findings of hemorrhage, mass effect or hydrocephalus. There is no abnormal extra-axial collection. The basilar cisterns are patent. There are atherosclerotic calcifications within the vessels of the skull base but no findings of an asymmetric hyperdense blood vessel demonstrated. Mastoid air cells are clear. There is mild mucosal thickening in the right maxillary sinus. Orbital contents are normal. There is no acute calvarial abnormality. There is stable incidental dural calcification. IMPRESSION: 1. No CT findings of territorial loss of woodruff-white differentiation or edema to suggest acute ischemia. 2. No hemorrhage, mass effect or hydrocephalus ex. 3. Atherosclerosis without hyperdense blood vessel. Dictated by: Dictated on workstation # [id number]
--- NOTE | 2022-08-27 12:46 | Diagnostic Imaging Report ---
INDICATION: Stroke evaluation. COMPARISON: 02/19/2022. FINDINGS: Retrocardiac hiatal hernia chronic. Lungs clear. No failure, effusion or pneumothorax. IMPRESSION: No acute appearing abnormality. Dictated by: Dictated on workstation # [id number]
--- NOTE | 2022-08-27 12:50 | Diagnostic Imaging Report ---
PROCEDURE: CT cervical spine without contrast. TECHNIQUE: Multiple contiguous axial images were obtained through the cervical spine without the use of intravenous contrast. Sagittal and coronal reformations were then performed. Auto Exposure Controls were utilized during the CT exam to meet ALARA standards for radiation dose reduction. INDICATION: Left-sided numbness. FINDINGS: Cervical vertebral statures are normal. The alignment is anatomic. Bone density appears diminished, likely osteoporosis or osteopenia. There is a hemangioma, fat-containing, as a benign finding in C7 vertebral body. No facet dislocation. No traumatic malalignment. No cervical spinal fracture. No paravertebral hemorrhage. Heterogeneous mass effect enlarging the left thyroid lobe displaces the trachea to the right. This does not appear changed from the correlative CT angio chest of February 2022. If the thyroid is not already been worked up, dedicated thyroidal ultrasound on a nonemergent outpatient basis is suggested. Visualized pulmonary apices are clear. No fracture identified. Craniocervical relationship in the central skull base appeared intact. IMPRESSION: No cervical spinal fracture or traumatic malalignment. Redemonstration of left lobe thyroid mass. Dictated by: Dictated on workstation # [id number]
[2022-08-27 13:04] LABS: BILIRUBIN,URINE NEGATIVE (NEGATIVE); CLARITY,URINE CLEAR; COLOR,URINE YELLOW; GLUCOSE, URINE (UA) NEGATIVE (NEGATIVE); KETONES,URINE NEGATIVE (NEGATIVE); LEUKOCYTE ESTERASE ,URINE TRACE (NEGATIVE); NITRITE,URINE NEGATIVE (NEGATIVE); PROTEIN,URINE NEGATIVE (NEGATIVE)
[2022-08-27] MEDS ORDERED: HOLD METFORMIN - RECEIVED CONTRAST 20 ML VIAL IV SCH (13:15)
[2022-08-27] MEDS ORDERED: NS 100 ML (IVPB) BAG IV ONE (13:15)
[2022-08-27] MEDS ORDERED: IOHEXOL 350 MG/ML 100 ML (OMNIPAQUE 350) VIAL IV ONE (13:15)
[2022-08-27 13:19] LABS: BACTERIA,URINE NEGATIVE /HPF; RBC,URINE RARE /HPF; SQUAMOUS EPITHELIAL CELL,UR 0-2 /HPF; WBC,URINE 0-2 /HPF
[2022-08-27 13:43] LABS: FREE T4 (FREE THYROXINE) 0.92 NG/DL (0.70-1.48)
--- NOTE | 2022-08-27 13:56 | Diagnostic Imaging Report ---
PROCEDURE: CT angiography of the head and CT angiography of the neck with and without contrast. TECHNIQUE: Contiguous noncontrast images were obtained from the skull base through the vertex. After intravenous contrast administration, helical CT angiography of the neck was performed. Source data was reformatted into 3D MIP projections. Delayed post contrast acquisition was also obtained. Auto Exposure Controls were utilized during the CT exam to meet ALARA standards for radiation dose reduction. INDICATION: Left-sided numbness. Delayed postcontrast enhanced CT head showed no intracranial hemorrhage, hydrocephalus, cerebral edema or evidence for elevated intracerebral pressures. An enhancing extra-axial meningioma at the floor of the middle cranial of the floor of the anterior cranial fossa anteriorly is unchanged from correlative MRI 11/07/2021 and is consistent with a planum sphenoidal meningioma. No new mass. No resultant mass effect, shift, herniation or hydrocephalus. CT angiogram neck: The aortic arch normal. There is conventional branching of the great vessels. Large heterogeneous partly cystic left lobe thyroid mass deviates the trachea to the right. This is present on the older exams as well. The bilateral common carotids are widely patent although have a tortuous course. The cervical vertebral arteries patent and codominant. No significant stenosis or cervical arterial dissection. CT angiogram head: The intradural vertebral arteries and dependent basilar arteries are patent. The bilateral posterior cerebral arterial segments are patent. The intracranial ICAs showed no significant stenosis. The A1 segments, the a common, the anterior cerebral arterial segments beyond that level were patent. The bilateral middle cerebral arterial segments and their primary branches showed some mild scattered atherosclerotic changes bilaterally without hemodynamically significant stenosis and no thrombus or large vessel occlusion. No thrombus, aneurysm or vascular malformation. IMPRESSION: Chronic known meningioma floor anterior cranial fossa at the midline without mass effect. No new or suspicious mass lesion. No hemodynamically significant cervical or intracranial arterial stenosis. No thrombus or large vessel occlusion identified. Dictated by: Dictated on workstation # [id number]
[2022-08-27] MEDS ORDERED: ASPIRIN 325 MG (5 GR) TABLET PO ONE (15:45)
[2022-08-27] MEDS ORDERED: ONDANSETRON 4 MG (ZOFRAN) ORAL DISSOLVE TAB PO PRN (16:45)
[2022-08-27] MEDS ORDERED: CALCIUM CARBONATE 500 MG (TUMS) TAB.CHEW PO PRN (16:45)
[2022-08-27] MEDS ORDERED: ACETAMINOPHEN 325 MG TABLET PO PRN (16:45)
[2022-08-27] MEDS ORDERED: MILK OF MAGNESIA 400 MG/5 ML 30 ML UDC PO PRN (16:45)
[2022-08-27] MEDS ORDERED: MELATONIN 3 MG TABLET PO PRN (16:45)
[2022-08-27] MEDS ORDERED: LACTULOSE SYRUP 10GM/15ML (ENULOSE) 30ML UDC PO PRN (16:45)
[2022-08-27] MEDS ORDERED: ANTACID SUSP 30 ML UDC (MYLANTA) PO PRN (16:45)
[2022-08-27] MEDS ORDERED: ONDANSETRON 4 MG/2 ML (SDV) Z0FRAN IV PRN (16:45)
[2022-08-27] MEDS ORDERED: polyethylene glycoL POWDER 17 GM (MIRALAX) PACK PO PRN (16:45)
[2022-08-27] MEDS ORDERED: BISACODYL 10 MG SUPP (DULCOLAX) PR PRN (16:45)
[2022-08-27] MEDS ORDERED: ENOXAPARIN 40 MG/0.4 ML (LOVENOX) SYR SC SCH (17:30)
[2022-08-27 19:05] VITALS: BP 124/63
[2022-08-27] MEDS ORDERED: toPIRamate 100 MG (TOPAMAX) TAB PO SCH (21:00)
[2022-08-27] MEDS: cloNIDine 0.1 MG (CATAPRES) TAB PO SCH (21:21)
[2022-08-27] MEDS: SENNOSIDES 8.6 MG (SENOKOT) TAB PO SCH (21:21)
[2022-08-27] MEDS: toPIRamate 25 MG (TOPAMAX) TAB PO SCH (21:21)
[2022-08-27] MEDS: DOCUSATE SODIUM 100 MG (COLACE) CAP PO SCH (21:21)
[2022-08-27 23:52] VITALS: BP 109/53
[2022-08-28 03:45] VITALS: BP 109/55
[2022-08-28 05:30] LABS: BASOPHILS # (AUTO) 0.1 10^3/uL (0.0-0.1); BASOPHILS % (AUTO) 2 % (0-10); EOSINOPHILS # (AUTO) 0.3 10^3/uL (0.0-0.3); EOSINOPHILS % (AUTO) 5 % (0-10); HEMATOCRIT 34 % (35-52); HEMOGLOBIN 11.3 g/dL (11.5-16.0); LYMPHOCYTES # (AUTO) 1.8 10^3/uL (1.0-4.0); LYMPHOCYTES % (AUTO) 34 % (12-44); MEAN CORPUSCULAR HEMOGLOBIN 30 pg (25-34); MEAN CORPUSCULAR HGB CONC 33 g/dL (32-36); MEAN CORPUSCULAR VOLUME 91 fL (80-99); MEAN PLATELET VOLUME 11.4 fL (9.0-12.2); MONOCYTES # (AUTO) 0.5 10^3/uL (0.0-1.0); MONOCYTES % (AUTO) 9 % (0-12); NEUTROPHILS # (AUTO) 2.8 10^3/uL (1.8-7.8); NEUTROPHILS % (AUTO) 50 % (42-75); PLATELET COUNT 225 10^3/uL (130-400); WHITE BLOOD COUNT 5.5 10^3/uL (4.3-11.0)
[2022-08-28 05:41] LABS: POTASSIUM 3.7 MMOL/L (3.6-5.0)
[2022-08-28 05:42] LABS: CALCIUM 8.5 MG/DL (8.5-10.1)
[2022-08-28 05:47] LABS: CREATININE SERUM 0.8 MG/DL (0.60-1.30)
--- NOTE | 2022-08-28 05:56 | History & Physical ---
History of Present Illness HPI/Chief Complaint Chief complaint: Left hand numbness HPI: This is a 72-year-old female clinic patient of Dr. River who presented to the ER with worsening left hand numbness and concerned it was a stroke. The symptoms she was having last night have completely resolved. She underwent a complete stroke work-up including MRI that did not reveal any stroke. Telemetry has revealed normal sinus rhythm since admission. PT and OT have evaluated her to find her to have no significant deficits. Labs are reviewed. Home meds were restarted. Patient was deemed stable for discharge. She will meet with Dr. River to review work-up to evaluate if anything further needs to be completed to evaluate cause of self-limited symptom. Source: patient, family, old records Exam Limitations: no limitations Date Seen 08/28/22 Time Seen by a Provider: 10:00 Attending Physician Marielle River MD PCP Admitting Physician: Lisa Yoon MD Attending Physician: Elsa Arenas DO Referring Physician Date of Admission Aug 27, 2022 at 17:04 Home Medications & Allergies Home Medications Reviewed patient Home Medication Reconciliation performed by pharmacy medication reconciliations mechatronics technician and/or nursing. Patients Allergies have been reviewed. Allergies Allergies Coded Allergies bupropion (Verified Allergy, Unknown, 01/17/20) citalopram (Verified Allergy, Unknown, 01/17/20) escitalopram (Verified Allergy, Unknown, 01/17/20) latex (Verified Allergy, Unknown, RASH, 01/17/20) midazolam (Verified Allergy, Unknown, 01/17/20) tramadol (Verified Allergy, Unknown, 01/17/20) lactose (Verified Adverse Reaction, Mild, 08/27/22) Lactose intolerance Past Iiitzec-Zjotug-Qxuups Hx Past Med/Social Hx: Reviewed Nursing Past Med/Soc Hx, Reviewed and Corrections made Patient Social History Marrital Status: single Employed/Student: retired Alcohol Use: Denies Use Smoking Status: Never a Smoker 2nd Hand Smoke Exposure: No Recent Hopitalizations: No Immunizations Up To Date Date of Pneumonia Vaccine: Mar 10, 2013 Seasonal Allergies Seasonal Allergies: No Past Medical History Surgeries: Gallbladder, Hysterectomy, Joint Replacement (bilateral knees), Orthopedic (left forearm plate), Thyroidectomy Cardiac: Hypertension Neurological: Headaches /Migraines Reproductive: No Sexually Transmitted Disease: No HIV/AIDS: No Hysterectomy Gastrointestinal: Gastroesophageal Reflux, Hiatal Hernia Musculoskeletal: Arthritis, Fractures Endocrine: Hyperthyroidism Psychosocial: Depression Adverse Reaction to Blood Wilson: No Family History Abdominal aortic aneurysm 19 FATHER G8 BROTHER Alzheimer's disease 19 MOTHER Cardiovascular disease 19 FATHER 19 MOTHER G8 BROTHER Congenital disease G8 BROTHER Dementia 19 MOTHER No Pertinent Family Hx Review of Systems Constitutional: see HPI, dizziness, malaise, weakness Psychiatric/Neurological: Tingling, Weakness Physical Exam Physical Exam Vital Signs Vital Signs - First Documented 08/27/22 12:04 Temp 35.5 Pulse 88 Resp 20 B/P (MAP) 170/98 (122) Pulse Ox 95 O2 Delivery Room Air Capillary Refill : Less Than 3 Seconds Height, Weight, BMI Height: 5'6.00" Weight: 172lbs. 2.0oz. [id number]; 30.11 BMI Method:Stated General Appearance: No Apparent Distress, WD/WN, Chronically ill Eyes: Bilateral Eye Normal Inspection, Bilateral Eye PERRL HEENT: PERRL/EOMI, TMs Normal, Normal ENT Inspection, Pharynx Normal Neck: Full Range of Motion, Normal Inspection, Non Tender, Supple, Carotid Bruit Respiratory: Chest Non Tender, Lungs Clear, Normal Breath Sounds, No Accessory Muscle Use, No Respiratory Distress Cardiovascular: Regular Rate, Rhythm, No Edema, No Gallop, No JVD, No Murmur, Normal Peripheral Pulses Gastrointestinal: Normal Bowel Sounds, No Organomegaly, No Pulsatile Mass, Non Tender, Soft Back: Normal Inspection, No CVA Tenderness, No Vertebral Tenderness Extremity: Normal Capillary Refill, Normal Inspection, Normal Range of Motion, Non Tender, No Calf Tenderness, No Pedal Edema Neurologic/Psychiatric: Alert, Oriented x3, No Motor/Sensory Deficits, Normal Mood/Affect Skin: Normal Color, Warm/Dry Lymphatic: No Adenopathy Results Results/Procedures Labs Laboratory Tests 08/27/22 12:18 08/28/22 05:10 Patient resulted labs reviewed. Assessment/Plan Admission Diagnosis Assessment: Left hand numbness with no evidence of stroke on full protocol including MRI, echo, carotid ultrasound and labs Chronic headaches Hypertension Plan: Supportive care Discharge home Follow-up with Dr. River to evaluate any further testing Admission Status: Observation ELSA ARENAS DO Aug 28, 2022 05:56
[2022-08-28 07:18] VITALS: BP 116/74
[2022-08-28] MEDS ORDERED: PANTOPRAZOLE 40 MG (PROTONIX) TAB PO SCH ×2 (09:00→21:00)
[2022-08-28] MEDS ORDERED: ASPIRIN 81 MG CHEW (CHILDREN'S ASA) PO SCH (09:00)
[2022-08-28] MEDS: cloNIDine 0.1 MG (CATAPRES) TAB PO SCH (09:03)
[2022-08-28] MEDS: SENNOSIDES 8.6 MG (SENOKOT) TAB PO SCH (09:03)
[2022-08-28] MEDS: toPIRamate 25 MG (TOPAMAX) TAB PO SCH (09:03)
[2022-08-28] MEDS: DOCUSATE SODIUM 100 MG (COLACE) CAP PO SCH (09:03)
--- NOTE | 2022-08-28 09:30 | Occupational Therapy Eval ---
OT Evaluation-General/PLF Medical Diagnosis Admission Date Aug 27, 2022 at 17:04 Medical Diagnosis: neurologigical lefrt side numbness Onset Date: Aug 27, 2022 Therapy Diagnosis Therapy Diagnosis: left numbness Height/Weight Height (Feet): 5 Height (Inches): 6.00 Weight (Pounds): 172 Weight (Ounces): 2.0 Precautions Precautions/Isolations: Standard Precautions Weight Bear Status Weight Bearing Restriction: Full Weight Bearing Referral Referral Reason: Self Care, Evaluation/Treatment Medical History Pertinent Medical History: Arthritis, GERD Additional Medical History 72-year-old woman presents to the emergency room by private vehicle accompanied by her son with complaints of left sided numbness involving her face, upper extremity, and lower extremity. She has been having some intermittent numbness of the left leg over the past week and intended to follow-up with her primary care provider. However, when the left leg numbness returned today it was also accompanied by numbness in the left arm and hand as well as some subtle numbness of the left face. She has noted no motor deficits. The only symptom she has at this time is a little bit of numbness in her left upper arm. She has a subtle speech deficit related to Tourette's syndrome. This may be exacerbated today as she has not yet taken her medications for Tourette's. Last known well time was 10:30 when she had a conversation with her son on the phone. Symptoms were noted shortly after that. Patient additionally complains of some pain in the right ear and the right eye with some drainage from the eye. She has an appointment with her doctor tomorrow to evaluate that issue. She has an appointment with her Dr. Cobian, her new eye doctor, in September. Patient reports history of a frontal meningioma which has been treated with radiation. She is supposed to have follow-up imaging this summer to monitor progression. Patient also reports a mild headache which is not unusual for her. She is not accustomed to having paresthesias associated with her headaches. Current History Currently patient son is in her hospital room alternating between bathroom and chair by window conducting a zoom meeting, many distractions in patient room, OT ambulated patient dozier to reduce distraction perform evaluation interview. In hallway patient heard another patient w/ healthcare intervention and began shaking her hands and tapping her ears and arms.Patient reports she has Tourettes and these noises bother her. OT returned to room as son entered bathroom. Additional staff arrived for diagnostic scanning. OT assisted patient to bed for testing. Reviewed History: Yes Social History Home: Single Level Current Living Status: Spouse Entry Into Home: Stairs With Railing Steps Into Home: 3 (Pateint responded w/ approximation of gait steps to enter home and OT restated the question to reflect stair steps to enter home) Steps Inside Home: 2 ADL-Prior Level of Function SCALE: Activities may be completed with or without assistive devices. 4-Orviqooxrl-fslxvht completes the activity by him/herself with no assistance from a helper. 5-Set-up or Clean-up Assistance-helper sets up or cleans up; patient completes activity. [place] assists only prior to or following the activity. 4-Supervision or Touching Assistance-helper provides verbal cues and/or touching/steadying and/or contact guard assistance as patient completes activity. Assistance may be provided throughout the activity or intermittently. 3-Partial/Moderate Assistance-helper does LESS THAN HALF the effort. [place] lifts, holds or supports trunk or limbs, but provides less than half the effort. 2-Substantial/Maximal Assistance-helper does MORE THAN HALF the effort. [place] lifts or holds trunk or limbs and provides more than half the effort. 2-Indzarfkv-wbvpce does ALL the effort. Patient does none of the effort to complete the activity. Or, the assistance of 2 or more helpers is required for the patient to complete the activity. If activity was not attempted, code reason: 7-Patient Refused. 9-Not Applicable-not attempted and the patient did not perform the activity before the current illness, exacerbation or injury. 10-Not Attempted due to Environmental Limitations-(lack of equipment, weather restraints, etc.). 88-Not Attempted due to Medical Conditions or Safety Concerns. 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 Upper Extremity Sensation Patent report numbness is resolved from yesterday Upper Extremity Strength 4/5 grossly, BUE ADL-Treatment ADL-Current Patient bed mobility from supine to sit and stand to sit/supine is independent, request to use bathroom and has personal undergarments and pants on under hospital gown Eating (QC): 6 Oral Hygiene (QC): 6 (oral care and hair care items provided to patient) Shower/Bathe Self (QC): 7 Upper Body Dressing (QC): 6 Lower Body Dressing (QC): 6 On/Off Footwear (QC): 6 Toileting Hygiene (QC): 6 RN notified of urine in toilet hat Education OT Patient Education: Purpose of tx/functional activities, Reviewed precautions, Rehab process, Safety issues Teaching Recipient: Patient Teaching Methods: Demonstration, Discussion Response to Teaching: Verbalize Understanding, Return Demonstration OT Painting Contractor Goals Painting Contractor Goals 1=Demonstrate adherence to instructed precautions during ADL tasks. 2=Patient will verbalize/demonstrate understanding of assistive devices/modifications for ADL. 3=Patient will improve strength/tolerance for activity to enable patient to perform ADL's. OT Education/Plan Problem List/Assessment Assessment: No Skilled OT Needs ID'd Discharge Recommendations Plan/Recommendations: Discontinue OT Treatment Plan/Plan of Care Patient would benefit from OT for education, treatment and training to promote independence in ADL's, mobility, safety and/or upper extremity function for ADL's. Plan of Care: OTHER (EVAL ONLY) Treatment Duration: Aug 28, 2022 Frequency: 1 time per week Estimated Hrs Per Day: .25 hour per day Agreement: Yes Rehab Potential: Good Remains in bed supine for testing procedure Time Start Time: 09:20 Stop Time: 09:44 DATE: Aug 28, 2022 Total Time Billed (hr/min): 24 Billed Treatment Time EVM, ADL 24 min DELMER BAEZ OT Aug 28, 2022 09:30
[2022-08-28] MEDS ORDERED: SERT-414 PO (10:35)
[2022-08-28] MEDS ORDERED: L.AC1CAP6 PO (10:35)
[2022-08-28] MEDS ORDERED: MULT-1136 PO (10:35)
[2022-08-28] MEDS ORDERED: GADOTERATE 0.5 MMOL/ML (CLARISCAN) 15 ML VIAL IV ONE (10:45)
--- NOTE | 2022-08-28 11:07 | Diagnostic Imaging Report ---
PROCEDURE: US carotid duplex, bilateral. TECHNIQUE: Multiple real-time grayscale images were obtained over the carotid arteries in various projections, bilaterally. Additional spectral analysis and color Doppler duplex images were also obtained. INDICATION: CVA, stroke, dizziness, headaches, confusion, altered mental status, memory loss. COMPARISON: CTA from 08/27/2022. FINDINGS: Right carotid: The right common carotid artery is patent. Carotid upstrokes are brisk. The ICA demonstrates some tortuosity. This appears to slightly elevate the velocity at the mid ICA, but no stenosis is appreciated. The ECA is patent. The vertebral artery is antegrade. Left carotid: The left common carotid artery is patent. There is mild intimal thickening. The left ICA is also tortuous. No stenosis is seen. Carotid upstrokes are brisk. The ECA is patent. The vertebral artery is antegrade. Parameters based on the consensus panel Parmar-Scale and Doppler ultrasound criteria published January 2003, Radiology, Volume 229. DOPPLER (peak systolic velocity M/S Right Left CCA .79 .79 ICA Proximal .67 .66 ICA Mid 1.3 .82 ICA Distal 1.1 .70 RATIO 1.7 1.0 ECA .90 .60 VERT .77 .40 IMPRESSION: 1. Mildly elevated velocity in the right mid ICA is thought to be artifact from tortuosity, and no significant stenosis is seen in the bilateral carotid arteries. Dictated by: Dictated on workstation # [id number]
--- NOTE | 2022-08-28 11:36 | Diagnostic Imaging Report ---
PROCEDURE: MR imaging of the brain without contrast. TECHNIQUE: Multiplanar, multisequence MR imaging of the brain was performed without contrast. INDICATION: Left-sided numbness and weakness. History of meningioma. COMPARISON: 11/07/2021. 08/27/2022. FINDINGS: No acute ischemia or hemorrhage. A hemangioma is seen in the anterior cranial fossa measuring 1.4 x 1.3 cm, stable compared to the prior exam. Scattered T2 hyperintense signal seen in the periventricular and subcortical white matter. The ventricles, cortical sulci, and basilar cisterns are symmetric and unremarkable. The sellar and suprasellar regions have a normal appearance. The brainstem and posterior fossa are unremarkable. The paranasal sinuses and mastoid air cells demonstrate normal signal characteristics. Right-sided lens implant is seen. The scalp and calvarium have a normal appearance. IMPRESSION: 1. No acute ischemia or hemorrhage. 2. Stable hemangioma in the anterior cranial fossa. No new parenchymal edema. 3. Scattered chronic microvascular disease. Dictated by: Dictated on workstation # [id number]
[2022-08-28 11:41] VITALS: BP 125/76
--- NOTE | 2022-08-28 12:11 | Physical Therapy Evaluation ---
PT Evaluation-General Medical Diagnosis Admission Date Aug 27, 2022 at 17:04 Medical Diagnosis: neurologigical left side numbness Onset Date: Aug 27, 2022 Therapy Diagnosis Therapy Diagnosis: Gait deficit, strength deficit Height/Weight Height (Feet): 5 Height (Inches): 6.00 Weight (Pounds): 172 Weight (Ounces): 2.0 Precautions Precautions/Isolations: Fall Prevention, Standard Precautions Weight Bear Status Right Lower Extremity: Right Left Lower Extremity: Left Full Weight Bearing Referral Physician: Dr. Yoon Reason for Referral: Evaluation/Treatment Medical History Pertinent Medical History: Arthritis, GERD Reviewed History: Yes Social History Home: Single Level Current Living Status: Spouse Entry Into Home: Stairs With Railing PT Steps Into Home: 3 (Pateint responded w/ approximation of gait steps to enter home and OT restated the question to reflect stair steps to enter home) PT Steps Inside Home: 2 Prior Prior Level of Function SCALE: Activities may be completed with or without assistive devices. 0-[place]up[place]ueur-jueogxy completes the activity by him/herself with no assistance from a helper. 5-Set-up or Clean-up Assistance-helper sets up or cleans up; patient completes activity. [place] assists only prior to or following the activity. 4-Supervision or Touching Assistance-helper provides verbal cues and/or touching/steadying and/or contact guard assistance as patient completes activity. Assistance may be provided throughout the activity or intermittently. 3-Partial/Moderate Assistance-helper does LESS THAN HALF the effort. [place] lifts, holds or supports trunk or limbs, but provides less than half the effort. 2-Substantial/Maximal Assistance-helper does MORE THAN HALF the effort. [place] lifts or holds trunk or limbs and provides more than half the effort. 1-Nilbnilbn-fyormq does ALL the effort. Patient does none of the effort to complete the activity. Or, the assistance of 2 or more helpers is required for the patient to complete the activity. If activity was not attempted, code reason: 7-Patient Refused. 9-Not Applicable-not attempted and the patient did not perform the activity before the current illness, exacerbation or injury. 10-Not Attempted due to Environmental Limitations-(lack of equipment, weather restraints, etc.). 88-Not Attempted due to Medical Conditions or Safety Concerns. Bed Mobility: 6 Transfers (B,C,W/C): 6 Gait: 6 Stairs: 6 Indoor Mobility (Ambulation): Independent Stairs: Independent Cane for community distances. PT Evaluation-Current Subjective Patient lying supine in bed upon PT arrival, family in the room, patient agreeable to treatment. Patient rates pain currently at 0/10. Reports her Tourrettes has been acting up more lately even with medicine and at times her leg with spontaneously raise without warning, even when ambulating. This was not observed during this treatment session. Objective Patient Orientation: Person, Place, Time, Situation Attachments: IV ROM/Strength ROM Lower Extremities WFLS BLEs all planes. Strength Lower Extremities 4-/5 BLEs all planes Sensory Vision: Functional Hearing: Functional Hand Dominance: Right Sensation Right Lower Extremit: Intact Sensation Left Lower Extremity: Intact Transfers Roll Left to Right (QC): 4 Sit to Lying (QC): 4 Lying to Sitting/Side of Bed(Q: 4 Sit to Stand (QC): 4 Chair/Hml-un-Lhjpg Xfer(QC): 4 Gait Does the Patient Walk?: Yes Mode of Locomotion: Walk Anticipated Mode of Locomotion: Walk Walk 10 feet (QC): 4 Walk 50 ft with 2 Turns(QC): 4 Walk 150 ft (QC): 4 Distance: 250' Gait Assistive Device: None Balance Sitting Static: Normal Sitting Dynamic: Normal Standing Static: Good Standing Dynamic: Fair Assessment/Needs Patient tolerated treatment well. She performs all observed bed mobility and transfers with SBA. Patient ambulates 250 ft with no AD, with SBA and verbal cues for posture, safety and to avoid objects. Patients arms, especially her right arm, would flail at random times throughout gait,and she has a tendency to ambulate in a diagonal pattern at times to the right. Patient in bed post treatment with all needs met, nursing notified, call light in hand and family in the room. Rehab Potential: Good PT Half-Way Goals Drawing Checker Goals PT Drawing Checker Goals Time Frame: Oct 05, 2022 Roll Left & Right (QC): 6 Sit to Lying (QC): 6 Lying-Sitting on Side/Bed(QC): 6 Sit to Stand (QC): 6 Chair/Zvh-wh-Rnosi Xfer(QC): 6 Toilet Transfer (QC): 6 Does the Patient Walk: Yes Walk 10 feet (QC): 6 Walk 50ft with 2 Turns (QC): 6 Walk 150 ft (QC): 6 1 Step (curb) (QC): 4 4 Steps (QC): 4 12 Steps (QC): 4 PT Plan Problem List Problem List: Activity Tolerance, Functional Strength, Safety, Balance, Gait, Transfer, Bed Mobility, ROM Treatment/Plan Treatment Plan: Continue Plan of Care Treatment Plan: Bed Mobility, Education, Functional Activity Lynette, Functional Strength, Group Therapy, Gait, Safety, Therapeutic Exercise, Transfers Treatment Duration: Oct 05, 2022 Frequency: 6 times per week Estimated Hrs Per Day: .25 hour per day Patient and/or Family Agrees t: Yes Safety Risks/Education Patient Education: Gait Training, Transfer Techniques Teaching Recipient: Patient Teaching Methods: Demonstration, Discussion Response to Teaching: Verbalize Understanding, Return Demonstration Time Time In: 947 Time Out: 1005 DATE: Aug 28, 2022 Total Billed Treatment Time: 18 Total Billed Treatment Visit, DIANE CARROLL PT Aug 28, 2022 12:11
--- NOTE | 2022-08-28 13:06 | Discharge Summary ---
Diagnosis/Chief Complaint Date of Admission Aug 27, 2022 at 17:04 Date of Discharge Discharge Date: Aug 28, 2022 Discharge Diagnosis Left hand numbness with no evidence of stroke on full entire work-up Migraines Discharge Summary Discharge Physical Examination Allergies: Coded Allergies: bupropion (Verified Allergy, Unknown, 01/17/20) citalopram (Verified Allergy, Unknown, 01/17/20) escitalopram (Verified Allergy, Unknown, 01/17/20) latex (Verified Allergy, Unknown, RASH, 01/17/20) midazolam (Verified Allergy, Unknown, 01/17/20) tramadol (Verified Allergy, Unknown, 01/17/20) lactose (Verified Adverse Reaction, Mild, 08/27/22) Lactose intolerance Vitals & I&Os Vital Signs Date Time Temp Pulse Resp B/P (MAP) Pulse Ox O2 Delivery O2 Flow Rate FiO2 08/28/22 12:46 63 08/28/22 11:41 36.6 18 125/76 (92) 98 Room Air General Appearance: Alert, Oriented X3, Cooperative Respiratory: Clear to Auscultation Cardiovascular: Regular Rate Psych/Mental Status: Mental Status NL Hospital Course Was the Problem List Reviewed?: Yes Short course after she was admitted for suspicion of TIA versus stroke. MRI did not reveal any evidence of stroke and vitals remained stable and the rest of stroke work-up was negative so she was discharged in improved condition. Labs (last 24 hrs) Laboratory Tests 08/27/22 12:18: White Blood Count 5.6, Red Blood Count 4.02, Hemoglobin 12.1, Hematocrit 36, Mean Corpuscular Volume 90, Mean Corpuscular Hemoglobin 30, Mean Corpuscular Hemoglobin Concent 33, Red Cell Distribution Width 12.5, Platelet Count 239, Marcella n Platelet Volume 11.1, Immature Granulocyte % (Auto) 0, Neutrophils (%) (Auto) 52, Lymphocytes (%) (Auto) 38, Monocytes (%) (Auto) 6, Eosinophils (%) (Auto) 3, Basophils (%) (Auto) 1, Neutrophils # (Auto) 2.9, Lymphocytes # (Auto) 2.1, Monocytes # (Auto) 0.4, Eosinophils # (Auto) 0.2, Basophils # (Auto) 0.1, Immature Granulocyte # (Auto) 0.0, Prothrombin Time 13.8, INR Comment 1.0, Activated Partial Thromboplast Time 27, D-Dimer 0.88H, Sodium Level 140, Potassium Level 4.1, Chloride Level 113H, Carbon Dioxide Level 21, Anion Gap 6, Blood Urea Nitrogen 19H, Creatinine 0.81, Estimat Glomerular Filtration Rate 77, BUN/Creatinine Ratio 23, Glucose Level 95, Glucometer 97, Calcium Level 8.8, Corrected Calcium 8.9, Total Bilirubin 0.2, Aspartate Amino Transf (AST/SGOT) 13, Alanine Aminotransferase (ALT/SGPT) 12, Alkaline Phosphatase 150H, Troponin I < 0.028, Total Protein 6.7, Albumin 3.9, Thyroid Stimulating Hormone (TSH) 3.47, Free Thyroxine 0.92 08/27/22 12:57: Urine Color YELLOW, Urine Clarity CLEAR, Urine pH 6.0, Urine Specific [place] 1.015L, Urine Protein NEGATIVE, Urine Glucose (UA) NEGATIVE, Urine Ketones NEGATIVE, Urine Nitrite NEGATIVE, Urine Bilirubin NEGATIVE, Urine Urobilinogen 0.2, Urine Leukocyte Esterase TRACEH, Urine RBC (Auto) NEGATIVE, Urine RBC RARE, Urine WBC 0-2, Urine Squamous Epithelial Cells 0-2, Urine Crystals NONE, Urine Bacteria NEGATIVE, Urine Casts NONE, Urine Mucus NEGATIVE, Urine Culture Indicated NO 08/28/22 05:10: White Blood Count 5.5, Red Blood Count 3.79L, Hemoglobin 11.3L, Hematocrit 34L, Mean Corpuscular Volume 91, Mean Corpuscular Hemoglobin 30, Mean Corpuscular Hemoglobin Concent 33, Red Cell Distribution Width 12.7, Platelet Count 225, Mean Platelet Volume 11.4, Immature Granulocyte % (Auto) 0, Neutrophils (%) (Auto) 50, Lymphocytes (%) (Auto) 34, Monocytes (%) (Auto) 9, Eosinophils (%) (Auto) 5, Basophils (%) (Auto) 2, Neutrophils # (Auto) 2.8, Lymphocytes # (Auto) 1.8, Monocytes # (Auto) 0.5, Eosinophils # (Auto) 0.3, Basophils # (Auto) 0.1, Immature Granulocyte # (Auto) 0.0, Sodium Level 142, Potassium Level 3.7, Chloride Level 113H, Carbon Dioxide Level 21, Anion Gap 8, Blood Urea Nitrogen 17, Creatinine 0.80, Estimat Glomerular Filtration Rate 78, BUN/Creatinine Ratio 21, Glucose Level 95, Calcium Level 8.5, Triglycerides Level 111, Cholesterol Level 168, LDL Cholesterol Direct 117, VLDL Cholesterol 22, HDL Cholesterol 43 Pending Labs Laboratory Tests 08/27/22 12:18: White Blood Count 5.6, Red Blood Count 4.02, Hemoglobin 12.1, Hematocrit 36, Mean Corpuscular Volume 90, Mean Corpuscular Hemoglobin 30, Mean Corpuscular Hemoglobin Concent 33, Red Cell Distribution Width 12.5, Platelet Count 239, Mean Platelet Volume 11.1, Immature Granulocyte % (Auto) 0, Neutrophils (%) (Auto) 52, Lymphocytes (%) (Auto) 38, Monocytes (%) (Auto) 6, Eosinophils (%) (Auto) 3, Basophils (%) (Auto) 1, Neutrophils # (Auto) 2.9, Lymphocytes # (Auto) 2.1, Monocytes # (Auto) 0.4, Eosinophils # (Auto) 0.2, Basophils # (Auto) 0.1, Immature Granulocyte # (Auto) 0.0, Prothrombin Time 13.8, INR Comment 1.0, Activated Partial Thromboplast Time 27, D-Dimer 0.88, Sodium Level 140, Potassium Level 4.1, Chloride Level 113, Carbon Dioxide Level 21, Anion Gap 6, Blood Urea Nitrogen 19, Creatinine 0.81, Estimat Glomerular Filtration Rate 77, BUN/Creatinine Ratio 23, Glucose Level 95, Glucometer 97, Calcium Level 8.8, Corrected Calcium 8.9, Total Bilirubin 0.2, Aspartate Amino Transf (AST/SGOT) 13, Alanine Aminotransferase (ALT/SGPT) 12, Alkaline Phosphatase 150, Troponin I < 0.028, Total Protein 6.7, Albumin 3.9, Thyroid Stimulating Hormone (TSH) 3.47, Free Thyroxine 0.92 08/27/22 12:57: Urine Color YELLOW, Urine Clarity CLEAR, Urine pH 6.0, Urine Specific [place] 1.015, Urine Protein NEGATIVE, Urine Glucose (UA) NEGATIVE, Urine Ketones NEGATIVE, Urine Nitrite NEGATIVE, Urine Bilirubin NEGATIVE, Urine Urobilinogen 0.2, Urine Leukocyte Esterase TRACE, Urine RBC (Auto) NEGATIVE, Urine RBC RARE, Urine WBC 0-2, Urine Squamous Epithelial Cells 0-2, Urine Crystals NONE, Urine Bacteria NEGATIVE, Urine Casts NONE, Urine Mucus NEGATIVE, Urine Culture Indicated NO 08/28/22 05:10: White Blood Count 5.5, Red Blood Count 3.79, Hemoglobin 11.3, Hematocrit 34, Mean Corpuscular Volume 91, Mean Corpuscular Hemoglobin 30, Mean Corpuscular Hemoglobin Concent 33, Red Cell Distribution Width 12.7, Platelet Count 225, Mean Platelet Volume 11.4, Immature Granulocyte % (Auto) 0, Neutrophils (%) (Auto) 50, Lymphocytes (%) (Auto) 34, Monocytes (%) (Auto) 9, Eosinophils (%) (Auto) 5, Basophils (%) (Auto) 2, Neutrophils # (Auto) 2.8, Lymphocytes # (Auto) 1.8, Monocytes # (Auto) 0.5, Eosinophils # (Auto) 0.3, Basophils # (Auto) 0.1, Immature Granulocyte # (Auto) 0.0, Sodium Level 142, Potassium Level 3.7, Chloride Level 113, Carbon Dioxide Level 21, Anion Gap 8, Blood Urea Nitrogen 17, Creatinine 0.80, Estimat Glomerular Filtration Rate 78, BUN/Creatinine Ratio 21, Glucose Level 95, Calcium Level 8.5, Triglycerides Level 111, Cholesterol Level 168, LDL Cholesterol Direct 117, VLDL Cholesterol 22, HDL Cholesterol 43, Lyme Disease Screen IgG & IgM Ab [Pending], Lyme Antibody Interpretation [Pending], Ehrlichia chaffeensis IgG Antibody [Pending], Ehrlichia chaffeensis IgM Antibody [Pending], Spotted Fever Group IgG Antibody [Pending], Spotted Fever Group IgM Antibody [Pending], [place] Antibody [Pending] Discharge Home Medications: Active Scripts Active Reported Probiotic (L.acidoph & Paracasei,B.lactis) 10 Billion Cell Capsule 1 Each PO DAILY Multivitamin 1 Each Tablet 1 Each PO DAILY Sertraline HCl 100 Mg Tablet 100 Mg PO HS LAST FILED 05-12-2022 #30/30 DAY SUPPLY Vitamin D3 (Cholecalciferol (Vitamin D3)) 125 Mcg Capsule 125 Mcg PO DAILY Meloxicam 7.5 Mg Tablet 7.5 Mg PO DAILY Topiramate 50 Mg Tablet 50 Mg PO BID Clonidine HCl 0.1 Mg Tablet 0.05 Mg PO BID TAKES OF A 0.1MG TAB Pantoprazole Sodium 40 Mg Tablet.dr 40 Mg PO BID Instructions to patient/family Please see electronic discharge instructions given to patient. ALEN ARENAS DO Aug 28, 2022 13:06
[2022-08-28] MEDS ORDERED: cloNIDine 0.1 MG (CATAPRES) TAB PO SCH (21:00)
[2022-08-28] MEDS ORDERED: NON-FORMULARY MEDICATION 1 EA EA (Topiramate 50 MG) PO SCH (21:00)
[2022-08-28] MEDS ORDERED: SERTRALINE 100 MG (ZOLOFT) TAB PO SCH (21:00)
[2022-08-29] MEDS ORDERED: MULTIVIT W/MINERALS TAB (THERAGRAN M) PO SCH (07:00)
[2022-08-29] MEDS ORDERED: VITAMIN D3 125 MCG (5,000 UNITS) CAPSULE PO SCH (09:00)
[2022-08-29] MEDS ORDERED: NON-FORMULARY MEDICATION 1 EA EA (L.acidoph & Paracasei,B.lactis (Probiotic) 1 EACH) PO SCH (09:00)
[2022-08-29] MEDS ORDERED: MELOXICAM 7.5 MG (MOBIC) TABLET PO SCH (09:00)
[2022-08-29] MEDS ORDERED: NON-FORMULARY MEDICATION 1 EA EA (Multivitamin 1 EACH) PO SCH (09:00)
[2022-08-29] MEDS ORDERED: NON-FORMULARY MEDICATION 1 EA EA (Cholecalciferol (Vitamin D3) (Vitamin D3) 125 MCG) PO SCH (09:00)
[2022-08-29] MEDS ORDERED: LACTOBACILLUS ACIDOPHILUS (PROBIOTIC) CAPSULE PO SCH (09:00)
== END 2022-08-28 13:01 | disposition home or self-care (01) ==
LOC: EDUNIT# 11:58 → ER 12:00 → 4TH 17:04 → UNDOADMOB 17:04 → 4TH 17:10 → UNDODISOB 08-28 13:01
PROVIDERS: ADMIT Internal Medicine; ATTEND Internal Medicine
DX: R20.0 Anesthesia of skin (principal); G43.909 Migraine, unspecified, not intractable, without status migrainosus; D32.0 Benign neoplasm of cerebral meninges; F95.2 Tourette's disorder; I10 Essential (primary) hypertension; R29.701 NIHSS score 1; Z79.899 Other long term (current) drug therapy; Z91.09 Other allergy status, other than to drugs and biological substances
CPT/HCPCS: 70450; 70496; 70498; 70551; 71045; 72125; 80048; 80053; 80061; 81000; 82947; 84439; 84443; 84484; 85025 ×2; 85379; 85610; 85730; 86618; 86666 ×2; 86668; 86757 ×2; 93005; 93041; 93880; 94664; 96372; 99284; C8929; G0378; 36415; 93306

== ENCOUNTER 2022-09-07 09:31 | Emergency (ER) | payer MEDICARE, OTHER ==
[~2022-09-07] VITALS: Ht 165.1 cm; Wt 81.6 kg
[~2022-09-07 09:31] MED LIST changes: +L.AC1CAP6 PO; +MULT-1136 PO; +SERT-414 PO
--- NOTE | 2022-09-07 09:54 | ED Lower Extremity ---
General Chief Complaint: Lower Extremity Stated Complaint: RIGHT LEG Nursing Triage Note: PT AMBULATE TO ROOM 07 WITHOUT DIFFICULTY WITH C/O PAIN IN RIGHT CALF STARTING THIS MORNING AT 0500. PT REPORTS PAIN GOT WORSE AND NOW FEEL BETTER THAN IT DID. 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 PT STATES SHE IS WORRIED IT IS A BLOOD CLOT. Source: patient Exam Limitations: no limitations History of Present Illness Date Seen by Provider: Sep 07, 2022 Time Seen by Provider: 09:42 Initial Comments 72-year-old female presents to the emergency department today for right calf pain. She states she awakened at 5:00 this morning with pain that has now subsided. It lasted most of the morning. She denies any chest pain or shortness of breath. She is worried that might be a blood clot. No recent surgery or periods of immobility. She has never had similar pains in the past. No swelling. Again she is currently symptom-free. All other systems reviewed and negative except documented per HPI. Voice recognition software was used to help create this chart Allergies and Home Medications Allergies Coded Allergies: bupropion (Verified Allergy, Unknown, 01/17/20) citalopram (Verified Allergy, Unknown, 01/17/20) escitalopram (Verified Allergy, Unknown, 01/17/20) latex (Verified Allergy, Unknown, RASH, 01/17/20) midazolam (Verified Allergy, Unknown, 01/17/20) tramadol (Verified Allergy, Unknown, 01/17/20) lactose (Verified Adverse Reaction, Mild, 08/27/22) Lactose intolerance Patient Home Medication List Home Medication List Reviewed: Yes Cholecalciferol (Vitamin D3) (Vitamin D3) 125 Mcg Capsule, 125 MCG PO DAILY, (Reported) Entered as Reported by: SAHARA UMANA on 01/17/20 1523 Clonidine HCl (Clonidine HCl) 0.1 Mg Tablet, 0.05 MG PO BID, (Reported) Entered as Reported by: CORINNE JOHNS on 06/12/15 1404 L.acidoph & Paracasei,B.lactis (Probiotic) 10 Billion Cell Capsule, 1 EACH PO DAILY, (Reported) Entered as Reported by: RAMÍREZ AGUILERA on 08/28/22 1035 Meloxicam (Meloxicam) 7.5 Mg Tablet, 7.5 MG PO DAILY, (Reported) Entered as Reported by: RAHAT SANCHEZ on 03/23/182005 Multivitamin (Multivitamin) 1 Each Tablet, 1 EACH PO DAILY, (Reported) Entered as Reported by: RAMÍREZ AGUILERA on 08/28/22 1035 Pantoprazole Sodium (Pantoprazole Sodium) 40 Mg Tablet.dr, 40 MG PO BID, (Reported) Entered as Reported by: CORINNE JOHNS on 06/12/15 1222 Sertraline HCl (Sertraline HCl) 100 Mg Tablet, 100 MG PO HS, (Reported) Entered as Reported by: RAMÍREZ AGUILERA on 08/28/22 1035 Topiramate (Topiramate) 50 Mg Tablet, 50 MG PO BID, (Reported) Entered as Reported by: RUSS CORDOVA on 10/11/17 0851 Review of Systems Constitutional: see HPI Past Haavxxf-Pyndnh-Yariin Hx Patient Social History Tobacco Use?: No Smoking Status: Never a Smoker Smokeless Tobacco Frequency: Never a User Use of E-Cig and/or Vaping dev: No Use of E-Cig and/or Vaping Forrest: Never a User Substance use?: No Alcohol Use?: No Pt feels they are or have been: No Immunizations Up To Date First/Initial COVID19 Vaccinat: 05/03/2020 Second COVID19 Vaccination Danny: 06/01/2020 Third COVID19 Vaccination Date: 05/03/2020 Seasonal Allergies Seasonal Allergies: No Past Medical History Surgery/Hospitalization HX: TOURETTE'S SYNDROME, BOTH KNEES REPLACED, GALLBLADDER, LT ARM, 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 Surgeries: Yes (Bilateral knee replacements, Left arm fx repair with plates and screws) Gallbladder, Hysterectomy, Joint Replacement, Orthopedic, Thyroidectomy Respiratory: No Cardiac: Yes Hypertension Neurological: Yes (TREMORS, frontal meningioma) Headaches /Migraines 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: No 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 Sexually Transmitted Disease: No HIV/AIDS: No Genitourinary: No Gastrointestinal: Yes Gastroesophageal Reflux, Hiatal Hernia Musculoskeletal: Yes Arthritis, Fractures Endocrine: Yes (SURGICAL THYROIDECTOMY PARTIAL) Hyperthyroidism HEENT: No Cancer: No Psychosocial: Yes (Tourette's Syndrome) Depression Integumentary: No Adverse Reaction/Blood Tranf: No Family Medical History Abdominal aortic aneurysm 19 FATHER G8 BROTHER Alzheimer's disease 19 MOTHER Cardiovascular disease 19 FATHER 19 MOTHER G8 BROTHER Congenital disease G8 BROTHER Dementia 19 MOTHER No Pertinent Family Hx Physical Exam Vital Signs Vital Signs - First Documented 7/1/23 09:40 Temp 36.4 Pulse 79 Resp 17 B/P (MAP) 118/71 (87) O2 Delivery Room Air Capillary Refill : Less Than 3 Seconds Height, Weight, BMI Height: 5'6.00" Weight: 172lbs. 2.0oz. [id number]; 29.00 BMI Method:Stated General Appearance: WD/WN, no apparent distress Cardiovascular: regular rate, rhythm, no murmur Gastrointestinal: non tender, soft Legs: right leg other (Mild tenderness palpation of the right superior calf just inferior to the popliteal fossa. This is worse with plantarflexion and crossing of her legs. Tenderness appears to be along the tendinous portions.) Neurologic/Psychiatric: alert, normal mood/affect, oriented x 3 Progress/Results/Core Measures Results/Orders Vital Signs/I&O 09/07/22 09:40 Temp 36.4 Pulse 79 Resp 17 B/P (MAP) 118/71 (87) O2 Delivery Room Air Blood Pressure Mean: 87 Departure Communication (Admissions) Patient is hemodynamically stable. She is pain-free at rest. She does appear to have some tenderness over the tenderness portions of her posterior right calf just below the popliteal fossa.. There is no swelling. Good distal pulses. Neurovascular and sensory intact. Ultrasound unavailable on the weekends, no indication for emergent imaging at this time. I doubt DVT however I did advise if her symptoms persist that she should seek care with her primary doctor. Instructed to return for chest pain or shortness of breath. Impression Primary Impression: Right calf pain Disposition: HOME, SELF-CARE Condition: Stable Departure-Patient Inst. Referrals: LIDA SLADE MD (PCP/Family) Primary Care Physician Patient Instructions: Muscle and Bone Pain (DC) Add. Discharge Instructions: As discussed I do not think that your pain is from a blood clot at this time however I do not have ultrasound to officially verify this. This does appear to be coming from the muscles in the area and, possible small muscle spasms. I recommend increasing her fluids at home, eating plenty of green leafy vegetables and bananas. If you develop any chest pain or shortness of breath, or if your symptoms change in any way concerning you should return to the emergency department immediately. Otherwise follow-up with your primary doctor on Friday for further evaluation and treatment recommendations. All discharge instructions reviewed with patient and/or family. Voiced understanding. SHAYLEE BLUNT DO Sep 07, 2022 09:54
[2022-09-07 10:05] VITALS: BP 120/70
== END 2022-09-07 10:05 | disposition home or self-care (01) ==
LOC: EDUNIT# 09:31 → ER 09:33
DX: M79.661 Pain in right lower leg (principal); Z91.040 Latex allergy status
CPT/HCPCS: 99281

== ENCOUNTER 2022-09-26 09:56 | Outpatient (RCR) | payer MEDICARE, OTHER | END 2022-10-07 | disposition home or self-care (01) | LOC: ONC 09:56 | PROVIDERS: ATTEND Radiology Radiation Oncology | DX: D32.0 Benign neoplasm of cerebral meninges (principal) | CPT/HCPCS: 99213 ==

== ENCOUNTER → 2022-11-08 | Outpatient (CLI) | payer MEDICARE, OTHER ==
--- NOTE | 2022-11-08 16:25 | Diagnostic Imaging Report ---
PROCEDURE: US Renal Bilateral. TECHNIQUE: Multiple real-time grayscale images were obtained over the kidneys in various projections bilaterally. INDICATION: Renal atrophy. Right kidney measures 9.4 x 3.4 x 3.4 cm, and the left kidney measures 10.2 x 4.3 x 4.1 cm. Cortical thickness and echogenicity appear normal. No calculi are seen. There is no hydronephrosis. Bilateral ureteral jets were visualized. IMPRESSION: Unremarkable renal ultrasound. Dictated by: Dictated on workstation # [id number]
== END ==
LOC: RAD 14:12
PROVIDERS: ATTEND Nurse Practitioner Family
DX: N26.1 Atrophy of kidney (terminal) (principal)
CPT/HCPCS: 76770